=== PATIENT | female | born 1965 | race Caucasian/White ===

== ENCOUNTER 2016-12-06 12:48 | Emergency (ER) | payer MEDICARE, MEDICAID ==
[2016-12-06] MEDS ORDERED: MORPHINE 2 MG/ML SYRINGE IVP STA (13:52)
[2016-12-06] MEDS ORDERED: SODIUM CHLORIDE 0.9% 1,000 ML IV ONE (13:54)
[2016-12-06] MEDS ORDERED: MORPHINE 2 MG/ML SYRINGE ONE (14:11)
[2016-12-06] MEDS ORDERED: LIDOCAINE VISCOUS 2% 15 ML UDC MM STA (15:52)
[2016-12-06] MEDS ORDERED: HYDROcod/ACETAM 5/325 MG TABLET PO STA (15:52)
[2016-12-06] MEDS ORDERED: MAG HYDROX/AL HYDROX/SIMETH 30 ML UDC PO STA (15:52)
[2016-12-06] MEDS ORDERED: SUCRALFATE 1 GM/10 ML UDC PO STA (15:52)
[2016-12-06] MEDS ORDERED: MAG HYDROX/AL HYDROX/SIMETH 30 ML UDC ONE (16:08)
[2016-12-06] MEDS ORDERED: HYDROcod/ACETAM 5/325 MG TABLET ONE (16:08)
[2016-12-06] MEDS ORDERED: LIDOCAINE VISCOUS 2% 15 ML UDC MM ONE (16:08)
[2016-12-06] MEDS ORDERED: SUCRALFATE 1 GM/10 ML UDC ONE (16:08)
== END 2016-12-06 16:38 | disposition home or self-care (01) ==
DX: R10.11 Right upper quadrant pain (principal); R10.13 Epigastric pain; F17.200 Nicotine dependence, unspecified, uncomplicated
CPT/HCPCS: 36415; 74177; 76705; 80053; 83690; 85025; 96374; 99283; 99284; A9270

== ENCOUNTER 2016-12-28 | Outpatient (CLI) | payer MEDICARE, MEDICAID | END 2016-12-28 15:08 | disposition critical access hospital (66) | CPT/HCPCS: A0425; A0429 ==

== ENCOUNTER 2016-12-28 15:36 | Emergency (ER) | payer MEDICARE, MEDICAID ==
[2016-12-28] MEDS ORDERED: FOLIC ACID INJ 1 MG, THIAMINE INJ 100 MG, MAGNESIUM SULFATE 2 GM, MULTIVITAMIN 10 ML in... IV STA ×5 (15:55)
[2016-12-28] MEDS ORDERED: MAG HYDROX/AL HYDROX/SIMETH 30 ML UDC PO STA (15:55)
[2016-12-28] MEDS ORDERED: PANTOPRAZOLE 40 MG VIAL IVP STA (15:55)
[2016-12-28] MEDS ORDERED: LIDOCAINE VISCOUS 2% 15 ML UDC MM STA (15:55)
[2016-12-28] MEDS ORDERED: PANTOPRAZOLE 40 MG VIAL ONE (16:15)
[2016-12-28] MEDS ORDERED: MAG HYDROX/AL HYDROX/SIMETH 30 ML UDC ONE (16:15)
[2016-12-28] MEDS ORDERED: LIDOCAINE VISCOUS 2% 15 ML UDC MM ONE (16:15)
[2016-12-28] MEDS ORDERED: THIAMINE 100 MG TABLET PO STA (17:16)
[2016-12-28] MEDS ORDERED: ONDANSETRON ODT 4 MG TABLET TL STA (17:16)
[2016-12-28] MEDS ORDERED: PANTOPRAZOLE 40 MG TABLET PO STA (17:16)
[2016-12-28] MEDS ORDERED: PANTOPRAZOLE 40 MG TABLET ONE (17:18)
[2016-12-28] MEDS ORDERED: THIAMINE 100 MG TABLET PO ONE (17:18)
[2016-12-28] MEDS ORDERED: ONDANSETRON ODT 4 MG TABLET ONE (17:18)
== END 2016-12-28 17:50 | disposition home or self-care (01) ==
DX: K29.20 Alcoholic gastritis without bleeding (principal); F10.20 Alcohol dependence, uncomplicated; F17.200 Nicotine dependence, unspecified, uncomplicated; R94.5 Abnormal results of liver function studies
CPT/HCPCS: 36415; 80053; 80164; 83690; 83735; 85025; 99283; 99284; A9270; G0480; J3411; Q0162

== ENCOUNTER 2017-02-09 16:11 | Emergency (ER) | payer MEDICARE, MEDICAID ==
[2017-02-09] MEDS ORDERED: SODIUM CHLORIDE 0.9% 1,000 ML IV ONE (16:35)
[2017-02-09] MEDS ORDERED: PANTOPRAZOLE 40 MG VIAL IVP STA (16:49)
[2017-02-09] MEDS ORDERED: PANTOPRAZOLE 40 MG VIAL ONE (16:52)
[2017-02-09] MEDS ORDERED: NITROFURANTOIN MACRO 100 MG CAPSULE PO STA (18:37)
[2017-02-09] MEDS ORDERED: NITROFURANTOIN MACRO 100 MG CAPSULE PO ONE (18:47)
== END 2017-02-09 20:05 | disposition home or self-care (01) ==
DX: N30.01 Acute cystitis with hematuria (principal); R10.13 Epigastric pain; R11.2 Nausea with vomiting, unspecified; R03.0 Elevated blood-pressure reading, without diagnosis of hypertension; F10.20 Alcohol dependence, uncomplicated; G40.909 Epilepsy, unspecified, not intractable, without status epilepticus; F17.200 Nicotine dependence, unspecified, uncomplicated
CPT/HCPCS: 36415; 74022; 76705; 80053; 81001; 81025; 83690; 85025; 96361; 96374; 99283; 99284; A9270

== ENCOUNTER 2017-03-07 11:24 | Outpatient (CLI) | payer MEDICARE, MEDICAID | END 2017-03-07 11:25 | disposition home or self-care (01) | DX: R10.9 Unspecified abdominal pain (principal); R17 Unspecified jaundice; B18.2 Chronic viral hepatitis C ==

== ENCOUNTER 2017-03-17 10:45 | Outpatient (CLI) | payer MEDICARE, MEDICAID | END 2017-03-17 10:46 | disposition home or self-care (01) | DX: E87.6 Hypokalemia (principal) ==

== ENCOUNTER 2017-03-18 14:52 | Outpatient (CLI) | payer MEDICARE, MEDICAID | END 2017-03-18 14:53 | disposition home or self-care (01) | DX: R16.0 Hepatomegaly, not elsewhere classified (principal); R17 Unspecified jaundice ==

== ENCOUNTER 2017-03-21 11:37 | Outpatient (CLI) | payer MEDICARE, MEDICAID | END 2017-03-21 11:38 | disposition home or self-care (01) | DX: R17 Unspecified jaundice (principal); K80.20 Calculus of gallbladder without cholecystitis without obstruction ==

== ENCOUNTER 2017-03-25 09:51 | Outpatient (CLI) | payer MEDICARE, MEDICAID | END 2017-03-25 09:52 | disposition home or self-care (01) | DX: E87.6 Hypokalemia (principal) ==

== ENCOUNTER 2017-04-08 10:00 | Outpatient (CLI) | payer MEDICARE, MEDICAID | END 2017-04-08 10:01 | disposition home or self-care (01) | LOC: LAB.F 10:00 | PROVIDERS: ATTEND Nurse Practitioner Family | DX: E87.6 Hypokalemia (principal) | CPT/HCPCS: 36415; 84132 ==

== ENCOUNTER 2017-04-09 20:17 | Outpatient (CLI) | payer MEDICARE, MEDICAID | END 2017-04-09 20:18 | disposition EMS.NT | LOC: EMS 20:17 | PROVIDERS: ATTEND Surgery | DX: R00.2 Palpitations (principal) ==

== ENCOUNTER 2017-04-18 14:51 | Outpatient (CLI) | payer MEDICARE, MEDICAID ==
--- NOTE | 2017-04-20 09:26 | XRAY Report ---
EXAMS: 1. CERVICAL SPINE RADIOGRAPHY 2. THORACIC SPINE RADIOGRAPHY 3. LUMBAR SPINE RADIOGRAPHY EXAM DATE: 04/18/2017 03:54 PM. CLINICAL HISTORY: Low back pain, neck pain, and thoracic pain. COMPARISONS: None. TECHNIQUE: Two views of the cervical spine. Two views of the thoracic spine. Two views of the lumbar spine. FINDINGS: Alignment: The cervical, thoracic, and lumbar spine is normally aligned. Bones: The patient has seven cervical, twelve thoracic, and six lumbar vertebral bodies. No fractures or bone lesions. Disks: There is minimal anterior endplate spurring from L1 to L3. Facets: No degenerative disease. Sacroiliac Joints: Unremarkable. Soft Tissues: Nuchal ligament calcification is present posteriorly in the neck. IMPRESSION: 1. Six lumbar vertebral bodies. 2. Minimal degenerative disk change from L1 to L3. [facility] Referring Provider Line: [phone] SITE ID: [id number]
--- NOTE | 2017-04-20 09:26 | XRAY Report ---
EXAM: LEFT RIB RADIOGRAPHY EXAM DATE: 04/18/2017 03:54 PM. CLINICAL HISTORY: Left-sided rib pain. COMPARISON: None. TECHNIQUE: 2 views. FINDINGS: Bones: Old healed bilateral rib fractures are present. No acute fractures. Lungs: The visualized portions of the lungs are clear. Mediastinum: Heart and cardiomediastinal contours are unremarkable. Other: None. IMPRESSION: No acute findings. [facility] Referring Provider Line: [phone] SITE ID: [id number]
== END 2017-04-18 14:52 | disposition home or self-care (01) ==
LOC: DI.S 14:51
PROVIDERS: ATTEND Nurse Practitioner Family
DX: M51.36 Other intervertebral disc degeneration, lumbar region (principal); R07.81 Pleurodynia
CPT/HCPCS: 72082

== ENCOUNTER 2017-05-25 03:05 | Outpatient (CLI) | payer MEDICARE, MEDICAID | END 2017-05-25 03:06 | disposition critical access hospital (66) | LOC: EMS 03:05 | PROVIDERS: ATTEND Surgery | DX: M54.5 Low back pain (principal) | CPT/HCPCS: A0425; A0429 ==

== ENCOUNTER 2017-05-25 03:29 | Emergency (ER) | payer MEDICARE, MEDICAID ==
--- NOTE | 2017-05-25 03:52 | ED Physician Documentation ---
PD HPI BACK PAIN - Stated complaint Stated Complaint: BACK PAIN - Chief complaint Chief Complaint: Back Pain - History obtained from History obtained from: Patient, EMS - History of Present Illness Timing - onset: Chronic (she says she has had low back pain for years, worse the past 6 months or so. She has been to PCP and gotten Rx for Baclofen and Ibuprofen. Had not gotten improvement with gabapentin in the past. Pain radiates down right leg in particular but both at times. Feels general weakness of right leg and uses cane to walk. She says pain has been worse the past few weeks. Has had referral to Back Surgeon in [place] who felt she was high risk surgery despite some canal stenosis and disc process. This was a few years ago. Recently seen by PCP again and had PT water therapy ordered. Patient having trouble getting to PT. She reports PCP told her she needs to do this before can get repeat MRI (last one a few years ago 2013).) Timing - details: Gradual onset, Still present (worse the past few weeks and the past 6 months.), Waxing and waning Location: Lower, Right Quality: Pain, Spasm, Aching Associated symptoms: Weakness (right leg particularly). No: Fever, Numbness, Incontinent of urine Worsened by: Movement. No: Twisting, Palpation Similar symptoms before: Diagnosis (disc disease, canal stenosis and pinched nerves by MRI 2013, but not good surgical candidate per patient when evaluated by back surgeon in [place]. Has not gotten second eval/opinion, according to patient. She was self treating with alcohol the past week or so.) Recently seen: Clinic Review of Systems Constitutional: denies: Fever, Chills, Myalgias Throat: denies: Sore throat Cardiac: denies: Chest pain / pressure, Palpitations Respiratory: denies: Dyspnea GI: denies: Abdominal Pain, Nausea, Vomiting, Diarrhea Neurologic: reports: Focal weakness (right leg mainly). 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 HEENT: None Psych: Anxiety, Post traumatic stress disorder Musculoskeletal: Chronic back pain Derm: None - Past Surgical History Past Surgical History: Yes Ortho: Other /CASEWORKER: Tubal ligation - Present Medications Home Medications: Ambulatory Orders Medication Instructions Recorded Confirmed Divalproex ER [Depakote ER] 500 mg PO BID 10/21/13 01/07/16 Ibuprofen 800 mg PO TID PRN 04/20/15 01/07/16 Lorazepam 1 mg PRN 07/21/15 01/07/16 Albuterol Sulfate [Ventolin Hfa] 2 puffs IH Q4HR PRN #1 hfa.aer.ad 01/07/16 diazePAM [Valium] 5 mg PO TID PRN #10 tablet 01/07/16 predniSONE [Deltasone] 40 mg PO DAILY 5 Days 01/07/16 Hydrocodone/Acetaminophen 1 - 2 each PO Q6H PRN #14 tablet 12/06/16 [Hydrocodon-Acetaminophen 5-325] Omeprazole [PriLOSEC] 20 mg PO DAILY #30 capsule 12/06/16 Lorazepam [Ativan] 1 mg PO TID PRN #10 tablet 12/28/16 Omeprazole [PriLOSEC] 20 mg PO DAILY #14 capsule 12/28/16 Nitrofurantoin Monohyd/M-Cryst 100 mg PO BID 5 Days 02/09/17 [Macrobid 100 mg Capsule] raNITIdine [Zantac] 150 mg PO DAILY #30 tablet 02/09/17 Dexamethasone [Decadron] 4 mg PO DAILY #10 tablet 05/25/17 Methocarbamol [Robaxin] 500 mg PO Q6H PRN #25 tablet 05/25/17 Morphine Sulfate 15 mg PO BID #30 tablet 05/25/17 - Allergies Allergies/Adverse Reactions: Allergies Allergy/AdvReac Type Severity Reaction Status Date / Time ceftriaxone sodium * Allergy Severe RASH,HIVES, Verified 05/25/17 03:33 [From Rocephin] BURNING,ITC JAMIE cephalexin monohydrate * Allergy Severe RASH,HIVES, Verified 05/25/17 03:33 [From Keflex] BURNING,ITC JAMIE ciprofloxacin Allergy Severe RASH,HIVES, Verified 05/25/17 03:33 BURNING,ITC JAMIE phenazopyridine HCl * Allergy Severe SWELLING Verified 05/25/17 03:33 [From Pyridium] OF AIRWAY Sulfa (Sulfonamide Allergy Severe RASH,HIVES, Verified 05/25/17 03:33 Antibiotics) BURNING,ITC JAMIE gentamicin Allergy Edema Verified 05/25/17 03:33 lamotrigine [From Lamictal] Allergy Hives Verified 05/25/17 03:33 levetiracetam [From Keppra] Allergy Anxiety Verified 05/25/17 03:33 - Social History Does the pt smoke?: Yes Smoking Status: Current every day smoker Does the pt drink ETOH?: No Does the pt have substance abuse?: No - Immunizations Immunizations are current?: Yes Immunizations: TDAP >10years/unknown - POLST Patient has POLST: No PD ED PE NORMAL - Vitals Vital signs reviewed: Yes - General General: Alert and oriented X 3, Other (smell of alcohol on breath. She is talkative and oriented, appears in pain. Flexing right leg up and holding it with arms. Appears uncomfortable. ). No: Well developed/nourished (seems thin and frail. ) - Neck Neck: Supple, no meningeal sign, No adenopathy - Cardiac Cardiac: RRR, No murmur - Respiratory Respiratory: Clear bilaterally - Abdomen Abdomen: Soft, Non tender - Back Back: No CVA TTP, No spinal TTP (tender in SI joint areas right more than left) - Derm Derm: Normal color, Warm and dry, No rash - Extremities Extremities: No edema, No calf tenderness / cord - Neuro Neuro: Alert and oriented X 3 (mildly emotional, frustrated about not getting repeat tests/referrals. ), Other (1+ DTR on knees both sides. There is poor muscle mass generally, but perhaps some more muscle loss on right calf/leg. Decreased strength generally both legs, right more than left. Has sensory to touch in both legs to touch and sharp. ) Results - Vitals Vitals: Vital Signs - 24 hr 05/25/17 05/25/17 05/25/17 03:31 04:03 04:44 Temperature 36.2 C L Heart Rate 85 86 67 Respiratory 18 18 18 Rate Blood Pressure 147/103 H 131/85 H 120/76 O2 Saturation 97 97 95 Oxygen O2 Source Room air PD MEDICAL DECISION MAKING - ED course Complexity details: reviewed old records, considered differential (chronic pain , with some leg weakness and muscl wasting but has been for over 6 months to years and has seen back surgeon 3 years ago. Could perhaps do with updated MRI and referral/evaluation by other back surgeon. Consider [facility], but defer to PCP and insurance provider lists. Short term, can give Rx for some pain meds to deal with the current exac of pain the past few weeks. Gave steroid short course dosing to see if it would help. For pain meds, gave Rx for Morphine tablets, as has slightly more sustained effect and lower euphoria/addiction potential. ), d/w patient Departure - Departure Disposition: 01 Home, Self Care Clinical Impression: Back pain Qualifiers: Back pain location: low back pain Chronicity: chronic Back pain laterality: bilateral Sciatica presence: with sciatica Sciatica laterality: sciatica of right side Qualified Code(s): M54.41 - Lumbago with sciatica, right side Condition: Stable Record reviewed to determine appropriate education?: Yes Instructions: ED Sciatica, ED Low Back Pain Injury Follow-Up: Sherly Thomas ARNP [Primary Care Provider] - Prescriptions: Dexamethasone [Decadron] 4 mg PO DAILY #10 tablet Morphine Sulfate 15 mg PO BID #30 tablet Methocarbamol [Robaxin] 500 mg PO Q6H PRN #25 tablet PRN Reason: Spasms Comments: Follow up with PCP in the Clinic. They might consider referral to other back specialist, such as [facility] or such, if you would like a second opinion about back surgery. The insurances may require trying more physical therapy before being able to get repeat MRI or back surgery referral, though. Try Decadron for inflammation daily for the next 10 days. Can try different muscle relaxant (methocarbamol) to see if it works better than Baclofen you have. For the back pain, I will prescribe some pain meds to try and it should help for now but would be up to PCP whether to continue it. Heat and gentle stretching for the low back though not a heating long enough to cause skin avilez. Discharge Date/Time: 05/25/17 05:03
[2017-05-25] MEDS ORDERED: HYDROmorphone 1 MG/ML SYRINGE IM STA (03:53)
[2017-05-25] MEDS ORDERED: DEXAMETHASONE 10 MG/ML VIAL PO STA (03:53)
[2017-05-25] MEDS ORDERED: ACETAMINOPHEN 325 MG TABLET PO STA (03:54)
[2017-05-25] MEDS ORDERED: ACETAMINOPHEN 325 MG TABLET PO ONE (03:55)
[2017-05-25] MEDS ORDERED: DEXAMETHASONE 10 MG/ML VIAL ONE (03:55)
[2017-05-25] MEDS ORDERED: HYDROmorphone 1 MG/ML SYRINGE ONE (03:55)
[2017-05-25 04:49] VITALS: BP 120/76
== END 2017-05-25 05:03 | disposition home or self-care (01) ==
LOC: EDUNIT# → EDBD → ED 03:29 → SUPCPDRO 03:29 → ED 05:03
DX: M54.41 Lumbago with sciatica, right side (principal); M62.81 Muscle weakness (generalized); F17.200 Nicotine dependence, unspecified, uncomplicated
CPT/HCPCS: 96372; 99283; 99284; A9270; J1170

== ENCOUNTER 2017-07-08 12:27 | Outpatient (CLI) | payer MEDICARE, MEDICAID ==
--- NOTE | 2017-07-08 17:02 | MRI Report ---
EXAM: MRI LUMBAR SPINE WITHOUT CONTRAST EXAM DATE: 07/08/2017 01:08 PM. CLINICAL HISTORY: Lumbar back pain with radiculopathy. Bone marrow edema. COMPARISON: CT 07/31/2014, MRI 10/21/2014. TECHNIQUE: Multiplanar, multisequence T1-weighted and fluid-sensitive sequences of the lumbar spine f rom T12 to S1 without contrast. Other: None. FINDINGS: Spinal Cord: The conus terminates at L1. No signal abnormality in the visualized spinal cord. Alignment: Normal. No scoliosis or spondylolisthesis. Bone Marrow: The prior CT demonstrates 6 nonrib-bearing lumbar vertebral bodies. These will be labele d L1 to L6 on this examination which may differ from numbering on prior examinations. No gross fractu res or bone lesions. No bone marrow edema. Disk Levels/Facets: T12-L1: Unremarkable. L1-L2: Unremarkable. L2-L3: Unremarkable. L3-L4: Unremarkable. L4-L5: Small foraminal area protrusions result in minimal bilateral foraminal narrowing. L5-L6: A broad-based disk bulge, mild ligamentum flavum hypertrophy and mild facet hypertrophy result in moderate spinal canal, mild right foraminal, and minimal left foraminal narrowing. Small bilatera l facet effusions are present. There is a synovial cyst external to the spinal canal adjacent to the left facet joint that measures 3 mm. L6-S1: A minimal posterior disk bulge results in minimal spinal canal narrowing. Musculature: Normal. No edema or fatty atrophy. Other: The visualized pelvic cavity is unremarkable. IMPRESSION: 1. Six Lumbar vertebral bodies. 2. Mild right foraminal and moderate spinal canal narrowing at L5-L6 due to disk and posterior elemen ts degenerative changes. Comment: The following findings are so common in adults without low back pain that while we report th eir presence, they must be interpreted with caution and in the context of the clinical situation. (Re airam Castillo et al, Spine 2001) Prevalence of findings in patients without low back pain: Disk degeneration (any evidence): 92% Disk desiccation/T2 signal loss: 83% Disk height loss: 56% Disk bulge: 64% Disk protrusion: 32% Annular tear/high intensity zone: 38% [facility] Referring Provider Line: [phone] SITE ID: [id number]
== END 2017-07-08 12:28 | disposition home or self-care (01) ==
LOC: DI 12:27
PROVIDERS: ATTEND Nurse Practitioner Family
DX: M51.36 Other intervertebral disc degeneration, lumbar region (principal); M51.26 Other intervertebral disc displacement, lumbar region; M25.48 Effusion, other site; M71.38 Other bursal cyst, other site
CPT/HCPCS: 72148

== ENCOUNTER 2017-07-24 16:56 | Outpatient (CLI) | payer MEDICARE, MEDICAID | END 2017-07-24 16:57 | disposition critical access hospital (66) | LOC: EMS 16:56 | PROVIDERS: ATTEND Surgery | DX: M54.5 Low back pain (principal) | CPT/HCPCS: A0425; A0429 ==

== ENCOUNTER 2017-07-24 17:26 | Emergency (ER) | payer MEDICARE, MEDICAID ==
[2017-07-24 17:32] VITALS: BP 122/81
== END 2017-07-24 19:16 | disposition left against medical advice (07) ==
LOC: EDUNIT# → SUPCPDRO 17:26 → ED 17:26
DX: Z53.21 Procedure and treatment not carried out due to patient leaving prior to being seen by health care provider (principal)
CPT/HCPCS: 99282

== ENCOUNTER 2017-07-24 19:23 | Emergency (ER) | payer MEDICARE, MEDICAID ==
[2017-07-24] MEDS ORDERED: KETOROLAC 60 MG/2 ML VIAL IM STA (20:03)
[2017-07-24] MEDS ORDERED: predniSONE 20 MG TABLET PO STA (20:03)
[2017-07-24] MEDS ORDERED: HYDROmorphone 1 MG/ML SYRINGE IM STA (20:03)
[2017-07-24] MEDS ORDERED: predniSONE 20 MG TABLET ONE (20:11)
[2017-07-24] MEDS ORDERED: KETOROLAC 60 MG/2 ML VIAL ONE (20:11)
[2017-07-24] MEDS ORDERED: HYDROmorphone 1 MG/ML SYRINGE ONE (20:11)
--- NOTE | 2017-07-24 21:58 | ED Physician Documentation ---
History of Present Illness - Stated complaint Stated Complaint: BACK PAIN - Chief complaint Chief Complaint: Back Pain - History obtained from History obtained from: Patient - Additonal information Additional information: Patient is a 51-year-old female without any significant past medical history who is had low back pain for about a month. There is no definitive injury that prompted the low back pain. The back pain does not radiate into the leg but does radiate to the lower back bilaterally. The pain is been severe she says and sometimes it causes her difficulty in walking although she has not had any weakness. She does mention that sometimes both legs feel numb and tingly. She denies any perineal anesthesia and has not had any problems with continence in regards to bladder or bowel function. She denies having any fever and she is not a injection drug user. Review of systems: For pertinent positive and negatives in the review of systems please see the history of present illness, otherwise all other systems have been reviewed and are negative. Dragon disclaimer: Parts of this medical record were created using voice recognition technology. Because of the inherent limitations of this system, occasional same sounding word substitutions do occur and persist despite proofreading. Please read the document for context. Review of Systems Constitutional: denies: Fever Musculoskeletal: reports: Back pain. denies: Joint pain, Extremity swelling, Joint swelling Neurologic: reports: Numbness. 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: Tubal ligation - Present Medications Home Medications: Ambulatory Orders Medication Instructions Recorded Confirmed Ibuprofen 800 mg PO TID PRN 04/20/15 07/24/17 Baclofen [Baclofen] 10 mg ORAL DAILY 07/24/17 07/24/17 HYDROcod/ACETAM 5/325 [[place] 5/325] 1 - 2 ea PO Q6H PRN #15 tablet 07/24/17 Ibuprofen 600 mg PO TID PRN #14 tablet 07/24/17 Prednisone 40 mg PO DAILY #8 tablet 07/24/17 - Allergies Allergies/Adverse Reactions: Allergies Allergy/AdvReac Type Severity Reaction Status Date / Time ceftriaxone sodium * Allergy Severe RASH,HIVES, Verified 07/24/17 19:32 [From Rocephin] BURNING,ITC JAMIE cephalexin monohydrate * Allergy Severe RASH,HIVES, Verified 07/24/17 19:32 [From Keflex] BURNING,ITC JAMIE ciprofloxacin Allergy Severe RASH,HIVES, Verified 07/24/17 19:32 BURNING,ITC JAMIE phenazopyridine HCl * Allergy Severe SWELLING Verified 07/24/17 19:32 [From Pyridium] OF AIRWAY Sulfa (Sulfonamide Allergy Severe RASH,HIVES, Verified 07/24/17 19:32 Antibiotics) BURNING,ITC JAMIE gentamicin Allergy Edema Verified 07/24/17 19:32 lamotrigine [From Lamictal] Allergy Hives Verified 07/24/17 19:32 levetiracetam [From Keppra] Allergy Anxiety Verified 07/24/17 19:32 - Social History Does the pt smoke?: Yes Smoking Status: Current every day smoker Does the pt drink ETOH?: No Does the pt have substance abuse?: No - Immunizations Immunizations are current?: Yes Immunizations: TDAP >10years/unknown - POLST Patient has POLST: No PD ED PE NORMAL - Vitals Vital signs reviewed: Yes - General General: Alert and oriented X 3, Well developed/nourished, Other (Patient is a thin female short stature in mild distress secondary to low back pain) - HEENT HEENT: Atraumatic - Neck Neck: Supple, no meningeal sign - Cardiac Cardiac: RRR, No murmur, No gallop, No rub - Respiratory Respiratory: No respiratory distress, Clear bilaterally - Abdomen Abdomen: Normal bowel sounds, Soft, Non tender, Non distended - Back Back: Other (Decreased lordosis and increase muscular spasm bilateral paraspinal muscles. No spinal tenderness) - Derm Derm: Normal color, Warm and dry, No rash, Other - Extremities Extremities: No deformity, No tenderness to palpate, Normal ROM s pain - Neuro Neuro: Alert and oriented X 3, No motor deficit, No sensory deficit - Psych Psych: Normal mood, Normal affect Results - Vitals Vitals: Vital Signs - 24 hr 07/24/17 19:30 Temperature 37.4 C Heart Rate 114 H Respiratory 20 Rate Blood Pressure 127/91 H O2 Saturation 98 Oxygen O2 Source Room air PD MEDICAL DECISION MAKING - ED course Complexity details: reviewed old records, reviewed results, re-evaluated patient ED course: 51-year-old female who has had low back pain for about a month. On examination she has increased tonicity of paraspinal muscles bilaterally. There are no high risk findings on physical exam. She has good strength and normal reflexes on physical exam. She could demonstrate walking after getting pain control and can do calf raises without difficulty. I did look at her MRI that was done on . This MRI shows multilevel DJD and a small synovial cyst however there is no concerning severe disc disease or spinal canal narrowing. The patient or spinal canal narrowing. The patient was given medications here and looks and feels better. She will be discharged home with a small amount of prednisone, Motrin, and hydrocodone. Disposition: To home Clinical impression: 1. low back pain and strain Departure - Departure Disposition: 01 Home, Self Care Clinical Impression: Back pain Qualifiers: Back pain location: low back pain Chronicity: acute Back pain laterality: bilateral Sciatica presence: without sciatica Qualified Code(s): M54.5 - Low back pain Condition: Good Instructions: ED Low Back Pain Injury Follow-Up: Sherly Thomas ARNP [Primary Care Provider] - Prescriptions: Ibuprofen 600 mg PO TID PRN #14 tablet PRN Reason: Pain HYDROcod/ACETAM 5/325 [[place] 5/325] 1 - 2 ea PO Q6H PRN #15 tablet PRN Reason: Pain Prednisone 40 mg PO DAILY #8 tablet
[2017-07-24 22:09] VITALS: BP 110/75
== END 2017-07-24 22:19 | disposition home or self-care (01) ==
LOC: ED 19:23
DX: M54.5 Low back pain (principal); Z87.11 Personal history of peptic ulcer disease; F17.200 Nicotine dependence, unspecified, uncomplicated
CPT/HCPCS: 96372; 99282; 99283; 99284; J1170; J7512

== ENCOUNTER 2017-08-23 19:45 | Outpatient (CLI) | payer MEDICARE, MEDICAID | END 2017-08-23 19:46 | disposition critical access hospital (66) | LOC: EMS 19:45 | PROVIDERS: ATTEND Surgery | DX: M54.5 Low back pain (principal) | CPT/HCPCS: A0425; A0429 ==

== ENCOUNTER 2017-08-23 20:10 | Emergency (ER) | payer MEDICARE, MEDICAID ==
--- NOTE | 2017-08-23 20:19 | ED Physician Documentation ---
PD HPI BACK PAIN - Stated complaint Stated Complaint: CHRONIC BACK PN - Chief complaint Chief Complaint: Back Pain - History obtained from History obtained from: Patient - History of Present Illness Timing - onset: Chronic Timing - details: Waxing and waning Pain level max: 10 Pain level now: 10 Location: Lower, Right, Left Quality: Pain, Similar to prior episodes Associated symptoms: No: Fever, Weakness, Numbness, Incontinent of urine Improves with: Rest Worsened by: Movement Similar symptoms before: Work up / diagnostics (MRI in June (2016)) Recently seen: Emergency Dept ([facility] ED visits last month and two months ago for similar symptoms.) - Additional information Additional information: c/o exacerbation of her chronic low back pain, radiating down both legs but worse RLE. Has been evaluated by orthopedic surgery and was told surgical intervention was not recommended. She says she has been referred to a neurologist but has not seen one yet. Review of Systems Constitutional: denies: Fever, Chills, Sweats Cardiac: reports: Reviewed and negative Respiratory: reports: Reviewed and negative GI: reports: Reviewed and negative Musculoskeletal: reports: Back pain. denies: Pain with weight bearing Neurologic: reports: Focal weakness (BLE). 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 MELTER: Tubal ligation - Present Medications Home Medications: Ambulatory Orders Medication Instructions Recorded Confirmed Ibuprofen 800 mg PO TID PRN 04/20/15 08/23/17 Baclofen [Baclofen] 10 mg ORAL DAILY 07/24/17 08/23/17 Ibuprofen 600 mg PO TID PRN #14 tablet 07/24/17 08/23/17 Hydrocodone/Acetaminophen 1 - 2 each PO Q6HR PRN #14 tablet 08/23/17 [Hydrocodon-Acetaminophen 5-325] - Allergies Allergies/Adverse Reactions: Allergies Allergy/AdvReac Type Severity Reaction Status Date / Time ceftriaxone sodium * Allergy Severe RASH,HIVES, Verified 08/23/17 20:14 [From Rocephin] BURNING,ITC JAMIE cephalexin monohydrate * Allergy Severe RASH,HIVES, Verified 08/23/17 20:14 [From Keflex] BURNING,ITC JAMIE ciprofloxacin Allergy Severe RASH,HIVES, Verified 08/23/17 20:14 BURNING,ITC JAMIE phenazopyridine HCl * Allergy Severe SWELLING Verified 08/23/17 20:14 [From Pyridium] OF AIRWAY Sulfa (Sulfonamide Allergy Severe RASH,HIVES, Verified 08/23/17 20:14 Antibiotics) BURNING,ITC JAMIE gentamicin Allergy Edema Verified 08/23/17 20:14 lamotrigine [From Lamictal] Allergy Hives Verified 08/23/17 20:14 levetiracetam [From Keppra] Allergy Anxiety Verified 08/23/17 20:14 - Social History Does the pt smoke?: Yes Smoking Status: Current every day smoker Does the pt drink ETOH?: No Does the pt have substance abuse?: No - Immunizations Immunizations are current?: Yes Immunizations: TDAP >10years/unknown - POLST Patient has POLST: No PD ED PE NORMAL - Vitals Vital signs reviewed: Yes - General General: Alert and oriented X 3, Well developed/nourished, Other (appears to be uncomfortable due to LBP) - Cardiac Cardiac: RRR, No murmur - Respiratory Respiratory: No respiratory distress, Clear bilaterally - Back Back: No CVA TTP, No spinal TTP - Derm Derm: Normal color, Warm and dry - Extremities Extremities: No deformity, No tenderness to palpate, No calf tenderness / cord - Neuro Neuro: Alert and oriented X 3, No sensory deficit, Other (no plantarflexion bilaterally when tested/instructed to do so, although noted to move feet (both dorsiflexion and plantarflexion) during HPI) Results - Vitals Vitals: Vital Signs - 24 hr 08/23/17 08/23/17 20:13 21:48 Temperature 36.6 C Heart Rate 100 89 Respiratory 20 18 Rate Blood Pressure 137/105 H 129/86 H O2 Saturation 97 97 Oxygen O2 Source Room air PD MEDICAL DECISION MAKING - ED course Complexity details: reviewed old records, re-evaluated patient, considered differential, d/w patient ED course: c/o exacerbation of chronic LBP without apparent cause of this exacerbation, denies injury. Options for symptom control were discussed, she says steroids have not helped in the past and cause difficulty sleeping. She also says toradol has not been effective when given in the past. She says the only medication that has provided relief in the past without significant side effect is hydromorphone. She was given 1 mg IM dilaudid. On initial exam, she said she could not move either of her feet due to weakness, although subsequent to the dilaudid, she walked out to the desk to tell the nurse she was ready to go home. On reevaluation, she was very upset that I could not give her a specific diagnosis regarding the cause of her pain. Departure - Departure Disposition: Home, Self Care Clinical Impression: Chronic back pain Qualifiers: Back pain location: low back pain Back pain laterality: bilateral Sciatica presence: with sciatica Sciatica laterality: bilateral sciatica Qualified Code(s ): M54.42 - Lumbago with sciatica, left side Condition: Good Instructions: ED Chronic Pain Management, NARCOTIC, Oral, ED Neck Back Pain General Follow-Up: Sherly Thomas ARNP [Primary Care Provider] - Prescriptions: Hydrocodone/Acetaminophen [Hydrocodon-Acetaminophen 5-325] 1 - 2 each PO Q6HR PRN #14 tablet PRN Reason: Pain Discharge Date/Time: 08/23/17 21:48
[2017-08-23] MEDS ORDERED: HYDROmorphone 1 MG/ML CARPUJECT IM STA (20:41)
[2017-08-23] MEDS ORDERED: HYDROmorphone 1 MG/ML SYRINGE ONE (20:58)
[2017-08-23] MEDS ORDERED: HYDROcod/ACETAM 5/325 MG TABLET PO STA (21:35)
[2017-08-23] MEDS ORDERED: HYDROcod/ACETAM 5/325 MG TABLET ONE (21:44)
[2017-08-23 21:49] VITALS: BP 129/86
== END 2017-08-23 21:48 | disposition home or self-care (01) ==
LOC: EDBD → EDUNIT# → ED 20:10
DX: M54.42 Lumbago with sciatica, left side (principal); F17.200 Nicotine dependence, unspecified, uncomplicated
CPT/HCPCS: 96372; 99283; A9270; J1170

== ENCOUNTER 2017-10-02 09:54 | Outpatient (CLI) | payer MEDICARE, MEDICAID ==
--- NOTE | 2017-10-02 14:40 | MRI Report ---
EXAM: MRI PELVIS WITHOUT CONTRAST EXAM DATE: 10/02/2017 11:25 AM. CLINICAL HISTORY: Chronic bilateral low back pain, with sciatica present. COMPARISON: None. TECHNIQUE: Multiplanar, multisequence T1-weighted and fluid-sensitive sequences of the pelvis without contrast. Other: None. FINDINGS: Bones: No fractures or subluxations. No marrow edema or bone lesions. Lower Lumbar Spine: Unremarkable. Sacroiliac Joints: No effusion or sacroiliitis. Right Hip: No acetabular retroversion. Femoral head-neck offset is within normal limits. No effusion. Left Hip: No acetabular retroversion. Femoral head-neck offset is within normal limits. No effusion. Symphysis Pubis: Unremarkable. Musculature: No edema or fatty atrophy. Pelvic Cavity: The visualized bowel, bladder, and reproductive organs are unremarkable. No lymphadeno aleida. No free fluid in the pelvis. Other: The visualized sciatic nerves are unremarkable. No bursitis. The subcutaneous tissues are unre markable. IMPRESSION: No MRI abnormalities in the pelvis. In particular, posterior pelvis, lumbosacral plexus, piriformis musculature, sciatic nerves, and sciatic notches appear normal. [facility]CULOS[facility] SECTION Referring Provider Line: [phone] SITE ID: [id number]
--- NOTE | 2017-10-03 08:33 | Ultrasound Report ---
ABIs: 10/02/2017 CLINICAL INDICATION: Bilateral leg pain. TECHNIQUE: Real-time sonographic vascular imaging was performed by the law enforcement director through the lower extremities utilizing both color-flow and Doppler spectral analysis. Multiple community relations representative static images were saved for review. RIGHT SIDE SITE PSV WAVEFORM STEN SHAYY -- -- MAO -- -- LEATHA -- -- SILVINA -- -- EIA -- -- COAL HANDLER -- -- PSFA -- -- MSFA -- -- DSFA -- -- PFA -- -- POP -- -- KEYSHA -- -- COUNSEL 51 biphasic PER -- -- DPA 58 biphasic LEFT SIDE SITE PSV WAVEFORM STEN SILVINA -- -- EIA -- -- COAL HANDLER -- -- PSFA -- -- MSFA -- -- DSFA -- -- PFA -- -- POP -- -- KEYSHA -- -- COUNSEL 47 biphasic PER -- -- DPA 44 biphasic TECHNIQUE: Real-time scanning was performed. SYSTOLIC PRESSURES RIGHT LEFT BRACHIAL ARTERY 128/82 119/68 POSTERIOR TIBIAL ARTERY 147/82 153/76 ANTERIOR TIBIAL ARTERY -- -- PERONEAL ARTERY -- -- ANKLE/ARM INDEX 1.14 1.19 ABIs are normal, with the right measuring 1.14, and the left measuring 1.19. IMPRESSION: NORMAL ABIs. [facility] HOSPITALFrankie
== END 2017-10-02 09:55 | disposition home or self-care (01) ==
LOC: DI 09:54
PROVIDERS: ATTEND Psychiatry & Neurology Neurology
DX: M54.40 Lumbago with sciatica, unspecified side (principal); M25.551 Pain in right hip; M25.552 Pain in left hip; G89.29 Other chronic pain; M79.605 Pain in left leg; M79.604 Pain in right leg; M62.81 Muscle weakness (generalized)
CPT/HCPCS: 72195; 93922

== ENCOUNTER 2017-11-25 09:14 | Emergency (ER) | payer MEDICARE, MEDICAID ==
--- NOTE | 2017-11-25 09:50 | ED Physician Documentation ---
PD HPI ABD PAIN - Stated complaint Stated Complaint: VOMITING - Chief complaint Chief Complaint: Abd Pain - History obtained from History obtained from: Patient - History of Present Illness Timing - onset: How many days ago (few) Timing - duration: Days Timing - details: Gradual onset, Still present, Waxing and waning Quality: Cramping, Aching, Pain Location: RUQ, Epigastric Radiation: Upper back Improved by: No: Eating, Meds Worsened by: Eating, Palpation. No: Breathing Associated symptoms: Nausea, Vomiting, Loss of appetite. No: Fever, Hematemesis , Diarrhea, Constipation, Dysuria, Near syncope / syncope (but does feel weak and lightheaded.) Similar symptoms before: Diagnosis (gastritis and also biliary colic with sludge and stones. Elevated LFTs in the past. No pancreatitis.), Work up / diagnostics (has had U/S and MRCP with no prior ductal blockages. Some stones and sludge in GB. No prior cholecystitis per se.) Review of Systems Constitutional: reports: Fatigue. denies: Fever, Chills, Myalgias Nose: denies: Rhinorrhea / runny nose, Congestion Throat: denies: Sore throat Cardiac: denies: Chest pain / pressure Respiratory: denies: Cough GI: reports: Abdominal Pain (upper middle), Nausea, Vomiting. denies: Constipation, Diarrhea : denies: Dysuria, Frequency, Discharge Skin: denies: Rash, Lesions Neurologic: reports: Generalized weakness. 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 : None HEENT: None Psych: Anxiety, Post traumatic stress disorder Musculoskeletal: Chronic back pain Derm: None - Past Surgical History Past Surgical History: Yes Ortho: Other /BREWERY TECHNICIAN: Tubal ligation - Present Medications Home Medications: Ambulatory Orders Medication Instructions Recorded Confirmed Baclofen [Baclofen] 10 mg ORAL DAILY 07/24/17 11/25/17 Ibuprofen 600 mg PO TID PRN #14 tablet 07/24/17 11/25/17 Famotidine [Pepcid] 20 mg PO ONCE #30 tablet 11/25/17 HYDROcod/ACETAM 5/325 [Rhodell 5/325] 1 tab PO Q6H PRN #20 tablet 11/25/17 Lorazepam [Ativan] 1 mg PO QPM PRN #20 tablet 11/25/17 Ondansetron Odt [Zofran] 4 mg TL Q6H PRN #20 tablet 11/25/17 Sucralfate 1 gm PO TID #21 tablet 11/25/17 - Allergies Allergies/Adverse Reactions: Allergies Allergy/AdvReac Type Severity Reaction Status Date / Time ceftriaxone sodium * Allergy Severe RASH,HIVES, Verified 11/25/17 09:30 [From Rocephin] BURNING,ITC JAMIE cephalexin monohydrate * Allergy Severe RASH,HIVES, Verified 11/25/17 09:30 [From Keflex] BURNING,ITC JAMIE ciprofloxacin Allergy Severe RASH,HIVES, Verified 11/25/17 09:30 BURNING,ITC JAMIE phenazopyridine HCl * Allergy Severe SWELLING Verified 11/25/17 09:30 [From Pyridium] OF AIRWAY Sulfa (Sulfonamide Allergy Severe RASH,HIVES, Verified 11/25/17 09:30 Antibiotics) BURNING,ITC JAMIE gentamicin Allergy Edema Verified 11/25/17 09:30 lamotrigine [From Lamictal] Allergy Hives Verified 11/25/17 09:30 levetiracetam [From Keppra] Allergy Anxiety Verified 11/25/17 09:30 - Social History Does the pt smoke?: Yes Smoking Status: Current every day smoker Does the pt drink ETOH?: No Does the pt have substance abuse?: No - Immunizations Immunizations are current?: Yes Immunizations: TDAP >10years/unknown - POLST Patient has POLST: No PD ED PE NORMAL - Vitals Vital signs reviewed: Yes - General General: Alert and oriented X 3, Well developed/nourished, Other (appears uncomfortable with upper abd pain. ) - HEENT HEENT: PERRL, Ears normal, Pharynx benign. No: Moist mucous membranes - Neck Neck: Supple, no meningeal sign, No adenopathy - Respiratory Respiratory: Clear bilaterally - Abdomen Abdomen: Soft, Non tender Results - Vitals Vitals: Vital Signs - 24 hr 11/25/17 13:26 Temperature 37.3 C Heart Rate 90 Respiratory 17 Rate Blood Pressure 125/90 H O2 Saturation 99 Oxygen O2 Source Room air - Labs Labs: Laboratory Tests 11/25/17 11/25/17 09:40 09:40 WBC 6.8 RBC 3.43 L Hgb 13.3 Hct 37.9 MCV 110.4 H MCH 38.7 H MCHC 35.1 RDW 16.0 H Plt Count 93 L MPV 9.9 Neut # 5.2 Lymph # 0.9 L [place] # 0.6 Eos # 0.1 Baso # 0.0 Absolute Nucleated RBC 0.01 Nucleated RBC % 0.1 Sodium 135 Potassium 3.2 L Chloride 101 Carbon Dioxide 22 Anion Gap 12.0 BUN 9 Creatinine 0.5 Estimated GFR (MDRD) 131 Glucose 129 H Calcium 9.3 Total Bilirubin 1.5 H AST 336 H ALT 183 H Alkaline Phosphatase 194 H Total Protein 7.7 Albumin 4.2 Globulin 3.5 Albumin/Globulin Ratio 1.2 Lipase 19 L - Rads (name of study) RUQ U/S Radiology: Prelim report reviewed (CBD stable at 7-8 mm. No GB wall thickening. Some sludge in it (tech notes). ) PD MEDICAL DECISION MAKING - ED course Complexity details: reviewed results (has elevated LFTs, which could be from liver process rather than biliary, since CBD not dilated. Consider med or alcohol. her symptoms could be biliary colic, though sounds possibly gastritis. ), considered differential, d/w patient, d/w instructional systems design consultant (Dr. Bahena - who will see patient in office to consider likely alice and can fix hernia at same time. Needs referral from PCP. ) Departure - Departure Disposition: 01 Home, Self Care Clinical Impression: Abdominal pain, Elevated liver enzymes, Biliary colic Gastritis Qualifiers: Gastritis type: unspecified gastritis Chronicity: acute Gastritis bleeding: without bleeding Qualified Code(s): K29.00 - Acute gastritis without bleeding Umbilical hernia Qualifiers: Obstruction and gangrene presence: without obstruction or gangrene Qualified Code(s): K42.9 - Umbilical hernia without obstruction or gangrene Condition: Stable Record reviewed to determine appropriate education?: Yes Instructions: ED Abdominal Pain Gallstone Poss, ED Gastritis Follow-Up: Sherly Thomas ARNP [Primary Care Provider] - Stephon Bahena MD [Provider Admit Priv/Credential] - Prescriptions: Famotidine [Pepcid] 20 mg PO ONCE #30 tablet HYDROcod/ACETAM 5/325 [Rhodell 5/325] 1 tab PO Q6H PRN #20 tablet PRN Reason: Pain Lorazepam [Ativan] 1 mg PO QPM PRN #20 tablet PRN Reason: Anxiety Ondansetron Odt [Zofran] 4 mg TL Q6H PRN #20 tablet PRN Reason: Nausea / Vomiting Sucralfate 1 gm PO TID #21 tablet Comments: Drink lots of fluids. Use famotidine daily for the next month and sucralfate 3 times a day for the next week as some of her symptoms may be gastritis or an irritated stomach. You do have some elevation of the liver enzymes and some sludge in the gallbladder as suggests some gallbladder cause for the pain. The bile duct appears normal at this time. I talked with the surgeon 's office who says the would be willing to remove your gallbladder assuming that is part of the problem. He can fix the umbilical hernia at the same time. However he does need a referral from your primary care to his office so call your primary care to get a referral made. You can then call the surgery office to make an appointment. Use ondansetron if needed for nausea. Hydrocodone if needed for pain. Return if worsening pain, fevers, jaundice, other concerns. Discharge Date/Time: 11/25/17 13:27
[2017-11-25 10:17] LABS: BASOPHILS % (AUTO) 0.5 %; EOSINOPHILS # (AUTO) 0.1 10^3/uL (0.0-0.7); HGB - HEMOGLOBIN 13.3 g/dL (12.0-16.0); LYMPHOCYTES # (AUTO) 0.9 10^3/uL (1.5-3.5); LYMPHOCYTES % (AUTO) 13.2 %; MEAN CORPUSCULAR HEMOGLOBIN 38.7 pg (27.0-31.0); MEAN CORPUSCULAR HGB CONC 35.1 g/dL (32.0-36.0); MEAN CORPUSCULAR VOLUME 110.4 fL (81.0-99.0); MEAN PLATELET VOLUME 9.9 fL (7.9-10.8); MONOCYTES # (AUTO) 0.6 10^3/uL (0.0-1.0); MONOCYTES % (AUTO) 8.8 %; NEUTROPHILS # (AUTO) 5.2 10^3/uL (1.5-6.6); NEUTROPHILS % (AUTO) 76.5 %; PLT - PLATELET COUNT 93 10^3/uL (130-450); RED BLOOD COUNT 3.43 10^6/uL (4.20-5.40); WHITE BLOOD COUNT 6.8 x10^3/uL (4.8-10.8)
[2017-11-25 10:23] LABS: ALBUMIN 4.2 g/dL (3.2-5.5); ALBUMIN/GLOBULIN RATIO 1.2 (1.0-2.2); BILIRUBIN,TOTAL 1.5 mg/dL (0.2-1.0); CALCIUM 9.3 mg/dL (8.5-10.3); CREATININE 0.5 mg/dL (0.4-1.0); TOTAL PROTEIN 7.7 g/dL (6.7-8.2)
[2017-11-25] MEDS ORDERED: ONDANSETRON 4 MG/2 ML VIAL IVP STA (10:29)
[2017-11-25] MEDS ORDERED: HYDROmorphone 1 MG/ML SYRINGE IVP STA (10:29)
[2017-11-25] MEDS ORDERED: SODIUM CHLORIDE 0.9% 1,000 ML IV ONE (10:29)
[2017-11-25] MEDS ORDERED: FAMOTIDINE 20 MG/50 ML 50 ML IV ONE (10:30)
[2017-11-25] MEDS ORDERED: MAG HYDROX/AL HYDROX/SIMETH 30 ML UDC PO STA (10:31)
--- NOTE | 2017-11-25 12:00 | Ultrasound Report ---
EXAM: ABDOMEN ULTRASOUND LIMITED, RUQ EXAM DATE: 11/25/2017 11:23 AM. CLINICAL HISTORY: Upper abd pain; possible cholecystitis. COMPARISON: 12/06/2016. TECHNIQUE: Real-time scanning was performed with static images obtained. FINDINGS: Liver: The parenchyma is echogenic diffusely. No definite focal masses are identified, but evaluatio n is limited secondary to the echogenicity. At least 22 cm. Main portal vein flow: Hepatopetal. Gallbladder: Probable mild gallbladder sludge. No stones, wall thickening, or sonographic Ch's si gn. Biliary System: CBD measures 8 mm (previously 7 mm). No evidence of intrahepatic ductal dilatation. Other: No right hydronephrosis. IMPRESSION: 1. No cholelithiasis or cholecystitis. 2. Hepatic steatosis and hepatomegaly. [facility] Referring Provider Line: [phone] SITE ID: [id number]
[2017-11-25 13:27] VITALS: BP 125/90
== END 2017-11-25 13:27 | disposition home or self-care (01) ==
LOC: ED 09:14
DX: K80.50 Calculus of bile duct without cholangitis or cholecystitis without obstruction (principal); R74.8 Abnormal levels of other serum enzymes; K29.00 Acute gastritis without bleeding; K42.9 Umbilical hernia without obstruction or gangrene; F17.200 Nicotine dependence, unspecified, uncomplicated
CPT/HCPCS: 36415; 76705; 80053; 83690; 85025; 96361; 96365; 96366; 96375; 99283; 99284; A9270; J1170

== ENCOUNTER 2017-12-23 10:25 | Day surgery (SDC) | payer MEDICARE, MEDICAID ==
[2017-12-23] MEDS ORDERED: ceFAZolin 2 GM/50 ML 2 GM/50 ML BAG IV ONE (10:32)
[2017-12-23] MEDS ORDERED: LACTATED RINGERS 1,000 ML IV ONE ×3 (10:32→16:49)
[2017-12-23 11:20] LABS: BASOPHILS % (AUTO) 0.3 %; EOSINOPHILS # (AUTO) 0.1 10^3/uL (0.0-0.7); EOSINOPHILS % (AUTO) 1.1 %; HGB - HEMOGLOBIN 13.6 g/dL (12.0-16.0); LYMPHOCYTES # (AUTO) 1.2 10^3/uL (1.5-3.5); LYMPHOCYTES % (AUTO) 15.4 %; MEAN CORPUSCULAR HEMOGLOBIN 38.2 pg (27.0-31.0); MEAN CORPUSCULAR HGB CONC 34.8 g/dL (32.0-36.0); MEAN CORPUSCULAR VOLUME 109.7 fL (81.0-99.0); MEAN PLATELET VOLUME 9.3 fL (7.9-10.8); MONOCYTES # (AUTO) 0.5 10^3/uL (0.0-1.0); MONOCYTES % (AUTO) 6.5 %; NEUTROPHILS # (AUTO) 6.2 10^3/uL (1.5-6.6); NEUTROPHILS % (AUTO) 76.7 %; PLT - PLATELET COUNT 107 10^3/uL (130-450); RED BLOOD COUNT 3.56 10^6/uL (4.20-5.40); RED CELL DISTRIBUTION WIDTH 15.7 % (12.0-15.0)
[2017-12-23] MEDS ORDERED: IOTHALAMATE MEGLUMINE 50 ML VIAL INTRADUCT ONE (13:17)
[2017-12-23] MEDS ORDERED: BUPIVACAINE 0.5% PF 30 ML VIAL INFIL ONE (13:17)
[2017-12-23] MEDS ORDERED: DEXAMETHASONE 4 MG/ML VIAL IVP ONE (14:51)
[2017-12-23] MEDS ORDERED: ONDANSETRON 4 MG/2 ML VIAL IVP ONE (14:51)
[2017-12-23] MEDS ORDERED: PHENYLEPHRINE 50 MG/5 ML VIAL IV ONE (14:51)
[2017-12-23] MEDS ORDERED: fentaNYL 100 MCG/2 ML VIAL IVP ONE (14:51)
[2017-12-23] MEDS ORDERED: PROPOFOL 200 MG/20 ML VIAL IVP ONE (14:51)
[2017-12-23] MEDS ORDERED: NEOSTIGMINE 1 MG/1 ML 10 ML MDV IVP ONE (14:51)
[2017-12-23] MEDS ORDERED: ROCURONIUM 50 MG/5 ML VIAL IVP ONE (14:51)
[2017-12-23] MEDS ORDERED: KETAMINE 500 MG/10 ML VIAL IVP ONE (14:51)
[2017-12-23] MEDS ORDERED: GLYCOPYRROLATE 1 MG/5 ML VIAL IVP ONE (14:51)
[2017-12-23] MEDS ORDERED: MIDAZOLAM 2 MG/2 ML VIAL IVP ONE (14:51)
[2017-12-23] MEDS ORDERED: KETOROLAC 30 MG/ML VIAL ONE (15:58)
[2017-12-23] MEDS: HYDROmorphone 1 MG/ML SYRINGE ONE ×5 (16:21→16:47)
--- NOTE | 2017-12-23 16:40 | OPERATIVE REPORT ---
Operative Report - Procedure Note Primary Surgeon: Stephon Bahena MD Anesthesia Provider: Bessy Russell CRNA Anesthesia Technique: General ET tube, Local (30 mL 1/2% marcaine) IV Fluids (mL): 1,000 Estimated Blood Loss (mL): 20 Complications: None. - Other Other Information/Narrative: OPERATIVE DESCRIPTION/REPORT: After verbal and written informed consent was obtained detailing the risks of infection, bleeding requiring transfusion with its risks, common bile duct injury, and , and after I met with the patient confirming the surgery and the site of the surgery and after initialing the site of the surgery with a surgical marker, the patient was brought to the operative suite and placed supine on the operating table. Great care was taken to avoid pressure points to prevent pressure necrosis or nerve injury. Monitoring devices were applied along with TEDs and pneumatic compressive stockings (to prevent DVT). The patient received preoperative antibiotics for surgical prophylaxis. Bessy Russell CRNA sedated and anethetized the patient for the entire procedure. The patient was prepped and draped in the usual sterile manner. A "time in" then confirmed that the patient was identified with 3 identifiers (name, date and medical record number), the history and physical was in the chart, the signed consent confirming the procedure was in the chart, the patient was in the correct position, the aforementioned prophylactic measures were in place or given, we had the correct personel and equipment to complete the procedure and that anesthesia, surgery and nursing were given an opportunity to express any concerns. With the agreement of everyone in the room, we proceeded with the operation. A 2 cm intraumbilical midline incision was made. The known umbilical hernia was encountered and used to gain entry into the abdomen. The sac was excsied gaining entry into the abdominal cavity without incident. A 12 mm blunt tipped balloon tipped Vanessa cannula was placed in the fascial opening and the balloon inflated in order to occlude the fascial opening. The pneumoperitoneum was then established using carbon dioxide insufflation to a steady state pressure of 15 mmHg. Visual inspection revealed a very large floppy gallbladder with a very short cystic duct, an enlarged common bile duct, a very large, nodular, fat -replaced liver. Adhesions of the ascending colon to the right abdominal wall were also noted. The remaining trocars were then placed into the abdomen under direct vision of the 30 degree laparoscope taking care to make the incisions along Langers lines , spreading the subcutaneous tissues with a tonsil clamp, and confirming the entry site by depressing the abdominal wall prior to insertion of the trocar. Due to the markedly enlarged gallbladder they were placed lower than normal. A total of three other trocars were placed. The first was a 5 mm trocar in the upper midline position. The second was a 5 mm trocar placed in the anterior axillary line approximately 3 cm above the anterior superior iliac spine. The third was a 5 mm trocar placed to bisect the distance between the second and upper midline trocar. All of the trocars were placed without difficulty. The patient was then placed in reverse Trendelenburg position and was rotated slightly to their left. The gallbladder was then grasped through the second and third trocars and retracted cephalad toward the right shoulder. A laparoscopic dissector was then placed through the upper midline cannula fitted with a institutional custodian, and the structures within the triangle of Calot were meticulously dissected free. A Garcia clamp was then inserted through the medial right subcostal port and the distal gallbladder clamped and the needle inserted just above the origin of the cystic duct. There was return of bile and easy flush of saline. Half strength dye was then injected and a cholangiogram was obtained utilizing fluoroscopy. Additional pictures were taken with full strength dye after the half-strength dye for clarity. After the cholangiogram clearly showed the ductal anatomy, no filling defects and no obstruction to flow, the cholangiocathter and the Garcia clamp were removed and the cystic duct was doubly clipped proximally and distally. The duct was divided between the clips. The clips were carefully placed to avoid occluding the juncture with the common bile duct. The cystic artery was found medially, superiorly and slightly posterior to the cystic duct. It was carefully dissected free from its surrounding tissues. A laparoscopic clip county bailiff was introduced through the upper midline cannula and used to doubly ligate the cystic artery, proximally and distally. The artery was divided between the clips. After the cystic duct and artery were transected, the gallbladder was dissected from the liver bed using Bovie electrocautery. Prior to complete dissection of the gallbladder from the liver the peritoneal cavity was copiously irrigated with saline and the operative field was examined for persistent blood or bile leaks of which there were none. After complete detachment of the gallbladder from the liver, the video laparoscope was placed through the upper midline 5 mm cannula. The gallbladder was placed in an endopouch that had been inserted in the umbilical port and the purse-string suture pulled tight. A spring-loaded trucut needle biopsy of the liver was then done through a separate stab incision and under direct visualization. Hemostasis was obtained using Bovie electrocautery. The abdomen was copiously irrigated with warm sterile saline. All 5 mm port sites were injected with 0.5% marcaine under direct vision at the peritoneal level, fascial level and skin level. The Vanessa cannula was removed and the endopouch containing the gallbladder was removed from the abdomen. Following gallbladder removal, the remaining carbon dioxide was expelled from the abdomen. The fascia at the umbilicus was reapproximated using 2 figure-of- eight 0 Vicryl sutures thus repairing the umbilical hernia. The skin at each port site was approximated using a subcuticular 4-0 Monocryl. The surgical count of instruments, needles and sponges was reported as correct twice. Mastisol, Steri-Strips and sterile surgical dressings were applied. The patient was then awakened from anesthesia, extubated, and having tolerated the procedure well, was transported to the recovery room. No complications were encountered. A "time out" confirmed the operation performed, the fluids given, the estimated blood loss and anesthesia, surgery and nursing were given an opportunity to express any concerns. [employer] disclaimer: This document was created in part using voice recognition technology. Because of the inherent limitations of the system ([employer]'s [employer] user manual states that the licensee understands that speech recognition is a statistical process and that recognition errors are inherent in the process), occasional same sounding word substitutions and grammatical errors do occur and persist despite proofreading. Please read this document for context.
[2017-12-23] MEDS ORDERED: oxyCOD/ACETAMIN 5 MG/325 MG TABLET PO ONE (17:18)
[2017-12-23 17:50] VITALS: BP 155/91
--- NOTE | 2017-12-23 19:32 | XRAY Report ---
DATE OF SERVICE: 12/23/2017 INTRAOPERATIVE CHOLANGIOGRAM: 12/23/2017 CLINICAL INDICATION: Laparoscopic cholecystectomy. FINDINGS: Three images of an intraoperative cholangiogram demonstrate no evidence of a filling defect within the common bile duct or visualized intrahepatic ducts. Contrast spills into the duodenum. FLUOROSCOPY TIME: 12 seconds; 3 spot images obtained. IMPRESSION: NO EVIDENCE OF CHOLEDOCHOLITHIASIS. TWELVE SECONDS OF FLUOROSCOPY TIME PROVIDED TO DR. NOGUERA. THREE SPOT IMAGES OBTAINED. TD: 12/23/2017 19:31
== END 2017-12-23 10:26 | disposition home or self-care (01) ==
LOC: SDS 10:25
PROVIDERS: ATTEND Surgery
PROC: 0FT44ZZ Resection of Gallbladder, Percutaneous Endoscopic Approach (ICD-10-PCS; principal; 2017-12-23 12:00)
PROC: 0FB04ZX Excision of Liver, Percutaneous Endoscopic Approach, Diagnostic (ICD-10-PCS; 2017-12-23 12:00)
DX: K80.20 Calculus of gallbladder without cholecystitis without obstruction (principal); K83.8 Other specified diseases of biliary tract; K76.0 Fatty (change of) liver, not elsewhere classified; K42.9 Umbilical hernia without obstruction or gangrene; R00.2 Palpitations; F41.9 Anxiety disorder, unspecified; B19.20 Unspecified viral hepatitis C without hepatic coma; K21.9 Gastro-esophageal reflux disease without esophagitis; F17.210 Nicotine dependence, cigarettes, uncomplicated; F10.20 Alcohol dependence, uncomplicated
CPT/HCPCS: 47379; 47563; 74300; 85025; 93005; A9270; J1170; J7120; Q9961

== ENCOUNTER 2018-02-08 18:25 | Outpatient (CLI) | payer MEDICARE, MEDICAID | END 2018-02-08 18:26 | disposition critical access hospital (66) | LOC: EMS 18:25 | PROVIDERS: ATTEND Surgery | DX: S01.01XA Laceration without foreign body of scalp, initial encounter (principal); R42 Dizziness and giddiness; R11.0 Nausea; W18.39XA Other fall on same level, initial encounter; W22.8XXA Striking against or struck by other objects, initial encounter; Y92.009 Unspecified place in unspecified non-institutional (private) residence as the place of occurrence of the external cause | CPT/HCPCS: A0425; A0427 ==

== ENCOUNTER 2018-02-08 19:01 | Emergency (ER) | payer MEDICARE, MEDICAID ==
[2018-02-08] MEDS ORDERED: LIDOCAINE 1%-EPI 1:100000 20 ML MDV SUBQ STA (19:11)
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
[2018-02-08 20:04] LABS: INR 1.3 (0.8-1.2)
--- NOTE | 2018-02-08 20:33 | CT Preliminary Report ---
Exam: CT HEAD W/O IMPRESSION: 1. Left parietal-occipital scalp laceration. No calvarial fracture. 2. No acute intracranial abnormality. [facility] SITE ID: [id number]
[2018-02-08 20:37] LABS: ALBUMIN 4.1 g/dL (3.2-5.5); ALBUMIN/GLOBULIN RATIO 1.2 (1.0-2.2); BILIRUBIN,TOTAL 0.5 mg/dL (0.2-1.0); CALCIUM 9.2 mg/dL (8.5-10.3); CREATININE 0.4 mg/dL (0.4-1.0); TOTAL PROTEIN 7.5 g/dL (6.7-8.2)
--- NOTE | 2018-02-08 20:39 | CT Preliminary Report ---
Exam: CT CERVICAL SPINE W/O IMPRESSION: 1. No prevertebral soft tissue hematoma. Loss of the normal cervical lordosis. No scoliosis or spondy lolisthesis. 2. Chronic 5-10% superior endplate T2 height loss. No acute fracture. [facility] SITE ID: [id number]
--- NOTE | 2018-02-08 20:50 | CT Report ---
EXAM: CT HEAD EXAM DATE: 02/08/2018 07:47 PM. CLINICAL HISTORY: Head injury. COMPARISON: 07/28/2015. TECHNIQUE: Multiaxial CT images were obtained from the foramen magnum to the vertex. Reformats: Coron al. IV contrast: None. In accordance with CT protocol optimization, one or more of the following dose reduction techniques w ere utilized for this exam: automated exposure control, adjustment of mA and/or KV based on patient s ize, or use of iterative reconstructive technique. FINDINGS: Parenchyma: No intraparenchymal hemorrhage. No evidence of mass, midline shift, or CT findings of inf arction. Meyers-white differentiation is distinct. Mild cerebral volume loss. Extraaxial Spaces: Normal for age. No subdural or epidural collections identified. Ventricles: Normal in size and position. Sinuses and Orbits: Imaged paranasal sinuses, orbits, and mastoids show no significant abnormality. Bones: No evidence of fracture or calvarial defect. Other: Small left occipital scalp laceration. IMPRESSION: 1. Left parietal-occipital scalp laceration. No calvarial fracture. 2. No acute intracranial abnormality. [facility] Referring Provider Line: [phone] SITE ID: [id number]
--- NOTE | 2018-02-08 20:50 | CT Report ---
EXAM: CT CERVICAL SPINE WITHOUT CONTRAST DATE: 02/08/2018 07:29 PM. HISTORY: Pain after trauma. COMPARISONS: 09/26/2014. TECHNIQUE: Thin-section axial images were acquired of the cervical spine without contrast. Post-proce ssing: Coronal and sagittal reformats. Other: None. In accordance with CT protocol optimization, one or more of the following dose reduction techniques w ere utilized for this exam: automated exposure control, adjustment of mA and/or KV based on patient s ize, or use of iterative reconstructive technique. FINDINGS: Alignment: No spondylolisthesis. Loss of the normal cervical lordosis is noted. Patient is in a spina l collar. Bones: No acute vertebral body fracture. Stable 5-10% superior endplate T2 height loss unchanged sinc e 09/26/2014. Interspace Levels/Facets: C1-C2: Unremarkable. C2-C3: Unremarkable. C3-C4: Unremarkable. C4-C5: Unremarkable. C5-C6: Unremarkable. C6-C7: Unremarkable. C7-T1: Unremarkable. Musculature: Normal. No fatty atrophy. Other: The paravertebral and prevertebral soft tissues are unremarkable. The lung apices are clear. IMPRESSION: 1. No prevertebral soft tissue hematoma. Loss of the normal cervical lordosis. No scoliosis or spondy lolisthesis. 2. Chronic 5-10% superior endplate T2 height loss. No acute fracture. [facility] Referring Provider Line: [phone] SITE ID: [id number]
[2018-02-08] MEDS ORDERED: IBUPROFEN 800 MG TABLET PO STA (21:30)
[2018-02-08 22:37] VITALS: BP 128/77
== END 2018-02-08 22:37 | disposition home or self-care (01) ==
LOC: EDUNIT# → EEVIPCON 19:01 → ED 19:01
DX: F10.920 Alcohol use, unspecified with intoxication, uncomplicated (principal); S01.01XA Laceration without foreign body of scalp, initial encounter; S09.90XA Unspecified injury of head, initial encounter; Y04.2XXA Assault by strike against or bumped into by another person, initial encounter; F17.200 Nicotine dependence, unspecified, uncomplicated
CPT/HCPCS: 12002; 36415; 70450; 72125; 80053; 83690; 85610; 99283; 99284; A9270; G0480; 80320; 85025

== ENCOUNTER 2018-02-13 10:16 | Emergency (ER) | payer MEDICARE, MEDICAID ==
[2018-02-13 10:22] VITALS: BP 123/82
--- NOTE | 2018-02-13 11:00 | ED Physician Documentation ---
PD HPI WOUND RECHECK - Stated complaint Stated Complaint: SUTURE REMOVAL - Chief complaint Chief Complaint: Heent - Histroy obtained from History obtained from: Patient - History of Present Illness Location: Scalp Timing - onset: How many days ago (5) Recently seen: Emergency Dept (5 days ago.) - Additional information Additional information: The patient is a 52-year-old female who presents for removal of miky. She was seen here 5 days ago with a scalp laceration and miky were placed at that time. She is planning to fly to [place] tomorrow and would like to have the miky removed before leaving. 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 HEENT: Chronic vision loss, Other Psych: Depression, Anxiety, Panic attacks, Post traumatic stress disorder Musculoskeletal: Chronic back pain Derm: None - Past Surgical History Past Surgical History: Yes Ortho: Other /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 FLOOR OPERATOR: Tubal ligation - Present Medications Home Medications: Ambulatory Orders Medication Instructions Recorded Confirmed Baclofen [Baclofen] 10 mg ORAL DAILY 07/24/17 12/23/17 Ibuprofen 600 mg PO TID PRN #14 tablet 07/24/17 12/23/17 Lorazepam [Ativan] 1 mg PO QPM PRN #20 tablet 11/25/17 12/23/17 - Allergies Allergies/Adverse Reactions: Allergies Allergy/AdvReac Type Severity Reaction Status Date / Time ceftriaxone sodium * Allergy Severe RASH,HIVES, Verified 02/13/18 10:22 [From Rocephin] BURNING,ITC JAMIE cephalexin monohydrate * Allergy Severe RASH,HIVES, Verified 02/13/18 10:22 [From Keflex] BURNING,ITC JAMIE ciprofloxacin Allergy Severe RASH,HIVES, Verified 02/13/18 10:22 BURNING,ITC JAMIE phenazopyridine HCl * Allergy Severe SWELLING Verified 02/13/18 10:22 [From Pyridium] OF AIRWAY Sulfa (Sulfonamide Allergy Severe RASH,HIVES, Verified 02/13/18 10:22 Antibiotics) BURNING,ITC JAMIE gentamicin Allergy Edema Verified 02/13/18 10:22 lamotrigine [From Lamictal] Allergy Hives Verified 02/13/18 10:22 levetiracetam [From Keppra] Allergy Anxiety Verified 02/13/18 10:22 - Social History Does the pt smoke?: Yes Smoking Status: Current every day smoker Does the pt drink ETOH?: No Does the pt have substance abuse?: No - Immunizations Immunizations are current?: Yes Immunizations: TDAP >10years/unknown - POLST Patient has POLST: No PD ED PE NORMAL - Vitals Vital signs reviewed: Yes (normal) - General General: Alert and oriented X 3, Well developed/nourished - HEENT HEENT: Other (Left parieto-occipital scalp wound is intact with miky. There is no associated swelling, erythema, or hemorrhage.) - Neck Neck: No bony TTP - Respiratory Respiratory: No respiratory distress - Neuro Neuro: Alert and oriented X 3, No motor deficit, Normal speech Results - Vitals Vitals: Oxygen O2 Source Room air PD MEDICAL DECISION MAKING - ED course Complexity details: reviewed old records, considered differential, d/w patient ED course: The patient's presentation is limited to wound check. I discussed with her that it is too early to remove miky in the scalp wound, because the wound has not yet healed well enough to allow for staple removal. I advised her that the miky should be left intact for another week before being removed. I discussed with her potentially worrisome signs or symptoms that should prompt reevaluation in the emergency department. Departure - Departure Disposition: 01 Home, Self Care Clinical Impression: Visit for wound check Condition: Stable Instructions: ED Laceration Scalp Stitch Or Stap Follow-Up: Sherly Thomas ARNP [Primary Care Provider] - Comments: It is too early to remove the miky from your wound today, having been only 5 days since they were placed. You should follow-up for removal of the miky 5-7 days from now. Return to the emergency department if you develop any evidence of infection or otherwise worsening symptoms. Discharge Date/Time: 02/13/18 11:04
== END 2018-02-13 11:04 | disposition home or self-care (01) ==
LOC: ED 10:16
DX: S01.01XD Laceration without foreign body of scalp, subsequent encounter (principal); Z48.02 Encounter for removal of sutures; K21.9 Gastro-esophageal reflux disease without esophagitis; F17.200 Nicotine dependence, unspecified, uncomplicated
CPT/HCPCS: 99281; 99282

== ENCOUNTER 2018-06-09 19:33 | Outpatient (CLI) | payer MEDICARE, MEDICAID | END 2018-06-09 19:34 | disposition critical access hospital (66) | LOC: EMS 19:33 | PROVIDERS: ATTEND Surgery | DX: R53.83 Other fatigue (principal); R17 Unspecified jaundice; R11.2 Nausea with vomiting, unspecified | CPT/HCPCS: A0425; A0429 ==

== ENCOUNTER 2018-06-09 19:53 | Inpatient (IN) | payer MEDICARE, MEDICAID ==
[2018-06-09] MEDS ORDERED: SODIUM CHLORIDE 0.9% 1,000 ML IV ONE (20:38)
[2018-06-09 20:44] LABS: GLUCOSE, URINE (UA) NEGATIVE (NEGATIVE); KETONES,URINE (UA) NEGATIVE (NEGATIVE); LEUKOCYTE ESTERASE, URINE NEGATIVE (NEGATIVE); NITRITE,URINE NEGATIVE (NEGATIVE); OCCULT BLOOD,URINE NEGATIVE (NEGATIVE); PROTEIN,URINE NEGATIVE (NEGATIVE); UROBILINOGEN,URINE 0.2 (NORMAL) E.U./dL (NORMAL)
--- NOTE | 2018-06-09 20:44 | ED Physician Documentation ---
History of Present Illness - Stated complaint Stated Complaint: LETHARGIC, BACK PAIN - Chief complaint Chief Complaint: Abd Pain - History obtained from History obtained from: Patient, EMS - History of Present Illness Timing: How many days ago (3) - Additonal information Additional information: 52 year old female with chronic pain in her back and neck has been taking excessive amounts of ibuprofen approximately 600 mg 4 times daily for months. Over the past 3 days she has become jaundiced is vomiting and her children insisted she come to the emergency department for evaluation. The patient has had unintended weight loss she denies specific abdominal pain. She is concerned about the amount of ibuprofen she has been taking. She does admit to drinking 3 glasses of wine per day and she has not seen a physician since January of this year. 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 Review of Systems Constitutional: reports: Fatigue. denies: Fever, Chills Eyes: denies: Decreased vision Ears: denies: Ear pain Nose: denies: Rhinorrhea / runny nose, Congestion Throat: denies: Sore throat Cardiac: denies: Chest pain / pressure, Palpitations Respiratory: reports: Cough. denies: Dyspnea GI: reports: Abdominal Swelling, Nausea, Vomiting, Constipation : denies: Dysuria, Frequency Skin: denies: Rash Musculoskeletal: reports: Neck pain, Back pain Neurologic: reports: Generalized weakness. 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: Tubal ligation - Present Medications Home Medications: Ambulatory Orders Medication Instructions Recorded Confirmed Baclofen [Baclofen] 10 mg ORAL DAILY 07/24/17 12/23/17 Ibuprofen 600 mg PO TID PRN #14 tablet 07/24/17 12/23/17 Lorazepam [Ativan] 1 mg PO QPM PRN #20 tablet 11/25/17 12/23/17 - Allergies Allergies/Adverse Reactions: Allergies Allergy/AdvReac Type Severity Reaction Status Date / Time ceftriaxone sodium * Allergy Severe RASH,HIVES, Verified 06/09/18 20:07 [From Rocephin] BURNING,ITC JAMIE cephalexin monohydrate * Allergy Severe RASH,HIVES, Verified 06/09/18 20:07 [From Keflex] BURNING,ITC JAMIE ciprofloxacin Allergy Severe RASH,HIVES, Verified 06/09/18 20:07 BURNING,ITC JAMIE phenazopyridine HCl * Allergy Severe SWELLING Verified 06/09/18 20:07 [From Pyridium] OF AIRWAY Sulfa (Sulfonamide Allergy Severe RASH,HIVES, Verified 06/09/18 20:07 Antibiotics) BURNING,ITC JAMIE gentamicin Allergy Edema Verified 06/09/18 20:07 lamotrigine [From Lamictal] Allergy Hives Verified 06/09/18 20:07 levetiracetam [From Keppra] Allergy Anxiety Verified 06/09/18 20:07 - Social History Does the pt smoke?: Yes Smoking Status: Current every day smoker Does the pt drink ETOH?: Yes ETOH Use: Wine, Beer Does the pt have substance abuse?: No - Immunizations Immunizations are current?: Yes Immunizations: TDAP >10years/unknown - POLST Patient has POLST: No PD ED PE NORMAL - Vitals Vital signs reviewed: Yes (tachy) - General General: Alert and oriented X 3, No acute distress, Well developed/nourished, Other (obvious jaundice ) - HEENT HEENT: Atraumatic, PERRL, EOMI, Ears normal, Other (mucous membranes are parched eyes are icteric ) - Neck Neck: Supple, no meningeal sign, No bony TTP - Cardiac Cardiac: No murmur, Other (tachy and hyperdynamic ) - Respiratory Respiratory: No respiratory distress, Clear bilaterally - Abdomen Abdomen: Other (distended with liver edge palpable a hand breadth below the costal margin and a firm mass in the right mid abdomen. 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8 Neut # (Auto) Not Reportable Lymph # (Auto) Not Reportable [place] # (Auto) Not Reportable Eos # (Auto) Not Reportable Baso # (Auto) Not Reportable Absolute Nucleated RBC Not Reportable Total Counted 100 Band Neuts % (Manual) 9 Abnorm Lymph % (Manual) 0 Nucleated RBC % Not Reportable Neutrophils # (Manual) 13.3 H Lymphocytes # (Manual) 0.4 L Monocytes # (Manual) 0.9 Eosinophils # (Manual) 0.0 Basophils # (Manual) 0.1 Manual Slide Review Indicated Platelet Estimate DECREASED (<130,000) Platelet Morphology NORMAL APPEARANCE RBC Morph Micro Appear 2+ BASO STIPPLING PT INR Sodium Potassium Chloride Carbon Dioxide Anion Gap BUN Creatinine Estimated GFR (MDRD) Glucose Lactic Acid Calcium Total Bilirubin AST ALT Alkaline Phosphatase Total Creatine Kinase CK-MB (CK-2) Troponin I Total Protein Albumin Globulin Albumin/Globulin Ratio Lipase Urine Color BROWN Urine Clarity CLEAR Urine pH 7.0 Ur Specific [place] <=1.005 Urine Protein NEGATIVE Urine Glucose (UA) NEGATIVE Urine Ketones NEGATIVE Urine Occult Blood NEGATIVE Urine Nitrite NEGATIVE Urine Bilirubin LARGE H Urine Urobilinogen 0.2 (NORMAL) Ur Leukocyte Esterase NEGATIVE Ur Microscopic Review NOT INDICATED Urine Culture Comments NOT INDICATED Urine HCG, Qual NEGATIVE Salicylates Urine Opiates Screen NEGATIVE Ur Oxycodone Screen NEGATIVE Urine Methadone Screen NEGATIVE Ur Propoxyphene Screen NEGATIVE Acetaminophen Ur Barbiturates Screen NEGATIVE Ur Tricyclics Screen NEGATIVE Ur Phencyclidine Scrn NEGATIVE Ur Amphetamine Screen NEGATIVE U Methamphetamines Scrn NEGATIVE U Benzodiazepines Scrn POSITIVE H Urine Cocaine Screen NEGATIVE U Cannabinoids Screen NEGATIVE Ethyl Alcohol 06/09/18 06/09/18 06/09/18 20:54 20:54 20:54 WBC RBC Hgb Hct MCV MCH MCHC RDW Plt Count MPV Neut # (Auto) Lymph # (Auto) [place] # (Auto) Eos # (Auto) Baso # (Auto) Absolute Nucleated RBC Total Counted Band Neuts % (Manual) Abnorm Lymph % (Manual) Nucleated RBC % Neutrophils # (Manual) Lymphocytes # (Manual) Monocytes # (Manual) Eosinophils # (Manual) Basophils # (Manual) Manual Slide Review Platelet Estimate Platelet Morphology RBC Morph Micro Appear PT 41.6 H INR 3.9 H Sodium 134 L Potassium 2.1 L* Chloride 93 L Carbon Dioxide 28 Anion Gap 13.0 BUN 6 Creatinine < 0.3 L Estimated GFR (MDRD) 235 Glucose 94 Lactic Acid Calcium 8.4 L Total Bilirubin 20.6 H AST 111 H ALT 15 Alkaline Phosphatase 83 Total Creatine Kinase 17 L CK-MB (CK-2) 0.7 Troponin I < 0.04 Total Protein 5.5 L Albumin 2.3 L Globulin 3.2 Albumin/Globulin Ratio 0.7 L Lipase 20 L Urine Color Urine Clarity Urine pH Ur Specific [place] Urine Protein Urine Glucose (UA) Urine Ketones Urine Occult Blood Urine Nitrite Urine Bilirubin Urine Urobilinogen Ur Leukocyte Esterase Ur Microscopic Review Urine Culture Comments Urine HCG, Qual Salicylates 15.0 Urine Opiates Screen Ur Oxycodone Screen Urine Methadone Screen Ur Propoxyphene Screen Acetaminophen 191 H* Ur Barbiturates Screen Ur Tricyclics Screen Ur Phencyclidine Scrn Ur Amphetamine Screen U Methamphetamines Scrn U Benzodiazepines Scrn Urine Cocaine Screen U Cannabinoids Screen Ethyl Alcohol 104.0 06/09/18 20:54 WBC RBC Hgb Hct MCV MCH MCHC RDW Plt Count MPV Neut # (Auto) Lymph # (Auto) [place] # (Auto) Eos # (Auto) Baso # (Auto) Absolute Nucleated RBC Total Counted Band Neuts % (Manual) Abnorm Lymph % (Manual) Nucleated RBC % Neutrophils # (Manual) Lymphocytes # (Manual) Monocytes # (Manual) Eosinophils # (Manual) Basophils # (Manual) Manual Slide Review Platelet Estimate Platelet Morphology RBC Morph Micro Appear PT INR Sodium Potassium Chloride Carbon Dioxide Anion Gap BUN Creatinine Estimated GFR (MDRD) Glucose Lactic Acid 3.9 H* Calcium Total Bilirubin AST ALT Alkaline Phosphatase Total Creatine Kinase CK-MB (CK-2) Troponin I Total Protein Albumin Globulin Albumin/Globulin Ratio Lipase Urine Color Urine Clarity Urine pH Ur Specific [place] Urine Protein Urine Glucose (UA) Urine Ketones Urine Occult Blood Urine Nitrite Urine Bilirubin Urine Urobilinogen Ur Leukocyte Esterase Ur Microscopic Review Urine Culture Comments Urine HCG, Qual Salicylates Urine Opiates Screen Ur Oxycodone Screen Urine Methadone Screen Ur Propoxyphene Screen Acetaminophen Ur Barbiturates Screen Ur Tricyclics Screen Ur Phencyclidine Scrn Ur Amphetamine Screen U Methamphetamines Scrn U Benzodiazepines Scrn Urine Cocaine Screen U Cannabinoids Screen Ethyl Alcohol - Rads (name of study) CT abd/pel with Radiology: Prelim report reviewed (Impression: 1. Enlarged fatty severely heterogeneous liver. Suspect multiple liver masses, likely representing diffuse metastatic disease. Fulminant inflammatory process considered less likely. 2 Mild splenomegaly with possible spontaneous splenorenal shunt. 3 Pancreatic edema is suspected. Correlate for possible pancreatitis. 4 There is some areas of mild wall thickening in the colon which could raise up represent colitis. Portal hypertensive colopathy also possible. 5 Bibasilar atelectasis or infiltrate, right greater than left.), EMP read indepedently, See rad report Procedures - Bedside sono Bedside sono by EMP: With the best use of bedside ultrasound the right upper quadrant is imaged and there is no evidence of ascites. The liver is enlarged and there is not obvious intrahepatic bile duct dilation. - IVC sono (time) 2034 Bedside IVC sono: IVC measures (cm) (0.83), IVC collapsed c insp (cm) (complete) , Dehydration (est 2 liter deficit) PD MEDICAL DECISION MAKING - ED course Complexity details: reviewed old records, reviewed results, re-evaluated patient , considered differential, d/w patient, d/w windows consultant (Dr. Narayan Jeff hepatology recommends hospitalization here, completion of NAC and referral for alcohol treatment with his review of the patients prior history at and [facility] indicating long standing alocholic liver disease. He believes this episode is not specifically acetomenophen related and she is a poor candidate for liver transplant. He requests that we investigate the liver masses with multi-phase MRI liver protocol and if she has developed liver cancer she will likely need palliative care. ) ED course: 52-year-old female status post cholecystectomy has been taking some medication for back pain and appears to have a Tylenol overdose. She appears to have acute hepatic failure.Here in the emergency department she is administered saline and potassium and NAC is started. She is adminstered vitamin K as well. After consultation with Dr. Jeff at [facility] admission here is sought. The patient' s estimate of survival is about 50% from this episode. - Sepsis Event Vital Signs: Vital Signs - 24 hr 06/09/18 06/09/18 06/09/18 19:59 22:15 22:55 Heart Rate 104 H 98 98 Respiratory 16 17 16 Rate Blood Pressure 124/77 119/74 115/73 O2 Saturation 96 96 96 Oxygen O2 Source Room air Departure - Departure Disposition: [facility] DC/Xfer Clinical Impression: Acute alcoholic hepatitis, Fulminant hepatic failure, Hypokalemia Acetaminophen poisoning of undetermined intent Qualifiers: Encounter type: initial encounter Qualified Code(s): T39.1X4A - Poisoning by 4- Aminophenol derivatives, undetermined, initial encounter
[2018-06-09 20:51] LABS: BILIRUBIN,URINE LARGE (NEGATIVE); CLARITY,URINE CLEAR (CLEAR); HCG UR QUAL NEGATIVE; ICTOTEST,URINE POSITIVE
[2018-06-09 20:55] LABS: MUDS CUTOFF CONCENTRATIONS CUTOFF CONC BELOW:
[2018-06-09 21:07] LABS: BASOPHILS % (AUTO) 0.7 %; EOSINOPHILS % (AUTO) 0.6 %; HGB - HEMOGLOBIN 9.9 g/dL (12.0-16.0); LYMPHOCYTES % (AUTO) 37.6 %; MEAN CORPUSCULAR HEMOGLOBIN 39.3 pg (27.0-31.0); MEAN CORPUSCULAR HGB CONC 35.2 g/dL (32.0-36.0); MEAN CORPUSCULAR VOLUME 111.4 fL (81.0-99.0); MEAN PLATELET VOLUME 9.8 fL (7.9-10.8); MONOCYTES % (AUTO) 6.7 %; NEUTROPHILS % (AUTO) 54.4 %; PLT - PLATELET COUNT 113 10^3/uL (130-450); RED BLOOD COUNT 2.51 10^6/uL (4.20-5.40); RED CELL DISTRIBUTION WIDTH 19.5 % (12.0-15.0); WHITE BLOOD COUNT 14.8 x10^3/uL (4.8-10.8)
[2018-06-09 21:10] LABS: AMPHETAMINE SCREEN,URINE NEGATIVE (NEGATIVE); BENZODIAZEPINES SCREEN, URINE POSITIVE (NEGATIVE); COCAINE SCREEN URINE NEGATIVE (NEGATIVE); METHADONE SCREEN, URINE NEGATIVE (NEGATIVE); METHAMPHETAMINES SCREEN, URINE NEGATIVE (NEGATIVE); OPIATE SCREEN, URINE NEGATIVE (NEGATIVE); OXYCODONE SCREEN, URINE NEGATIVE (NEGATIVE); PROPOXYPHENE SCREEN, URINE NEGATIVE (NEGATIVE); TRICYCLIC ANTIDEPRESSANT,URINE NEGATIVE (NEGATIVE)
[2018-06-09 21:10] LABS: ABNORMAL LYMPHS % (MANUAL) 0 %
[2018-06-09 21:11] LABS: INR 3.9 (0.8-1.2); PT - PROTHROMBIN TIME 41.6 secs (9.9-12.6)
[2018-06-09 21:20] LABS: TROPONIN I < 0.04 ng/mL (<0.49)
[2018-06-09 21:22] LABS: CREATINE KINASE MB 0.7 ng/mL (0.6-6.3)
[2018-06-09 21:23] LABS: ALBUMIN 2.3 g/dL (3.2-5.5); ALBUMIN/GLOBULIN RATIO 0.7 (1.0-2.2); BUN - BLOOD UREA NITROGEN 6 mg/dL (6-20); CALCIUM 8.4 mg/dL (8.5-10.3); CARBON DIOXIDE - CO2 28 mmol/L (21-32); CHLORIDE 93 mmol/L (101-111); GLUCOSE 94 mg/dL (70-100); SODIUM 134 mmol/L (135-145); TOTAL PROTEIN 5.5 g/dL (6.7-8.2)
[2018-06-09 21:25] LABS: CREATININE < 0.3 mg/dL (0.4-1.0); GFR - MDRD 235 (>89)
[2018-06-09 21:34] LABS: BAND NEUTROPHILS % (MANUAL) 9 %; BASOPHILS # (MANUAL) 0.1 10^3/uL (0-0.1); BASOPHILS % (MANUAL) 1 %; LYMPHOCYTES # (MANUAL) 0.4 10^3/uL (1.5-3.5); LYMPHOCYTES % (MANUAL) 3 %; MONOCYTES # (MANUAL) 0.9 10^3/uL (0.0-1.0); NEUTROPHILS # (MANUAL) 13.3 10^3/uL (1.5-6.6); NEUTROPHILS % (MANUAL) 81 %
[2018-06-09 21:36] LABS: PLATELET ESTIMATE, MANUAL DECREASED (<130,000) (NORMAL); PLATELET MORPHOLOGY NORMAL APPEARANCE (NORMAL)
[2018-06-09] MEDS ORDERED: LIDOCAINE VISCOUS 2% 15 ML UDC MM STA (21:39)
[2018-06-09] MEDS ORDERED: IOPAMIDOL-300 100 ML VIAL ONE (21:44)
[2018-06-09] MEDS: POTASSIUM CHLOR 20 MEQ/100 ML 20 MEQ/100 ML BAG IV SCH (21:54)
[2018-06-09] MEDS ORDERED: IOPAMIDOL-300 100 ML VIAL IVP ONE (22:08)
[2018-06-09] MEDS ORDERED: DEXTROSE 5% IV STA (22:22)
[2018-06-09] MEDS ORDERED: ACETYLCYSTEINE IV STA (22:22)
--- NOTE | 2018-06-09 22:46 | CT Report ---
Procedure Date: 06/09/2018 Accession Number: [id number] / [id number] Procedure: CT - Abdomen/Pelvis W/ CPT Code: FULL RESULT: EXAM: CT ABDOMEN AND PELVIS EXAM DATE: 06/09/2018 10:12 PM. CLINICAL HISTORY: Jaundice firm palpable mass in right mid abdomen. COMPARISONS: ABDOMEN/PELVIS W/ 12/06/2016. TECHNIQUE: Routine helical CT imaging was performed through the abdomen and pelvis. IV contrast: ISOVUE 300 100mL. Enteric contrast: No. Reconstructions: Coronal and sagittal. In accordance with CT protocol optimization, one or more of the following dose reduction techniques were utilized for this exam: automated exposure control, adjustment of mA and/or KV based on patient size, or use of iterative reconstructive technique. FINDINGS: Lung Bases: Elevated right hemidiaphragm. Bibasilar atelectasis or infiltrate. Liver: Enlarged fatty severely heterogeneous liver measuring 28.8 cm. There are probably multiple masses. Gallbladder/Bile Ducts: Status post cholecystectomy. Spleen: Enlarged at 13.1 cm. Pancreas: Mild peripancreatic edema. Pancreas appears mildly prominent compared with the prior exam. No fluid collection seen. Adrenal Glands: Normal. Kidneys: Normal. No masses or hydronephrosis. Peritoneal Cavity/Bowel: No bowel obstruction seen. Mild amount of free fluid. No free air. Moderate stool in the colon. There are some areas of mild colonic wall thickening. No diverticulitis seen. Normal-sized retroperitoneal lymph nodes. Appendix appears normal. Pelvic Organs: Normal. The bladder and visualized pelvic organs are within normal limits. Vasculature: Mild atherosclerosis. No aortic aneurysm. Possible spontaneous splenorenal shunt. Bones: No aggressive lytic or blastic osseous lesions are identified. Other: None. IMPRESSION: 1. Enlarged fatty severely heterogeneous liver. Suspect multiple liver masses, likely representing diffuse metastatic disease. Fulminant inflammatory process considered less likely. 2. Mild splenomegaly with possible spontaneous splenorenal shunt. 3. Pancreatic edema is suspected. Correlate for possible pancreatitis. 4. There are some areas of mild wall thickening in the colon which could represent colitis. Portal hypertensive colopathy also possible. 5. Bibasilar atelectasis or infiltrate, right greater than left. [facility]
[2018-06-09] MEDS ORDERED: POTASSIUM CHLORIDE IV ONE (22:47)
[2018-06-09] MEDS ORDERED: PHYTONADIONE 10 MG/ML AMP IVP STA (23:52)
[2018-06-10] MEDS ORDERED: ACETYLCYSTEINE IV ONE ×3 (00:20→08:00)
[2018-06-10] MEDS ORDERED: PROMETHAZINE 25 MG/1 ML VIAL IM PRN (00:20)
[2018-06-10] MEDS ORDERED: LORazepam 2 MG/ML VIAL IVP STA (00:20)
[2018-06-10] MEDS ORDERED: DEXTROSE 5% IV ONE ×3 (00:20→08:00)
[2018-06-10] MEDS ORDERED: MAGNESIUM SULFATE 2 GRAM 2 GM/50 ML BAG IV ONE (00:20)
[2018-06-10] MEDS ORDERED: LORazepam 2 MG/ML VIAL IVP PRN (00:20)
[2018-06-10] MEDS: POTASSIUM CHLOR 10 MEQ/100 ML 10 MEQ/100 ML BAG IV SCH ×10 (00:25→10:49)
--- NOTE | 2018-06-10 00:43 | HISTORY & PHYSICAL EXAMINATION ---
Chief Complaint - Chief Complaint Chief Complaint: Jaundice History of Present Illness - Admitted From Admitted From:: Emergency Department - History Obtained From Records Reviewed: Yes History obtained from: Patient Exam Limitations: None - History of Present Illness HPI Comment/Other: Patient is a 52-year-old female with a past medical history significant for fatty liver disease, alcohol abuse, history of umbilical hernia, hepatitis C, chronic low back pain, history of seizures possibly secondary to alcohol withdrawal, tobacco abuse and recent history of cholelithiasis status post cholecystectomy in November 2017 who presented to the emergency department with a chief complaint of jaundice. According to the patient she has not been doing well for the last 6 months. She states that symptoms initially started with abdominal pain, nausea and just not feeling well. She states that she was worked up for this about 6 months ago at which time she was found to have cholelithiasis and underwent a cholecystectomy. She states that after this procedure she is just never fully recovered. She states that she has had a poor appetite and has continued to have epigastric abdominal pain. She states that she is also had persistent nausea and has had increasing weakness over the last several months. She states that the symptoms have become much worse over the last few weeks when she stated that she has noticed constant pain in the epigastric area which is nonradiating and is associated with nausea and poor appetite. She also states that she has become increasingly weak. She does admit that she continues to drink alcohol but states she only drinks about 3 drinks a day of wine. She states that the reason that she finally came to the emergency department today is that the kids who live in the house that she is staying at told her that she needs to go to the emergency department because she has become increasingly weak and jaundiced. The patient states that she first started noticing the jaundice about 3 days ago and it has also progressively become worse. She also states that she has had increasing abdominal distention that has been going on for the last several weeks. The patient denies any Tylenol use and states that she only takes ibuprofen for her chronic back pain which has been worse over the last few days. She states that she consistently takes 600 mg of ibuprofen up to 4 times a day. The patient states that she does not take Tylenol nor does she take anything with Tylenol in it. The patient's purse had ibuprofen and OxyContin but no Tylenol in it. The patient denies any confusion or any changes in her mentation. Patient denies any fevers, chills, shortness of air, orthopnea or any cough. The patient denies any diarrhea or constipation. Patient denies any headaches, blurred vision, runny nose, sore throat, nasal congestion, difficulty swallowing, chest pain, palpitations, PND, increased lower extremity swelling, urinary urgency, urinary frequency, dysuria, polyuria , polydipsia, joint swelling, neck stiffness, hair loss, skin rash or any focal neurologic deficits. The patient does admit to bruising on her legs. She also admits to decreased appetite and recent weight loss. On presentation to the emergency department the patient was afebrile she was slightly tachycardic with a heart rate of 104. Patient otherwise was normotensive and was not in any respiratory distress. The patient did appear very jaundiced, weak and ill-appearing. The patient's initial lab work revealed that she had a leukocytosis of 14.8, hemoglobin of 9.9, platelet count of 113, INR of 3.9, potassium of 2.1, lactic acid of 3.9, total bilirubin of 20.6, AST of 111, ethyl alcohol level of 104 and a acetaminophen level of 191. Given the patient's elevated acetaminophen level and severely elevated bilirubin as well as INR the concern was for the patient having Tylenol toxicity with fulminant liver failure. The emergency room physician contacted the imaging aide credit collections clerk at [facility], Narayan Jeff, who felt that this was unlikely to be Tylenol toxicity however did recommend treatment with N- acetylcysteine. The imaging aide stated that the patient has a very poor prognosis and a very poor chance of survival given her current labs. He thought that this was likely alcoholic liver failure and told the emergency room physician that at this point the patient was not a candidate for liver transplant and there was no beds available at the [facility] therefore he recommended admitting the patient to [facility] and treating with N-acetylcysteine, electrolyte replacement and monitoring the patient's bilirubin, INR and LFTs. Also the patient underwent a CT of her abdomen and pelvis which showed an enlarged fatty severely heterogeneous liver with suspicion of multiple liver masses likely representing diffuse metastatic disease. The imaging aide at the [facility] recommended a multiphase MRI with liver protocol to further evaluate these findings. He did state that if any further recommendations or assistance was needed that we should not hesitate to call the [facility] for further recommendations. The imaging aide also recommended a referral for alcohol treatment for the patient as she needed 6 months of abstinence from alcohol to qualify for liver transplant. History - Past Medical History Cardiovascular: reports: None Respiratory: reports: None Neuro: reports: None Endocrine/Autoimmune: reports: None GI: reports: GERD, Ulcers, Hiatal hernia, Chronic constipation, Hemorrhoids, Hepatitis, Cirrhosis DISASTER OR DAMAGE CONTROL SPECIALIST: reports: None : reports: Frequency Psych: reports: Depression, Anxiety, Panic attacks, Post traumatic stress disorder Musculoskeletal: reports: Chronic back pain Derm: reports: None MRSA Hx?: No - Past Surgical History General: reports: Cholecystectomy Ortho: reports: Other /DISASTER OR DAMAGE CONTROL SPECIALIST: reports: Tubal ligation - Family & Social History Family History: Mother: Diabetes, Type 2, Parkinson's Disease, Father: Diabetes , Type 2, Brother: Parkinson's Disease Living arrangement: At home Living Situation: With friend(s) Social History Notes: The patient currently lives in [place] she states that she lives with a friend and the friend's children. She states that she does have a 15-year-old boy who currently lives with a preacher in [place]. She admits to smoking 2-3 cigarettes a day and has been smoking for over 30 years. She also admits to drinking daily but states she only drinks about 3 glasses of wine a day. She states that she has been drinking for many years but is not more specific than that. She denies any illicit drug use - POLST Patient has POLST: No POLST Status: Full Code Meds/Allgy - Home Medications Home Medications: Ambulatory Orders Medication Instructions Recorded Confirmed Baclofen [Baclofen] 10 mg ORAL DAILY 07/24/17 12/23/17 Ibuprofen 600 mg PO TID PRN #14 tablet 07/24/17 12/23/17 Lorazepam [Ativan] 1 mg PO QPM PRN #20 tablet 11/25/17 12/23/17 - Allergies Allergies/Adverse Reactions: Allergies Allergy/AdvReac Type Severity Reaction Status Date / Time ceftriaxone sodium * Allergy Severe RASH,HIVES, Verified 06/09/18 20:07 [From Rocephin] BURNING,ITC JAMIE cephalexin monohydrate * Allergy Severe RASH,HIVES, Verified 06/09/18 20:07 [From Keflex] BURNING,ITC JAMIE ciprofloxacin Allergy Severe RASH,HIVES, Verified 06/09/18 20:07 BURNING,ITC JAMIE phenazopyridine HCl * Allergy Severe SWELLING Verified 06/09/18 20:07 [From Pyridium] OF AIRWAY Sulfa (Sulfonamide Allergy Severe RASH,HIVES, Verified 06/09/18 20:07 Antibiotics) BURNING,ITC JAMIE gentamicin Allergy Edema Verified 06/09/18 20:07 lamotrigine [From Lamictal] Allergy Hives Verified 06/09/18 20:07 levetiracetam [From Keppra] Allergy Anxiety Verified 06/09/18 20:07 Review of Systems - Other Findings Other Findings: A comprehensive review of systems was performed the pertinent positives and negatives are stated above in the HPI and the remainder of the review of systems is negative. Exam - Vital Signs Reviewed Vital Signs: Yes Vital Signs: Vital Signs x48h Pulse Resp BP Pulse Ox 06/10/18 00:26 105 H 21 104/64 93 06/09/18 22:55 98 16 115/73 96 06/09/18 22:15 98 17 119/74 96 06/09/18 19:59 104 H 16 124/77 96 - Physical Exam General Appearance: positive: Alert, Anxious, Other (Jaundiced, cachectic appearing and drowsy) Eyes Bilateral: positive: PERRL, No lid inflammation, Conjunctivae nml, Other ( Scleral icterus) ENT: positive: ENT inspection nml, Pharynx nml, Dry mucous membranes. negative : Purulent nasal drainage, Pharyngeal erythema, Oral lesions Neck: positive: Nml inspection, Thyroid nml, No JVD, Trachea midline. negative : Thyromegaly, Lymphadenopathy (R), Lymphadenopathy (L), Carotid bruit, Tracheal deviation Respiratory: positive: Chest non-tender, No respiratory distress, Breath sounds nml. negative: Wheezes, Rales, Rhonchi Cardiovascular: positive: Regular rate & rhythm, No murmur, No gallop Peripheral Pulses: positive: 2+ Abdomen: positive: Tenderness (Epigastric and right upper quadrant), Hepatomegaly (Liver is palpable all the way down to the right iliac crest), Other (Abdomen is distended and firm). negative: Guarding, Rebound Back: positive: Nml inspection. negative: CVA tenderness (R), CVA tenderness (L ) Skin: positive: No rash, Warm, Other (Jaundiced, Ecchymosis of the right lower extremity). negative: Cyanosis, Diaphoresis, Pallor Extremities: positive: Non-tender, Full ROM, Nml appearance, No pedal edema Neurologic/Psychiatric: positive: Oriented x3, CN's nml (2-12), Motor nml, Sensation nml, Mood/affect nml Conclusion/Plan - Problem List (1) Acetaminophen toxicity Conclusion/Plan: Patient presents to the emergency department with jaundice, abdominal pain and nausea and vomiting. She denied any Tylenol use or taking anything that may have had Tylenol in it. However on presentation the patient was jaundiced with a bilirubin of 20.6 and found to have a Tylenol level of 191. The patient was started on N-acetylcysteine for Tylenol toxicity. The emergency room physician did speak with the imaging aide credit collections clerk at the [facility] who felt that this was more likely to be alcoholic hepatitis rather than hepatitis secondary to Tylenol toxicity however he still felt that treatment with N- acetylcysteine was needed. Given the patient's current alcohol use the patient is not a candidate for liver transplant therefore he stated there was no need for an urgent transfer and patient could be treated at our hospital. Plan: Admit to intensive care unit N-acetylcysteine 21 hour infusion protocol Monitor bilirubin, LFTs and INR every 6 hours Monitor Tylenol level every 6 hours Once Tylenol level is negative and LFTs are trending down consider stopping N- acetylcysteine If patient not improving consider contacting hepatology at the [facility] for further recommendations per Qualifiers: Encounter type: initial encounter Injury intent: undetermined intent Qualified Code(s): T39.1X4A - Poisoning by 4-Aminophenol derivatives, undetermined, initial encounter (2) Acute hepatic failure Conclusion/Plan: Patient presents with acute hepatic failure with an elevated bilirubin of 20.6 which is elevated from normal range just 4 months ago. The patient does have appear to have a history of acute alcoholic hepatitis back in February 2017 patient 's bilirubin was elevated to 9.2 and in July 2015 bilirubin was elevated to 4.6 but this is the highest it has ever been. The patient's INR is also elevated at 3.9 and has been slightly elevated in the past but never to this level. Patient's acute hepatic failure is either secondary to alcoholic hepatitis as per the imaging aide from the [facility] or acetaminophen toxicity or a combination of the two. The patient's meld score is 34 which gives him an estimated 3 month mortality of 52.6%. The patient's Maddery score or maddery discriminant function is greater than 32 which makes the patient a good candidate for glucocorticoid therapy for alcoholic hepatitis. Plan: Treat with N-acetylcysteine infusion Treat with prednisolone 40 mg daily for 7 days and then calculate Lille score to determine whether to continue a one-month glucocorticoid taper. Electrolyte replacement and IV fluids Monitor bilirubin, LFTs and INR Counseled on need to quit alcohol use Outpatient referral for hepatology Qualifiers: Hepatic coma status: without hepatic coma Qualified Code(s): K72.00 - Acute and subacute hepatic failure without coma (3) Liver masses Conclusion/Plan: The patient has a severely enlarged liver on examination and on CT. The patient 's CT scan of the abdomen and pelvis shows suspicion for multiple liver masses likely representing diffuse metastatic disease and less likely due to fulminant inflammatory process. Plan: Multiphase MRI of the liver with liver protocol per recommendations of hepatology at the [facility] to further evaluate for possibility of hepatocellular carcinoma. Outpatient referral for possible liver biopsy (4) Alcohol abuse Conclusion/Plan: The patient continues to drink alcohol and blood alcohol level on presentation was elevated at 104. The patient states she only drinks 3 glasses of wine this appears highly unlikely and patient likely drinks significantly more. The patient has a very high mortality over the next 3 months and does not qualify for liver transplant until she can remain abstinent from alcohol for 6 months. Patient was counseled extensively and understands the consequences if she continues to drink. Plan: Alcohol withdrawal protocol IV thiamine, IV multivitamin, IV folic acid and IV magnesium IV Ativan as needed for alcohol withdrawal Social work consult for alcohol rehab (5) Lactic acidosis Conclusion/Plan: The patient presents with elevated lactic acid of 3.9. Patient does appears to be severely dehydrated as she also has a mild hyponatremia and severe hypokalemia with hypochloremia. The patient also has a urine specific gravity of less than 1.005 and appears severely dehydrated on examination. The patient also has liver failure which could also be contributing to the lack of metabolism of lactate. Plan: Patient will be given IV fluids and we will recheck lactic acid (6) Hypokalemia Conclusion/Plan: The patient presents with severe hypokalemia likely secondary to nausea and poor fluid intake over the last several days. She also likely has poor nutrition due to her alcohol abuse. The patient appears to be severely dehydrated. Plan: IV potassium chloride every hour 10 doses Monitor potassium IV antiemetics IV fluids (7) Chronic back pain Conclusion/Plan: The patient does have a history of chronic back pain and continues to have low back pain. The patient takes ibuprofen at home however given that patient is having epigastric pain and has hepatic failure with elevated INR there is concern for possible gastritis and possible gastric ulcer. Therefore patient will not be given NSAIDs. Will treat patient with oxycodone as needed for chronic back pain. Given that patient has Tylenol toxicity we will also avoid Tylenol. Qualifiers: Back pain location: low back pain Back pain laterality: bilateral Sciatica presence: with sciatica Sciatica laterality: bilateral sciatica Qualified Code(s): M54.42 - Lumbago with sciatica, left side; M54.41 - Lumbago with sciatica, right side; M54.41 - Lumbago with sciatica, right side; G89.29 - Other chronic pain; G89.29 - Other chronic pain (8) Hyponatremia Conclusion/Plan: Patient appears to have hypovolemic hyponatremia as she is dehydrated. She has had poor oral intake and has been dealing with nausea and vomiting and is abusing alcohol. Combination of things are causing her to become hypovolemic with hyponatremia. Patient will be given IV fluids and electrolyte replacement and we will continue to monitor her sodium. - Lab Results Lab results reviewed: Yes Fish Bones: 06/09/18 20:54 06/10/18 01:00 Other Lab Results: Laboratory Results WBC 14.8 x10^3/uL (4.8-10.8) H 06/09/18 20:54 RBC 2.51 10^6/uL (4.20-5.40) L 06/09/18 20:54 Hgb 9.9 g/dL (12.0-16.0) L 06/09/18 20:54 Hct 28.0 % (37.0-47.0) L 06/09/18 20:54 MCV 111.4 fL (81.0-99.0) H 06/09/18 20:54 MCH 39.3 pg (27.0-31.0) H 06/09/18 20:54 MCHC 35.2 g/dL (32.0-36.0) 06/09/18 20:54 RDW 19.5 % (12.0-15.0) H 06/09/18 20:54 Plt Count 113 10^3/uL (130-450) L 06/09/18 20:54 MPV 9.8 fL (7.9-10.8) 06/09/18 20:54 Neut # (Auto) Not Reportable 06/09/18 20:54 Lymph # (Auto) Not Reportable 06/09/18 20:54 [place] # (Auto) Not Reportable 06/09/18 20:54 Eos # (Auto) Not Reportable 06/09/18 20:54 Baso # (Auto) Not Reportable 06/09/18 20:54 Absolute Nucleated RBC Not Reportable 06/09/18 20:54 Total Counted 100 06/09/18 20:54 Band Neuts % (Manual) 9 % (0-10) 06/09/18 20:54 Abnorm Lymph % (Manual) 0 % 06/09/18 20:54 Nucleated RBC % Not Reportable 06/09/18 20:54 Neutrophils # (Manual) 13.3 10^3/uL (1.5-6.6) H 06/09/18 20:54 Lymphocytes # (Manual) 0.4 10^3/uL (1.5-3.5) L 06/09/18 20:54 Monocytes # (Manual) 0.9 10^3/uL (0.0-1.0) 06/09/18 20:54 Eosinophils # (Manual) 0.0 10^3/uL (0-0.7) 06/09/18 20:54 Basophils # (Manual) 0.1 10^3/uL (0-0.1) 06/09/18 20:54 Manual Slide Review Indicated 06/09/18 20:54 Platelet Estimate DECREASED (<130,000) (NORMAL) 06/09/18 20:54 Platelet Morphology NORMAL APPEARANCE (NORMAL) 06/09/18 20:54 RBC Morph Micro Appear 2+ ANISOCYTOSIS (NORMAL) 2+ TARGET CELLS (NORMAL) 2+ BASO STIPPLING (NORMAL) 06/09/18 20:54 RBC Morph Micro Appear 2+ ANISOCYTOSIS (NORMAL) 2+ TARGET CELLS (NORMAL) 2+ BASO STIPPLING (NORMAL) 06/09/18 20:54 RBC Morph Micro Appear 2+ ANISOCYTOSIS (NORMAL) 2+ TARGET CELLS (NORMAL) 2+ BASO STIPPLING (NORMAL) 06/09/18 20:54 PT 41.6 secs (9.9-12.6) H 06/09/18 20:54 INR 3.9 (0.8-1.2) H 06/09/18 20:54 Sodium 134 mmol/L (135-145) L 06/09/18 20:54 Potassium 2.1 mmol/L (3.5-5.0) L* 06/09/18 20:54 Chloride 93 mmol/L (101-111) L 06/09/18 20:54 Carbon Dioxide 28 mmol/L (21-32) 06/09/18 20:54 Anion Gap 13.0 (6-13) 06/09/18 20:54 BUN 6 mg/dL (6-20) 06/09/18 20:54 Creatinine < 0.3 mg/dL (0.4-1.0) L 06/09/18 20:54 Estimated GFR (MDRD) 235 (>89) 06/09/18 20:54 Glucose 94 mg/dL (70-100) 06/09/18 20:54 Lactic Acid 3.9 mmol/L (0.5-2.2) H* 06/09/18 20:54 Calcium 8.4 mg/dL (8.5-10.3) L 06/09/18 20:54 Total Bilirubin 20.6 mg/dL (0.2-1.0) H 06/09/18 20:54 AST 111 IU/L (10-42) H 06/09/18 20:54 ALT 15 IU/L (10-60) 06/09/18 20:54 Alkaline Phosphatase 83 IU/L (42-121) 06/09/18 20:54 Total Creatine Kinase 17 IU/L (22-269) L 06/09/18 20:54 CK-MB (CK-2) 0.7 ng/mL (0.6-6.3) 06/09/18 20:54 Troponin I < 0.04 ng/mL (<0.49) 06/09/18 20:54 Total Protein 5.5 g/dL (6.7-8.2) L 06/09/18 20:54 Albumin 2.3 g/dL (3.2-5.5) L 06/09/18 20:54 Globulin 3.2 g/dL (2.1-4.2) 06/09/18 20:54 Albumin/Globulin Ratio 0.7 (1.0-2.2) L 06/09/18 20:54 Lipase 20 U/L (22-51) L 06/09/18 20:54 Urine Color BROWN 06/09/18 20:25 Urine Clarity CLEAR (CLEAR) 06/09/18 20:25 Urine pH 7.0 PH (5.0-7.5) 06/09/18 20:25 Ur Specific [place] <=1.005 (1.002-1.030) 06/09/18 20:25 Urine Protein NEGATIVE mg/dL (NEGATIVE) 06/09/18 20:25 Urine Glucose (UA) NEGATIVE mg/dL (NEGATIVE) 06/09/18 20:25 Urine Ketones NEGATIVE mg/dL (NEGATIVE) 06/09/18 20:25 Urine Occult Blood NEGATIVE (NEGATIVE) 06/09/18 20:25 Urine Nitrite NEGATIVE (NEGATIVE) 06/09/18 20:25 Urine Bilirubin LARGE (NEGATIVE) H 06/09/18 20:25 Urine Urobilinogen 0.2 (NORMAL) E.U./dL (NORMAL) 06/09/18 20:25 Ur Leukocyte Esterase NEGATIVE (NEGATIVE) 06/09/18 20:25 Ur Microscopic Review NOT INDICATED 06/09/18 20:25 Urine Culture Comments NOT INDICATED 06/09/18 20:25 Urine HCG, Qual NEGATIVE 06/09/18 20:25 Salicylates 15.0 mg/dL 06/09/18 20:54 Urine Opiates Screen NEGATIVE (NEGATIVE) 06/09/18 20:49 Ur Oxycodone Screen NEGATIVE (NEGATIVE) 06/09/18 20:49 Urine Methadone Screen NEGATIVE (NEGATIVE) 06/09/18 20:49 Ur Propoxyphene Screen NEGATIVE (NEGATIVE) 06/09/18 20:49 Acetaminophen 191 ug/mL (10-30) H* 06/09/18 20:54 Ur Barbiturates Screen NEGATIVE (NEGATIVE) 06/09/18 20:49 Ur Tricyclics Screen NEGATIVE (NEGATIVE) 06/09/18 20:49 Ur Phencyclidine Scrn NEGATIVE (NEGATIVE) 06/09/18 20:49 Ur Amphetamine Screen NEGATIVE (NEGATIVE) 06/09/18 20:49 U Methamphetamines Scrn NEGATIVE (NEGATIVE) 06/09/18 20:49 U Benzodiazepines Scrn POSITIVE (NEGATIVE) H 06/09/18 20:49 Urine Cocaine Screen NEGATIVE (NEGATIVE) 06/09/18 20:49 U Cannabinoids Screen NEGATIVE (NEGATIVE) 06/09/18 20:49 Ethyl Alcohol 104.0 mg/dL 06/09/18 20:54 - Diagnostic Imaging Results Diagnostic Imaging Results: positive: Final report reviewed Diagnostic Imaging Results Comments: CT abdomen/pelvis Impression: 1. Enlarged fatty severely heterogeneous liver. Suspect multiple liver masses , likely representing diffuse metastatic disease. Fulminant inflammatory process considered less likely. 2. Mild splenomegaly with possible spontaneous splenorenal shunt. 3. Pancreatic edema is suspected. Correlate for possible pancreatitis. 4. There are some areas of mild wall thickening in the colon which could represent colitis. Portal hypertensive colopathy also possible. 5. Bibasilar atelectasis or infiltrate, right greater than left. Core Measures - Anticipated LOS I expect patient to be DC'd or transferred within 96 hours.: Yes - DVT/VTE - Prophylaxis VTE/DVT Device ordered at admit?: Yes
[2018-06-10 01:18] LABS: INR 4.1 (0.8-1.2); PT - PROTHROMBIN TIME 43.7 secs (9.9-12.6)
[2018-06-10 01:46] LABS: ALBUMIN 2.3 g/dL (3.2-5.5); ALBUMIN/GLOBULIN RATIO 0.7 (1.0-2.2); ALKALINE PHOSPHATASE 193 IU/L (42-121); ALT ALANINE AMINOTRANSFERASE 47 IU/L (10-60); AST ASPARTATE AMINOTRANSFERASE 190 IU/L (10-42); BUN - BLOOD UREA NITROGEN 5 mg/dL (6-20); CARBON DIOXIDE - CO2 24 mmol/L (21-32); CHLORIDE 97 mmol/L (101-111); GLUCOSE 145 mg/dL (70-100); SODIUM 134 mmol/L (135-145); TOTAL PROTEIN 5.8 g/dL (6.7-8.2)
[2018-06-10 01:47] LABS: BILIRUBIN,TOTAL > 30.0 mg/dL (0.2-1.0); CREATININE < 0.3 mg/dL (0.4-1.0); GFR - MDRD 235 (>89); PHOSPHORUS < 1.0 mg/dL (2.5-4.6)
[2018-06-10 01:48] LABS: ACETAMINOPHEN < 10 ug/mL (10-30)
[2018-06-10] MEDS: SODIUM CHLORIDE FLUSH 0.9% 10 ML SYRINGE IVP SCH ×4 (03:14→20:36)
[2018-06-10] MEDS: LACTULOSE 10 GM /15 ML UDC PO SCH ×4 (03:21→20:35)
[2018-06-10 04:50] LABS: BASOPHILS % (AUTO) 0.6 %; EOSINOPHILS % (AUTO) 1.1 %; HGB - HEMOGLOBIN 9.8 g/dL (12.0-16.0); LYMPHOCYTES % (AUTO) 23.3 %; MEAN CORPUSCULAR HEMOGLOBIN 40.3 pg (27.0-31.0); MEAN CORPUSCULAR HGB CONC 36.3 g/dL (32.0-36.0); MEAN CORPUSCULAR VOLUME 110.9 fL (81.0-99.0); MEAN PLATELET VOLUME 9.9 fL (7.9-10.8); PLT - PLATELET COUNT 96 10^3/uL (130-450); RED BLOOD COUNT 2.44 10^6/uL (4.20-5.40); RED CELL DISTRIBUTION WIDTH 20.4 % (12.0-15.0); WHITE BLOOD COUNT 15.6 x10^3/uL (4.8-10.8)
[2018-06-10 04:56] LABS: INR 3.8 (0.8-1.2); PT - PROTHROMBIN TIME 40.5 secs (9.9-12.6)
[2018-06-10 05:16] LABS: ABNORMAL LYMPHS % (MANUAL) 0 %; ALBUMIN 2.3 g/dL (3.2-5.5); ALBUMIN/GLOBULIN RATIO 0.6 (1.0-2.2); ALKALINE PHOSPHATASE 197 IU/L (42-121); ALT ALANINE AMINOTRANSFERASE 44 IU/L (10-60); AST ASPARTATE AMINOTRANSFERASE 196 IU/L (10-42); BUN - BLOOD UREA NITROGEN 6 mg/dL (6-20); CALCIUM 8.1 mg/dL (8.5-10.3); CARBON DIOXIDE - CO2 26 mmol/L (21-32); CHLORIDE 97 mmol/L (101-111); GLUCOSE 140 mg/dL (70-100); MAGNESIUM 3.3 mg/dL (1.7-2.8); SODIUM 133 mmol/L (135-145); TOTAL PROTEIN 5.9 g/dL (6.7-8.2)
[2018-06-10 05:17] LABS: ACETAMINOPHEN < 10 ug/mL (10-30); BILIRUBIN,TOTAL > 30.0 mg/dL (0.2-1.0); CREATININE < 0.3 mg/dL (0.4-1.0); GFR - MDRD 235 (>89); PHOSPHORUS < 1.0 mg/dL (2.5-4.6)
[2018-06-10 05:39] LABS: BAND NEUTROPHILS % (MANUAL) 13 %; BASOPHILS # (MANUAL) 0.2 10^3/uL (0-0.1); BASOPHILS % (MANUAL) 1 %; LYMPHOCYTES # (MANUAL) 1.4 10^3/uL (1.5-3.5); LYMPHOCYTES % (MANUAL) 9 %; MONOCYTES # (MANUAL) 0.8 10^3/uL (0.0-1.0); NEUTROPHILS # (MANUAL) 13.3 10^3/uL (1.5-6.6); NEUTROPHILS % (MANUAL) 72 %
[2018-06-10 05:40] LABS: DIFFERENTIAL COMMENT MANUAL DIFFERENTIAL; PLATELET ESTIMATE, MANUAL DECREASED (<130,000) (NORMAL)
[2018-06-10 05:52] LABS: MUDS CUTOFF CONCENTRATIONS CUTOFF CONC BELOW:
[2018-06-10 06:18] LABS: AMPHETAMINE SCREEN,URINE NEGATIVE (NEGATIVE); BENZODIAZEPINES SCREEN, URINE POSITIVE (NEGATIVE); COCAINE SCREEN URINE NEGATIVE (NEGATIVE); METHADONE SCREEN, URINE NEGATIVE (NEGATIVE); METHAMPHETAMINES SCREEN, URINE NEGATIVE (NEGATIVE); OPIATE SCREEN, URINE NEGATIVE (NEGATIVE); OXYCODONE SCREEN, URINE NEGATIVE (NEGATIVE); PROPOXYPHENE SCREEN, URINE NEGATIVE (NEGATIVE); TRICYCLIC ANTIDEPRESSANT,URINE NEGATIVE (NEGATIVE)
[2018-06-10 06:56] LABS: AST ASPARTATE AMINOTRANSFERASE 202 IU/L (10-42); BILIRUBIN,TOTAL > 30.0 mg/dL (0.2-1.0)
[2018-06-10 06:57] LABS: ALKALINE PHOSPHATASE 208 IU/L (42-121); ALT ALANINE AMINOTRANSFERASE 45 IU/L (10-60); CK- CREATINE KINASE 31 IU/L (22-269)
[2018-06-10 07:03] LABS: ACETAMINOPHEN < 10 ug/mL (10-30); LIPASE 45 U/L (22-51)
[2018-06-10] MEDS: PANTOPRAZOLE 40 MG VIAL IVP SCH ×2 (08:41→20:36)
[2018-06-10] MEDS: THIAMINE INJ 100 MG, FOLIC ACID INJ 1 MG in SODIUM CHLORIDE 0.9% 100ML 100 ML IV SCH (08:41)
[2018-06-10] MEDS: oxyCODONE 5 MG TABLET PO PRN ×2 (08:47→20:47)
[2018-06-10] MEDS: SODIUM CHLORIDE FLUSH 0.9% 10 ML SYRINGE IVP PRN (08:48)
[2018-06-10] MEDS ORDERED: MULTIVITAMIN 10 ML in SODIUM CHLORIDE 0.9% 1,000 ML IV SCH (09:00)
[2018-06-10] MEDS: POTASSIUM PHOSPHATE 15 MMOL in SODIUM CHLORIDE 0.9% 250 ML IV SCH ×2 (12:00→17:30)
--- NOTE | 2018-06-10 12:11 | XRAY Report ---
Procedure Date: 06/10/2018 Accession Number: [id number] / [id number] Procedure: XR - Chest for Line Placement CPT Code: FULL RESULT: EXAM: Chest for Line Placement DATE: 06/10/2018 11:59 AM CLINICAL HISTORY: Placement of PICC COMPARISON: None. TECHNIQUE: Single view of the chest. FINDINGS: Evaluation of the radiograph is limited by overlying wiring. Lungs/Pleura: No focal opacities evident. No pneumothorax or pleural effusion. Lung volumes are low. Mediastinum: Within exam limitations, cardiomediastinal contour is normal. Other: A right sided PICC terminates in the lower SVC. IMPRESSION: PICC with its distal tip in the lower SVC. RADIA
[2018-06-10 12:33] LABS: INR 2.5 (0.8-1.2); PT - PROTHROMBIN TIME 27.4 secs (9.9-12.6)
[2018-06-10 13:06] LABS: ALBUMIN 2.3 g/dL (3.2-5.5); ALBUMIN/GLOBULIN RATIO 0.6 (1.0-2.2); ALKALINE PHOSPHATASE 187 IU/L (42-121); ALT ALANINE AMINOTRANSFERASE 48 IU/L (10-60); AST ASPARTATE AMINOTRANSFERASE 184 IU/L (10-42); BUN - BLOOD UREA NITROGEN 5 mg/dL (6-20); CALCIUM 8.2 mg/dL (8.5-10.3); CARBON DIOXIDE - CO2 24 mmol/L (21-32); CHLORIDE 98 mmol/L (101-111); GLUCOSE 177 mg/dL (70-100); SODIUM 133 mmol/L (135-145)
[2018-06-10 13:07] LABS: ACETAMINOPHEN < 10 ug/mL (10-30); BILIRUBIN,TOTAL 31.8 mg/dL (0.2-1.0); CREATININE < 0.3 mg/dL (0.4-1.0); GFR - MDRD 235 (>89)
[2018-06-10] MEDS ORDERED: GADOBUTROL 7.5 MMOL/7.5 ML VIAL ONE (13:49)
[2018-06-10] MEDS: POTASSIUM CHLOR 20 MEQ/100 ML 20 MEQ/100 ML BAG IV SCH ×3 (15:13→18:39)
[2018-06-10 17:14] LABS: INR 2.9 (0.8-1.2); PT - PROTHROMBIN TIME 31.9 secs (9.9-12.6)
[2018-06-10 18:05] LABS: ALBUMIN 2.3 g/dL (3.2-5.5); ALBUMIN/GLOBULIN RATIO 0.7 (1.0-2.2); ALKALINE PHOSPHATASE 191 IU/L (42-121); ALT ALANINE AMINOTRANSFERASE 43 IU/L (10-60); AST ASPARTATE AMINOTRANSFERASE 174 IU/L (10-42); BUN - BLOOD UREA NITROGEN 5 mg/dL (6-20); CALCIUM 7.8 mg/dL (8.5-10.3); CARBON DIOXIDE - CO2 24 mmol/L (21-32); CHLORIDE 101 mmol/L (101-111); GLUCOSE 153 mg/dL (70-100); SODIUM 134 mmol/L (135-145); TOTAL PROTEIN 5.8 g/dL (6.7-8.2)
[2018-06-10 18:06] LABS: ACETAMINOPHEN < 10 ug/mL (10-30); BILIRUBIN,TOTAL > 30.0 mg/dL (0.2-1.0); CREATININE < 0.3 mg/dL (0.4-1.0); GFR - MDRD 235 (>89)
[2018-06-10 18:20] LABS: PHOSPHORUS 1.1 mg/dL (2.5-4.6)
[2018-06-10] MEDS: LORazepam 2 MG/ML VIAL IVP PRN (20:41)
[2018-06-10 23:08] LABS: INR 2.8 (0.8-1.2); PT - PROTHROMBIN TIME 30.3 secs (9.9-12.6)
[2018-06-10 23:51] LABS: ALBUMIN 2.2 g/dL (3.2-5.5); ALBUMIN/GLOBULIN RATIO 0.6 (1.0-2.2); ALKALINE PHOSPHATASE 182 IU/L (42-121); ALT ALANINE AMINOTRANSFERASE 39 IU/L (10-60); AST ASPARTATE AMINOTRANSFERASE 167 IU/L (10-42); BUN - BLOOD UREA NITROGEN 5 mg/dL (6-20); CALCIUM 7.7 mg/dL (8.5-10.3); CARBON DIOXIDE - CO2 24 mmol/L (21-32); CHLORIDE 103 mmol/L (101-111); GLUCOSE 152 mg/dL (70-100); SODIUM 135 mmol/L (135-145)
[2018-06-10 23:54] LABS: ACETAMINOPHEN < 10 ug/mL (10-30); BILIRUBIN,TOTAL 30.2 mg/dL (0.2-1.0); CREATININE < 0.3 mg/dL (0.4-1.0); GFR - MDRD 235 (>89)
[2018-06-10 23:55] LABS: TOTAL PROTEIN 5.6 g/dL (6.7-8.2)
[2018-06-11] MEDS: LACTULOSE 10 GM /15 ML UDC PO SCH ×4 (01:12→18:51)
[2018-06-11] MEDS: SODIUM CHLORIDE FLUSH 0.9% 10 ML SYRINGE IVP SCH ×3 (01:13→17:07)
[2018-06-11] MEDS: LORazepam 2 MG/ML VIAL IVP PRN ×2 (03:47→15:17)
[2018-06-11] MEDS: SODIUM CHLORIDE FLUSH 0.9% 10 ML SYRINGE IVP PRN ×4 (03:48→21:44)
[2018-06-11 04:41] LABS: BASOPHILS % (AUTO) 0.9 %; EOSINOPHILS % (AUTO) 0.1 %; HGB - HEMOGLOBIN 9.3 g/dL (12.0-16.0); LYMPHOCYTES % (AUTO) 34.7 %; MEAN CORPUSCULAR HEMOGLOBIN 39.5 pg (27.0-31.0); MEAN CORPUSCULAR HGB CONC 34.7 g/dL (32.0-36.0); MEAN CORPUSCULAR VOLUME 113.8 fL (81.0-99.0); MONOCYTES % (AUTO) 2.1 %; NEUTROPHILS % (AUTO) 62.2 %; PLT - PLATELET COUNT 104 10^3/uL (130-450); RED BLOOD COUNT 2.36 10^6/uL (4.20-5.40); RED CELL DISTRIBUTION WIDTH 21.5 % (12.0-15.0); WHITE BLOOD COUNT 18.3 x10^3/uL (4.8-10.8)
[2018-06-11 04:44] LABS: ABNORMAL LYMPHS % (MANUAL) 0 %
[2018-06-11 04:55] LABS: INR 2.8 (0.8-1.2); PT - PROTHROMBIN TIME 30.9 secs (9.9-12.6)
[2018-06-11 05:09] LABS: MAGNESIUM 2.4 mg/dL (1.7-2.8)
[2018-06-11 05:20] LABS: ALBUMIN 2.3 g/dL (3.2-5.5); ALBUMIN/GLOBULIN RATIO 0.6 (1.0-2.2); ALKALINE PHOSPHATASE 196 IU/L (42-121); ALT ALANINE AMINOTRANSFERASE 44 IU/L (10-60); AST ASPARTATE AMINOTRANSFERASE 180 IU/L (10-42); BUN - BLOOD UREA NITROGEN 8 mg/dL (6-20); CARBON DIOXIDE - CO2 24 mmol/L (21-32); CHLORIDE 103 mmol/L (101-111); GLUCOSE 116 mg/dL (70-100); SODIUM 137 mmol/L (135-145)
[2018-06-11 05:22] LABS: CREATININE < 0.3 mg/dL (0.4-1.0); GFR - MDRD 235 (>89)
[2018-06-11 06:08] LABS: BAND NEUTROPHILS % (MANUAL) 16 %; LYMPHOCYTES # (MANUAL) 1.1 10^3/uL (1.5-3.5); LYMPHOCYTES % (MANUAL) 6 %; MONOCYTES # (MANUAL) 0.4 10^3/uL (0.0-1.0); NEUTROPHILS # (MANUAL) 16.8 10^3/uL (1.5-6.6); NEUTROPHILS % (MANUAL) 76 %
[2018-06-11 06:09] LABS: DIFFERENTIAL COMMENT MANUAL DIFFERENTIAL; PLATELET ESTIMATE, MANUAL DECREASED (<130,000) (NORMAL)
[2018-06-11] MEDS: POTASSIUM CHLOR 20 MEQ/100 ML 20 MEQ/100 ML BAG IV SCH ×5 (06:11→09:25)
[2018-06-11 06:33] LABS: VBG PH 7.462 (7.31-7.41)
[2018-06-11] MEDS: PANTOPRAZOLE 40 MG VIAL IVP SCH ×2 (08:33→21:44)
[2018-06-11] MEDS: POLYETHYLENE GLYCOL 3350 17 GM PACKET PO SCH (08:35)
[2018-06-11] MEDS ORDERED: THIAMINE 100 MG/1 ML 2 ML MDV ONE (08:42)
[2018-06-11] MEDS ORDERED: SODIUM CHLORIDE 0.9% 100ML 100 ML IV ONE (08:42)
[2018-06-11] MEDS: THIAMINE INJ 100 MG, FOLIC ACID INJ 1 MG in SODIUM CHLORIDE 0.9% 100ML 100 ML IV SCH (09:00)
--- NOTE | 2018-06-11 10:57 | PROVIDER PROGRESS NOTE ---
Subjective - Prog Note Date Prog Note Date: 06/11/18 Prog Note Time: 11:03 - Subjective Subjective: While she is sitting upright in bed, it is a slack face. Gaze is dull and staring. Sentence structure is repetitive and without any contacts to questions you may ask her. Every once in a while she says she has back pain but that is a chronic problem for her. Current Medications - Current Medications Current Medications: Active Medications Thiamine HCl 100 mg/ Folic (Acid 1 mg/ Sodium Chloride) 101.2 mls @ 50.6 mls/ hr IV DAILY [facility] Last Infusion: 06/11/18 09:50 Dose: Infused Lactulose (Enulose) 15 gm PO Q6H [facility] Last Admin: 06/11/18 06:37 Dose: 15 gm Lorazepam (Ativan Inj (Vial)) 1 mg IVP Q30M PRN; Protocol PRN Reason: CIWA >8 Last Admin: 06/11/18 03:47 Dose: 1 mg Multivitamins/Folic Acid/Vitamin C (Centrum) 15 ml PO DAILY [facility] Ondansetron HCl (Zofran Inj) 4 mg IVP Q6HR PRN PRN Reason: Nausea / Vomiting Oxycodone HCl (Roxicodone) 5 mg PO Q4HR PRN PRN Reason: Pain 5 to 7 Last Admin: 06/10/18 20:47 Dose: 5 mg Oxycodone HCl (Roxicodone) 10 mg PO Q4HR PRN PRN Reason: Pain 8 to 10 Pantoprazole Sodium (Protonix) 40 mg IVP BID [facility] Last Admin: 06/11/18 08:33 Dose: 40 mg Polyethylene Glycol (Miralax) 17 gm PO DAILY [facility] Last Admin: 06/11/18 08:35 Dose: 17 gm Prednisolone (Prelone Oral Soln) 40 mg PO DAILYWM [facility] Last Admin: 06/11/18 08:33 Dose: 40 mg Prochlorperazine Edisylate (Compazine Inj) 10 mg IVP Q6HR PRN PRN Reason: Nausea / Vomiting Promethazine HCl (Phenergan Inj) 25 mg IM Q6HR PRN PRN Reason: Nausea / Vomiting Sodium Chloride (Normal Saline Flush 0.9%) 10 ml IVP 0100,0900,1700 [facility] Last Admin: 06/11/18 08:36 Dose: 10 ml Sodium Chloride (Normal Saline Flush 0.9%) 10 ml IVP PRN PRN PRN Reason: NEEDED PER PROVIDER ORDERS Last Admin: 06/11/18 04:26 Dose: 10 ml Cyclobenzaprine HCl 5 - 10 mg PO TID PRN 06/10/18 Famotidine 20 mg PO DAILY 06/10/18 Methocarbamol 500 mg PO BID PRN 06/10/18 Sucralfate 1 gm PO TID 06/10/18 Objective - Vital Signs/Intake & Output Reviewed Vital Signs: Yes Vital Signs: Vital Signs Temp Pulse Resp BP Pulse Ox 06/11/18 09:00 107 H 16 121/75 95 06/11/18 08:00 36.9 C 99 18 114/74 95 06/11/18 07:00 101 H 19 110/72 95 Intake & Output: Intake & Output 06/08/18 06/09/18 06/10/18 06/11/18 23:59 23:59 23:59 23:59 Intake Total 5069.700 526.2 Output Total 2200 700 Balance 2869.700 -173.8 - Objective General Appearance: positive: No acute distress, Lethargic, Other (Slack face. Slow speech) Eyes Bilateral: positive: PERRL Eyes: OU Scleral icterus ENT: positive: Dry mucous membranes Neck: positive: No JVD. negative: Stiff neck, Carotid bruit Respiratory: positive: Chest non-tender. negative: Wheezes, Rales, Rhonchi Cardiovascular: positive: Regular rate & rhythm, Other (Pulse is 80s-90s. Occasionally up to 120 and sinus). negative: Gallop/S4, Friction rub Abdomen: positive: Other (Distended, hypoactive bowel sounds, mild generalized tenderness but no rebound or guarding. You can still feel her liver all the way down to the anterior superior iliac crest) Skin: positive: Warm, Dry, Other (Jaundice) Extremities: positive: Full ROM, Pedal edema Neurologic/Psychiatric: positive: Disoriented to person, Disoriented to place, Disoriented to time, Slurred/abnml speech - Lab Results Fish Bones: 06/11/18 04:20 06/11/18 04:30 Other Labs: Lab Results x24hrs 06/11/18 06/11/18 06/11/18 Range/Units 04:30 04:30 04:30 WBC (4.8-10.8) x10^3/uL RBC (4.20-5.40) 10^6/uL Hgb (12.0-16.0) g/dL Hct (37.0-47.0) % MCV (81.0-99.0) fL MCH (27.0-31.0) pg MCHC (32.0-36.0) g/dL RDW (12.0-15.0) % Plt Count (130-450) 10^3/uL MPV (7.9-10.8) fL Neut # (Auto) Lymph # (Auto) Pinal # (Auto) Eos # (Auto) Baso # (Auto) Absolute Nucleated RBC Total Counted Band Neuts % (Manual) (0 - 10) % Abnorm Lymph % (Manual) % Nucleated RBC % Neutrophils # (Manual) (1.5-6.6) 10^3/uL Lymphocytes # (Manual) (1.5-3.5) 10^3/uL Monocytes # (Manual) (0.0-1.0) 10^3/uL Eosinophils # (Manual) (0-0.7) 10^3/uL Basophils # (Manual) (0-0.1) 10^3/uL Differential Comment Platelet Estimate (NORMAL) RBC Morph Micro Appear (NORMAL) PT 30.9 H (9.9-12.6) secs INR 2.8 H (0.8-1.2) VBG pH 7.462 H (7.31-7.41) Ionized Calcium 1.06 L YES (1.15-1.33) mmol/L Sodium 137 (135-145) mmol/L Potassium 2.7 L (3.5-5.0) mmol/L Chloride 103 (101-111) mmol/L Carbon Dioxide 24 (21-32) mmol/L Anion Gap 10.0 (6-13) BUN 8 (6-20) mg/dL Creatinine < 0.3 L (0.4-1.0) mg/dL Estimated GFR (MDRD) 235 (>89) Glucose 116 H (70-100) mg/dL Lactic Acid (0.5-2.2) mmol/L Calcium 8.0 L (8.5-10.3) mg/dL Phosphorus (2.5-4.6) mg/dL Magnesium (1.7-2.8) mg/dL Total Bilirubin 33.0 H (0.2-1.0) mg/dL AST 180 H (10-42) IU/L ALT 44 (10-60) IU/L Alkaline Phosphatase 196 H (42-121) IU/L Ammonia (7-35) umol/L Total Protein 6.0 L (6.7-8.2) g/dL Albumin 2.3 L (3.2-5.5) g/dL Globulin 3.7 (2.1-4.2) g/dL Albumin/Globulin Ratio 0.6 L (1.0-2.2) Acetaminophen (10-30) ug/mL 06/11/18 06/11/18 06/11/18 Range/Units 04:30 04:20 04:20 WBC 18.3 H (4.8-10.8) x10^3/uL RBC 2.36 L (4.20-5.40) 10^6/uL Hgb 9.3 L (12.0-16.0) g/dL Hct 26.8 L (37.0-47.0) % MCV 113.8 H (81.0-99.0) fL MCH 39.5 H (27.0-31.0) pg MCHC 34.7 (32.0-36.0) g/dL RDW 21.5 H (12.0-15.0) % Plt Count 104 L (130-450) 10^3/uL MPV 10.0 (7.9-10.8) fL Neut # (Auto) Not Reportable Lymph # (Auto) Not Reportable Pinal # (Auto) Not Reportable Eos # (Auto) Not Reportable Baso # (Auto) Not Reportable Absolute Nucleated RBC Not Reportable Total Counted 100 Band Neuts % (Manual) 16 H (0 - 10) % Abnorm Lymph % (Manual) 0 % Nucleated RBC % Not Reportable Neutrophils # (Manual) 16.8 H (1.5-6.6) 10^3/uL Lymphocytes # (Manual) 1.1 L (1.5-3.5) 10^3/uL Monocytes # (Manual) 0.4 (0.0-1.0) 10^3/uL Eosinophils # (Manual) 0.0 (0-0.7) 10^3/uL Basophils # (Manual) 0.0 (0-0.1) 10^3/uL Differential Comment MANUAL DIFFERENTIAL Platelet Estimate DECREASED (<130,000) (NORMAL) RBC Morph Micro Appear 1+ TARGET CELLS (NORMAL) PT (9.9-12.6) secs INR (0.8-1.2) VBG pH (7.31-7.41) Ionized Calcium (1.15-1.33) mmol/L Sodium (135-145) mmol/L Potassium (3.5-5.0) mmol/L Chloride (101-111) mmol/L Carbon Dioxide (21-32) mmol/L Anion Gap (6-13) BUN (6-20) mg/dL Creatinine (0.4-1.0) mg/dL Estimated GFR (MDRD) (>89) Glucose (70-100) mg/dL Lactic Acid (0.5-2.2) mmol/L Calcium (8.5-10.3) mg/dL Phosphorus 1.0 L* (2.5-4.6) mg/dL Magnesium 2.4 (1.7-2.8) mg/dL Total Bilirubin (0.2-1.0) mg/dL AST (10-42) IU/L ALT (10-60) IU/L Alkaline Phosphatase (42-121) IU/L Ammonia 121.8 H* (7-35) umol/L Total Protein (6.7-8.2) g/dL Albumin (3.2-5.5) g/dL Globulin (2.1-4.2) g/dL Albumin/Globulin Ratio (1.0-2.2) Acetaminophen (10-30) ug/mL 06/10/18 06/10/18 06/10/18 Range/Units 22:58 22:58 17:57 WBC (4.8-10.8) x10^3/uL RBC (4.20-5.40) 10^6/uL Hgb (12.0-16.0) g/dL Hct (37.0-47.0) % MCV (81.0-99.0) fL MCH (27.0-31.0) pg MCHC (32.0-36.0) g/dL RDW (12.0-15.0) % Plt Count (130-450) 10^3/uL MPV (7.9-10.8) fL Neut # (Auto) Lymph # (Auto) Pinal # (Auto) Eos # (Auto) Baso # (Auto) Absolute Nucleated RBC Total Counted Band Neuts % (Manual) (0 - 10) % Abnorm Lymph % (Manual) % Nucleated RBC % Neutrophils # (Manual) (1.5-6.6) 10^3/uL Lymphocytes # (Manual) (1.5-3.5) 10^3/uL Monocytes # (Manual) (0.0-1.0) 10^3/uL Eosinophils # (Manual) (0-0.7) 10^3/uL Basophils # (Manual) (0-0.1) 10^3/uL Differential Comment Platelet Estimate (NORMAL) RBC Morph Micro Appear (NORMAL) PT 30.3 H (9.9-12.6) secs INR 2.8 H (0.8-1.2) VBG pH (7.31-7.41) Ionized Calcium (1.15-1.33) mmol/L Sodium 135 (135-145) mmol/L Potassium 3.0 L (3.5-5.0) mmol/L Chloride 103 (101-111) mmol/L Carbon Dioxide 24 (21-32) mmol/L Anion Gap 8.0 (6-13) BUN 5 L (6-20) mg/dL Creatinine < 0.3 L (0.4-1.0) mg/dL Estimated GFR (MDRD) 235 (>89) Glucose 152 H (70-100) mg/dL Lactic Acid (0.5-2.2) mmol/L Calcium 7.7 L (8.5-10.3) mg/dL Phosphorus (2.5-4.6) mg/dL Magnesium 2.4 (1.7-2.8) mg/dL Total Bilirubin 30.2 H (0.2-1.0) mg/dL AST 167 H (10-42) IU/L ALT 39 (10-60) IU/L Alkaline Phosphatase 182 H (42-121) IU/L Ammonia (7-35) umol/L Total Protein 5.6 L (6.7-8.2) g/dL Albumin 2.2 L (3.2-5.5) g/dL Globulin 3.4 (2.1-4.2) g/dL Albumin/Globulin Ratio 0.6 L (1.0-2.2) Acetaminophen < 10 L (10-30) ug/mL 06/10/18 06/10/18 06/10/18 Range/Units 17:57 17:05 17:05 WBC (4.8-10.8) x10^3/uL RBC (4.20-5.40) 10^6/uL Hgb (12.0-16.0) g/dL Hct (37.0-47.0) % MCV (81.0-99.0) fL MCH (27.0-31.0) pg MCHC (32.0-36.0) g/dL RDW (12.0-15.0) % Plt Count (130-450) 10^3/uL MPV (7.9-10.8) fL Neut # (Auto) Lymph # (Auto) Pinal # (Auto) Eos # (Auto) Baso # (Auto) Absolute Nucleated RBC Total Counted Band Neuts % (Manual) (0 - 10) % Abnorm Lymph % (Manual) % Nucleated RBC % Neutrophils # (Manual) (1.5-6.6) 10^3/uL Lymphocytes # (Manual) (1.5-3.5) 10^3/uL Monocytes # (Manual) (0.0-1.0) 10^3/uL Eosinophils # (Manual) (0-0.7) 10^3/uL Basophils # (Manual) (0-0.1) 10^3/uL Differential Comment Platelet Estimate (NORMAL) RBC Morph Micro Appear (NORMAL) PT (9.9-12.6) secs INR (0.8-1.2) VBG pH (7.31-7.41) Ionized Calcium (1.15-1.33) mmol/L Sodium 134 L (135-145) mmol/L Potassium 3.6 3.7 (3.5-5.0) mmol/L Chloride 101 (101-111) mmol/L Carbon Dioxide 24 (21-32) mmol/L Anion Gap 9.0 (6-13) BUN 5 L (6-20) mg/dL Creatinine < 0.3 L (0.4-1.0) mg/dL Estimated GFR (MDRD) 235 (>89) Glucose 153 H (70-100) mg/dL Lactic Acid 1.3 (0.5-2.2) mmol/L Calcium 7.8 L (8.5-10.3) mg/dL Phosphorus 1.1 L (2.5-4.6) mg/dL Magnesium (1.7-2.8) mg/dL Total Bilirubin > 30.0 H (0.2-1.0) mg/dL AST 174 H (10-42) IU/L ALT 43 (10-60) IU/L Alkaline Phosphatase 191 H (42-121) IU/L Ammonia (7-35) umol/L Total Protein 5.8 L (6.7-8.2) g/dL Albumin 2.3 L (3.2-5.5) g/dL Globulin 3.5 (2.1-4.2) g/dL Albumin/Globulin Ratio 0.7 L (1.0-2.2) Acetaminophen < 10 L (10-30) ug/mL 06/10/18 06/10/18 06/10/18 Range/Units 17:05 15:35 12:10 WBC (4.8-10.8) x10^3/uL RBC (4.20-5.40) 10^6/uL Hgb (12.0-16.0) g/dL Hct (37.0-47.0) % MCV (81.0-99.0) fL MCH (27.0-31.0) pg MCHC (32.0-36.0) g/dL RDW (12.0-15.0) % Plt Count (130-450) 10^3/uL MPV (7.9-10.8) fL Neut # (Auto) Lymph # (Auto) Pinal # (Auto) Eos # (Auto) Baso # (Auto) Absolute Nucleated RBC Total Counted Band Neuts % (Manual) (0 - 10) % Abnorm Lymph % (Manual) % Nucleated RBC % Neutrophils # (Manual) (1.5-6.6) 10^3/uL Lymphocytes # (Manual) (1.5-3.5) 10^3/uL Monocytes # (Manual) (0.0-1.0) 10^3/uL Eosinophils # (Manual) (0-0.7) 10^3/uL Basophils # (Manual) (0-0.1) 10^3/uL Differential Comment Platelet Estimate (NORMAL) RBC Morph Micro Appear (NORMAL) PT 31.9 H (9.9-12.6) secs INR 2.9 H (0.8-1.2) VBG pH (7.31-7.41) Ionized Calcium (1.15-1.33) mmol/L Sodium (135-145) mmol/L Potassium (3.5-5.0) mmol/L Chloride (101-111) mmol/L Carbon Dioxide (21-32) mmol/L Anion Gap (6-13) BUN (6-20) mg/dL Creatinine (0.4-1.0) mg/dL Estimated GFR (MDRD) (>89) Glucose (70-100) mg/dL Lactic Acid 1.4 2.8 H (0.5-2.2) mmol/L Calcium (8.5-10.3) mg/dL Phosphorus (2.5-4.6) mg/dL Magnesium (1.7-2.8) mg/dL Total Bilirubin (0.2-1.0) mg/dL AST (10-42) IU/L ALT (10-60) IU/L Alkaline Phosphatase (42-121) IU/L Ammonia (7-35) umol/L Total Protein (6.7-8.2) g/dL Albumin (3.2-5.5) g/dL Globulin (2.1-4.2) g/dL Albumin/Globulin Ratio (1.0-2.2) Acetaminophen (10-30) ug/mL 06/10/18 06/10/18 Range/Units 12:10 12:10 WBC (4.8-10.8) x10^3/uL RBC (4.20-5.40) 10^6/uL Hgb (12.0-16.0) g/dL Hct (37.0-47.0) % MCV (81.0-99.0) fL MCH (27.0-31.0) pg MCHC (32.0-36.0) g/dL RDW (12.0-15.0) % Plt Count (130-450) 10^3/uL MPV (7.9-10.8) fL Neut # (Auto) Lymph # (Auto) Pinal # (Auto) Eos # (Auto) Baso # (Auto) Absolute Nucleated RBC Total Counted Band Neuts % (Manual) (0 - 10) % Abnorm Lymph % (Manual) % Nucleated RBC % Neutrophils # (Manual) (1.5-6.6) 10^3/uL Lymphocytes # (Manual) (1.5-3.5) 10^3/uL Monocytes # (Manual) (0.0-1.0) 10^3/uL Eosinophils # (Manual) (0-0.7) 10^3/uL Basophils # (Manual) (0-0.1) 10^3/uL Differential Comment Platelet Estimate (NORMAL) RBC Morph Micro Appear (NORMAL) PT 27.4 H (9.9-12.6) secs INR 2.5 H (0.8-1.2) VBG pH (7.31-7.41) Ionized Calcium (1.15-1.33) mmol/L Sodium 133 L (135-145) mmol/L Potassium 2.9 L (3.5-5.0) mmol/L Chloride 98 L (101-111) mmol/L Carbon Dioxide 24 (21-32) mmol/L Anion Gap 11.0 (6-13) BUN 5 L (6-20) mg/dL Creatinine < 0.3 L (0.4-1.0) mg/dL Estimated GFR (MDRD) 235 (>89) Glucose 177 H (70-100) mg/dL Lactic Acid (0.5-2.2) mmol/L Calcium 8.2 L (8.5-10.3) mg/dL Phosphorus (2.5-4.6) mg/dL Magnesium (1.7-2.8) mg/dL Total Bilirubin 31.8 H (0.2-1.0) mg/dL AST 184 H (10-42) IU/L ALT 48 (10-60) IU/L Alkaline Phosphatase 187 H (42-121) IU/L Ammonia (7-35) umol/L Total Protein 6.0 L (6.7-8.2) g/dL Albumin 2.3 L (3.2-5.5) g/dL Globulin 3.7 (2.1-4.2) g/dL Albumin/Globulin Ratio 0.6 L (1.0-2.2) Acetaminophen < 10 L (10-30) ug/mL Assessment/Plan - Problem List (1) Elevated WBC count Impression: CAT scan done on admission shows her to have small area of thickened bowel indicating possible colitis, basilar atelectasis, liver masses, but no true pneumonia/infection. Blood cultures have been done. At this time I am opting not to give antibiotics until I know what I am treating Qualifiers: Leukocytosis type: bandemia Qualified Code(s): D72.825 - Bandemia (2) Acute hepatic failure Impression: Patient presents with acute hepatic failure with an elevated bilirubin of 20.6 which is elevated from normal range just 4 months ago. The patient does have appear to have a history of acute alcoholic hepatitis back in February 2017 patient 's bilirubin was elevated to 9.2 and in July 2015 bilirubin was elevated to 4.6 but this is the highest it has ever been. The patient's INR is also elevated at 3.9 and has been slightly elevated in the past but never to this level. Patient's acute hepatic failure is either secondary to alcoholic hepatitis as per the flood control engineer from the [facility] or acetaminophen toxicity or a combination of the two. We initially started treatment as Tylenol toxicity, but when repeat levels came back at less than 10 we feel that there is lab error and there is no Tylenol toxicity being treated. The patient's meld score is 34 which gives her an estimated 3 month mortality of 52.6%. The patient's Maddery score or Maddery discriminant function is greater than 32 which makes the patient a good candidate for glucocorticoid therapy for alcoholic hepatitis. Palliative care consult was ordered. That service has attempted to see her yesterday and today. But she is so encephalopathic, she can give no meaningful information nor make adequate decisions about her own health. We are trying to track down who her power of patent prosecution attorney would be. When she came into the hospital she told was not to discuss this with any of her family members except her son. We are of the understanding that her son is 15 years old. Social work is trying to track down who we can speak to in addition to her son. Plan: N-acetylcysteine infusion stopped yesterday. Treat with prednisolone 40 mg daily for 7 days and then calculate Lille score to determine whether to continue a one-month glucocorticoid taper. Electrolyte replacement and IV fluids continue Monitor bilirubin, LFTs and INR Counseled on need to quit alcohol use but at this time her encephalopathy really doesn't allow processing of information. If she clears, will repeat the message. Outpatient referral for hepatology Have a discussion with her power of patent prosecution attorney about how gravely ill she is Qualifiers: Hepatic coma status: without hepatic coma Qualified Code(s): K72.00 - Acute and subacute hepatic failure without coma (2) Liver masses Conclusion/Plan: The patient has a severely enlarged liver on examination and on CT. The patient 's CT scan of the abdomen and pelvis shows suspicion for multiple liver masses likely representing diffuse metastatic disease and less likely due to fulminant inflammatory process. Plan: Multiphase MRI of the liver with liver protocol per recommendations of hepatology at the [facility] to further evaluate for possibility of hepatocellular carcinoma. It was ordered yesterday, but MRI machine went down. MRI machine went back up and the patient was able to go back but while on the table the machine went down again. We will try today. Outpatient referral for possible liver biopsy (3) Alcohol abuse Conclusion/Plan: The patient continues to drink alcohol and blood alcohol level on presentation was elevated at 104. The patient states she only drinks 3 glasses of wine this appears highly unlikely and patient likely drinks significantly more. The patient has a very high mortality over the next 3 months and does not qualify for liver transplant until she can remain abstinent from alcohol for 6 months. Patient was counseled extensively and understands the consequences if she continues to drink. Plan: Alcohol withdrawal protocol IV thiamine, IV folic acid and IV magnesium But switch to oral multivitamin IV Ativan as needed for alcohol withdrawal. Being used sparingly because of her altered mental status and continued sedation Social work consult for alcohol rehab Done. But again, her encephalopathy prohibits her from really following through. The Message will need to be repeated again. (4) Lactic acidosis, resolved. Conclusion/Plan: The patient presents with elevated lactic acid of 3.9. Patient does appears to be severely dehydrated as she also has a mild hyponatremia and severe hypokalemia with hypochloremia. The patient also has a urine specific gravity of less than 1.005 and appears severely dehydrated on examination. The patient also has liver failure which could also be contributing to the lack of metabolism of lactate. Plan: Patient will be given IV fluids and Laboratory Tests 06/09/18 06/10/18 06/10/18 20:54 00:10 04:30 Lactic Acid 3.9 H* 3.5 H* 2.5 H 06/10/18 06/10/18 06/10/18 07:40 12:10 15:35 Lactic Acid 3.2 H* 2.8 H 1.4 06/10/18 17:05 Lactic Acid 1.3 (5) Hypokalemia continues Conclusion/Plan: The patient presents with severe hypokalemia likely secondary to nausea and poor fluid intake over the last several days. She also likely has poor nutrition due to her alcohol abuse. The patient appears to be severely dehydrated. Plan: IV potassium chloride every hour 10 doses done and was normal to 3.6 at 17:57 yesterday. Down again today so will give riders again. Continue to monitor potassium IV antiemetics IV fluids (6) Chronic back pain Conclusion/Plan: The patient does have a history of chronic back pain and continues to have low back pain. The patient takes ibuprofen at home however given that patient is having epigastric pain and has hepatic failure with elevated INR there is concern for possible gastritis and possible gastric ulcer. Therefore patient will not be given NSAIDs. Will treat patient with oxycodone as needed for chronic back pain. We will also avoid Tylenol bc of liver failure. Qualifiers: Back pain location: low back pain Back pain laterality: bilateral Sciatica presence: with sciatica Sciatica laterality: bilateral sciatica Qualified Code(s): M54.42 - Lumbago with sciatica, left side; M54.41 - Lumbago with sciatica, right side; M54.41 - Lumbago with sciatica, right side; G89.29 - Other chronic pain; G89.29 - Other chronic pain (7) Hyponatremia resolved. Conclusion/Plan: Patient appears to have hypovolemic hyponatremia as she is dehydrated. She has had poor oral intake and has been dealing with nausea and vomiting and is abusing alcohol. Combination of things are causing her to become hypovolemic with hyponatremia. Patient will be given IV fluids and electrolyte replacement and we will continue to monitor her sodium. (8) Severe protein-calorie malnutrition Impression: due to weight loss greater than 18% in the last 4 months. She is also bedridden and very significantly manifesting reduced functional capacity. Nutrition services has already been consulted. We will be following the recommendations regarding oral nutrition supplements, diet changes, vitamin/ mineral supplements, etc. she is not safe to be fully po with risk of aspiration present.
[2018-06-11] MEDS ORDERED: GADOBUTROL 7.5 MMOL/7.5 ML VIAL ONE (11:27)
[2018-06-11] MEDS ORDERED: MULTIVITAMIN W/IRON, MINERALS 15 ML PO SCH (12:00)
[2018-06-11] MEDS ORDERED: GADOBUTROL 7.5 MMOL/7.5 ML VIAL IVP ONE (12:18)
[2018-06-11] MEDS: oxyCODONE 5 MG TABLET PO PRN ×2 (12:34→22:06)
--- NOTE | 2018-06-11 12:45 | MRI Report ---
Procedure Date: 06/11/2018 Accession Number: [id number] / [id number] Procedure: MRI - Abdomen W/WO CPT Code: FULL RESULT: EXAM: MR ABDOMEN WITH AND WITHOUT CONTRAST (MR LIVER) EXAM DATE: 06/11/2018 12:12 PM. CLINICAL HISTORY: Possible liver cancer with mets on CT. COMPARISON: ABDOMEN/PELVIS W/ 06/09/2018. TECHNIQUE: Multiplanar breath-hold T1, T2, and DWI sequences obtained through the abdomen on an MR scanner. Images obtained before and after administration of 7.5 cc gadavist intravenous contrast. Multiphase postcontrast images obtained of the liver and abdomen. FINDINGS: Lung Bases: Unremarkable. Liver: Moderate enlarged liver with diffuse heterogeneous fatty infiltration with marked heterogeneous signal loss on out of phase sequences. This also causes a heterogeneous appearance on postcontrast imaging. This is consistent with the findings on CT. No focal enhancing liver masses are seen. No evidence of biliary dilatation. Mild ascites. Gallbladder: The gallbladder is partially distended and appears normal with no wall thickening or stone. Pancreas: The pancreas appears normal with no mass or ductal dilatation. Spleen: The spleen appears normal. Kidneys and Adrenals: The kidneys appear normal with no mass or hydronephrosis. There are no cysts in the kidneys. The adrenals appear normal. Bowel: The small bowel and colon appear normal with no inflammation or obstruction. Retroperitoneum: The retroperitoneal structures appear normal with no mass or lymphadenopathy. IMPRESSION: 1. Hepatomegaly with marked heterogeneous fatty infiltration of the liver, explains the findings on CT. No suspicious focal liver masses seen. 2. Mild ascites. 3. No additional mass or lymphadenopathy seen in the abdomen. RADIA
[2018-06-11 13:06] LABS: GLUCOSE, URINE (UA) 100 mg/dL (NEGATIVE); KETONES,URINE (UA) NEGATIVE (NEGATIVE); LEUKOCYTE ESTERASE, URINE NEGATIVE (NEGATIVE); NITRITE,URINE NEGATIVE (NEGATIVE); OCCULT BLOOD,URINE NEGATIVE (NEGATIVE); PH,URINE 6.5 PH (5.0-7.5); PROTEIN,URINE NEGATIVE (NEGATIVE); UROBILINOGEN,URINE 1 (NORMAL) E.U./dL (NORMAL)
[2018-06-11 13:10] LABS: BILIRUBIN,URINE LARGE (NEGATIVE); CLARITY,URINE CLEAR (CLEAR); ICTOTEST,URINE POSITIVE
[2018-06-11] MEDS ORDERED: POTASSIUM PHOSPHATE 21 MMOL in SODIUM CHLORIDE 0.9% 250 ML IV ONE (17:30)
[2018-06-12] MEDS: LACTULOSE 10 GM /15 ML UDC PO SCH (01:17)
[2018-06-12] MEDS: SODIUM CHLORIDE FLUSH 0.9% 10 ML SYRINGE IVP SCH ×3 (01:19→18:16)
[2018-06-12] MEDS: LORazepam 2 MG/ML VIAL IVP PRN ×3 (01:30→06:09)
[2018-06-12 04:45] LABS: INR 2.8 (0.8-1.2); PT - PROTHROMBIN TIME 30.6 secs (9.9-12.6)
[2018-06-12 05:02] LABS: MAGNESIUM 2.4 mg/dL (1.7-2.8); PHOSPHORUS 3.5 mg/dL (2.5-4.6)
[2018-06-12 05:06] LABS: BASOPHILS % (AUTO) 1.2 %; EOSINOPHILS % (AUTO) 0.1 %; HGB - HEMOGLOBIN 9.1 g/dL (12.0-16.0); LYMPHOCYTES % (AUTO) 34.1 %; MEAN CORPUSCULAR HEMOGLOBIN 39.4 pg (27.0-31.0); MEAN CORPUSCULAR HGB CONC 34.6 g/dL (32.0-36.0); MEAN PLATELET VOLUME 9.6 fL (7.9-10.8); MONOCYTES % (AUTO) 6.1 %; NEUTROPHILS % (AUTO) 58.5 %; PLT - PLATELET COUNT 101 10^3/uL (130-450); WHITE BLOOD COUNT 17.6 x10^3/uL (4.8-10.8)
[2018-06-12] MEDS: SODIUM CHLORIDE FLUSH 0.9% 10 ML SYRINGE IVP PRN ×4 (05:08→21:23)
[2018-06-12 05:09] LABS: ABNORMAL LYMPHS % (MANUAL) 0 %
[2018-06-12 05:34] LABS: ALBUMIN 2.2 g/dL (3.2-5.5); ALBUMIN/GLOBULIN RATIO 0.6 (1.0-2.2); ALKALINE PHOSPHATASE 182 IU/L (42-121); ALT ALANINE AMINOTRANSFERASE 47 IU/L (10-60); AST ASPARTATE AMINOTRANSFERASE 168 IU/L (10-42); BUN - BLOOD UREA NITROGEN 10 mg/dL (6-20); CALCIUM 7.7 mg/dL (8.5-10.3); CARBON DIOXIDE - CO2 24 mmol/L (21-32); CHLORIDE 106 mmol/L (101-111); GLUCOSE 96 mg/dL (70-100); SODIUM 137 mmol/L (135-145); TOTAL PROTEIN 5.8 g/dL (6.7-8.2)
[2018-06-12 05:39] LABS: BILIRUBIN,TOTAL 31.6 mg/dL (0.2-1.0); CREATININE < 0.3 mg/dL (0.4-1.0); GFR - MDRD 235 (>89)
[2018-06-12 07:14] LABS: BAND NEUTROPHILS % (MANUAL) 7 %; LYMPHOCYTES # (MANUAL) 1.6 10^3/uL (1.5-3.5); LYMPHOCYTES % (MANUAL) 9 %; MONOCYTES # (MANUAL) 1.2 10^3/uL (0.0-1.0); NEUTROPHILS # (MANUAL) 14.8 10^3/uL (1.5-6.6); NEUTROPHILS % (MANUAL) 77 %
[2018-06-12 07:15] LABS: DIFFERENTIAL COMMENT MANUAL DIFFERENTIAL; PLATELET ESTIMATE, MANUAL DECREASED (<130,000) (NORMAL)
[2018-06-12] MEDS ORDERED: BISACODYL 10 MG SUPP PR ONE (08:30)
[2018-06-12] MEDS: PANTOPRAZOLE 40 MG VIAL IVP SCH ×2 (09:07→21:22)
[2018-06-12] MEDS ORDERED: DIATR MEGLU/DIATRIZOATE SODIUM 120 ML BOTTLE PO ONE ×2 (14:30)
[2018-06-12] MEDS: LACTULOSE 10 GM/15 ML BOTTLE PO SCH ×3 (14:46→20:32)
[2018-06-12] MEDS: MULTIVITAMIN W/MINERALS TABLET PO SCH (14:47)
[2018-06-12] MEDS: POLYETHYLENE GLYCOL 3350 17 GM PACKET PO SCH (14:47)
[2018-06-12] MEDS: THIAMINE INJ 100 MG, FOLIC ACID INJ 1 MG in SODIUM CHLORIDE 0.9% 100ML 100 ML IV SCH (14:58)
--- NOTE | 2018-06-12 16:00 | XRAY Report ---
Procedure Date: 06/12/2018 Accession Number: [id number] / [id number] Procedure: FL - Fluoro Independent Procedure CPT Code: FULL RESULT: EXAM: Fluoro Independent Procedure DATE: 06/12/2018 2:24 PM CLINICAL HISTORY: NG tube placement, no doboff of eliecer COMPARISON: None. TECHNIQUE: Under live fluoroscopic guidance a nasogastric tube was inserted past the gastroesophageal junction. Placement was confirmed by contrast injection. Lidocaine gel was used for patient comfort. Fluoroscopic exposure time: 3 minutes 17 seconds Number of fluoroscopic images: 2. FINDINGS: Normal anatomy. The patient appeared to tolerate the procedure well. IMPRESSION: Appropriate placement of a nasogastric tube. RADIA
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
[2018-06-13] MEDS: LORazepam 2 MG/ML VIAL IVP PRN ×5 (00:56→22:50)
[2018-06-13] MEDS: SODIUM CHLORIDE FLUSH 0.9% 10 ML SYRINGE IVP SCH ×3 (00:56→20:12)
[2018-06-13] MEDS: LACTULOSE 10 GM/15 ML BOTTLE PO SCH ×4 (02:33→20:12)
[2018-06-13 05:17] LABS: BASOPHILS % (AUTO) 0.6 %; EOSINOPHILS % (AUTO) 0.3 %; HGB - HEMOGLOBIN 9.4 g/dL (12.0-16.0); LYMPHOCYTES % (AUTO) 30.8 %; MEAN CORPUSCULAR HEMOGLOBIN 40.1 pg (27.0-31.0); MEAN CORPUSCULAR HGB CONC 34.8 g/dL (32.0-36.0); MEAN CORPUSCULAR VOLUME 115.3 fL (81.0-99.0); MEAN PLATELET VOLUME 9.7 fL (7.9-10.8); MONOCYTES % (AUTO) 4.7 %; NEUTROPHILS % (AUTO) 63.6 %; PLT - PLATELET COUNT 111 10^3/uL (130-450); RED BLOOD COUNT 2.35 10^6/uL (4.20-5.40); RED CELL DISTRIBUTION WIDTH 22.8 % (12.0-15.0); WHITE BLOOD COUNT 19.9 x10^3/uL (4.8-10.8)
[2018-06-13] MEDS: SODIUM CHLORIDE FLUSH 0.9% 10 ML SYRINGE IVP PRN ×3 (05:18→22:50)
[2018-06-13 05:19] LABS: ABNORMAL LYMPHS % (MANUAL) 0 %
[2018-06-13 05:21] LABS: INR 2.8 (0.8-1.2); PT - PROTHROMBIN TIME 30.9 secs (9.9-12.6)
[2018-06-13 05:47] LABS: ALBUMIN 2.3 g/dL (3.2-5.5); ALBUMIN/GLOBULIN RATIO 0.6 (1.0-2.2); ALKALINE PHOSPHATASE 178 IU/L (42-121); ALT ALANINE AMINOTRANSFERASE 47 IU/L (10-60); AST ASPARTATE AMINOTRANSFERASE 156 IU/L (10-42); BUN - BLOOD UREA NITROGEN 11 mg/dL (6-20); CARBON DIOXIDE - CO2 24 mmol/L (21-32); CHLORIDE 108 mmol/L (101-111); GLUCOSE 97 mg/dL (70-100); SODIUM 139 mmol/L (135-145); TOTAL PROTEIN 6.1 g/dL (6.7-8.2)
[2018-06-13 05:51] LABS: BILIRUBIN,TOTAL 31.6 mg/dL (0.2-1.0); CREATININE < 0.3 mg/dL (0.4-1.0); GFR - MDRD 235 (>89)
[2018-06-13 06:00] LABS: VBG PH 7.474 (7.31-7.41)
[2018-06-13 06:21] LABS: MAGNESIUM 2.5 mg/dL (1.7-2.8); PHOSPHORUS 3.1 mg/dL (2.5-4.6)
[2018-06-13 07:18] LABS: BAND NEUTROPHILS % (MANUAL) 6 %; EOSINOPHILS # (MANUAL) 0.2 10^3/uL (0-0.7); LYMPHOCYTES % (MANUAL) 20 %; METAMYELOCYTES % (MANUAL) 2 %; MONOCYTES # (MANUAL) 1.8 10^3/uL (0.0-1.0); MYELOCYTES % (MANUAL) 2 %; NEUTROPHILS # (MANUAL) 13.1 10^3/uL (1.5-6.6); NEUTROPHILS % (MANUAL) 60 %
[2018-06-13 07:19] LABS: DIFFERENTIAL COMMENT MANUAL DIFFERENTIAL; PLATELET ESTIMATE, MANUAL DECREASED (<130,000) (NORMAL)
[2018-06-13] MEDS: POTASSIUM CHLOR 20 MEQ/100 ML 20 MEQ/100 ML BAG IV SCH ×4 (08:17→11:30)
[2018-06-13] MEDS: PANTOPRAZOLE 40 MG VIAL IVP SCH ×2 (08:19→22:05)
[2018-06-13] MEDS: MULTIVITAMIN W/MINERALS TABLET PO SCH (08:20)
[2018-06-13] MEDS: POLYETHYLENE GLYCOL 3350 17 GM PACKET PO SCH (09:20)
[2018-06-13] MEDS: THIAMINE INJ 100 MG, FOLIC ACID INJ 1 MG in SODIUM CHLORIDE 0.9% 100ML 100 ML IV SCH (10:31)
--- NOTE | 2018-06-13 18:52 | PROVIDER PROGRESS NOTE ---
Subjective - Prog Note Date Prog Note Date: 06/13/18 Prog Note Time: 18:50 - Subjective Subjective: Her mother, brother came to visit her. Mom is with memory problems. Ms. Roman was able to speak to them but only in one-word intermittent compliance. They were pleased that she was able to recognize them and say their name. But she only was able to get out one sentence and that was it.She pulled out her NG last night. A little bit more awake today. Current Medications - Current Medications Current Medications: Active Medications Thiamine HCl 100 mg/ Folic (Acid 1 mg/ Sodium Chloride) 101.2 mls @ 50.6 mls/ hr IV DAILY [facility] Last Infusion: 06/13/18 12:40 Dose: Infused Lactulose (Lactulose) 30 gm PO Q6H [facility] Last Admin: 06/13/18 14:36 Dose: 30 gm Lorazepam (Ativan Inj (Vial)) 1 mg IVP Q30M PRN; Protocol PRN Reason: CIWA >8 Last Admin: 06/13/18 16:25 Dose: 1 mg Multivitamins/Minerals (Theragran M) 1 tab PO DAILY [facility] Last Admin: 06/13/18 08:20 Dose: 1 tab Ondansetron HCl (Zofran Inj) 4 mg IVP Q6HR PRN PRN Reason: Nausea / Vomiting Oxycodone HCl (Roxicodone) 5 mg PO Q4HR PRN PRN Reason: Pain 5 to 7 Last Admin: 06/11/18 22:06 Dose: 5 mg Oxycodone HCl (Roxicodone) 10 mg PO Q4HR PRN PRN Reason: Pain 8 to 10 Pantoprazole Sodium (Protonix) 40 mg IVP BID [facility] Last Admin: 06/13/18 08:19 Dose: 40 mg Polyethylene Glycol (Miralax) 17 gm PO DAILY [facility] Last Admin: 06/13/18 09:20 Dose: Not Given Prednisolone (Prelone Oral Soln) 40 mg PO DAILYWM [facility] Last Admin: 06/13/18 08:20 Dose: 40 mg Prochlorperazine Edisylate (Compazine Inj) 10 mg IVP Q6HR PRN PRN Reason: Nausea / Vomiting Promethazine HCl (Phenergan Inj) 25 mg IM Q6HR PRN PRN Reason: Nausea / Vomiting Sodium Chloride (Normal Saline Flush 0.9%) 10 ml IVP 0100,0900,1700 JULIO Last Admin: 06/13/18 08:19 Dose: 10 ml Sodium Chloride (Normal Saline Flush 0.9%) 10 ml IVP PRN PRN PRN Reason: NEEDED PER PROVIDER ORDERS Last Admin: 06/13/18 05:18 Dose: 30 ml Cyclobenzaprine HCl 5 - 10 mg PO TID PRN 06/10/18 Famotidine 20 mg PO DAILY 06/10/18 Methocarbamol 500 mg PO BID PRN 06/10/18 Sucralfate 1 gm PO TID 06/10/18 Objective - Vital Signs/Intake & Output Reviewed Vital Signs: Yes Vital Signs: Vital Signs x48h Temp Pulse Resp BP Pulse Ox 06/13/18 18:00 88 19 138/90 H 06/13/18 17:00 86 18 100/67 06/13/18 16:00 36.9 C 93 23 120/76 94 06/13/18 15:00 95 23 105/74 06/13/18 14:00 96 24 119/83 H 06/13/18 13:00 86 19 98/66 06/13/18 12:00 37.0 C 91 22 115/78 06/13/18 11:00 94 20 120/85 H Intake & Output: Intake & Output 06/10/18 06/11/18 06/12/18 06/13/18 23:59 23:59 23:59 23:59 Intake Total 5069.700 1243.200 731.2 1281.2 Output Total 2200 1500 1400 1100 Balance 2869.700 -256.800 -668.8 181.2 - Objective General Appearance: positive: Lethargic, Other (Cachectic appearing jaundiced female who looks older than stated age) Eyes Bilateral: positive: PERRL, EOMI Eyes: OU Scleral icterus Neck: positive: No JVD. negative: Stiff neck, Carotid bruit Respiratory: positive: Chest non-tender. negative: Wheezes, Rales, Rhonchi Cardiovascular: positive: Regular rate & rhythm. negative: Gallop/S4, Friction rub Abdomen: positive: Non-tender, Nml bowel sounds, Hepatomegaly, Other (There is no fluid wave, and the main thing you feel on her abdominal exam is a large liver.). negative: Guarding, Rebound Extremities: positive: Full ROM Neurologic/Psychiatric: positive: Disoriented to person, Disoriented to place, Disoriented to time, Weakness, Slurred/abnml speech - Lab Results Fish Bones: 06/13/18 05:04 06/13/18 05:04 Other Labs: Lab Results x24hrs 06/13/18 06/13/18 06/13/18 Range/Units 05:04 05:04 05:04 WBC (4.8-10.8) x10^3/uL RBC (4.20-5.40) 10^6/uL Hgb (12.0-16.0) g/dL Hct (37.0-47.0) % MCV (81.0-99.0) fL MCH (27.0-31.0) pg MCHC (32.0-36.0) g/dL RDW (12.0-15.0) % Plt Count (130-450) 10^3/uL MPV (7.9-10.8) fL Neut # (Auto) Lymph # (Auto) Sargent # (Auto) Eos # (Auto) Baso # (Auto) Absolute Nucleated RBC Total Counted Band Neuts % (Manual) (0 - 10) % Abnorm Lymph % (Manual) % Metamyelocytes % ( - 0) % Myelocytes % ( - 0) % Nucleated RBC % Neutrophils # (Manual) (1.5-6.6) 10^3/uL Lymphocytes # (Manual) (1.5-3.5) 10^3/uL Monocytes # (Manual) (0.0-1.0) 10^3/uL Eosinophils # (Manual) (0-0.7) 10^3/uL Basophils # (Manual) (0-0.1) 10^3/uL Nucleated RBCs % Differential Comment Platelet Estimate (NORMAL) RBC Morph Micro Appear (NORMAL) PT 30.9 H (9.9-12.6) secs INR 2.8 H (0.8-1.2) VBG pH 7.474 H (7.31-7.41) Ionized Calcium 1.05 L YES (1.15-1.33) mmol/L Sodium 139 (135-145) mmol/L Potassium 2.8 L (3.5-5.0) mmol/L Chloride 108 (101-111) mmol/L Carbon Dioxide 24 (21-32) mmol/L Anion Gap 7.0 (6-13) BUN 11 (6-20) mg/dL Creatinine < 0.3 L (0.4-1.0) mg/dL Estimated GFR (MDRD) 235 (>89) Glucose 97 (70-100) mg/dL Calcium 8.0 L (8.5-10.3) mg/dL Phosphorus (2.5-4.6) mg/dL Magnesium (1.7-2.8) mg/dL Total Bilirubin 31.6 H (0.2-1.0) mg/dL AST 156 H (10-42) IU/L ALT 47 (10-60) IU/L Alkaline Phosphatase 178 H (42-121) IU/L Ammonia (7-35) umol/L Total Protein 6.1 L (6.7-8.2) g/dL Albumin 2.3 L (3.2-5.5) g/dL Globulin 3.8 (2.1-4.2) g/dL Albumin/Globulin Ratio 0.6 L (1.0-2.2) 06/13/18 06/13/18 06/13/18 Range/Units 05:04 05:04 05:04 WBC 19.9 H (4.8-10.8) x10^3/uL RBC 2.35 L (4.20-5.40) 10^6/uL Hgb 9.4 L (12.0-16.0) g/dL Hct 27.1 L (37.0-47.0) % MCV 115.3 H (81.0-99.0) fL MCH 40.1 H (27.0-31.0) pg MCHC 34.8 (32.0-36.0) g/dL RDW 22.8 H (12.0-15.0) % Plt Count 111 L (130-450) 10^3/uL MPV 9.7 (7.9-10.8) fL Neut # (Auto) Not Reportable Lymph # (Auto) Not Reportable Sargent # (Auto) Not Reportable Eos # (Auto) Not Reportable Baso # (Auto) Not Reportable Absolute Nucleated RBC Not Reportable Total Counted 100 Band Neuts % (Manual) 6 (0 - 10) % Abnorm Lymph % (Manual) 0 % Metamyelocytes % 2 H ( - 0) % Myelocytes % 2 H ( - 0) % Nucleated RBC % Not Reportable Neutrophils # (Manual) 13.1 H (1.5-6.6) 10^3/uL Lymphocytes # (Manual) 4.0 H (1.5-3.5) 10^3/uL Monocytes # (Manual) 1.8 H (0.0-1.0) 10^3/uL Eosinophils # (Manual) 0.2 (0-0.7) 10^3/uL Basophils # (Manual) 0.0 (0-0.1) 10^3/uL Nucleated RBCs 1 % Differential Comment MANUAL DIFFERENTIAL Platelet Estimate DECREASED (<130,000) (NORMAL) RBC Morph Micro Appear 1+ TEARDROP CELLS (NORMAL) PT (9.9-12.6) secs INR (0.8-1.2) VBG pH (7.31-7.41) Ionized Calcium (1.15-1.33) mmol/L Sodium (135-145) mmol/L Potassium (3.5-5.0) mmol/L Chloride (101-111) mmol/L Carbon Dioxide (21-32) mmol/L Anion Gap (6-13) BUN (6-20) mg/dL Creatinine (0.4-1.0) mg/dL Estimated GFR (MDRD) (>89) Glucose (70-100) mg/dL Calcium (8.5-10.3) mg/dL Phosphorus 3.1 (2.5-4.6) mg/dL Magnesium 2.5 (1.7-2.8) mg/dL Total Bilirubin (0.2-1.0) mg/dL AST (10-42) IU/L ALT (10-60) IU/L Alkaline Phosphatase (42-121) IU/L Ammonia 90.5 H* (7-35) umol/L Total Protein (6.7-8.2) g/dL Albumin (3.2-5.5) g/dL Globulin (2.1-4.2) g/dL Albumin/Globulin Ratio (1.0-2.2) ABX Reporting Has patient been on IV antibiotics over the past 48 hours?: No Assessment/Plan - Problem List (1) Elevated WBC count Impression: she went up to 18K then 17K yestrday and 19K today. No fever. CAT scan done on admission shows her to have small area of thickened bowel indicating possible colitis, basilar atelectasis, liver masses, but no true pneumonia/infection. Blood cultures negative at 24 hours. At this time I am opting not to give antibiotics until I know what I am treating Qualifiers: Leukocytosis type: bandemia Qualified Code(s): D72.825 - Bandemia (2) Acute hepatic failure Impression: Patient presents with acute hepatic failure with an elevated bilirubin of 20.6 which is elevated from normal range just 4 months ago. The patient does have appear to have a history of acute alcoholic hepatitis back in February 2017 patient 's bilirubin was elevated to 9.2 and in July 2015 bilirubin was elevated to 4.6 but this is the highest it has ever been. The patient's INR is also elevated at 3.9 and has been slightly elevated in the past but never to this level. Patient's acute hepatic failure is either secondary to alcoholic hepatitis as per the children's court magistrate from the [facility] or acetaminophen toxicity or a combination of the two. We initially started treatment as Tylenol toxicity, but when repeat levels came back at less than 10 we feel that there is lab error and there is no Tylenol toxicity being treated. The patient's meld score is 34 which gives her an estimated 3 month mortality of 52.6%. The patient's Maddery score or Maddery discriminant function is greater than 32 which makes the patient a good candidate for glucocorticoid therapy for alcoholic hepatitis. Palliative care consult was ordered. That service has attempted to see her but she is so encephalopathic, she can give no meaningful information nor make adequate decisions about her own health. Her Bili is 31 and stable for 3 days. I have spoken to her brother Travon Roman and he has Parkinson's, is taking care of their demented mom, and he is alarmed at the idea he is the next of kin. Gigi is her son but he is 15 and was living in [place] but didn't work out and he came back to the [place] a week ago. Lives with youth group and the security system administrator. Isauro is very leery of assuming responsibility and wants Kelsey's ex-boyfriend and current best friend, Gaurav Bradleynarciso, to take over. I explained that is possible but would need them to consult an compliance attorney before they do that . Both do state she would not have wanted to be kept alive if the end came. In the end, Isauro went to the bedside 06/12. Opted not to turn over DPOAH to Gaurav and we did a POLST. He and his mom visited her today. Plan: N-acetylcysteine infusion stopped day after admission. Treat with prednisolone 40 mg daily for 7 days and then calculate Lille score to determine whether to continue a one-month glucocorticoid taper. Electrolyte replacement and IV fluids continue NG ordered and placed so we can increase lactulose dose but she pulled it out. Try Lisa or Doboff for feeding tomorrow. Monitor bilirubin, LFTs and INR Counseled on need to quit alcohol use but at this time her encephalopathy really doesn't allow processing of information. If she clears, will repeat the message. Outpatient referral for hepatology I had discussion with her next of kin, Isauro Roman, about how gravely ill she is 06/12 and no change today. POLST form filled out and she is DNR. Qualifiers: Hepatic coma status: without hepatic coma Qualified Code(s): K72.00 - Acute and subacute hepatic failure without coma (3) Liver masses Conclusion/Plan: The patient has a severely enlarged liver on examination and on CT. The patient 's CT scan of the abdomen and pelvis shows suspicion for multiple liver masses likely representing diffuse metastatic disease and less likely due to fulminant inflammatory process. Plan: Multiphase MRI of the liver with liver protocol per recommendations of hepatology at the [facility] to further evaluate for possibility of hepatocellular carcinoma. It was ordered 06/11, but MRI machine went down. MRI machine went back up and the patient was able to go back but while on the table the machine went down again. We tried again 06/12 while the liver is enlarged, there are no liver masses. Just an enlarged liver. Outpatient referral for possible liver biopsy (4) Alcohol abuse Conclusion/Plan: The patient continues to drink alcohol and blood alcohol level on presentation was elevated at 104. The patient states she only drinks 3 glasses of wine this appears highly unlikely and patient likely drinks significantly more. The patient has a very high mortality over the next 3 months and does not qualify for liver transplant until she can remain abstinent from alcohol for 6 months. Patient was counseled extensively and understands the consequences if she continues to drink. Plan: Alcohol withdrawal protocol with Ativan being used sparingly due to her liver failure IV thiamine, IV folic acid and IV magnesium But switched to oral multivitamin IV Ativan as needed for alcohol withdrawal. Being used sparingly because of her altered mental status and continued sedation Social work consult for alcohol rehab Done. But again, her encephalopathy prohibits her from really following through. The Message will need to be repeated again. (5) Hypokalemia continues Conclusion/Plan: The patient presents with severe hypokalemia likely secondary to nausea and poor fluid intake over the last several days. She also likely has poor nutrition due to her alcohol abuse. The patient appears to be severely dehydrated. Plan: IV potassium chloride every hour 10 doses done and was normal to 3.6. But still requiring riders since the hypokalemia returns. Continue to monitor potassium IV antiemetics IV fluids (6) Severe protein-calorie malnutrition Impression: due to weight loss greater than 18% in the last 4 months. She is also bedridden and very significantly manifesting reduced functional capacity. Nutrition services has already been consulted. We will be following the recommendations regarding oral nutrition supplements, diet changes, vitamin/ mineral supplements, etc. she is not safe to be fully po with risk of aspiration present. Will place NG today to help with lactulose and to see if we can start to tube feed , (7) Hyponatremia resolved. Conclusion/Plan: Patient appears to have hypovolemic hyponatremia as she is dehydrated. She has had poor oral intake and has been dealing with nausea and vomiting and is abusing alcohol. Combination of things are causing her to become hypovolemic with hyponatremia. Patient will be given IV fluids and electrolyte replacement and we will continue to monitor her sodium. (8) Lactic acidosis, resolved. Conclusion/Plan: The patient presented with elevated lactic acid of 3.9. Patient did appears to be severely dehydrated as she also had a mild hyponatremia and severe hypokalemia with hypochloremia. The patient also has a urine specific gravity of less than 1.005 and appeared severely dehydrated on examination. The patient also has liver failure which could also be contributing to the lack of metabolism of lactate. Plan: Patient will be given IV fluids and (9) Chronic back pain Conclusion/Plan: The patient does have a history of chronic back pain and continues to have low back pain. The patient takes ibuprofen at home however given that patient is having epigastric pain and has hepatic failure with elevated INR there is concern for possible gastritis and possible gastric ulcer. Therefore patient will not be given NSAIDs. Will treat patient with oxycodone as needed for chronic back pain. We will also avoid Tylenol bc of liver failure. Qualifiers: Back pain location: low back pain Back pain laterality: bilateral Sciatica presence: with sciatica Sciatica laterality: bilateral sciatica Qualified Code(s): M54.42 - Lumbago with sciatica, left side; M54.41 - Lumbago with sciatica, right side; M54.41 - Lumbago with sciatica, right side; G89.29 - Other chronic pain; G89.29 - Other chronic pain
[2018-06-13] MEDS: oxyCODONE 5 MG TABLET PO PRN (19:49)
[2018-06-14] MEDS: SODIUM CHLORIDE FLUSH 0.9% 10 ML SYRINGE IVP SCH ×3 (00:39→20:25)
[2018-06-14] MEDS: LORazepam 2 MG/ML VIAL IVP PRN ×4 (00:39→21:47)
[2018-06-14] MEDS: SODIUM CHLORIDE FLUSH 0.9% 10 ML SYRINGE IVP PRN (02:13)
[2018-06-14] MEDS: LACTULOSE 10 GM/15 ML BOTTLE PO SCH ×4 (02:32→20:25)
[2018-06-14 05:45] LABS: BASOPHILS % (AUTO) 1.1 %; EOSINOPHILS % (AUTO) 0.8 %; HGB - HEMOGLOBIN 8.9 g/dL (12.0-16.0); LYMPHOCYTES % (AUTO) 15.7 %; MEAN CORPUSCULAR HEMOGLOBIN 40.3 pg (27.0-31.0); MEAN CORPUSCULAR HGB CONC 34.6 g/dL (32.0-36.0); MEAN CORPUSCULAR VOLUME 116.3 fL (81.0-99.0); MONOCYTES % (AUTO) 5.7 %; NEUTROPHILS % (AUTO) 76.7 %; PLT - PLATELET COUNT 100 10^3/uL (130-450); RED BLOOD COUNT 2.21 10^6/uL (4.20-5.40); RED CELL DISTRIBUTION WIDTH 25.1 % (12.0-15.0); WHITE BLOOD COUNT 17.6 x10^3/uL (4.8-10.8)
[2018-06-14 05:49] LABS: ABNORMAL LYMPHS % (MANUAL) 0 %
[2018-06-14 06:21] LABS: ALBUMIN 1.9 g/dL (3.2-5.5); ALBUMIN/GLOBULIN RATIO 0.5 (1.0-2.2); ALKALINE PHOSPHATASE 158 IU/L (42-121); ALT ALANINE AMINOTRANSFERASE 45 IU/L (10-60); AST ASPARTATE AMINOTRANSFERASE 121 IU/L (10-42); BUN - BLOOD UREA NITROGEN 11 mg/dL (6-20); CALCIUM 8.1 mg/dL (8.5-10.3); CARBON DIOXIDE - CO2 23 mmol/L (21-32); CHLORIDE 110 mmol/L (101-111); GLUCOSE 96 mg/dL (70-100); SODIUM 139 mmol/L (135-145); TOTAL PROTEIN 5.5 g/dL (6.7-8.2)
[2018-06-14 06:25] LABS: BILIRUBIN,TOTAL 33.4 mg/dL (0.2-1.0); CREATININE < 0.3 mg/dL (0.4-1.0); GFR - MDRD 235 (>89)
[2018-06-14 06:40] LABS: MAGNESIUM 2.4 mg/dL (1.7-2.8); PHOSPHORUS 2.9 mg/dL (2.5-4.6)
[2018-06-14 06:49] LABS: BAND NEUTROPHILS % (MANUAL) 14 %; EOSINOPHILS # (MANUAL) 0.2 10^3/uL (0-0.7); LYMPHOCYTES # (MANUAL) 1.8 10^3/uL (1.5-3.5); LYMPHOCYTES % (MANUAL) 10 %; MONOCYTES # (MANUAL) 0.7 10^3/uL (0.0-1.0); NEUTROPHILS % (MANUAL) 71 %
[2018-06-14 06:50] LABS: DIFFERENTIAL COMMENT MANUAL DIFFERENTIAL; PLATELET ESTIMATE, MANUAL DECREASED (<130,000) (NORMAL)
[2018-06-14] MEDS: POTASSIUM CHLOR 20 MEQ/100 ML 20 MEQ/100 ML BAG IV SCH ×4 (07:52→11:27)
[2018-06-14] MEDS: PANTOPRAZOLE 40 MG VIAL IVP SCH ×2 (07:58→20:48)
[2018-06-14] MEDS: MULTIVITAMIN W/MINERALS TABLET PO SCH (08:17)
[2018-06-14] MEDS: POLYETHYLENE GLYCOL 3350 17 GM PACKET PO SCH (09:11)
--- NOTE | 2018-06-14 10:58 | PROVIDER PROGRESS NOTE ---
Subjective - Prog Note Date Prog Note Date: 06/14/18 Prog Note Time: 11:14 - Subjective Subjective: She is unchanged. She will sit up in bed and stare vacantly. Occasionally she responds to the nurse with 1 word repetitive statements. Rosa RN, has been valiantly trying to establish what she wants. For instance she talks to her about resuming the tube feeds. But the patient really does not have any meaningful answers to her questions. Family is at the bedside visiting her again today. I think quite a few people are coming by to say goodbye since the prognosis is so grim. Current Medications - Current Medications Current Medications: Active Medications Thiamine HCl 100 mg/ Folic (Acid 1 mg/ Sodium Chloride) 101.2 mls @ 50.6 mls/ hr IV DAILY [facility] Last Infusion: 06/13/18 12:40 Dose: Infused Lactulose (Lactulose) 30 gm PO Q6H JULIO Last Admin: 06/14/18 08:15 Dose: 30 gm Lorazepam (Ativan Inj (Vial)) 1 mg IVP Q30M PRN; Protocol PRN Reason: CIWA >8 Last Admin: 06/14/18 02:12 Dose: 1 mg Multivitamins/Minerals (Theragran M) 1 tab PO DAILY JULIO Last Admin: 06/14/18 08:17 Dose: 1 tab Ondansetron HCl (Zofran Inj) 4 mg IVP Q6HR PRN PRN Reason: Nausea / Vomiting Oxycodone HCl (Roxicodone) 5 mg PO Q4HR PRN PRN Reason: Pain 5 to 7 Last Admin: 06/13/18 19:49 Dose: 5 mg Oxycodone HCl (Roxicodone) 10 mg PO Q4HR PRN PRN Reason: Pain 8 to 10 Pantoprazole Sodium (Protonix) 40 mg IVP BID [facility] Last Admin: 06/14/18 07:58 Dose: 40 mg Polyethylene Glycol (Miralax) 17 gm PO DAILY JULIO Last Admin: 06/14/18 09:11 Dose: 17 gm Prednisolone (Prelone Oral Soln) 40 mg PO DAILYWM JULIO Last Admin: 06/14/18 09:06 Dose: 40 mg Prochlorperazine Edisylate (Compazine Inj) 10 mg IVP Q6HR PRN PRN Reason: Nausea / Vomiting Promethazine HCl (Phenergan Inj) 25 mg IM Q6HR PRN PRN Reason: Nausea / Vomiting Sodium Chloride (Normal Saline Flush 0.9%) 10 ml IVP 0100,0900,1700 JULIO Last Admin: 06/14/18 09:10 Dose: 10 ml Sodium Chloride (Normal Saline Flush 0.9%) 10 ml IVP PRN PRN PRN Reason: NEEDED PER PROVIDER ORDERS Last Admin: 06/14/18 02:13 Dose: 10 ml Cyclobenzaprine HCl 5 - 10 mg PO TID PRN 06/10/18 Famotidine 20 mg PO DAILY 06/10/18 Methocarbamol 500 mg PO BID PRN 06/10/18 Sucralfate 1 gm PO TID 06/10/18 Objective - Vital Signs/Intake & Output Reviewed Vital Signs: Yes Vital Signs: Vital Signs x48h Temp Pulse Resp BP Pulse Ox 06/14/18 10:00 87 23 109/75 06/14/18 09:00 90 25 H 103/72 06/14/18 08:00 37.1 C 89 19 96/69 97 06/14/18 07:00 83 20 95/69 06/14/18 06:00 96 25 H 108/69 06/14/18 05:00 79 18 86/60 L 06/14/18 04:00 36.4 C L 84 21 108/74 06/14/18 03:00 82 19 112/78 Intake & Output: Intake & Output 06/11/18 06/12/18 06/13/18 06/14/18 23:59 23:59 23:59 23:59 Intake Total 1243.200 731.2 1601.2 525 Output Total 1500 1400 1265 600 Balance -256.800 -668.8 336.2 -75 - Objective General Appearance: positive: Lethargic, Other (cachectic jaundiced white female , severe psychomotor slowing) Eyes Bilateral: positive: PERRL Eyes: OU Scleral icterus ENT: positive: Pharynx nml Neck: positive: No JVD. negative: Stiff neck, Carotid bruit Respiratory: positive: Chest non-tender. negative: Wheezes, Rales, Rhonchi Cardiovascular: positive: Regular rate & rhythm. negative: Systolic murmur, Gallop/S4, Friction rub Abdomen: positive: Non-tender, No organomegaly, Nml bowel sounds, No distention , Hepatomegaly, Other (minimal ascites on CT and none on exam, the mass I feel is her liver not a fluid wave) Skin: positive: Dry Extremities: positive: Non-tender, Pedal edema Neurologic/Psychiatric: positive: Motor nml, Disoriented to person, Disoriented to place, Disoriented to time, Slurred/abnml speech - Lab Results Fish Bones: 06/14/18 05:18 06/14/18 05:18 Other Labs: Lab Results x24hrs 06/14/18 06/14/18 06/14/18 Range/Units 05:18 05:18 05:18 WBC (4.8-10.8) x10^3/uL RBC (4.20-5.40) 10^6/uL Hgb (12.0-16.0) g/dL Hct (37.0-47.0) % MCV (81.0-99.0) fL MCH (27.0-31.0) pg MCHC (32.0-36.0) g/dL RDW (12.0-15.0) % Plt Count (130-450) 10^3/uL MPV (7.9-10.8) fL Neut # (Auto) Lymph # (Auto) [place] # (Auto) Eos # (Auto) Baso # (Auto) Absolute Nucleated RBC Total Counted Band Neuts % (Manual) (0 - 10) % Abnorm Lymph % (Manual) % Nucleated RBC % Neutrophils # (Manual) (1.5-6.6) 10^3/uL Lymphocytes # (Manual) (1.5-3.5) 10^3/uL Monocytes # (Manual) (0.0-1.0) 10^3/uL Eosinophils # (Manual) (0-0.7) 10^3/uL Basophils # (Manual) (0-0.1) 10^3/uL Differential Comment Platelet Estimate (NORMAL) RBC Morph Micro Appear (NORMAL) Sodium 139 (135-145) mmol/L Potassium 2.9 L (3.5-5.0) mmol/L Chloride 110 (101-111) mmol/L Carbon Dioxide 23 (21-32) mmol/L Anion Gap 6.0 (6-13) BUN 11 (6-20) mg/dL Creatinine < 0.3 L (0.4-1.0) mg/dL Estimated GFR (MDRD) 235 (>89) Glucose 96 (70-100) mg/dL Calcium 8.1 L (8.5-10.3) mg/dL Ionized Calcium YES Phosphorus 2.9 (2.5-4.6) mg/dL Magnesium 2.4 (1.7-2.8) mg/dL Total Bilirubin 33.4 H (0.2-1.0) mg/dL AST 121 H (10-42) IU/L ALT 45 (10-60) IU/L Alkaline Phosphatase 158 H (42-121) IU/L Ammonia 90.7 H* (7-35) umol/L Total Protein 5.5 L (6.7-8.2) g/dL Albumin 1.9 L (3.2-5.5) g/dL Globulin 3.6 (2.1-4.2) g/dL Albumin/Globulin Ratio 0.5 L (1.0-2.2) 06/14/18 Range/Units 05:18 WBC 17.6 H (4.8-10.8) x10^3/uL RBC 2.21 L (4.20-5.40) 10^6/uL Hgb 8.9 L (12.0-16.0) g/dL Hct 25.7 L (37.0-47.0) % MCV 116.3 H (81.0-99.0) fL MCH 40.3 H (27.0-31.0) pg MCHC 34.6 (32.0-36.0) g/dL RDW 25.1 H (12.0-15.0) % Plt Count 100 L (130-450) 10^3/uL MPV 10.0 (7.9-10.8) fL Neut # (Auto) Not Reportable Lymph # (Auto) Not Reportable [place] # (Auto) Not Reportable Eos # (Auto) Not Reportable Baso # (Auto) Not Reportable Absolute Nucleated RBC Not Reportable Total Counted 100 Band Neuts % (Manual) 14 H (0 - 10) % Abnorm Lymph % (Manual) 0 % Nucleated RBC % Not Reportable Neutrophils # (Manual) 15.0 H (1.5-6.6) 10^3/uL Lymphocytes # (Manual) 1.8 (1.5-3.5) 10^3/uL Monocytes # (Manual) 0.7 (0.0-1.0) 10^3/uL Eosinophils # (Manual) 0.2 (0-0.7) 10^3/uL Basophils # (Manual) 0.0 (0-0.1) 10^3/uL Differential Comment MANUAL DIFFERENTIAL Platelet Estimate DECREASED (<130,000) (NORMAL) RBC Morph Micro Appear 1+ POLYCHROMASIA (NORMAL) Sodium (135-145) mmol/L Potassium (3.5-5.0) mmol/L Chloride (101-111) mmol/L Carbon Dioxide (21-32) mmol/L Anion Gap (6-13) BUN (6-20) mg/dL Creatinine (0.4-1.0) mg/dL Estimated GFR (MDRD) (>89) Glucose (70-100) mg/dL Calcium (8.5-10.3) mg/dL Ionized Calcium Phosphorus (2.5-4.6) mg/dL Magnesium (1.7-2.8) mg/dL Total Bilirubin (0.2-1.0) mg/dL AST (10-42) IU/L ALT (10-60) IU/L Alkaline Phosphatase (42-121) IU/L Ammonia (7-35) umol/L Total Protein (6.7-8.2) g/dL Albumin (3.2-5.5) g/dL Globulin (2.1-4.2) g/dL Albumin/Globulin Ratio (1.0-2.2) ABX Reporting Has patient been on IV antibiotics over the past 48 hours?: No Assessment/Plan - Problem List (1) Elevated WBC count Impression: (1) Elevated WBC count Impression: she went up to 18K then 17K then 19K and 17K today. No fever. CAT scan done on admission shows her to have small area of thickened bowel indicating possible colitis, basilar atelectasis, liver masses, but no true pneumonia/infection. Her abd exam has no pain, no rebound or guading. Blood cultures negative at 24 hours. At this time I am opting not to give antibiotics until I know what I am treating Qualifiers: Leukocytosis type: bandemia Qualified Code(s): D72.825 - Bandemia (2) Acute hepatic failure Impression: Patient presents with acute hepatic failure with an elevated bilirubin of 20.6 which is elevated from normal range just 4 months ago. The patient does have appear to have a history of acute alcoholic hepatitis back in February 2017 patient 's bilirubin was elevated to 9.2 and in July 2015 bilirubin was elevated to 4.6 but this is the highest it has ever been. The patient's INR is also elevated at 3.9 and has been slightly elevated in the past but never to this level. Patient's acute hepatic failure is either secondary to alcoholic hepatitis as per the talent development coordinator from the [facility] or acetaminophen toxicity or a combination of the two. We initially started treatment as Tylenol toxicity, but when repeat levels came back at less than 10 we feel that there is lab error and there is no Tylenol toxicity being treated. The patient's meld score is 34 which gives her an estimated 3 month mortality of 52.6%. The patient's Maddery score or Maddery discriminant function is greater than 32 which makes the patient a good candidate for glucocorticoid therapy for alcoholic hepatitis. Palliative care consult was ordered. That service has attempted to see her but she is so encephalopathic, she can give no meaningful information nor make adequate decisions about her own health. Her Bili is 31-33 and stable for 5 days. Same with the INR. I have spoken to her brother Travon Roman and he has Parkinson's, is taking care of their demented mom, and he is alarmed at the idea he is the next of kin. Gigi is her son but he is 15 and was living in [place] but didn't work out and he came back to the [place] a week ago. 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 Isauro is very leery of assuming responsibility and wants Kelsey's ex-boyfriend and current best friend , Gaurav Hanson, to take over. I explained that is possible but would need them to consult an deputy county attorney before they do that . Both do state she would not have wanted to be kept alive if the end came. In the end, Isauro went to the bedside 06/12. Opted not to turn over DPOAH to Gaurav and we did a POLST. He and his mom visited her 06/13 and today. I spoke to Med Consult, Dr. Paula. She recommends the prednisolone to continue for a full 28 days then to taper after that 28 days. After a week of acute care, with maximizing her nutrition, she can be transition to a [facility] facility. After 28 days they can better determine with a calculation of a meld score at 7 days and 28 days how she is going to do. The fact that her BUN and creatinine has not risen is actually a good prognostic sign. Hepatorenal failure is usually the cause of in these patients. Plan: N-acetylcysteine infusion stopped day after admission. Treat with prednisolone 40 mg daily for 7 days and then calculate Lille score but to continue a one-month treatment and THEN a glucocorticoid taper. Today is Day #5/7. Electrolyte replacement and IV fluids continue. Mainly hypokalemia. NG ordered and placed so we can increase lactulose dose but she pulled it out. Try Lisa or Doboff for feeding today but with no radiology on weekend, will aim for tomorrow. Again, maximize nutrition and if we need to restrain her for this, will order. Monitor bilirubin, LFTs and INR. Stable so far. All high, no better, no worse. Counseled on need to quit alcohol use but at this time her encephalopathy really doesn't allow processing of information. If she clears, will repeat the message. Outpatient referral for hepatology I had discussion with her next of kin, Isauro Roman, about how gravely ill she is 06/12 and no change since then. POLST form filled out and she is DNR. Qualifiers: Hepatic coma status: without hepatic coma Qualified Code(s): K72.00 - Acute and subacute hepatic failure without coma (3) Liver masses Conclusion/Plan: The patient has a severely enlarged liver on examination and on CT. The patient 's CT scan of the abdomen and pelvis shows suspicion for multiple liver masses likely representing diffuse metastatic disease and less likely due to fulminant inflammatory process. Multiphase MRI of the liver with liver protocol per recommendations of hepatology at the [facility] to further evaluate for possibility of hepatocellular carcinoma. It was ordered 06/11, but MRI machine went down. MRI machine went back up and the patient was able to go back but while on the table the machine went down again. We tried again 06/12 while the liver is enlarged, there are no liver masses. Just an enlarged liver. Plan: Outpatient referral for possible liver biopsy (4) Alcohol abuse Conclusion/Plan: The patient continues to drink alcohol and blood alcohol level on presentation was elevated at 104. The patient states she only drinks 3 glasses of wine this appears highly unlikely and patient likely drinks significantly more. The patient has a very high mortality over the next 3 months and does not qualify for liver transplant until she can remain abstinent from alcohol for 6 months. Patient was counseled extensively and understands the consequences if she continues to drink. Plan: Alcohol withdrawal protocol with Ativan being used sparingly due to her liver failure. By Day #7 I will stop CIWA. IV thiamine, IV folic acid and IV magnesium But switched to oral multivitamin IV Ativan as needed for alcohol withdrawal. Being used sparingly because of her altered mental status and continued sedation Social work consult for alcohol rehab Done. But again, her encephalopathy prohibits her from really following through. The Message will need to be repeated again if she survives. (5) Hypokalemia continues Conclusion/Plan: The patient presents with severe hypokalemia likely secondary to nausea and poor fluid intake over the last several days. She also likely has poor nutrition due to her alcohol abuse. The patient appears to be severely dehydrated. Plan: IV potassium chloride every hour 10 doses done and was normal to 3.6. But still requiring riders since the hypokalemia returns. Continue to monitor potassium IV antiemetics IV fluids (6) Severe protein-calorie malnutrition Impression: due to weight loss greater than 18% in the last 4 months. She is also bedridden and very significantly manifesting reduced functional capacity. Nutrition services has already been consulted. We will be following the recommendations regarding oral nutrition supplements, diet changes, vitamin/ mineral supplements, etc. she is not safe to be fully po with risk of aspiration present. We placed NG 06/12 to help with lactulose and to see if we can start to tube feed but she pulled it out. Once it's the weekend, no radiology to put in [facility]. Will do so tomorrow. Restraints if necessary. , (7) Hyponatremia resolved. Conclusion/Plan: Patient appears to have hypovolemic hyponatremia as she is dehydrated. She has had poor oral intake and has been dealing with nausea and vomiting and is abusing alcohol. Combination of things are causing her to become hypovolemic with hyponatremia. Patient will be given IV fluids and electrolyte replacement and we will continue to monitor her sodium. (8) Lactic acidosis, resolved. Conclusion/Plan: The patient presented with elevated lactic acid of 3.9. Patient did appears to be severely dehydrated as she also had a mild hyponatremia and severe hypokalemia with hypochloremia. The patient also has a urine specific gravity of less than 1.005 and appeared severely dehydrated on examination. The patient also has liver failure which could also be contributing to the lack of metabolism of lactate. (9) Chronic back pain Conclusion/Plan: The patient does have a history of chronic back pain and continues to have low back pain. The patient takes ibuprofen at home however given that patient is having epigastric pain and has hepatic failure with elevated INR there is concern for possible gastritis and possible gastric ulcer. Therefore patient will not be given NSAIDs. Will treat patient with oxycodone as needed for chronic back pain. We will also avoid Tylenol bc of liver failure. Qualifiers: Back pain location: low back pain Back pain laterality: bilateral Sciatica presence: with sciatica Sciatica laterality: bilateral sciatica Qualified Code(s): M54.42 - Lumbago with sciatica, left side; M54.41 - Lumbago with sciatica, right side; M54.41 - Lumbago with sciatica, right side; G89.29 - Other chronic pain; G89.29 - Other chronic pain
[2018-06-14] MEDS: THIAMINE INJ 100 MG, FOLIC ACID INJ 1 MG in SODIUM CHLORIDE 0.9% 100ML 100 ML IV SCH (12:52)
[2018-06-14] MEDS: LACTULOSE 10 GM/15 ML BOTTLE PR SCH (14:30)
[2018-06-14] MEDS: oxyCODONE 5 MG TABLET PO PRN (19:39)
[2018-06-15] MEDS: LORazepam 2 MG/ML VIAL IVP PRN ×2 (00:15→03:38)
[2018-06-15] MEDS: SODIUM CHLORIDE FLUSH 0.9% 10 ML SYRINGE IVP SCH ×3 (00:15→17:49)
[2018-06-15] MEDS: LACTULOSE 10 GM/15 ML BOTTLE PO SCH ×4 (00:16→20:49)
[2018-06-15 06:24] LABS: BUN - BLOOD UREA NITROGEN 12 mg/dL (6-20); CALCIUM 8.3 mg/dL (8.5-10.3); CARBON DIOXIDE - CO2 22 mmol/L (21-32); CHLORIDE 108 mmol/L (101-111); GLUCOSE 93 mg/dL (70-100); MAGNESIUM 2.4 mg/dL (1.7-2.8); PHOSPHORUS 1.4 mg/dL (2.5-4.6); SODIUM 138 mmol/L (135-145)
[2018-06-15 06:39] LABS: CREATININE < 0.3 mg/dL (0.4-1.0); GFR - MDRD 235 (>89)
[2018-06-15 06:48] LABS: VBG PH 7.378 (7.31-7.41)
[2018-06-15 07:03] LABS: BASOPHILS # (AUTO) 0.2 10^3/uL (0.0-0.1); BASOPHILS % (AUTO) 0.9 %; EOSINOPHILS # (AUTO) 0.1 10^3/uL (0.0-0.7); EOSINOPHILS % (AUTO) 0.7 %; HGB - HEMOGLOBIN 9.6 g/dL (12.0-16.0); LYMPHOCYTES # (AUTO) 4.5 10^3/uL (1.5-3.5); LYMPHOCYTES % (AUTO) 22.9 %; MEAN CORPUSCULAR HEMOGLOBIN 40.9 pg (27.0-31.0); MEAN CORPUSCULAR HGB CONC 34.6 g/dL (32.0-36.0); MEAN CORPUSCULAR VOLUME 118.2 fL (81.0-99.0); NEUTROPHILS # (AUTO) 12.8 10^3/uL (1.5-6.6); NEUTROPHILS % (AUTO) 65.5 %; PLT - PLATELET COUNT 102 10^3/uL (130-450); RED BLOOD COUNT 2.34 10^6/uL (4.20-5.40); RED CELL DISTRIBUTION WIDTH 25.5 % (12.0-15.0); WHITE BLOOD COUNT 19.5 x10^3/uL (4.8-10.8)
[2018-06-15 07:12] LABS: DIFFERENTIAL COMMENT MANUAL=AUTO DIFF; PLATELET ESTIMATE, MANUAL DECREASED (<130,000) (NORMAL); PLATELET MORPHOLOGY 1+ LARGE PLATELETS (NORMAL)
--- NOTE | 2018-06-15 07:34 | PROVIDER PROGRESS NOTE ---
Subjective - Prog Note Date Prog Note Date: 06/15/18 Prog Note Time: 07:34 - Subjective Subjective: There is not much change in her status. She is still responsive to voice, opens her eyes. No meaningful conversation. Rarely does she order a complete sentence and it is usually simple and short such as "I am a mess", or is that you mom?". But the conversation does not go from there. Her son is at the bedside and getting ready to leave on a 10 day trip with his youth camp. He is worried that she may while he is gone. Current Medications - Current Medications Current Medications: Active Medications Thiamine HCl 100 mg/ Folic (Acid 1 mg/ Sodium Chloride) 101.2 mls @ 50.6 mls/ hr IV DAILY [facility] Last Infusion: 06/15/18 11:29 Dose: Infused Potassium Phosphate 21 mmol/ (Sodium Chloride) 257 mls @ 64 mls/hr IV ONCE ONE PRN Reason: Protocol Stop: 06/15/18 12:00 Last Admin: 06/15/18 08:27 Dose: 64 mls/hr Lactulose (Lactulose) 30 gm PO Q6H JULIO Last Admin: 06/15/18 11:27 Dose: 30 gm Lactulose (Lactulose) 60 gm SD DAILY JULIO Last Admin: 06/15/18 11:27 Dose: 60 gm Lorazepam (Ativan Inj (Vial)) 1 mg IVP Q30M PRN; Protocol PRN Reason: CIWA >8 Last Admin: 06/15/18 03:38 Dose: 1 mg Multivitamins/Minerals (Theragran M) 1 tab PO DAILY JULIO Last Admin: 06/15/18 11:28 Dose: 1 tab Ondansetron HCl (Zofran Inj) 4 mg IVP Q6HR PRN PRN Reason: Nausea / Vomiting Oxycodone HCl (Roxicodone) 5 mg PO Q4HR PRN PRN Reason: Pain 5 to 7 Last Admin: 06/14/18 19:39 Dose: 5 mg Oxycodone HCl (Roxicodone) 10 mg PO Q4HR PRN PRN Reason: Pain 8 to 10 Pantoprazole Sodium (Protonix) 40 mg IVP BID JULIO Last Admin: 06/15/18 11:28 Dose: 40 mg Polyethylene Glycol (Miralax) 17 gm PO DAILY JULIO Last Admin: 06/15/18 11:28 Dose: Not Given Prednisolone (Prelone Oral Soln) 40 mg PO DAILYWM [facility] Last Admin: 06/15/18 11:27 Dose: 40 mg Prochlorperazine Edisylate (Compazine Inj) 10 mg IVP Q6HR PRN PRN Reason: Nausea / Vomiting Promethazine HCl (Phenergan Inj) 25 mg IM Q6HR PRN PRN Reason: Nausea / Vomiting Sodium Chloride (Normal Saline Flush 0.9%) 10 ml IVP 0100,0900,1700 [facility] Last Admin: 06/15/18 11:28 Dose: 10 ml Sodium Chloride (Normal Saline Flush 0.9%) 10 ml IVP PRN PRN PRN Reason: NEEDED PER PROVIDER ORDERS Last Admin: 06/14/18 02:13 Dose: 10 ml Cyclobenzaprine HCl 5 - 10 mg PO TID PRN 06/10/18 Famotidine 20 mg PO DAILY 06/10/18 Methocarbamol 500 mg PO BID PRN 06/10/18 Sucralfate 1 gm PO TID 06/10/18 Objective - Vital Signs/Intake & Output Reviewed Vital Signs: Yes Vital Signs: Vital Signs x48h Temp Pulse Resp BP Pulse Ox 06/15/18 07:00 84 25 H 82/54 L 97 06/15/18 06:00 84 20 83/55 L 97 06/15/18 05:00 90 19 107/74 97 06/15/18 04:00 35.9 C L 85 29 H 94/63 97 06/15/18 03:00 86 19 100/67 97 06/15/18 02:00 87 23 100/69 97 06/15/18 01:00 85 21 96/69 96 06/15/18 00:00 36.2 C L 82 21 101/72 96 Intake & Output: Intake & Output 06/12/18 06/13/18 06/14/18 06/15/18 23:59 23:59 23:59 23:59 Intake Total 731.2 1601.2 1522.2 Output Total 1400 1265 1270 270 Balance -668.8 336.2 252.2 -270 - Objective General Appearance: positive: No acute distress, Lethargic Eyes Bilateral: positive: PERRL, EOMI Eyes: OU Scleral icterus ENT: positive: Dry mucous membranes Neck: positive: No JVD. negative: Stiff neck, Carotid bruit Respiratory: positive: Chest non-tender, No respiratory distress. negative: Wheezes, Rales, Rhonchi Cardiovascular: positive: Regular rate & rhythm. negative: Gallop/S4, Friction rub Abdomen: positive: Non-tender, No organomegaly, Nml bowel sounds, No distention Skin: positive: Warm, Dry Extremities: positive: Full ROM, No pedal edema Neurologic/Psychiatric: positive: Disoriented to person, Disoriented to place, Disoriented to time, Weakness, Slurred/abnml speech - Lab Results Fish Bones: 06/15/18 05:30 06/15/18 05:30 Other Labs: Lab Results x24hrs 06/15/18 06/15/18 06/15/18 Range/Units 05:30 05:30 05:30 WBC 19.5 H (4.8-10.8) x10^3/uL RBC 2.34 L (4.20-5.40) 10^6/uL Hgb 9.6 L (12.0-16.0) g/dL Hct 27.6 L (37.0-47.0) % MCV 118.2 H (81.0-99.0) fL MCH 40.9 H (27.0-31.0) pg MCHC 34.6 (32.0-36.0) g/dL RDW 25.5 H (12.0-15.0) % Plt Count 102 L (130-450) 10^3/uL MPV 10.0 (7.9-10.8) fL Neut # (Auto) 12.8 H (1.5-6.6) 10^3/uL Lymph # (Auto) 4.5 H (1.5-3.5) 10^3/uL [place] # (Auto) 2.0 H (0.0-1.0) 10^3/uL Eos # (Auto) 0.1 (0.0-0.7) 10^3/uL Baso # (Auto) 0.2 H (0.0-0.1) 10^3/uL Absolute Nucleated RBC 0.05 x10^3/uL Band Neuts % (Manual) Not Reportable Abnorm Lymph % (Manual) Not Reportable Nucleated RBC % 0.2 /100WBC Neutrophils # (Manual) Not Reportable Lymphocytes # (Manual) Not Reportable Monocytes # (Manual) Not Reportable Eosinophils # (Manual) Not Reportable Basophils # (Manual) Not Reportable Differential Comment MANUAL=AUTO DIFF Platelet Estimate DECREASED (<130,000) (NORMAL) Platelet Morphology 1+ LARGE PLATELETS (NORMAL) RBC Morph Micro Appear 2+ ANISOCYTOSIS (NORMAL) VBG pH 7.378 (7.31-7.41) Ionized Calcium 1.13 L YES (1.15-1.33) mmol/L Sodium 138 (135-145) mmol/L Potassium 3.6 (3.5-5.0) mmol/L Chloride 108 (101-111) mmol/L Carbon Dioxide 22 (21-32) mmol/L Anion Gap 8.0 (6-13) BUN 12 (6-20) mg/dL Creatinine < 0.3 L (0.4-1.0) mg/dL Estimated GFR (MDRD) 235 (>89) Glucose 93 (70-100) mg/dL Calcium 8.3 L (8.5-10.3) mg/dL Phosphorus 1.4 L (2.5-4.6) mg/dL Magnesium 2.4 (1.7-2.8) mg/dL ABX Reporting Has patient been on IV antibiotics over the past 48 hours?: No Assessment/Plan - Problem List (1) Elevated WBC count Impression: she went up to 18K then 17K then 19K then 17K today and back to 19.9 K today. No fever. CAT scan done on admission shows her to have small area of thickened bowel indicating possible colitis, basilar atelectasis, liver masses, but no true pneumonia/infection. Her abd exam has no pain, no rebound or guading. Blood cultures negative at 24 hours but then one of them grew gram (+) cocci 4 days later. Not felt to be Staph, Strep or enterococcus. I feel that is contaminant. At this time I am opting not to give antibiotics until I know what I am treating Qualifiers: Leukocytosis type: bandemia Qualified Code(s): D72.825 - Bandemia (2) Acute hepatic failure Impression: Patient presents with acute hepatic failure with an elevated bilirubin of 20.6 which is elevated from normal range just 4 months ago. The patient does have appear to have a history of acute alcoholic hepatitis back in February 2017 patient 's bilirubin was elevated to 9.2 and in July 2015 bilirubin was elevated to 4.6 but this is the highest it has ever been. The patient's INR is also elevated at 3.9 and has been slightly elevated in the past but never to this level. Patient's acute hepatic failure is either secondary to alcoholic hepatitis as per the mill worker from the [facility] or acetaminophen toxicity or a combination of the two. We initially started treatment as Tylenol toxicity, but when repeat levels came back at less than 10 we feel that there is lab error and there is no Tylenol toxicity being treated. The patient's meld score is 34 which gives her an estimated 3 month mortality of 52.6%. The patient's Maddery score or Maddery discriminant function is greater than 32 which makes the patient a good candidate for glucocorticoid therapy for alcoholic hepatitis. Palliative care consult was ordered. That service has attempted to see her but she is so encephalopathic, she can give no meaningful information nor make adequate decisions about her own health. Her Bili is 31-33 and stable for 5 days. Same with the INR. I have spoken to her brother Travon Rmoan and he has Parkinson's, is taking care of their demented mom, and he is alarmed at the idea he is the next of kin. Gigi is her son but he is 15 and was living in [place] but didn't work out and he came back to the [place] a week ago. Lives with [employer] and the bid writer. Isauro is very leery of assuming responsibility and wants Kelsey's ex-boyfriend and current best friend , Gaurav Hanson, to take over. I explained that is possible but would need them to consult an employee benefits attorney before they do that . Both do state she would not have wanted to be kept alive if the end came. In the end, Isauro went to the bedside 06/12. Opted not to turn over DPOAH to Gaurav and we did a POLST. He and his mom visited her 06/13 and today. 06/14:I spoke to Med Consult, Dr. Paula. She recommends the prednisolone to continue for a full 28 days then to taper after that 28 days. After a week of acute care, with maximizing her nutrition, she can be transition to a group home facility. After 28 days they can better determine with a calculation of a meld score at 7 days and 28 days how she is going to do. The fact that her BUN and creatinine has not risen is actually a good prognostic sign. Hepatorenal failure is usually the cause of in these patients. 7?30: not much change. aim for nutrition support and lactulose use. Plan: N-acetylcysteine infusion stopped day after admission. Treat with prednisolone 40 mg daily for 7 days and then calculate Lille score but to continue a one-month treatment and THEN a glucocorticoid taper. Today is Day #67. Electrolyte replacement and IV fluids continue. Mainly hypokalemia. Once she is on stable po doboff feedings, stop the IVF. Use 1000 cc free water in her tube feeds. NG ordered and placed so we can increase lactulose dose but she pulled it out. Try Lisa or Doboff for feeding 06/14 but with no radiology on weekend, will aim for today. Again, maximize nutrition and if we need to restrain her for this , will order. Monitor bilirubin, LFTs and INR. Stable so far. All high, no better, no worse. Counseled on need to quit alcohol use but at this time her encephalopathy really doesn't allow processing of information. If she clears, will repeat the message. Outpatient referral for hepatology I had discussion with her next of kin, Isauro Roman, about how gravely ill she is 06/12 and no change since then. POLST form filled out and she is DNR. Qualifiers: Hepatic coma status: without hepatic coma Qualified Code(s): K72.00 - Acute and subacute hepatic failure without coma (3) Liver masses Conclusion/Plan: The patient has a severely enlarged liver on examination and on CT. The patient 's CT scan of the abdomen and pelvis shows suspicion for multiple liver masses likely representing diffuse metastatic disease and less likely due to fulminant inflammatory process. Multiphase MRI of the liver with liver protocol per recommendations of hepatology at the [facility] to further evaluate for possibility of hepatocellular carcinoma. It was ordered 06/11, but MRI machine went down. MRI machine went back up and the patient was able to go back but while on the table the machine went down again. We tried again 06/12 while the liver is enlarged, there are no liver masses. Just an enlarged liver. Plan: Outpatient referral for possible liver biopsy (4) Alcohol abuse Conclusion/Plan: The patient continues to drink alcohol and blood alcohol level on presentation was elevated at 104. The patient states she only drinks 3 glasses of wine this appears highly unlikely and patient likely drinks significantly more. The patient has a very high mortality over the next 3 months and does not qualify for liver transplant until she can remain abstinent from alcohol for 6 months. Patient was counseled extensively and understands the consequences if she continues to drink. Plan: Alcohol withdrawal protocol with Ativan being used sparingly due to her liver failure. By Day #7 I will stop CIWA (today is #6/7). IV thiamine, IV folic acid and IV magnesium But switched to oral multivitamin IV Ativan as needed for alcohol withdrawal. Being used sparingly because of her altered mental status and continued sedation Social work consult for alcohol rehab Done. But again, her encephalopathy prohibits her from really following through. The Message will need to be repeated again if she survives. (5) Hypokalemia continues Conclusion/Plan: The patient presents with severe hypokalemia likely secondary to nausea and poor fluid intake over the last several days. She also likely has poor nutrition due to her alcohol abuse. The patient appears to be severely dehydrated. Plan: IV potassium chloride every hour 10 doses done and was normal to 3.6. But still requiring riders since the hypokalemia returns. Continue to monitor potassium IV antiemetics IV fluids Once she is on stable tube feeds, change to oral K supplement. (6) Severe protein-calorie malnutrition Impression: due to weight loss greater than 18% in the last 4 months. She is also bedridden and very significantly manifesting reduced functional capacity. Nutrition services has already been consulted. We will be following the recommendations regarding oral nutrition supplements, diet changes, vitamin/ mineral supplements, etc. she is not safe to be fully po with risk of aspiration present. We placed NG 06/12 to help with lactulose and to see if we can start to tube feed but she pulled it out. Since it was the weekend, no radiology to put in Lisa. Will do so today. Restraints if necessary. , (7) Hyponatremia resolved. Conclusion/Plan: Patient appears to have hypovolemic hyponatremia as she is dehydrated. She has had poor oral intake and has been dealing with nausea and vomiting and is abusing alcohol. Combination of things are causing her to become hypovolemic with hyponatremia. Patient will be given IV fluids and electrolyte replacement and we will continue to monitor her sodium. (8) Lactic acidosis, resolved. Conclusion/Plan: The patient presented with elevated lactic acid of 3.9. Patient did appears to be severely dehydrated as she also had a mild hyponatremia and severe hypokalemia with hypochloremia. The patient also has a urine specific gravity of less than 1.005 and appeared severely dehydrated on examination. The patient also has liver failure which could also be contributing to the lack of metabolism of lactate. (9) Chronic back pain Conclusion/Plan: The patient does have a history of chronic back pain and continues to have low back pain. The patient takes ibuprofen at home however given that patient is having epigastric pain and has hepatic failure with elevated INR there is concern for possible gastritis and possible gastric ulcer. Therefore patient will not be given NSAIDs. Will treat patient with oxycodone as needed for chronic back pain. We will also avoid Tylenol bc of liver failure. Qualifiers: Back pain location: low back pain Back pain laterality: bilateral Sciatica presence: with sciatica Sciatica laterality: bilateral sciatica Qualified Code(s): M54.42 - Lumbago with sciatica, left side; M54.41 - Lumbago with sciatica, right side; M54.41 - Lumbago with sciatica, right side; G89.29 - Other chronic pain; G89.29 - Other chronic pain
[2018-06-15] MEDS ORDERED: POTASSIUM PHOSPHATE 21 MMOL in SODIUM CHLORIDE 0.9% 250 ML IV ONE (08:00)
[2018-06-15 08:10] LABS: TOTAL PROTEIN 5.8 g/dL (6.7-8.2)
[2018-06-15 08:11] LABS: BILIRUBIN,DIRECT 13.5 mg/dL (0.1-0.5)
[2018-06-15] MEDS: THIAMINE INJ 100 MG, FOLIC ACID INJ 1 MG in SODIUM CHLORIDE 0.9% 100ML 100 ML IV SCH (08:27)
[2018-06-15] MEDS: LACTULOSE 10 GM/15 ML BOTTLE PR SCH (11:27)
[2018-06-15] MEDS: PANTOPRAZOLE 40 MG VIAL IVP SCH ×2 (11:28→21:52)
[2018-06-15] MEDS: POLYETHYLENE GLYCOL 3350 17 GM PACKET PO SCH (11:28)
[2018-06-15] MEDS: MULTIVITAMIN W/MINERALS TABLET PO SCH (11:28)
[2018-06-15] MEDS ORDERED: DIATR MEGLU/DIATRIZOATE SODIUM 120 ML BOTTLE PO ONE (11:58)
--- NOTE | 2018-06-15 13:00 | XRAY Report ---
Procedure Date: 06/15/2018 Accession Number: [id number] / [id number] Procedure: FL - Feeding Tube Placement CPT Code: FULL RESULT: EXAM: Feeding Tube Placement DATE: 06/15/2018 11:56 AM CLINICAL HISTORY: not alert enough to eat COMPARISON: None. TECHNIQUE/FINDINGS: The patient was placed on the fluoroscopy table and a standard weighted tip feeding tube was inserted and a nasogastric fashion with the aid of lidocaine jelly for patient comfort under fluoroscopic guidance. Placement of the feeding tube tip below the diaphragm and within the bowel was confirmed by contrast injection. Fluoroscopy time was 2 minutes and 6 seconds with 1 spot image obtained. IMPRESSION: Fluoroscopically guided nasogastric feeding tube placement. RADIA
[2018-06-15] MEDS: SODIUM CHLORIDE FLUSH 0.9% 10 ML SYRINGE IVP PRN (21:52)
[2018-06-16] MEDS: LACTULOSE 10 GM/15 ML BOTTLE PO SCH ×4 (02:49→20:19)
[2018-06-16] MEDS: SODIUM CHLORIDE FLUSH 0.9% 10 ML SYRINGE IVP SCH ×3 (02:52→17:54)
[2018-06-16 06:34] LABS: BASOPHILS % (AUTO) 1.4 %; EOSINOPHILS % (AUTO) 0.3 %; HGB - HEMOGLOBIN 9.2 g/dL (12.0-16.0); LYMPHOCYTES % (AUTO) 3.8 %; MEAN CORPUSCULAR HEMOGLOBIN 40.4 pg (27.0-31.0); MEAN CORPUSCULAR HGB CONC 34.1 g/dL (32.0-36.0); MEAN CORPUSCULAR VOLUME 118.6 fL (81.0-99.0); MEAN PLATELET VOLUME 10.3 fL (7.9-10.8); MONOCYTES % (AUTO) 11.7 %; NEUTROPHILS % (AUTO) 82.8 %; PLT - PLATELET COUNT 96 10^3/uL (130-450); RED BLOOD COUNT 2.27 10^6/uL (4.20-5.40); RED CELL DISTRIBUTION WIDTH 25.4 % (12.0-15.0); WHITE BLOOD COUNT 20.9 x10^3/uL (4.8-10.8)
[2018-06-16 06:36] LABS: ALBUMIN/GLOBULIN RATIO 0.5 (1.0-2.2); ALKALINE PHOSPHATASE 166 IU/L (42-121); ALT ALANINE AMINOTRANSFERASE 44 IU/L (10-60); AST ASPARTATE AMINOTRANSFERASE 103 IU/L (10-42); BUN - BLOOD UREA NITROGEN 13 mg/dL (6-20); CALCIUM 8.1 mg/dL (8.5-10.3); CARBON DIOXIDE - CO2 22 mmol/L (21-32); CHLORIDE 111 mmol/L (101-111); CREATININE 0.3 mg/dL (0.4-1.0); GFR - MDRD 235 (>89); GLUCOSE 131 mg/dL (70-100); SODIUM 140 mmol/L (135-145); TOTAL PROTEIN 5.7 g/dL (6.7-8.2)
[2018-06-16 06:37] LABS: BILIRUBIN,TOTAL > 30.0 mg/dL (0.2-1.0); VBG PH 7.445 (7.31-7.41)
[2018-06-16 06:39] LABS: MAGNESIUM 2.4 mg/dL (1.7-2.8); PHOSPHORUS 3.5 mg/dL (2.5-4.6)
[2018-06-16 07:02] LABS: ABNORMAL LYMPHS % (MANUAL) 0 %
[2018-06-16 07:03] LABS: BAND NEUTROPHILS % (MANUAL) 6 %; LYMPHOCYTES # (MANUAL) 1.5 10^3/uL (1.5-3.5); LYMPHOCYTES % (MANUAL) 7 %; MONOCYTES # (MANUAL) 1.5 10^3/uL (0.0-1.0); NEUTROPHILS % (MANUAL) 80 %
[2018-06-16 07:05] LABS: PLATELET ESTIMATE, MANUAL DECREASED (<130,000) (NORMAL); PLATELET MORPHOLOGY 2+ LARGE PLATELETS (NORMAL)
[2018-06-16 07:06] LABS: DIFFERENTIAL COMMENT MANUAL DIFFERENTIAL
[2018-06-16] MEDS ORDERED: CALCIUM GLUCONATE 1,000 MG in SODIUM CHLORIDE 0.9% 50 ML IV ONE (07:25)
[2018-06-16] MEDS: POLYETHYLENE GLYCOL 3350 17 GM PACKET PO SCH (08:19)
[2018-06-16] MEDS: MULTIVITAMIN W/MINERALS TABLET PO SCH (08:19)
[2018-06-16] MEDS: PANTOPRAZOLE 40 MG VIAL IVP SCH ×2 (08:19→21:23)
[2018-06-16] MEDS: LACTULOSE 10 GM/15 ML BOTTLE PR SCH (08:20)
[2018-06-16] MEDS: POTASSIUM CHLOR 20 MEQ/100 ML 20 MEQ/100 ML BAG IV SCH ×2 (08:43→09:38)
[2018-06-16] MEDS: THIAMINE INJ 100 MG, FOLIC ACID INJ 1 MG in SODIUM CHLORIDE 0.9% 100ML 100 ML IV SCH (09:35)
[2018-06-16] MEDS: rifAXIMin 550 MG TABLET PO SCH ×2 (10:24→17:54)
--- NOTE | 2018-06-16 16:26 | PROVIDER PROGRESS NOTE ---
Subjective - Prog Note Date Prog Note Date: 06/16/18 Prog Note Time: 13:00 - Subjective Pt reports feeling: Improved Subjective: Patient is much more alert and oriented that she has been since her initial hospitalization. She is able to carry on a conversation and is oriented to most everything with the exception of the date. She recognizes that she has been very ill and states that her problem is with her liver. She denies any fevers or chills, nausea or vomiting. She was able to tolerate some clear liquids and is not complaining of any new problems. She is tremulous. Current Medications - Current Medications Current Medications: Active Medications Generic Name Dose Route Start Last Admin Trade Name Freq PRN Reason Stop Dose Admin Thiamine HCl 100 mg/ Folic 101.2 mls @ 50.6 mls/hr 06/10/18 09:00 06/16/18 11 :39 Acid 1 mg/ Sodium Chloride IV Infused DAILY JULIO Infusion Lactulose 30 gm 06/12/18 08:00 06/16/18 13:59 Lactulose PO 30 gm Q6H JULIO Administration Lactulose 60 gm 06/14/18 12:00 06/16/18 08:20 Lactulose MO 60 gm DAILY JULIO Administration Lorazepam 1 mg 06/10/18 19:08 06/15/18 03:38 Ativan Inj (Vial) IVP 1 mg Q30M PRN Administration CIWA >8 Protocol Multivitamins/Minerals 1 tab 06/12/18 09:00 06/16/18 08:19 Theragran M PO 1 tab DAILY JULIO Administration Ondansetron HCl 4 mg 06/10/18 00:20 Zofran Inj IVP Q6HR PRN Nausea / Vomiting Oxycodone HCl 5 mg 06/10/18 00:20 06/14/18 19:39 Roxicodone PO 5 mg Q4HR PRN Administration Pain 5 to 7 Oxycodone HCl 10 mg 06/10/18 00:20 Roxicodone PO Q4HR PRN Pain 8 to 10 Pantoprazole Sodium 40 mg 06/10/18 09:00 06/16/18 08:19 Protonix IVP 40 mg BID JULIO Administration Polyethylene Glycol 17 gm 06/11/18 09:00 06/16/18 08:19 Miralax PO 17 gm DAILY JULIO Administration Prednisolone 40 mg 06/10/18 08:00 06/16/18 08:18 Prelone Oral Soln PO 40 mg DAILYWM JULIO Administration Prochlorperazine Edisylate 10 mg 06/10/18 00:20 Compazine Inj IVP Q6HR PRN Nausea / Vomiting Promethazine HCl 25 mg 06/10/18 00:20 Phenergan Inj IM Q6HR PRN Nausea / Vomiting Rifaximin 400 mg 06/16/18 10:00 06/16/18 10:24 Xifaxan PO 06/26/18 09:59 400 mg Q8H JULIO Administration Sodium Chloride 10 ml 06/10/18 01:00 06/16/18 05:26 Normal Saline Flush 0.9% IVP 40 ml 0100,0900,1700 JULIO Administration Sodium Chloride 10 ml 06/10/18 00:20 06/15/18 21:52 Normal Saline Flush 0.9% IVP 10 ml PRN PRN Administration NEEDED PER PROVIDER ORDERS Cyclobenzaprine HCl 5 - 10 mg PO TID PRN 06/10/18 Famotidine 20 mg PO DAILY 06/10/18 Methocarbamol 500 mg PO BID PRN 06/10/18 Sucralfate 1 gm PO TID 06/10/18 Objective - Vital Signs/Intake & Output Reviewed Vital Signs: Yes Vital Signs: Vital Signs Pulse Resp BP Pulse Ox 06/16/18 16:00 83 17 95/62 97 06/16/18 15:00 83 17 99/64 97 06/16/18 14:00 80 16 103/67 97 06/16/18 13:00 81 14 94/63 97 Intake & Output: Intake & Output 06/13/18 06/14/18 06/15/18 06/16/18 23:59 23:59 23:59 23:59 Intake Total 1601.2 1522.2 1258.2 1402.867 Output Total 1265 1270 1600 900 Balance 336.2 252.2 -341.8 502.867 - Objective General Appearance: positive: No acute distress, Alert Eyes Bilateral: positive: PERRL, EOMI, No lid inflammation, Other (Scleral icterus present bilaterally) Eyes: OU Scleral icterus ENT: positive: ENT inspection nml, Pharynx nml, No signs of dehydration Neck: positive: Nml inspection, Thyroid nml, No JVD, Trachea midline. negative : Thyromegaly Respiratory: positive: Chest non-tender, No respiratory distress, Breath sounds nml. negative: Wheezes, Rales, Rhonchi Cardiovascular: positive: Regular rate & rhythm, No murmur, No gallop Abdomen: positive: Non-tender, No organomegaly, Nml bowel sounds, No distention. negative: Guarding, Rebound Back: positive: Nml inspection. negative: CVA tenderness (R), CVA tenderness (L ) Skin: positive: Color nml, No rash, Warm, Dry. negative: Cyanosis Extremities: positive: Non-tender, Full ROM, Nml appearance, No pedal edema Neurologic/Psychiatric: positive: Oriented x3, CN's nml (2-12), Sensation nml, Mood/affect nml, Weakness. negative: Motor nml - Lab Results Fish Bones: 06/16/18 05:20 06/16/18 05:20 Other Labs: Lab Results x24hrs 06/16/18 06/16/18 06/16/18 Range/Units 05:20 05:20 05:20 WBC (4.8-10.8) x10^3/uL RBC (4.20-5.40) 10^6/uL Hgb (12.0-16.0) g/dL Hct (37.0-47.0) % MCV (81.0-99.0) fL MCH (27.0-31.0) pg MCHC (32.0-36.0) g/dL RDW (12.0-15.0) % Plt Count (130-450) 10^3/uL MPV (7.9-10.8) fL Neut # (Auto) Lymph # (Auto) [place] # (Auto) Eos # (Auto) Baso # (Auto) Absolute Nucleated RBC Total Counted Band Neuts % (Manual) (0 - 10) % Abnorm Lymph % (Manual) % Nucleated RBC % Neutrophils # (Manual) (1.5-6.6) 10^3/uL Lymphocytes # (Manual) (1.5-3.5) 10^3/uL Monocytes # (Manual) (0.0-1.0) 10^3/uL Eosinophils # (Manual) (0-0.7) 10^3/uL Basophils # (Manual) (0-0.1) 10^3/uL Nucleated RBCs % Differential Comment Platelet Estimate (NORMAL) Platelet Morphology (NORMAL) RBC Morph Micro Appear (NORMAL) VBG pH 7.445 H (7.31-7.41) Ionized Calcium 1.09 L YES (1.15-1.33) mmol/L Sodium 140 (135-145) mmol/L Potassium 3.2 L (3.5-5.0) mmol/L Chloride 111 (101-111) mmol/L Carbon Dioxide 22 (21-32) mmol/L Anion Gap 7.0 (6-13) BUN 13 (6-20) mg/dL Creatinine 0.3 L (0.4-1.0) mg/dL Estimated GFR (MDRD) 235 (>89) Glucose 131 H (70-100) mg/dL Calcium 8.1 L (8.5-10.3) mg/dL Phosphorus (2.5-4.6) mg/dL Magnesium (1.7-2.8) mg/dL Total Bilirubin > 30.0 H (0.2-1.0) mg/dL AST 103 H (10-42) IU/L ALT 44 (10-60) IU/L Alkaline Phosphatase 166 H (42-121) IU/L Ammonia 100.4 H* (7-35) umol/L Total Protein 5.7 L (6.7-8.2) g/dL Albumin 2.0 L (3.2-5.5) g/dL Globulin 3.7 (2.1-4.2) g/dL Albumin/Globulin Ratio 0.5 L (1.0-2.2) Prealbumin (18-45) mg/dL 06/16/18 06/16/18 Range/Units 05:20 05:20 WBC 20.9 H (4.8-10.8) x10^3/uL RBC 2.27 L (4.20-5.40) 10^6/uL Hgb 9.2 L (12.0-16.0) g/dL Hct 27.0 L (37.0-47.0) % MCV 118.6 H (81.0-99.0) fL MCH 40.4 H (27.0-31.0) pg MCHC 34.1 (32.0-36.0) g/dL RDW 25.4 H (12.0-15.0) % Plt Count 96 L (130-450) 10^3/uL MPV 10.3 (7.9-10.8) fL Neut # (Auto) Not Reportable Lymph # (Auto) Not Reportable [place] # (Auto) Not Reportable Eos # (Auto) Not Reportable Baso # (Auto) Not Reportable Absolute Nucleated RBC Not Reportable Total Counted 100 Band Neuts % (Manual) 6 (0 - 10) % Abnorm Lymph % (Manual) 0 % Nucleated RBC % Not Reportable Neutrophils # (Manual) 18.0 H (1.5-6.6) 10^3/uL Lymphocytes # (Manual) 1.5 (1.5-3.5) 10^3/uL Monocytes # (Manual) 1.5 H (0.0-1.0) 10^3/uL Eosinophils # (Manual) 0.0 (0-0.7) 10^3/uL Basophils # (Manual) 0.0 (0-0.1) 10^3/uL Nucleated RBCs 1 % Differential Comment MANUAL DIFFERENTIAL Platelet Estimate DECREASED (<130,000) (NORMAL) Platelet Morphology 2+ LARGE PLATELETS (NORMAL) RBC Morph Micro Appear 1+ POLYCHROMASIA (NORMAL) VBG pH (7.31-7.41) Ionized Calcium (1.15-1.33) mmol/L Sodium (135-145) mmol/L Potassium (3.5-5.0) mmol/L Chloride (101-111) mmol/L Carbon Dioxide (21-32) mmol/L Anion Gap (6-13) BUN (6-20) mg/dL Creatinine (0.4-1.0) mg/dL Estimated GFR (MDRD) (>89) Glucose (70-100) mg/dL Calcium (8.5-10.3) mg/dL Phosphorus 3.5 (2.5-4.6) mg/dL Magnesium 2.4 (1.7-2.8) mg/dL Total Bilirubin (0.2-1.0) mg/dL AST (10-42) IU/L ALT (10-60) IU/L Alkaline Phosphatase (42-121) IU/L Ammonia (7-35) umol/L Total Protein (6.7-8.2) g/dL Albumin (3.2-5.5) g/dL Globulin (2.1-4.2) g/dL Albumin/Globulin Ratio (1.0-2.2) Prealbumin 7 L (18-45) mg/dL Assessment/Plan - Problem List (1) Elevated WBC count Impression: The patient came in with an elevated leukocyte count and has remained in leukocytosis since that time. She has been afebrile and we have not been able to find any source of infection. Of note is that the patient does have acute alcoholic hepatitis and is being treated with steroids which will certainly elevate her white blood cell count. We have been holding antibiotics until we have found a source and at this time that may not occur. The patient is clinically significantly improved today. Continue present care. (2) Acute hepatic failure Impression: The patient presented in acute hepatic failure secondary to alcoholic hepatitis. Her transaminases are showing some improvement and her bilirubin is starting to come down from a high of 32 yesterday. A repeat MELD score is 31 giving the patient a 52.6% chance of 3 month mortality. The patient's ammonia remains elevated at 100.4. She has been receiving lactulose orally and rectally but has not had a bowel movement. Despite this she is more awake today than she has been since her admission. I will add rifaximin to her medication regimen. We are checking hepatitis panel and and the patient remains significantly jaundiced. Continue present care. (3) Liver masses Impression: A repeat MRI of the abdomen on 72 failed to show any liver masses. This was a follow-up because a CT scan of the abdomen and pelvis showed areas that were suspicious for liver masses likely representing diffuse metastatic disease. The patient may need a biopsy at some point in the future as an outpatient. (4) Alcohol abuse Impression: The patient has a long history of alcohol abuse. She states she only drinks 3 glasses of wine daily but this does not appear to be likely. Her meld score indicates she has a 52.6 chance of mortality in the next 3 months, especially if she does not stop drinking. She will not qualify for liver transplant unless she can stop drinking for 6 months. Social work has been referred for counseling/treatment. (5) Hypokalemia Impression: The patient has been treated for hypokalemia since her admission and continues to lose potassium. She went from 3.6 yesterday down to 3.2 today. We will replace the potassium and continue to monitor. (6) Hyponatremia Impression: The patient's sodium has been corrected, and is 140 today. (7) Lactic acidosis Impression: The patient's lactic acid on admission was 3.9. And has been normal since the , when it was measured at 1.3. (8) Severe protein-calorie malnutrition Impression: The patient's total protein is 5.7 and her albumin is 2.0. Her MCV is 114, all indicators of severe protein calorie malnutrition and alcohol abuse. Nutrition has been consulted. (9) Chronic back pain Impression: The patient is not complaining of her back pain at this time but has been complaining at various times during her hospitalization. We are avoiding Tylenol because of her liver failure and NSAIDs because of a possible gastric ulcer. Continue current care/treatment with oxycodone as needed. Qualifiers: Back pain location: low back pain Back pain laterality: bilateral Sciatica presence: with sciatica Sciatica laterality: bilateral sciatica Qualified Code(s): M54.42 - Lumbago with sciatica, left side; M54.41 - Lumbago with sciatica, right side; M54.41 - Lumbago with sciatica, right side; G89.29 - Other chronic pain; G89.29 - Other chronic pain
[2018-06-16] MEDS: SODIUM CHLORIDE FLUSH 0.9% 10 ML SYRINGE IVP PRN (21:23)
[2018-06-17] MEDS: LACTULOSE 10 GM/15 ML BOTTLE PO SCH ×4 (01:50→20:05)
[2018-06-17] MEDS: rifAXIMin 550 MG TABLET PO SCH ×3 (01:50→17:00)
[2018-06-17] MEDS: SODIUM CHLORIDE FLUSH 0.9% 10 ML SYRINGE IVP SCH ×4 (02:24→22:55)
[2018-06-17 04:49] LABS: BASOPHILS % (AUTO) 0.4 %; EOSINOPHILS % (AUTO) 0.7 %; HGB - HEMOGLOBIN 9.3 g/dL (12.0-16.0); LYMPHOCYTES % (AUTO) 37.8 %; MEAN CORPUSCULAR HEMOGLOBIN 40.9 pg (27.0-31.0); MEAN CORPUSCULAR HGB CONC 34.3 g/dL (32.0-36.0); MEAN CORPUSCULAR VOLUME 119.1 fL (81.0-99.0); MONOCYTES % (AUTO) 5.6 %; NEUTROPHILS % (AUTO) 55.5 %; PLT - PLATELET COUNT 97 10^3/uL (130-450); RED BLOOD COUNT 2.26 10^6/uL (4.20-5.40); RED CELL DISTRIBUTION WIDTH 25.5 % (12.0-15.0); WHITE BLOOD COUNT 23.4 x10^3/uL (4.8-10.8)
[2018-06-17 04:51] LABS: ABNORMAL LYMPHS % (MANUAL) 0 %
[2018-06-17 05:05] LABS: ALBUMIN 2.1 g/dL (3.2-5.5); ALBUMIN/GLOBULIN RATIO 0.6 (1.0-2.2); ALKALINE PHOSPHATASE 160 IU/L (42-121); ALT ALANINE AMINOTRANSFERASE 46 IU/L (10-60); AST ASPARTATE AMINOTRANSFERASE 108 IU/L (10-42); BILIRUBIN,TOTAL 28.2 mg/dL (0.2-1.0); BUN - BLOOD UREA NITROGEN 11 mg/dL (6-20); CALCIUM 8.1 mg/dL (8.5-10.3); CARBON DIOXIDE - CO2 21 mmol/L (21-32); CHLORIDE 107 mmol/L (101-111); CREATININE 0.3 mg/dL (0.4-1.0); GFR - MDRD 235 (>89); GLUCOSE 97 mg/dL (70-100); SODIUM 135 mmol/L (135-145); TOTAL PROTEIN 5.6 g/dL (6.7-8.2)
[2018-06-17 05:09] LABS: VBG PH 7.437 (7.31-7.41)
[2018-06-17] MEDS ORDERED: POTASSIUM CHLORIDE 20 MEQ TABLET PO ONE (05:28)
[2018-06-17 06:12] LABS: BAND NEUTROPHILS % (MANUAL) 15 %; LYMPHOCYTES # (MANUAL) 2.8 10^3/uL (1.5-3.5); LYMPHOCYTES % (MANUAL) 12 %; METAMYELOCYTES % (MANUAL) 1 %; MONOCYTES # (MANUAL) 0.9 10^3/uL (0.0-1.0); MYELOCYTES % (MANUAL) 1 %; NEUTROPHILS # (MANUAL) 19.2 10^3/uL (1.5-6.6); NEUTROPHILS % (MANUAL) 67 %
[2018-06-17 06:13] LABS: DIFFERENTIAL COMMENT MANUAL DIFFERENTIAL; PLATELET ESTIMATE, MANUAL DECREASED (<130,000) (NORMAL)
[2018-06-17] MEDS: POLYETHYLENE GLYCOL 3350 17 GM PACKET PO SCH (08:40)
[2018-06-17] MEDS: LACTULOSE 10 GM/15 ML BOTTLE PR SCH (08:41)
[2018-06-17] MEDS: MULTIVITAMIN W/MINERALS TABLET PO SCH (08:41)
[2018-06-17] MEDS: PANTOPRAZOLE 40 MG VIAL IVP SCH ×2 (08:41→21:40)
[2018-06-17] MEDS: THIAMINE INJ 100 MG, FOLIC ACID INJ 1 MG in SODIUM CHLORIDE 0.9% 100ML 100 ML IV SCH (09:11)
[2018-06-17 12:31] LABS: HEPATITIS A IGM NON-REACTIVE (NON-REACTIVE); HEPATITIS B CORE ANTIBODY IGM NON-REACTIVE (NON-REACTIVE); HEPATITIS B SURFACE ANTIGEN NON-REACTIVE (NON-REACTIVE); HEPATITIS C ANTIBODY REACTIVE (NON-REACTIVE)
[2018-06-17] MEDS: oxyCODONE 5 MG TABLET PO PRN (14:04)
--- NOTE | 2018-06-17 18:12 | PROVIDER PROGRESS NOTE ---
Subjective - Prog Note Date Prog Note Date: 06/17/18 Prog Note Time: 15:00 - Subjective Pt reports feeling: Improved Subjective: The sweeney the patient continues to be more lucid and conversational daily. She feels "shaky" but otherwise has no new complaints today. She denies any significant pain, shortness of breath, fever or chills. Current Medications - Current Medications Current Medications: Active Medications Generic Name Dose Route Start Last Admin Trade Name Freq PRN Reason Stop Dose Admin Thiamine HCl 100 mg/ Folic 101.2 mls @ 50.6 mls/hr 06/10/18 09:00 06/17/18 11 :17 Acid 1 mg/ Sodium Chloride IV Infused DAILY JULIO Infusion Lactulose 30 gm 06/12/18 08:00 06/17/18 14:05 Lactulose PO 30 gm Q6H JULIO Administration Lactulose 60 gm 06/14/18 12:00 06/17/18 08:41 Lactulose TX Not Given DAILY JULIO Lorazepam 1 mg 06/10/18 19:08 06/15/18 03:38 Ativan Inj (Vial) IVP 1 mg Q30M PRN Administration CIWA >8 Protocol Multivitamins/Minerals 1 tab 06/12/18 09:00 06/17/18 08:41 Theragran M PO 1 tab DAILY JULIO Administration Ondansetron HCl 4 mg 06/10/18 00:20 Zofran Inj IVP Q6HR PRN Nausea / Vomiting Oxycodone HCl 5 mg 06/10/18 00:20 06/17/18 14:04 Roxicodone PO 5 mg Q4HR PRN Administration Pain 5 to 7 Oxycodone HCl 10 mg 06/10/18 00:20 Roxicodone PO Q4HR PRN Pain 8 to 10 Pantoprazole Sodium 40 mg 06/10/18 09:00 06/17/18 08:41 Protonix IVP 40 mg BID JULIO Administration Polyethylene Glycol 17 gm 06/11/18 09:00 06/17/18 08:40 Miralax PO Not Given DAILY JULIO Prednisolone 40 mg 06/10/18 08:00 06/17/18 08:40 Prelone Oral Soln PO 40 mg DAILYWM JULIO Administration Prochlorperazine Edisylate 10 mg 06/10/18 00:20 Compazine Inj IVP Q6HR PRN Nausea / Vomiting Promethazine HCl 25 mg 06/10/18 00:20 Phenergan Inj IM Q6HR PRN Nausea / Vomiting Rifaximin 400 mg 06/16/18 10:00 06/17/18 17:00 Xifaxan PO 06/26/18 09:59 400 mg Q8H JULIO Administration Sodium Chloride 10 ml 06/10/18 01:00 06/17/18 17:00 Normal Saline Flush 0.9% IVP 10 ml 0100,0900,1700 JULIO Administration Sodium Chloride 10 ml 06/10/18 00:20 06/16/18 21:23 Normal Saline Flush 0.9% IVP 10 ml PRN PRN Administration NEEDED PER PROVIDER ORDERS Cyclobenzaprine HCl 5 - 10 mg PO TID PRN 06/10/18 Famotidine 20 mg PO DAILY 06/10/18 Methocarbamol 500 mg PO BID PRN 06/10/18 Sucralfate 1 gm PO TID 06/10/18 Objective - Vital Signs/Intake & Output Reviewed Vital Signs: Yes Vital Signs: Vital Signs Pulse Resp BP 06/17/18 18:00 89 20 111/74 06/17/18 17:00 89 16 121/80 06/17/18 16:00 77 14 95/62 06/17/18 15:00 88 12 94/65 Intake & Output: Intake & Output 06/14/18 06/15/18 06/16/18 06/17/18 23:59 23:59 23:59 23:59 Intake Total 1522.2 1258.2 2182.867 1801.2 Output Total 1270 1600 1180 1500 Balance 252.2 -341.8 1002.867 301.2 - Objective General Appearance: positive: No acute distress, Alert Eyes Bilateral: positive: PERRL, EOMI, No lid inflammation, Other (Scleral icterus noted bilaterally) Eyes: OU Scleral icterus (Patient is also significantly jaundiced) ENT: positive: ENT inspection nml, Pharynx nml, No signs of dehydration. negative: Oral lesions Neck: positive: Nml inspection, Thyroid nml, No JVD, Trachea midline. negative : Thyromegaly Respiratory: positive: Chest non-tender, No respiratory distress, Breath sounds nml. negative: Wheezes, Rales, Rhonchi Cardiovascular: positive: Regular rate & rhythm, No murmur, No gallop Abdomen: positive: Non-tender, No organomegaly, Nml bowel sounds, No distention. negative: Guarding, Rebound, Mass Back: positive: Nml inspection. negative: CVA tenderness (R), CVA tenderness (L ) Skin: positive: Other (Patient is significantly jaundiced) Extremities: positive: Non-tender, Full ROM, Nml appearance, No pedal edema Neurologic/Psychiatric: positive: CN's nml (2-12), Motor nml, Sensation nml, Mood/affect nml - Lab Results Fish Bones: 06/17/18 04:25 06/17/18 04:25 Other Labs: Lab Results x24hrs 06/17/18 06/17/18 06/17/18 Range/Units 04:25 04:25 04:25 WBC (4.8-10.8) x10^3/uL RBC (4.20-5.40) 10^6/uL Hgb (12.0-16.0) g/dL Hct (37.0-47.0) % MCV (81.0-99.0) fL MCH (27.0-31.0) pg MCHC (32.0-36.0) g/dL RDW (12.0-15.0) % Plt Count (130-450) 10^3/uL MPV (7.9-10.8) fL Neut # (Auto) Lymph # (Auto) [place] # (Auto) Eos # (Auto) Baso # (Auto) Absolute Nucleated RBC Total Counted Band Neuts % (Manual) (0 - 10) % Abnorm Lymph % (Manual) % Metamyelocytes % ( - 0) % Myelocytes % ( - 0) % Nucleated RBC % Neutrophils # (Manual) (1.5-6.6) 10^3/uL Lymphocytes # (Manual) (1.5-3.5) 10^3/uL Monocytes # (Manual) (0.0-1.0) 10^3/uL Eosinophils # (Manual) (0-0.7) 10^3/uL Basophils # (Manual) (0-0.1) 10^3/uL Differential Comment Platelet Estimate (NORMAL) RBC Morph Micro Appear (NORMAL) VBG pH 7.437 H (7.31-7.41) Ionized Calcium 1.08 L YES (1.15-1.33) mmol/L Sodium 135 (135-145) mmol/L Potassium 3.3 L (3.5-5.0) mmol/L Chloride 107 (101-111) mmol/L Carbon Dioxide 21 (21-32) mmol/L Anion Gap 7.0 (6-13) BUN 11 (6-20) mg/dL Creatinine 0.3 L (0.4-1.0) mg/dL Estimated GFR (MDRD) 235 (>89) Glucose 97 (70-100) mg/dL Calcium 8.1 L (8.5-10.3) mg/dL Total Bilirubin 28.2 H (0.2-1.0) mg/dL AST 108 H (10-42) IU/L ALT 46 (10-60) IU/L Alkaline Phosphatase 160 H (42-121) IU/L Ammonia 65.9 H (7-35) umol/L Total Protein 5.6 L (6.7-8.2) g/dL Albumin 2.1 L (3.2-5.5) g/dL Globulin 3.5 (2.1-4.2) g/dL Albumin/Globulin Ratio 0.6 L (1.0-2.2) Hepatitis A IgM Ab (NON-REACTIVE) Hep Bs Antigen (NON-REACTIVE) Hep B Core IgM Ab (NON-REACTIVE) Hepatitis C Antibody (NON-REACTIVE) Hep C Ab Signal/Cutoff (<1.00) 06/17/18 06/16/18 Range/Units 04:25 07:31 WBC 23.4 H (4.8-10.8) x10^3/uL RBC 2.26 L (4.20-5.40) 10^6/uL Hgb 9.3 L (12.0-16.0) g/dL Hct 27.0 L (37.0-47.0) % MCV 119.1 H (81.0-99.0) fL MCH 40.9 H (27.0-31.0) pg MCHC 34.3 (32.0-36.0) g/dL RDW 25.5 H (12.0-15.0) % Plt Count 97 L (130-450) 10^3/uL MPV 11.0 H (7.9-10.8) fL Neut # (Auto) Not Reportable Lymph # (Auto) Not Reportable [place] # (Auto) Not Reportable Eos # (Auto) Not Reportable Baso # (Auto) Not Reportable Absolute Nucleated RBC Not Reportable Total Counted 100 Band Neuts % (Manual) 15 H (0 - 10) % Abnorm Lymph % (Manual) 0 % Metamyelocytes % 1 H ( - 0) % Myelocytes % 1 H ( - 0) % Nucleated RBC % Not Reportable Neutrophils # (Manual) 19.2 H (1.5-6.6) 10^3/uL Lymphocytes # (Manual) 2.8 (1.5-3.5) 10^3/uL Monocytes # (Manual) 0.9 (0.0-1.0) 10^3/uL Eosinophils # (Manual) 0.0 (0-0.7) 10^3/uL Basophils # (Manual) 0.0 (0-0.1) 10^3/uL Differential Comment MANUAL DIFFERENTIAL Platelet Estimate DECREASED (<130,000) (NORMAL) RBC Morph Micro Appear 1+ POLYCHROMASIA (NORMAL) VBG pH (7.31-7.41) Ionized Calcium (1.15-1.33) mmol/L Sodium (135-145) mmol/L Potassium (3.5-5.0) mmol/L Chloride (101-111) mmol/L Carbon Dioxide (21-32) mmol/L Anion Gap (6-13) BUN (6-20) mg/dL Creatinine (0.4-1.0) mg/dL Estimated GFR (MDRD) (>89) Glucose (70-100) mg/dL Calcium (8.5-10.3) mg/dL Total Bilirubin (0.2-1.0) mg/dL AST (10-42) IU/L ALT (10-60) IU/L Alkaline Phosphatase (42-121) IU/L Ammonia (7-35) umol/L Total Protein (6.7-8.2) g/dL Albumin (3.2-5.5) g/dL Globulin (2.1-4.2) g/dL Albumin/Globulin Ratio (1.0-2.2) Hepatitis A IgM Ab NON-REACTIVE (NON-REACTIVE) Hep Bs Antigen NON-REACTIVE (NON-REACTIVE) Hep B Core IgM Ab NON-REACTIVE (NON-REACTIVE) Hepatitis C Antibody REACTIVE A (NON-REACTIVE) Hep C Ab Signal/Cutoff 3.00 H (<1.00) Assessment/Plan - Problem List (1) Elevated WBC count Impression: The patient came in with an elevated leukocyte count and her leukocyte count has remained elevated since that time. She has been afebrile and we have not been able to find any source of infection. Of note is that the patient does have acute alcoholic hepatitis and is being treated with steroids which will certainly elevate her white blood cell count. We have been holding antibiotics until we have found a source and at this time that may not occur. The patient is improving clinically daily. Continue present care. (2) Acute hepatic failure Impression: The patient presented in acute hepatic failure secondary to alcoholic hepatitis. Her transaminases are showing some improvement and her bilirubin is starting to come down from a high of 32 yesterday. A repeat MELD score is 31 giving the patient a 52.6% chance of 3 month mortality. The patient's ammonia remains elevated at 65.9 but it is significantly improved from 100.4 yesterday. She has been receiving lactulose orally and rectally but has not had a bowel movement. Despite this she is more awake today than she has been since her admission. I have added rifaximin to her medication regimen. The hepatitis panel was positive for Hepatitis C, and the patient remains significantly jaundiced. Continue present care. (3) Liver masses Impression: A repeat MRI of the abdomen on 06/12/18 failed to show any liver masses. This was a follow-up because a CT scan of the abdomen and pelvis showed areas that were suspicious for liver masses likely representing diffuse metastatic disease. The patient may need a biopsy at some point in the future as an outpatient. (4) Alcohol abuse Impression: The patient has a long history of alcohol abuse. She states she only drinks 3 glasses of wine daily but this does not appear to be likely. Her meld score indicates she has a 52.6 chance of mortality in the next 3 months, especially if she does not stop drinking. She will not qualify for liver transplant unless she can stop drinking for 6 months. Social work has been referred for counseling/treatment. (5) Hypokalemia Impression: The patient has been treated for hypokalemia since her admission and continues to lose potassium. She went from 3.2 yesterday up to 3.3 today. We will replace the potassium and continue to monitor. (6) Hyponatremia Impression: The patient's sodium has been corrected, and is 135 today. (7) Lactic acidosis Impression: The patient's lactic acid on admission was 3.9, and has been normal since the , when it was measured at 1.3. (8) Severe protein-calorie malnutrition Impression: The patient's total protein is 5.7 and her albumin is 2.0. Her MCV is 114, all indicators of severe protein calorie malnutrition and alcohol abuse. Nutrition has been consulted. (9) Chronic back pain Impression: The patient is not complaining of her back pain at this time but has been complaining at various times during her hospitalization. We are avoiding Tylenol because of her liver failure and NSAIDs because of a possible gastric ulcer. Continue current care/treatment with oxycodone as needed. Qualifiers: Back pain location: low back pain Back pain laterality: bilateral Sciatica presence: with sciatica Sciatica laterality: bilateral sciatica Qualified Code(s): M54.42 - Lumbago with sciatica, left side; M54.41 - Lumbago with sciatica, right side; M54.41 - Lumbago with sciatica, right side; G89.29 - Other chronic pain; G89.29 - Other chronic pain
[2018-06-17] MEDS: LORazepam 2 MG/ML VIAL IVP PRN (22:52)
[2018-06-18] MEDS: LACTULOSE 10 GM/15 ML BOTTLE PO SCH ×4 (02:47→20:40)
[2018-06-18] MEDS: rifAXIMin 550 MG TABLET PO SCH ×3 (02:47→14:03)
[2018-06-18 04:52] LABS: BASOPHILS % (AUTO) 0.6 %; EOSINOPHILS % (AUTO) 0.6 %; HGB - HEMOGLOBIN 8.9 g/dL (12.0-16.0); LYMPHOCYTES % (AUTO) 8.8 %; MEAN CORPUSCULAR HGB CONC 34.9 g/dL (32.0-36.0); MEAN CORPUSCULAR VOLUME 117.6 fL (81.0-99.0); MEAN PLATELET VOLUME 11.4 fL (7.9-10.8); MONOCYTES % (AUTO) 6.9 %; NEUTROPHILS % (AUTO) 83.1 %; PLT - PLATELET COUNT 84 10^3/uL (130-450); RED BLOOD COUNT 2.16 10^6/uL (4.20-5.40); RED CELL DISTRIBUTION WIDTH 24.7 % (12.0-15.0); WHITE BLOOD COUNT 24.6 x10^3/uL (4.8-10.8)
[2018-06-18 04:56] LABS: ABNORMAL LYMPHS % (MANUAL) 0 %
[2018-06-18 04:58] LABS: INR 2.6 (0.8-1.2); PT - PROTHROMBIN TIME 28.2 secs (9.9-12.6)
[2018-06-18 05:10] LABS: ALBUMIN/GLOBULIN RATIO 0.6 (1.0-2.2); ALKALINE PHOSPHATASE 144 IU/L (42-121); ALT ALANINE AMINOTRANSFERASE 45 IU/L (10-60); AST ASPARTATE AMINOTRANSFERASE 102 IU/L (10-42); BILIRUBIN,TOTAL 29.3 mg/dL (0.2-1.0); BUN - BLOOD UREA NITROGEN 14 mg/dL (6-20); CALCIUM 7.6 mg/dL (8.5-10.3); CARBON DIOXIDE - CO2 21 mmol/L (21-32); CHLORIDE 104 mmol/L (101-111); GLUCOSE 104 mg/dL (70-100); MAGNESIUM 2.2 mg/dL (1.7-2.8); PHOSPHORUS 2.1 mg/dL (2.5-4.6); PREALBUMIN 7 mg/dL (18-45); SODIUM 131 mmol/L (135-145); TOTAL PROTEIN 5.3 g/dL (6.7-8.2)
[2018-06-18 05:12] LABS: CREATININE < 0.3 mg/dL (0.4-1.0); GFR - MDRD 235 (>89)
[2018-06-18 05:38] LABS: VBG PH 7.399 (7.31-7.41)
[2018-06-18 05:58] LABS: BAND NEUTROPHILS % (MANUAL) 22 %; DIFFERENTIAL COMMENT MANUAL DIFFERENTIAL; EOSINOPHILS # (MANUAL) 0.2 10^3/uL (0-0.7); LYMPHOCYTES # (MANUAL) 4.4 10^3/uL (1.5-3.5); LYMPHOCYTES % (MANUAL) 18 %; MONOCYTES # (MANUAL) 1.5 10^3/uL (0.0-1.0); NEUTROPHILS # (MANUAL) 18.5 10^3/uL (1.5-6.6); NEUTROPHILS % (MANUAL) 53 %; PLATELET ESTIMATE, MANUAL DECREASED (<130,000) (NORMAL)
[2018-06-18] MEDS: POTASSIUM CHLORIDE 20 MEQ TABLET PO SCH ×4 (06:16→17:42)
[2018-06-18] MEDS: NEUTRA-PHOS 250 MG TABLET PO SCH ×2 (06:16→08:53)
[2018-06-18] MEDS: POLYETHYLENE GLYCOL 3350 17 GM PACKET PO SCH (08:52)
[2018-06-18] MEDS: MULTIVITAMIN W/MINERALS TABLET PO SCH (08:55)
[2018-06-18] MEDS: THIAMINE INJ 100 MG, FOLIC ACID INJ 1 MG in SODIUM CHLORIDE 0.9% 100ML 100 ML IV SCH (09:00)
[2018-06-18] MEDS: LACTULOSE 10 GM/15 ML BOTTLE PR SCH (09:00)
[2018-06-18] MEDS: NS W/40 MEQ KCL 1,000 ML IV SCH ×2 (09:03→18:00)
[2018-06-18] MEDS: PANTOPRAZOLE 40 MG VIAL IVP SCH ×2 (09:03→09:04)
[2018-06-18] MEDS: SODIUM CHLORIDE FLUSH 0.9% 10 ML SYRINGE IVP SCH ×2 (09:05→16:03)
[2018-06-18] MEDS ORDERED: IBUPROFEN 600 MG TABLET PO PRN (10:51)
[2018-06-18] MEDS: ONDANSETRON 4 MG/2 ML VIAL IVP PRN (11:25)
--- NOTE | 2018-06-18 17:30 | PROVIDER PROGRESS NOTE ---
Subjective - Prog Note Date Prog Note Date: 06/18/18 Prog Note Time: 13:00 - Subjective Pt reports feeling: Improved Subjective: The patient continues to feel little bit better every day. Her mentation continues to clear and she is able to make her wants and needs known easily. I did have a long conversation today regarding her need to stop drinking and that if she continues to drink it will almost certainly kill her in a very short while. She says she understands and will not drink any longer. She denies any fevers or chills, chest pain or shortness of breath. She has been moving her bowels several times a day secondary to the lactulose administration. Current Medications - Current Medications Current Medications: Active Medications Generic Name Dose Route Start Last Admin Trade Name Freq PRN Reason Stop Dose Admin Thiamine HCl 100 mg/ Folic 101.2 mls @ 50.6 mls/hr 06/10/18 09:00 06/18/18 11 :05 Acid 1 mg/ Sodium Chloride IV Infused DAILY JULIO Infusion Potassium Chloride/Sodium Chloride 1,000 mls @ 100 mls/hr 06/18/18 08:00 01/04 09:03 Normal Saline 0.9% W/40 Meq Kcl IV 100 mls/hr .Q10H JULIO Administration Ibuprofen 600 mg 06/18/18 10:51 Motrin PO Q6HR PRN PAIN Lactulose 30 gm 06/12/18 08:00 06/18/18 09:05 Lactulose PO 30 gm Q6H JULIO Administration Lactulose 60 gm 06/14/18 12:00 06/18/18 09:00 Lactulose VT 60 gm DAILY JULIO Administration Lorazepam 1 mg 06/10/18 19:08 06/17/18 22:52 Ativan Inj (Vial) IVP 1 mg Q30M PRN Administration CIWA >8 Protocol Multivitamins/Minerals 1 tab 06/12/18 09:00 06/18/18 08:55 Theragran M PO 1 tab DAILY JULIO Administration Ondansetron HCl 4 mg 06/10/18 00:20 06/18/18 11:25 Zofran Inj IVP 4 mg Q6HR PRN Administration Nausea / Vomiting Oxycodone HCl 5 mg 06/10/18 00:20 06/17/18 14:04 Roxicodone PO 5 mg Q4HR PRN Administration Pain 5 to 7 Oxycodone HCl 10 mg 06/10/18 00:20 Roxicodone PO Q4HR PRN Pain 8 to 10 Pantoprazole Sodium 40 mg 06/10/18 09:00 06/18/18 09:04 Protonix IVP 40 mg BID JULIO Administration Polyethylene Glycol 17 gm 06/11/18 09:00 06/18/18 08:52 Miralax PO 17 gm DAILY JULIO Administration Potassium Chloride 20 meq 06/18/18 08:00 06/18/18 08:53 K-Dur PO 20 meq BIDWM JULIO Administration Prednisolone 40 mg 06/10/18 08:00 06/18/18 08:54 Prelone Oral Soln PO 40 mg DAILYWM JULIO Administration Prochlorperazine Edisylate 10 mg 06/10/18 00:20 Compazine Inj IVP Q6HR PRN Nausea / Vomiting Promethazine HCl 25 mg 06/10/18 00:20 Phenergan Inj IM Q6HR PRN Nausea / Vomiting Rifaximin 400 mg 06/16/18 10:00 06/18/18 14:03 Xifaxan PO 06/26/18 09:59 400 mg Q8H JULIO Administration Sodium Chloride 10 ml 06/10/18 01:00 06/18/18 16:03 Normal Saline Flush 0.9% IVP Not Given 0100,0900,1700 [facility] Sodium Chloride 10 ml 06/10/18 00:20 06/16/18 21:23 Normal Saline Flush 0.9% IVP 10 ml PRN PRN Administration NEEDED PER PROVIDER ORDERS Cyclobenzaprine HCl 5 - 10 mg PO TID PRN 06/10/18 Famotidine 20 mg PO DAILY 06/10/18 Methocarbamol 500 mg PO BID PRN 06/10/18 Sucralfate 1 gm PO TID 06/10/18 Objective - Vital Signs/Intake & Output Reviewed Vital Signs: Yes Vital Signs: Vital Signs Temp Pulse Resp BP Pulse Ox 06/18/18 16:20 36.7 C 87 16 107/63 98 Intake & Output: Intake & Output 06/15/18 06/16/18 06/17/18 06/18/18 23:59 23:59 23:59 23:59 Intake Total 1258.2 2182.867 2201.2 2621.2 Output Total 1600 1180 1800 1100 Balance -341.8 1002.867 401.2 1521.2 - Objective General Appearance: positive: No acute distress, Alert Eyes Bilateral: positive: Normal inspection, PERRL, EOMI, No lid inflammation, Conjunctivae nml Eyes: OU Scleral icterus ENT: positive: ENT inspection nml, Pharynx nml, No signs of dehydration Neck: positive: Nml inspection, Thyroid nml, No JVD, Trachea midline. negative : Thyromegaly Respiratory: positive: Chest non-tender, No respiratory distress, Breath sounds nml. negative: Wheezes, Rales, Rhonchi Cardiovascular: positive: Regular rate & rhythm, No murmur, No gallop Abdomen: positive: Non-tender, No organomegaly, Nml bowel sounds, No distention. negative: Guarding, Rebound, Mass Back: positive: Nml inspection. negative: CVA tenderness (R), CVA tenderness (L ) Skin: positive: No rash, Warm, Dry, Other (Jaundice). negative: Color nml, Cyanosis Extremities: positive: Non-tender, Full ROM, Nml appearance, No pedal edema Neurologic/Psychiatric: positive: Oriented x3, CN's nml (2-12), Motor nml, Sensation nml, Mood/affect nml - Lab Results Fish Bones: 06/18/18 04:31 06/18/18 04:31 Other Labs: Lab Results x24hrs 06/18/18 06/18/18 06/18/18 Range/Units 04:31 04:31 04:31 WBC (4.8-10.8) x10^3/uL RBC (4.20-5.40) 10^6/uL Hgb (12.0-16.0) g/dL Hct (37.0-47.0) % MCV (81.0-99.0) fL MCH (27.0-31.0) pg MCHC (32.0-36.0) g/dL RDW (12.0-15.0) % Plt Count (130-450) 10^3/uL MPV (7.9-10.8) fL Neut # (Auto) Lymph # (Auto) Kemper # (Auto) Eos # (Auto) Baso # (Auto) Absolute Nucleated RBC Total Counted Band Neuts % (Manual) (0 - 10) % Abnorm Lymph % (Manual) % Nucleated RBC % Neutrophils # (Manual) (1.5-6.6) 10^3/uL Lymphocytes # (Manual) (1.5-3.5) 10^3/uL Monocytes # (Manual) (0.0-1.0) 10^3/uL Eosinophils # (Manual) (0-0.7) 10^3/uL Basophils # (Manual) (0-0.1) 10^3/uL Differential Comment Platelet Estimate (NORMAL) RBC Morph Micro Appear (NORMAL) PT 28.2 H (9.9-12.6) secs INR 2.6 H (0.8-1.2) VBG pH 7.399 (7.31-7.41) Ionized Calcium 1.05 L (1.15-1.33) mmol/L Sodium (135-145) mmol/L Potassium (3.5-5.0) mmol/L Chloride (101-111) mmol/L Carbon Dioxide (21-32) mmol/L Anion Gap (6-13) BUN (6-20) mg/dL Creatinine (0.4-1.0) mg/dL Estimated GFR (MDRD) (>89) Glucose (70-100) mg/dL Calcium (8.5-10.3) mg/dL Phosphorus (2.5-4.6) mg/dL Magnesium (1.7-2.8) mg/dL Total Bilirubin (0.2-1.0) mg/dL AST (10-42) IU/L ALT (10-60) IU/L Alkaline Phosphatase (42-121) IU/L Ammonia 92.1 H* (7-35) umol/L Total Protein (6.7-8.2) g/dL Albumin (3.2-5.5) g/dL Globulin (2.1-4.2) g/dL Albumin/Globulin Ratio (1.0-2.2) Prealbumin (18-45) mg/dL 06/18/18 06/18/18 Range/Units 04:31 04:31 WBC 24.6 H (4.8-10.8) x10^3/uL RBC 2.16 L (4.20-5.40) 10^6/uL Hgb 8.9 L (12.0-16.0) g/dL Hct 25.4 L (37.0-47.0) % MCV 117.6 H (81.0-99.0) fL MCH 41.0 H (27.0-31.0) pg MCHC 34.9 (32.0-36.0) g/dL RDW 24.7 H (12.0-15.0) % Plt Count 84 L (130-450) 10^3/uL MPV 11.4 H (7.9-10.8) fL Neut # (Auto) Not Reportable Lymph # (Auto) Not Reportable Kemper # (Auto) Not Reportable Eos # (Auto) Not Reportable Baso # (Auto) Not Reportable Absolute Nucleated RBC Not Reportable Total Counted 100 Band Neuts % (Manual) 22 H (0 - 10) % Abnorm Lymph % (Manual) 0 % Nucleated RBC % Not Reportable Neutrophils # (Manual) 18.5 H (1.5-6.6) 10^3/uL Lymphocytes # (Manual) 4.4 H (1.5-3.5) 10^3/uL Monocytes # (Manual) 1.5 H (0.0-1.0) 10^3/uL Eosinophils # (Manual) 0.2 (0-0.7) 10^3/uL Basophils # (Manual) 0.0 (0-0.1) 10^3/uL Differential Comment MANUAL DIFFERENTIAL Platelet Estimate DECREASED (<130,000) (NORMAL) RBC Morph Micro Appear 1+ HYPOCHROMASIA (NORMAL) PT (9.9-12.6) secs INR (0.8-1.2) VBG pH (7.31-7.41) Ionized Calcium Cancelled (1.15-1.33) mmol/L Sodium 131 L (135-145) mmol/L Potassium 2.9 L (3.5-5.0) mmol/L Chloride 104 (101-111) mmol/L Carbon Dioxide 21 (21-32) mmol/L Anion Gap 6.0 (6-13) BUN 14 (6-20) mg/dL Creatinine < 0.3 L (0.4-1.0) mg/dL Estimated GFR (MDRD) 235 (>89) Glucose 104 H (70-100) mg/dL Calcium 7.6 L (8.5-10.3) mg/dL Phosphorus 2.1 L (2.5-4.6) mg/dL Magnesium 2.2 (1.7-2.8) mg/dL Total Bilirubin 29.3 H (0.2-1.0) mg/dL AST 102 H (10-42) IU/L ALT 45 (10-60) IU/L Alkaline Phosphatase 144 H (42-121) IU/L Ammonia (7-35) umol/L Total Protein 5.3 L (6.7-8.2) g/dL Albumin 2.0 L (3.2-5.5) g/dL Globulin 3.3 (2.1-4.2) g/dL Albumin/Globulin Ratio 0.6 L (1.0-2.2) Prealbumin 7 L (18-45) mg/dL Assessment/Plan - Problem List (1) Elevated WBC count Impression: When the patient was admitted she was cultured looking for source of infection; nothing was found at that time. Her white blood cell count has continued to rise but this may be attributed to the steroids she is receiving for her alcoholic hepatitis. I will reculture her blood, sputum, urine, and get a chest x-ray. (2) Acute hepatic failure Impression: The patient presented in acute hepatic failure secondary to alcoholic hepatitis. Her transaminases are showing some improvement and her bilirubin is starting to come down from a high of 32 to 29.3 today. A repeat MELD score is 31 giving the patient a 52.6% chance of 3 month mortality. The patient's ammonia Level went up again from 65.9 yesterday to 92.1 today.. She has been receiving lactulose orally and rectally and has had multiple daily bowel movements. Despite her ammonia and bilirubin going up slightly today she is more awake today than she has been since her admission. I have added rifaximin to her medication regimen. The hepatitis panel was positive for Hepatitis C, and the patient remains significantly jaundiced. [facility] Continue present care. (3) Liver masses Impression: A repeat MRI of the abdomen on 06/12/18 failed to show any liver masses. This was a follow-up because a CT scan of the abdomen and pelvis showed areas that were suspicious for liver masses likely representing diffuse metastatic disease. The patient may need a biopsy at some point in the future as an outpatient. (4) Alcohol abuse Impression: The patient has a long history of alcohol abuse. She states she only drinks 3 glasses of wine daily but this does not appear to be likely. Her meld score indicates she has a 52.6 chance of mortality in the next 3 months, especially if she does not stop drinking. She will not qualify for liver transplant unless she can stop drinking for 6 months. Social work has been referred for counseling/treatment. (5) Hypokalemia Impression: The patient has been treated for hypokalemia since her admission and continues to lose potassium for some unknown reason. She went from 3.3 yesterday down to 2.9 today. We will replace the potassium and continue to monitor. (6) Hyponatremia Impression: The patient continues to lose sodium and potassium for some unknown reason. Her renal function appears to be normal. We will continue to replace the electrolytes as needed. (7) Lactic acidosis Impression: The patient's lactic acid on admission was 3.9, and has been normal since the , when it was measured at 1.3. (8) Severe protein-calorie malnutrition Impression: The patient's total protein is 5.3 and her albumin is 2.0. Her MCV is 118, all indicators of severe protein calorie malnutrition and alcohol abuse. Nutrition has been consulted. (9) Chronic back pain Impression: The patient is not complaining of her back pain at this time but has been complaining at various times during her hospitalization. We are avoiding Tylenol because of her liver failure and NSAIDs because of a possible gastric ulcer. Continue current care/treatment with oxycodone as needed. Qualifiers: Back pain location: low back pain Back pain laterality: bilateral Sciatica presence: with sciatica Sciatica laterality: bilateral sciatica Qualified Code(s): M54.42 - Lumbago with sciatica, left side; M54.41 - Lumbago with sciatica, right side; M54.41 - Lumbago with sciatica, right side; G89.29 - Other chronic pain; G89.29 - Other chronic pain
[2018-06-18] MEDS: oxyCODONE 5 MG TABLET PO PRN (20:39)
--- NOTE | 2018-06-18 20:48 | XRAY Report ---
Procedure Date: 06/18/2018 Accession Number: [id number] / [id number] Procedure: XR - Chest 1 View X-Ray CPT Code: 70827 FULL RESULT: EXAM: CHEST RADIOGRAPHY EXAM DATE: 06/18/2018 08:17 PM. CLINICAL HISTORY: Looking for a source of infection. COMPARISON: CHEST FOR LINE PLACEMENT 06/10/2018 11:48 AM. TECHNIQUE: 1 view. FINDINGS: Lungs/Pleura: Mild increase in right basilar density. Left lung appears unchanged. No pneumothorax. Mediastinum: Right-sided PICC line tip unchanged at mid SVC level. Heart size is normal. Trachea is midline. Other: None. IMPRESSION: Mild developing right basilar density favoring atelectasis but not excluding developing pneumonia. RADIA
[2018-06-18] MEDS: PROCHLORPERAZINE 10 MG/2 ML VIAL IVP PRN (20:49)
[2018-06-18 20:56] LABS: GLUCOSE, URINE (UA) 100 mg/dL (NEGATIVE); KETONES,URINE (UA) NEGATIVE (NEGATIVE); LEUKOCYTE ESTERASE, URINE TRACE (NEGATIVE); NITRITE,URINE NEGATIVE (NEGATIVE); OCCULT BLOOD,URINE NEGATIVE (NEGATIVE); PROTEIN,URINE NEGATIVE (NEGATIVE); UROBILINOGEN,URINE 0.2 (NORMAL) E.U./dL (NORMAL)
[2018-06-18 20:59] LABS: BILIRUBIN,URINE LARGE (NEGATIVE); CLARITY,URINE HAZY (CLEAR); ICTOTEST,URINE POSITIVE
[2018-06-18 21:08] LABS: BACTERIA,URINE Moderate /HPF (None Seen); RBC,URINE 0-5 /HPF (0-5); SQUAMOUS EPITHELIAL CELL,UR MANY Squamous (<= Few); WBC CLUMPS,URINE PRESENT
[2018-06-18 21:09] LABS: MUCUS,URINE Few Strands
[2018-06-19] MEDS: SODIUM CHLORIDE FLUSH 0.9% 10 ML SYRINGE IVP SCH ×3 (01:39→17:10)
[2018-06-19] MEDS: rifAXIMin 550 MG TABLET PO SCH ×3 (02:15→18:24)
[2018-06-19] MEDS: LACTULOSE 10 GM/15 ML BOTTLE PO SCH ×4 (02:15→20:24)
[2018-06-19] MEDS: NS W/40 MEQ KCL 1,000 ML IV SCH (03:38)
[2018-06-19 06:41] LABS: BASOPHILS % (AUTO) 0.3 %; EOSINOPHILS % (AUTO) 0.2 %; HGB - HEMOGLOBIN 8.4 g/dL (12.0-16.0); LYMPHOCYTES % (AUTO) 21.3 %; MEAN CORPUSCULAR HEMOGLOBIN 40.5 pg (27.0-31.0); MEAN CORPUSCULAR HGB CONC 33.8 g/dL (32.0-36.0); MEAN CORPUSCULAR VOLUME 119.8 fL (81.0-99.0); MEAN PLATELET VOLUME 10.7 fL (7.9-10.8); MONOCYTES % (AUTO) 6.1 %; NEUTROPHILS % (AUTO) 72.1 %; PLT - PLATELET COUNT 81 10^3/uL (130-450); RED BLOOD COUNT 2.08 10^6/uL (4.20-5.40); RED CELL DISTRIBUTION WIDTH 24.9 % (12.0-15.0); WHITE BLOOD COUNT 26.3 x10^3/uL (4.8-10.8)
[2018-06-19 06:51] LABS: ABNORMAL LYMPHS % (MANUAL) 0 %
[2018-06-19 06:52] LABS: ALBUMIN 1.9 g/dL (3.2-5.5); ALBUMIN/GLOBULIN RATIO 0.6 (1.0-2.2); ALKALINE PHOSPHATASE 139 IU/L (42-121); ALT ALANINE AMINOTRANSFERASE 50 IU/L (10-60); AST ASPARTATE AMINOTRANSFERASE 99 IU/L (10-42); BILIRUBIN,TOTAL 28.9 mg/dL (0.2-1.0); BUN - BLOOD UREA NITROGEN 15 mg/dL (6-20); CALCIUM 7.3 mg/dL (8.5-10.3); CARBON DIOXIDE - CO2 18 mmol/L (21-32); CHLORIDE 114 mmol/L (101-111); CREATININE 0.4 mg/dL (0.4-1.0); GFR - MDRD 169 (>89); GLUCOSE 121 mg/dL (70-100); SODIUM 136 mmol/L (135-145); TOTAL PROTEIN 5.3 g/dL (6.7-8.2)
[2018-06-19 07:06] LABS: VBG PH 7.361 (7.31-7.41)
[2018-06-19 07:49] LABS: BAND NEUTROPHILS % (MANUAL) 10 %; LYMPHOCYTES # (MANUAL) 1.1 10^3/uL (1.5-3.5); LYMPHOCYTES % (MANUAL) 4 %; METAMYELOCYTES % (MANUAL) 1 %; MONOCYTES # (MANUAL) 1.8 10^3/uL (0.0-1.0); NEUTROPHILS # (MANUAL) 23.1 10^3/uL (1.5-6.6); NEUTROPHILS % (MANUAL) 78 %
[2018-06-19 07:56] LABS: DIFFERENTIAL COMMENT MANUAL DIFFERENTIAL
[2018-06-19] MEDS: POTASSIUM CHLORIDE 20 MEQ TABLET PO SCH ×2 (08:40→17:10)
[2018-06-19] MEDS: PANTOPRAZOLE 40 MG VIAL IVP SCH ×2 (08:40→20:24)
[2018-06-19] MEDS: MULTIVITAMIN W/MINERALS TABLET PO SCH (08:40)
[2018-06-19] MEDS: D5.45NS W/20 MEQ KCL 1,000 ML IV SCH ×2 (08:41→18:28)
[2018-06-19] MEDS: POLYETHYLENE GLYCOL 3350 17 GM PACKET PO SCH (09:47)
[2018-06-19] MEDS: LORazepam 2 MG/ML VIAL IVP PRN ×2 (09:56→20:24)
[2018-06-19] MEDS: THIAMINE INJ 100 MG, FOLIC ACID INJ 1 MG in SODIUM CHLORIDE 0.9% 100ML 100 ML IV SCH (10:55)
[2018-06-19] MEDS: LACTULOSE 10 GM/15 ML BOTTLE PR SCH (12:03)
--- NOTE | 2018-06-19 18:25 | PROVIDER PROGRESS NOTE ---
Subjective - Prog Note Date Prog Note Date: 06/19/18 Prog Note Time: 17:30 - Subjective Pt reports feeling: Improved Subjective: The patient says she feels better. She is more able to make her wants and needs known and is not as shaky as she had been yesterday. She understands that she has almost killed herself by drinking and says that she wants to stop. She denies any fevers or chills, chest pain or shortness of breath. She moves her bowels frequently due to the lactulose she is receiving both orally and rectally. Current Medications - Current Medications Current Medications: Active Medications Generic Name Dose Route Start Last Admin Trade Name Freq PRN Reason Stop Dose Admin Thiamine HCl 100 mg/ Folic 101.2 mls @ 50.6 mls/hr 06/10/18 09:00 06/19/18 16 :00 Acid 1 mg/ Sodium Chloride IV Infused DAILY JULIO Infusion Potassium Chloride/Dextrose/Sod Cl 1,000 mls @ 125 mls/hr 06/19/18 09:00 02/01 17:20 D5.45ns W/20 Meq Kcl IV Infused .Q8H JULIO Infusion Ibuprofen 600 mg 06/18/18 10:51 06/18/18 17:41 Motrin PO 600 mg Q6HR PRN Administration PAIN Lactulose 30 gm 06/12/18 08:00 06/19/18 14:47 Lactulose PO Not Given Q6H JULIO Lactulose 60 gm 06/14/18 12:00 06/19/18 12:03 Lactulose [place] Not Given DAILY JULIO Lorazepam 1 mg 06/10/18 19:08 06/19/18 09:56 Ativan Inj (Vial) IVP 1 mg Q30M PRN Administration CIWA >8 Protocol Multivitamins/Minerals 1 tab 06/12/18 09:00 06/19/18 08:40 Theragran M PO 1 tab DAILY JULIO Administration Ondansetron HCl 4 mg 06/10/18 00:20 06/18/18 11:25 Zofran Inj IVP 4 mg Q6HR PRN Administration Nausea / Vomiting Oxycodone HCl 5 mg 06/10/18 00:20 06/18/18 20:39 Roxicodone PO 5 mg Q4HR PRN Administration Pain 5 to 7 Oxycodone HCl 10 mg 06/10/18 00:20 Roxicodone PO Q4HR PRN Pain 8 to 10 Pantoprazole Sodium 40 mg 06/10/18 09:00 06/19/18 08:40 Protonix IVP 40 mg BID JULIO Administration Polyethylene Glycol 17 gm 06/11/18 09:00 06/19/18 09:47 Miralax PO Not Given DAILY JULIO Potassium Chloride 20 meq 06/18/18 08:00 06/19/18 17:10 K-Dur PO 20 meq BIDWM JULIO Administration Prednisolone 40 mg 06/10/18 08:00 06/19/18 08:40 Prelone Oral Soln PO 40 mg DAILYWM JULIO Administration Prochlorperazine Edisylate 10 mg 06/10/18 00:20 06/18/18 20:49 Compazine Inj IVP 10 mg Q6HR PRN Administration Nausea / Vomiting Promethazine HCl 25 mg 06/10/18 00:20 Phenergan Inj IM Q6HR PRN Nausea / Vomiting Rifaximin 400 mg 06/16/18 10:00 06/19/18 12:01 Xifaxan PO 06/26/18 09:59 400 mg Q8H JULIO Administration Sodium Chloride 10 ml 06/10/18 01:00 06/19/18 17:10 Normal Saline Flush 0.9% IVP Not Given 0100,0900,1700 [facility] Sodium Chloride 10 ml 06/10/18 00:20 06/16/18 21:23 Normal Saline Flush 0.9% IVP 10 ml PRN PRN Administration NEEDED PER PROVIDER ORDERS Cyclobenzaprine HCl 5 - 10 mg PO TID PRN 06/10/18 Famotidine 20 mg PO DAILY 06/10/18 Methocarbamol 500 mg PO BID PRN 06/10/18 Sucralfate 1 gm PO TID 06/10/18 Objective - Vital Signs/Intake & Output Reviewed Vital Signs: Yes Vital Signs: Vital Signs x48h Temp Pulse Resp BP Pulse Ox 06/19/18 15:49 36.5 C 78 20 117/73 99 06/19/18 12:54 36.7 C 84 20 107/65 97 Intake & Output: Intake & Output 06/16/18 06/17/18 06/18/18 06/19/18 23:59 23:59 23:59 23:59 Intake Total 2182.867 2201.2 3866.2 4154.533 Output Total 1180 1800 1200 600 Balance 1002.867 401.2 2666.2 3554.533 - Objective General Appearance: positive: No acute distress, Alert Eyes Bilateral: positive: PERRL, EOMI, No lid inflammation, Conjunctivae nml Eyes: OU Scleral icterus ENT: positive: ENT inspection nml, Pharynx nml, No signs of dehydration Neck: positive: Nml inspection, Thyroid nml, No JVD, Trachea midline. negative : Thyromegaly Respiratory: positive: Chest non-tender, No respiratory distress, Breath sounds nml. negative: Wheezes, Rales, Rhonchi Cardiovascular: positive: Regular rate & rhythm, No murmur, No gallop Abdomen: positive: Non-tender, No organomegaly, Nml bowel sounds, No distention. negative: Guarding, Rebound Back: positive: Nml inspection. negative: CVA tenderness (R), CVA tenderness (L ) Skin: positive: No rash, Warm, Dry, Other (Pt is significantly jaundiced). negative: Cyanosis Extremities: positive: Non-tender, Full ROM, Nml appearance, No pedal edema Neurologic/Psychiatric: positive: Oriented x3, CN's nml (2-12), Motor nml, Sensation nml, Mood/affect nml - Lab Results Fish Bones: 06/19/18 06:07 06/19/18 06:07 Other Labs: Lab Results x24hrs 06/19/18 06/19/18 06/19/18 Range/Units 06:07 06:07 06:07 WBC (4.8-10.8) x10^3/uL RBC (4.20-5.40) 10^6/uL Hgb (12.0-16.0) g/dL Hct (37.0-47.0) % MCV (81.0-99.0) fL MCH (27.0-31.0) pg MCHC (32.0-36.0) g/dL RDW (12.0-15.0) % Plt Count (130-450) 10^3/uL MPV (7.9-10.8) fL Neut # (Auto) Lymph # (Auto) [place] # (Auto) Eos # (Auto) Baso # (Auto) Absolute Nucleated RBC Total Counted Band Neuts % (Manual) (0 - 10) % Abnorm Lymph % (Manual) % Metamyelocytes % ( - 0) % Nucleated RBC % Neutrophils # (Manual) (1.5-6.6) 10^3/uL Lymphocytes # (Manual) (1.5-3.5) 10^3/uL Monocytes # (Manual) (0.0-1.0) 10^3/uL Eosinophils # (Manual) (0-0.7) 10^3/uL Basophils # (Manual) (0-0.1) 10^3/uL Differential Comment WBC Morphology (NORMAL) RBC Morph Micro Appear (NORMAL) VBG pH 7.361 (7.31-7.41) Ionized Calcium 1.01 L YES (1.15-1.33) mmol/L Sodium 136 (135-145) mmol/L Potassium 4.8 (3.5-5.0) mmol/L Chloride 114 H (101-111) mmol/L Carbon Dioxide 18 L (21-32) mmol/L Anion Gap 4.0 L (6-13) BUN 15 (6-20) mg/dL Creatinine 0.4 (0.4-1.0) mg/dL Estimated GFR (MDRD) 169 (>89) Glucose 121 H (70-100) mg/dL Calcium 7.3 L (8.5-10.3) mg/dL Total Bilirubin 28.9 H (0.2-1.0) mg/dL AST 99 H (10-42) IU/L ALT 50 (10-60) IU/L Alkaline Phosphatase 139 H (42-121) IU/L Ammonia 95.9 H* (7-35) umol/L Total Protein 5.3 L (6.7-8.2) g/dL Albumin 1.9 L (3.2-5.5) g/dL Globulin 3.4 (2.1-4.2) g/dL Albumin/Globulin Ratio 0.6 L (1.0-2.2) Urine Color Urine Clarity (CLEAR) Urine pH (5.0-7.5) PH Ur Specific [place] (1.002-1.030) Urine Protein (NEGATIVE) mg/dL Urine Glucose (UA) (NEGATIVE) mg/dL Urine Ketones (NEGATIVE) mg/dL Urine Occult Blood (NEGATIVE) Urine Nitrite (NEGATIVE) Urine Bilirubin (NEGATIVE) Urine Urobilinogen (NORMAL) E.U./dL Ur Leukocyte Esterase (NEGATIVE) Urine RBC (0-5) /HPF Urine WBC (0-5) /HPF Urine WBC Clumps Ur Squamous Epith Cells (<= Few) Urine Bacteria (None Seen) /HPF Urine Mucus Urine Culture Comments 06/19/18 06/18/18 Range/Units 06:07 20:30 WBC 26.3 H (4.8-10.8) x10^3/uL RBC 2.08 L (4.20-5.40) 10^6/uL Hgb 8.4 L (12.0-16.0) g/dL Hct 24.9 L (37.0-47.0) % MCV 119.8 H (81.0-99.0) fL MCH 40.5 H (27.0-31.0) pg MCHC 33.8 (32.0-36.0) g/dL RDW 24.9 H (12.0-15.0) % Plt Count 81 L (130-450) 10^3/uL MPV 10.7 (7.9-10.8) fL Neut # (Auto) Not Reportable Lymph # (Auto) Not Reportable Lyon # (Auto) Not Reportable Eos # (Auto) Not Reportable Baso # (Auto) Not Reportable Absolute Nucleated RBC Not Reportable Total Counted 100 Band Neuts % (Manual) 10 (0 - 10) % Abnorm Lymph % (Manual) 0 % Metamyelocytes % 1 H ( - 0) % Nucleated RBC % Not Reportable Neutrophils # (Manual) 23.1 H (1.5-6.6) 10^3/uL Lymphocytes # (Manual) 1.1 L (1.5-3.5) 10^3/uL Monocytes # (Manual) 1.8 H (0.0-1.0) 10^3/uL Eosinophils # (Manual) 0.0 (0-0.7) 10^3/uL Basophils # (Manual) 0.0 (0-0.1) 10^3/uL Differential Comment MANUAL DIFFERENTIAL WBC Morphology 1+ TOXIC GRANULATION (NORMAL) RBC Morph Micro Appear 1+ POLYCHROMASIA (NORMAL) VBG pH (7.31-7.41) Ionized Calcium (1.15-1.33) mmol/L Sodium (135-145) mmol/L Potassium (3.5-5.0) mmol/L Chloride (101-111) mmol/L Carbon Dioxide (21-32) mmol/L Anion Gap (6-13) BUN (6-20) mg/dL Creatinine (0.4-1.0) mg/dL Estimated GFR (MDRD) (>89) Glucose (70-100) mg/dL Calcium (8.5-10.3) mg/dL Total Bilirubin (0.2-1.0) mg/dL AST (10-42) IU/L ALT (10-60) IU/L Alkaline Phosphatase (42-121) IU/L Ammonia (7-35) umol/L Total Protein (6.7-8.2) g/dL Albumin (3.2-5.5) g/dL Globulin (2.1-4.2) g/dL Albumin/Globulin Ratio (1.0-2.2) Urine Color BROWN Urine Clarity HAZY (CLEAR) Urine pH 7.0 (5.0-7.5) PH Ur Specific [place] 1.010 (1.002-1.030) Urine Protein NEGATIVE (NEGATIVE) mg/dL Urine Glucose (UA) 100 H (NEGATIVE) mg/dL Urine Ketones NEGATIVE (NEGATIVE) mg/dL Urine Occult Blood NEGATIVE (NEGATIVE) Urine Nitrite NEGATIVE (NEGATIVE) Urine Bilirubin LARGE H (NEGATIVE) Urine Urobilinogen 0.2 (NORMAL) (NORMAL) E.U./dL Ur Leukocyte Esterase TRACE H (NEGATIVE) Urine RBC 0-5 (0-5) /HPF Urine WBC 6-10 H (0-5) /HPF Urine WBC Clumps PRESENT Ur Squamous Epith Cells MANY Squamous H (<= Few) Urine Bacteria Moderate H (None Seen) /HPF Urine Mucus Few Strands Urine Culture Comments NOT INDICATED ABX Reporting Has patient been on IV antibiotics over the past 48 hours?: No Assessment/Plan - Problem List (1) Elevated WBC count Impression: When the patient was admitted she was cultured looking for source of infection; nothing was found at that time. Her white blood cell count has continued to rise but this may be attributed to the steroids she is receiving for her alcoholic hepatitis. I did reculture her blood, sputum, and urine, and got a chest x-ray yesterday. The UA did not show any indication for a culture, but does appear as if there may be a urinary tract infection. I will therefore start the patient on a fluoroquinolone to cover presumed urinary tract infection and if there is a pneumonia as well; although the chest x-ray favors atelectasis it does not rule out pneumonia. (2) Acute hepatic failure Impression: The patient presented in acute hepatic failure secondary to alcoholic hepatitis. Her transaminases are showing some improvement and her bilirubin is starting to come down from a high of 32 to 29.3 today. A repeat MELD score is 31 giving the patient a 52.6% chance of 3 month mortality. The patient's ammonia Level went up again from 65.9 yesterday to 92.1 today.. She has been receiving lactulose orally and rectally and has had multiple daily bowel movements. Despite her ammonia and bilirubin going up slightly today she is more awake today than she has been since her admission. I have added rifaximin to her medication regimen. The hepatitis panel was positive for Hepatitis C, and the patient remains significantly jaundiced. I have moved her to the [facility] hall, and will repeat PT/INR tomorrow. Continue present care. (3) Alcohol abuse Impression: The patient has a long history of alcohol abuse. She states she only drinks 3 glasses of wine daily but this does not appear to be likely. Her meld score indicates she has a 52.6 chance of mortality in the next 3 months, especially if she does not stop drinking. She will not qualify for liver transplant unless she can stop drinking for 6 months. Social work has been referred for counseling/treatment. (4) Hypokalemia Impression: The patient has been treated for hypokalemia since her admission and continues to lose potassium, probably through the diarrhea that the lactulose is causing. She went from 2.9 yesterday down to 4.8 today. We have replaced the potassium and will continue to monitor. (5) Hyponatremia Impression: The patient continues to lose sodium and potassium, probably in the diarrhea. Her renal function appears to be normal. We will continue to replace the electrolytes as needed. Sodium level today is 136. (6) Severe protein-calorie malnutrition Impression: The patient's total protein is 5.3 and her albumin is 1.9. Her MCV is 119.1, all indicators of severe protein calorie malnutrition and alcohol abuse. Nutrition has been consulted. (7) Chronic back pain Impression: The patient is not complaining of her back pain at this time but has been complaining at various times during her hospitalization. We are avoiding Tylenol because of her liver failure and NSAIDs because of a possible gastric ulcer. Continue current care/treatment with oxycodone as needed. Qualifiers: Back pain location: low back pain Back pain laterality: bilateral Sciatica presence: with sciatica Sciatica laterality: bilateral sciatica Qualified Code(s): M54.42 - Lumbago with sciatica, left side; M54.41 - Lumbago with sciatica, right side; M54.41 - Lumbago with sciatica, right side; G89.29 - Other chronic pain; G89.29 - Other chronic pain (8) Lactic acidosis Impression: The patient's lactic acid on admission was 3.9, and has been normal since the , when it was measured at 1.3. (9) Liver masses Impression: A repeat MRI of the abdomen on 06/12/18 failed to show any liver masses. This was a follow-up because a CT scan of the abdomen and pelvis showed areas that were suspicious for liver masses likely representing diffuse metastatic disease. The patient may need a biopsy at some point in the future as an outpatient.
[2018-06-19] MEDS: oxyCODONE 5 MG TABLET PO PRN (19:35)
[2018-06-19] MEDS: levoFLOXacin 750 MG/150 ML 750 MG/150 ML BAG IV SCH (19:37)
[2018-06-19] MEDS: SODIUM CHLORIDE FLUSH 0.9% 10 ML SYRINGE IVP PRN (20:24)
[2018-06-20] MEDS: oxyCODONE 5 MG TABLET PO PRN ×2 (01:21→11:38)
[2018-06-20] MEDS: rifAXIMin 550 MG TABLET PO SCH ×3 (01:21→22:28)
[2018-06-20] MEDS: LACTULOSE 10 GM/15 ML BOTTLE PO SCH ×4 (01:27→20:17)
[2018-06-20] MEDS: D5.45NS W/20 MEQ KCL 1,000 ML IV SCH ×2 (04:30→13:12)
[2018-06-20] MEDS: LORazepam 2 MG/ML VIAL IVP PRN (04:33)
[2018-06-20] MEDS: SODIUM CHLORIDE FLUSH 0.9% 10 ML SYRINGE IVP SCH ×3 (05:48→17:52)
[2018-06-20 06:24] LABS: BASOPHILS # (AUTO) 0.1 10^3/uL (0.0-0.1); BASOPHILS % (AUTO) 0.4 %; EOSINOPHILS % (AUTO) 0.1 %; HGB - HEMOGLOBIN 8.9 g/dL (12.0-16.0); LYMPHOCYTES # (AUTO) 1.5 10^3/uL (1.5-3.5); LYMPHOCYTES % (AUTO) 5.9 %; MEAN CORPUSCULAR HEMOGLOBIN 40.2 pg (27.0-31.0); MEAN CORPUSCULAR HGB CONC 33.8 g/dL (32.0-36.0); MEAN CORPUSCULAR VOLUME 119.1 fL (81.0-99.0); MEAN PLATELET VOLUME 10.9 fL (7.9-10.8); MONOCYTES # (AUTO) 2.3 10^3/uL (0.0-1.0); MONOCYTES % (AUTO) 8.9 %; NEUTROPHILS # (AUTO) 21.4 10^3/uL (1.5-6.6); NEUTROPHILS % (AUTO) 84.7 %; PLT - PLATELET COUNT 97 10^3/uL (130-450); RED BLOOD COUNT 2.22 10^6/uL (4.20-5.40); RED CELL DISTRIBUTION WIDTH 24.1 % (12.0-15.0); WHITE BLOOD COUNT 25.3 x10^3/uL (4.8-10.8)
[2018-06-20 06:54] LABS: ALBUMIN 1.9 g/dL (3.2-5.5); ALBUMIN/GLOBULIN RATIO 0.5 (1.0-2.2); ALKALINE PHOSPHATASE 162 IU/L (42-121); ALT ALANINE AMINOTRANSFERASE 58 IU/L (10-60); AST ASPARTATE AMINOTRANSFERASE 124 IU/L (10-42); BILIRUBIN,TOTAL 28.2 mg/dL (0.2-1.0); BUN - BLOOD UREA NITROGEN 12 mg/dL (6-20); CALCIUM 7.2 mg/dL (8.5-10.3); CARBON DIOXIDE - CO2 18 mmol/L (21-32); CHLORIDE 112 mmol/L (101-111); CREATININE 0.4 mg/dL (0.4-1.0); GFR - MDRD 169 (>89); GLUCOSE 108 mg/dL (70-100); SODIUM 135 mmol/L (135-145); TOTAL PROTEIN 5.9 g/dL (6.7-8.2)
[2018-06-20 06:55] LABS: VBG PH 7.327 (7.31-7.41)
[2018-06-20 07:01] LABS: FOLATE 10.08 ng/mL (5.90 - >24.8)
[2018-06-20 07:06] LABS: DIFFERENTIAL COMMENT MANUAL=AUTO DIFF; PLATELET ESTIMATE, MANUAL DECREASED (<130,000) (NORMAL); PLATELET MORPHOLOGY 1+ GIANT PLATELETS (NORMAL)
[2018-06-20] MEDS: MULTIVITAMIN W/MINERALS TABLET PO SCH (08:55)
[2018-06-20] MEDS: POTASSIUM CHLORIDE 20 MEQ TABLET PO SCH ×2 (08:55→16:42)
[2018-06-20] MEDS: POLYETHYLENE GLYCOL 3350 17 GM PACKET PO SCH (08:56)
[2018-06-20] MEDS: LACTULOSE 10 GM/15 ML BOTTLE PR SCH (08:56)
[2018-06-20] MEDS: THIAMINE INJ 100 MG, FOLIC ACID INJ 1 MG in SODIUM CHLORIDE 0.9% 100ML 100 ML IV SCH (08:56)
[2018-06-20] MEDS: PANTOPRAZOLE 40 MG VIAL IVP SCH ×2 (09:08→22:28)
--- NOTE | 2018-06-20 16:07 | PROVIDER PROGRESS NOTE ---
Subjective - Prog Note Date Prog Note Date: 06/20/18 Prog Note Time: 14:45 - Subjective Subjective: The patient continues to feel better daily. She is more interactive and more physically able to participate in her own care. She denies any fever, chills, shortness of breath, or chest pain. 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 Current Medications - Current Medications Current Medications: Active Medications Generic Name Dose Route Start Last Admin Trade Name Freq PRN Reason Stop Dose Admin Thiamine HCl 100 mg/ Folic 101.2 mls @ 50.6 mls/hr 06/10/18 09:00 06/20/18 08 :56 Acid 1 mg/ Sodium Chloride IV 51 mls/hr DAILY JULIO Administration Potassium Chloride/Dextrose/Sod Cl 1,000 mls @ 125 mls/hr 06/19/18 09:00 03/04 13:12 D5.45ns W/20 Meq Kcl IV 125 mls/hr .Q8H JULIO Administration Levofloxacin 750 mg in 150 mls @ 100 mls/hr 06/19/18 19:00 06/19/18 21:29 Levaquin 750 Mg/150 Ml IV Infused Q24H JULIO Infusion Ibuprofen 600 mg 06/18/18 10:51 06/18/18 17:41 Motrin PO 600 mg Q6HR PRN Administration PAIN Lactulose 30 gm 06/12/18 08:00 06/20/18 13:12 Lactulose PO 30 gm Q6H JULIO Administration Lactulose 60 gm 06/14/18 12:00 06/20/18 08:56 Lactulose [place] Not Given DAILY JULIO Lorazepam 1 mg 06/10/18 19:08 06/20/18 04:33 Ativan Inj (Vial) IVP 1 mg Q30M PRN Administration CIWA >8 Protocol Multivitamins/Minerals 1 tab 06/12/18 09:00 06/20/18 08:55 Theragran M PO 1 tab DAILY JULIO Administration Ondansetron HCl 4 mg 06/10/18 00:20 06/18/18 11:25 Zofran Inj IVP 4 mg Q6HR PRN Administration Nausea / Vomiting Oxycodone HCl 5 mg 06/10/18 00:20 06/20/18 01:21 Roxicodone PO 5 mg Q4HR PRN Administration Pain 5 to 7 Oxycodone HCl 10 mg 06/10/18 00:20 06/20/18 11:38 Roxicodone PO 10 mg Q4HR PRN Administration Pain 8 to 10 Pantoprazole Sodium 40 mg 06/10/18 09:00 06/20/18 09:08 Protonix IVP 40 mg BID JULIO Administration Polyethylene Glycol 17 gm 06/11/18 09:00 06/20/18 08:56 Miralax PO 17 gm DAILY JULIO Administration Potassium Chloride 20 meq 06/18/18 08:00 06/20/18 08:55 K-Dur PO 20 meq BIDWM JULIO Administration Prednisolone 40 mg 06/10/18 08:00 06/20/18 09:08 Prelone Oral Soln PO 40 mg DAILYWM JULIO Administration Prochlorperazine Edisylate 10 mg 06/10/18 00:20 06/18/18 20:49 Compazine Inj IVP 10 mg Q6HR PRN Administration Nausea / Vomiting Promethazine HCl 25 mg 06/10/18 00:20 Phenergan Inj IM Q6HR PRN Nausea / Vomiting Rifaximin 400 mg 06/16/18 10:00 06/20/18 11:30 Xifaxan PO 06/26/18 09:59 400 mg Q8H JULIO Administration Sodium Chloride 10 ml 06/10/18 01:00 06/20/18 08:57 Normal Saline Flush 0.9% IVP 10 ml 0100,0900,1700 JULIO Administration Sodium Chloride 10 ml 06/10/18 00:20 06/19/18 20:24 Normal Saline Flush 0.9% IVP 10 ml PRN PRN Administration NEEDED PER PROVIDER ORDERS Cyclobenzaprine HCl 5 - 10 mg PO TID PRN 06/10/18 Famotidine 20 mg PO DAILY 06/10/18 Methocarbamol 500 mg PO BID PRN 06/10/18 Sucralfate 1 gm PO TID 06/10/18 Objective - Vital Signs/Intake & Output Reviewed Vital Signs: Yes Vital Signs: Vital Signs x48h Temp Pulse Resp BP Pulse Ox 06/20/18 15:05 36.7 C 92 18 119/68 100 08/04/18 12:26 36.7 C 87 18 108/61 98 Intake & Output: Intake & Output 06/17/18 06/18/18 06/19/18 06/20/18 23:59 23:59 23:59 23:59 Intake Total 2201.2 3866.2 4754.533 2560.0 Output Total 1800 4211 513 5597 Balance 401.2 2666.2 3904.533 1310.0 - Objective General Appearance: positive: No acute distress, Alert Eyes Bilateral: positive: Normal inspection, PERRL, EOMI, No lid inflammation, Conjunctivae nml, No scleral icterus ENT: positive: ENT inspection nml, Pharynx nml, No signs of dehydration Neck: positive: Nml inspection, Thyroid nml, No JVD, Trachea midline. negative : Thyromegaly Respiratory: positive: Chest non-tender, No respiratory distress, Breath sounds nml. negative: Wheezes, Rales, Rhonchi Cardiovascular: positive: Regular rate & rhythm, No murmur, No gallop Abdomen: positive: Non-tender, No organomegaly, Nml bowel sounds, No distention. negative: Guarding, Rebound Back: positive: Nml inspection. negative: CVA tenderness (R), CVA tenderness (L ) Skin: positive: No rash, Warm, Dry, Other (Pt is still significantly jaundiced) . negative: Cyanosis Extremities: positive: Non-tender, Full ROM, Nml appearance, No pedal edema Neurologic/Psychiatric: positive: Oriented x3, CN's nml (2-12), Motor nml, Sensation nml, Mood/affect nml - Lab Results Fish Bones: 06/20/18 06:12 06/20/18 06:12 Other Labs: Lab Results x24hrs 06/20/18 06/20/18 06/20/18 Range/Units 06:12 06:12 06:12 WBC (4.8-10.8) x10^3/uL RBC (4.20-5.40) 10^6/uL Hgb (12.0-16.0) g/dL Hct (37.0-47.0) % MCV (81.0-99.0) fL MCH (27.0-31.0) pg MCHC (32.0-36.0) g/dL RDW (12.0-15.0) % Plt Count (130-450) 10^3/uL MPV (7.9-10.8) fL Neut # (Auto) (1.5-6.6) 10^3/uL Lymph # (Auto) (1.5-3.5) 10^3/uL Day # (Auto) (0.0-1.0) 10^3/uL Eos # (Auto) (0.0-0.7) 10^3/uL Baso # (Auto) (0.0-0.1) 10^3/uL Absolute Nucleated RBC x10^3/uL Band Neuts % (Manual) Abnorm Lymph % (Manual) Nucleated RBC % /100WBC Neutrophils # (Manual) Lymphocytes # (Manual) Monocytes # (Manual) Eosinophils # (Manual) Basophils # (Manual) Differential Comment Platelet Estimate (NORMAL) Platelet Morphology (NORMAL) RBC Morph Micro Appear (NORMAL) VBG pH 7.327 (7.31-7.41) Ionized Calcium 1.04 L (1.15-1.33) mmol/L Sodium (135-145) mmol/L Potassium (3.5-5.0) mmol/L Chloride (101-111) mmol/L Carbon Dioxide (21-32) mmol/L Anion Gap (6-13) BUN (6-20) mg/dL Creatinine (0.4-1.0) mg/dL Estimated GFR (MDRD) (>89) Glucose (70-100) mg/dL Calcium (8.5-10.3) mg/dL Total Bilirubin (0.2-1.0) mg/dL AST (10-42) IU/L ALT (10-60) IU/L Alkaline Phosphatase (42-121) IU/L Ammonia 70.5 H (7-35) umol/L Total Protein (6.7-8.2) g/dL Albumin (3.2-5.5) g/dL Globulin (2.1-4.2) g/dL Albumin/Globulin Ratio (1.0-2.2) Vitamin B12 1046 H (180-914) pg/mL Folate 10.08 (5.90 - >24.8) ng/mL 06/20/18 06/20/18 Range/Units 06:12 06:12 WBC 25.3 H (4.8-10.8) x10^3/uL RBC 2.22 L (4.20-5.40) 10^6/uL Hgb 8.9 L (12.0-16.0) g/dL Hct 26.4 L (37.0-47.0) % MCV 119.1 H (81.0-99.0) fL MCH 40.2 H (27.0-31.0) pg MCHC 33.8 (32.0-36.0) g/dL RDW 24.1 H (12.0-15.0) % Plt Count 97 L (130-450) 10^3/uL MPV 10.9 H (7.9-10.8) fL Neut # (Auto) 21.4 H (1.5-6.6) 10^3/uL Lymph # (Auto) 1.5 (1.5-3.5) 10^3/uL Day # (Auto) 2.3 H (0.0-1.0) 10^3/uL Eos # (Auto) 0.0 (0.0-0.7) 10^3/uL Baso # (Auto) 0.1 (0.0-0.1) 10^3/uL Absolute Nucleated RBC 0.02 x10^3/uL Band Neuts % (Manual) Not Reportable Abnorm Lymph % (Manual) Not Reportable Nucleated RBC % 0.1 /100WBC Neutrophils # (Manual) Not Reportable Lymphocytes # (Manual) Not Reportable Monocytes # (Manual) Not Reportable Eosinophils # (Manual) Not Reportable Basophils # (Manual) Not Reportable Differential Comment MANUAL=AUTO DIFF Platelet Estimate DECREASED (<130,000) (NORMAL) Platelet Morphology 1+ GIANT PLATELETS (NORMAL) RBC Morph Micro Appear 2+ ANISOCYTOSIS (NORMAL) VBG pH (7.31-7.41) Ionized Calcium YES (1.15-1.33) mmol/L Sodium 135 (135-145) mmol/L Potassium 3.9 (3.5-5.0) mmol/L Chloride 112 H (101-111) mmol/L Carbon Dioxide 18 L (21-32) mmol/L Anion Gap 5.0 L (6-13) BUN 12 (6-20) mg/dL Creatinine 0.4 (0.4-1.0) mg/dL Estimated GFR (MDRD) 169 (>89) Glucose 108 H (70-100) mg/dL Calcium 7.2 L (8.5-10.3) mg/dL Total Bilirubin 28.2 H (0.2-1.0) mg/dL AST 124 H (10-42) IU/L ALT 58 (10-60) IU/L Alkaline Phosphatase 162 H (42-121) IU/L Ammonia (7-35) umol/L Total Protein 5.9 L (6.7-8.2) g/dL Albumin 1.9 L (3.2-5.5) g/dL Globulin 4.0 (2.1-4.2) g/dL Albumin/Globulin Ratio 0.5 L (1.0-2.2) Vitamin B12 (180-914) pg/mL Folate (5.90 - >24.8) ng/mL ABX Reporting Has patient been on IV antibiotics over the past 48 hours?: No Assessment/Plan - Problem List (1) Elevated WBC count Impression: When the patient was admitted she was cultured looking for source of infection; nothing was found at that time. Her white blood cell count has continued to rise but this may be attributed to the steroids she is receiving for her alcoholic hepatitis. I did reculture her blood, sputum, and urine, and got a chest x-ray yesterday. The UA did not show any indication for a culture, but does appear as if there may be a urinary tract infection. I started the patient on a fluoroquinolone to cover presumed urinary tract infection and if there is a pneumonia as well; although the chest x-ray favors atelectasis it does not rule out pneumonia. Today the is the first day that the patient's white blood cell count did not rise but in fact came down a little bit. She still has leukocytosis however at 25,300. (2) Acute hepatic failure Impression: The patient presented in acute hepatic failure secondary to alcoholic hepatitis. Her transaminases are showing some improvement and her bilirubin is starting to come down from a high of 32 to 28.2 today. A repeat MELD score done today is the same as one done 4 days ago, 31 giving the patient a 52.6% chance of 3 month mortality. The patient's ammonia Level went up again from 65.9 yesterday to 92.1 today.. She has been receiving lactulose orally and rectally and has had multiple daily bowel movements. Despite her ammonia and bilirubin going up slightly today she is more awake today than she has been since her admission. I have added rifaximin to her medication regimen. The hepatitis panel was positive for Hepatitis C, and the patient remains significantly jaundiced. I have moved her to the [facility] hall, and a repeat PT/ INR showed a slight improvement in her INR, coming down to 2.6 from 2.8. Continue present care. (3) Alcohol abuse Impression: The patient has a long history of alcohol abuse. She states she only drinks 3 glasses of wine daily but this does not appear to be likely. Her meld score indicates she has a 52.6 chance of mortality in the next 3 months, especially if she does not stop drinking. She will not qualify for liver transplant unless she can stop drinking for 6 months. Social work has been referred for counseling/treatment. (4) Hypokalemia Impression: The patient has been treated for hypokalemia since her admission and continues to lose potassium, probably through the diarrhea that the lactulose is causing. She went from 4.8 yesterday down to 3.9 today. We are replacing the potassium and will continue to monitor. (5) Hyponatremia Impression: Corrected, sodium level today is 135. (6) Severe protein-calorie malnutrition Impression: The patient's total protein is 5.9 and her albumin is 1.9. Her MCV is 117.6 ( actually tending down), all indicators of severe protein calorie malnutrition and alcohol abuse. Nutrition has been consulted. (7) Chronic back pain Impression: The patient is not complaining of her back pain at this time but has been complaining at various times during her hospitalization. We are avoiding Tylenol because of her liver failure and NSAIDs because of a possible gastric ulcer. Continue current care/treatment with oxycodone as needed. Qualifiers: Back pain location: low back pain Back pain laterality: bilateral Sciatica presence: with sciatica Sciatica laterality: bilateral sciatica Qualified Code(s): M54.42 - Lumbago with sciatica, left side; M54.41 - Lumbago with sciatica, right side; M54.41 - Lumbago with sciatica, right side; G89.29 - Other chronic pain; G89.29 - Other chronic pain
[2018-06-20] MEDS ORDERED: SODIUM CHLORIDE FLUSH 0.9% 10 ML SYRINGE IVP PRN (17:20)
[2018-06-20] MEDS: NS W/40 MEQ KCL 1,000 ML IV SCH (17:48)
[2018-06-20] MEDS: levoFLOXacin 750 MG/150 ML 750 MG/150 ML BAG IV SCH (19:48)
[2018-06-20] MEDS: SODIUM CHLORIDE FLUSH 0.9% 10 ML SYRINGE IVP PRN (22:29)
[2018-06-21] MEDS: oxyCODONE 5 MG TABLET PO PRN ×5 (00:30→21:09)
[2018-06-21] MEDS: LACTULOSE 10 GM/15 ML BOTTLE PO SCH ×4 (02:20→18:34)
[2018-06-21] MEDS: NS W/40 MEQ KCL 1,000 ML IV SCH ×2 (03:20→13:14)
[2018-06-21] MEDS: SODIUM CHLORIDE FLUSH 0.9% 10 ML SYRINGE IVP SCH ×3 (04:13→15:52)
[2018-06-21 06:58] LABS: MAGNESIUM 2.1 mg/dL (1.7-2.8); PHOSPHORUS 1.4 mg/dL (2.5-4.6)
[2018-06-21 07:39] LABS: ALBUMIN 1.9 g/dL (3.2-5.5); ALBUMIN/GLOBULIN RATIO 0.5 (1.0-2.2); ALKALINE PHOSPHATASE 162 IU/L (42-121); ALT ALANINE AMINOTRANSFERASE 66 IU/L (10-60); AST ASPARTATE AMINOTRANSFERASE 148 IU/L (10-42); BILIRUBIN,TOTAL 28.2 mg/dL (0.2-1.0); BUN - BLOOD UREA NITROGEN 10 mg/dL (6-20); CALCIUM 7.2 mg/dL (8.5-10.3); CARBON DIOXIDE - CO2 15 mmol/L (21-32); CHLORIDE 114 mmol/L (101-111); CREATININE 0.3 mg/dL (0.4-1.0); GFR - MDRD 235 (>89); GLUCOSE 95 mg/dL (70-100); SODIUM 136 mmol/L (135-145); TOTAL PROTEIN 5.6 g/dL (6.7-8.2)
[2018-06-21 07:43] LABS: VBG PH 7.369 (7.31-7.41)
[2018-06-21] MEDS: LORazepam 2 MG/ML VIAL IVP PRN ×2 (08:32→17:16)
[2018-06-21] MEDS: NEUTRA-PHOS 250 MG TABLET PO SCH ×3 (08:33→16:57)
[2018-06-21] MEDS: rifAXIMin 550 MG TABLET PO SCH ×2 (08:33→21:36)
[2018-06-21] MEDS: MULTIVITAMIN W/MINERALS TABLET PO SCH (08:33)
[2018-06-21] MEDS: PANTOPRAZOLE 40 MG VIAL IVP SCH ×2 (08:33→21:09)
[2018-06-21] MEDS: THIAMINE 100 MG TABLET PO SCH (08:33)
[2018-06-21] MEDS: POTASSIUM CHLORIDE 20 MEQ TABLET PO SCH ×2 (08:34→16:57)
[2018-06-21] MEDS: FOLIC ACID 1 MG TABLET PO SCH (08:35)
[2018-06-21] MEDS: POLYETHYLENE GLYCOL 3350 17 GM PACKET PO SCH (08:35)
[2018-06-21] MEDS: LACTULOSE 10 GM/15 ML BOTTLE PR SCH (08:35)
[2018-06-21] MEDS: SACCHAROMYCES BOULARDII 250 MG CAPSULE PO SCH ×2 (13:08→16:57)
[2018-06-21] MEDS: ONDANSETRON 4 MG/2 ML VIAL IVP PRN (17:17)
[2018-06-21] MEDS: SODIUM CHLORIDE FLUSH 0.9% 10 ML SYRINGE IVP PRN ×2 (17:17→21:09)
--- NOTE | 2018-06-21 17:52 | PROVIDER PROGRESS NOTE ---
Subjective - Prog Note Date Prog Note Date: 06/21/18 Prog Note Time: 14:40 - Subjective Pt reports feeling: Improved Subjective: I had a long conversation with the patient today. She became tearful when she was talking about almost dying. She seems aware of her situation and that drinking anymore will likely kill her. She says that she was in a living situation which was bad for her because she was surrounded by people that were drinking too much and she has also asked that I speak with her global lead tomorrow morning which I certainly will be glad to do. She denies any fevers or chills, shortness of breath or chest pain. Current Medications - Current Medications Current Medications: Active Medications Generic Name Dose Route Start Last Admin Trade Name Freq PRN Reason Stop Dose Admin Folic Acid 1 mg 06/21/18 09:00 06/21/18 08:35 PO 1 mg DAILY JULIO Administration Levofloxacin 750 mg in 150 mls @ 100 mls/hr 06/19/18 19:00 06/20/18 21:18 Levaquin 750 Mg/150 Ml IV Infused Q24H JULIO Infusion Potassium Chloride/Sodium Chloride 1,000 mls @ 100 mls/hr 06/20/18 17:00 04/03 13:14 Normal Saline 0.9% W/40 Meq Kcl IV 100 mls/hr .Q10H JULIO Administration Ibuprofen 600 mg 06/18/18 10:51 06/18/18 17:41 Motrin PO 600 mg Q6HR PRN Administration PAIN Lactulose 30 gm 06/12/18 08:00 06/21/18 15:52 Lactulose PO Not Given Q6H JULIO Lactulose 60 gm 06/14/18 12:00 06/21/18 08:35 Lactulose OH Not Given DAILY JULIO Lorazepam 1 mg 06/10/18 19:08 06/21/18 17:16 Ativan Inj (Vial) IVP 1 mg Q30M PRN Administration CIWA >8 Protocol Multivitamins/Minerals 1 tab 06/12/18 09:00 06/21/18 08:33 Theragran M PO 1 tab DAILY JULIO Administration Ondansetron HCl 4 mg 06/10/18 00:20 06/21/18 17:17 Zofran Inj IVP 4 mg Q6HR PRN Administration Nausea / Vomiting Oxycodone HCl 5 mg 06/10/18 00:20 06/21/18 00:30 Roxicodone PO 5 mg Q4HR PRN Administration Pain 5 to 7 Oxycodone HCl 10 mg 06/10/18 00:20 06/21/18 16:56 Roxicodone PO 10 mg Q4HR PRN Administration Pain 8 to 10 Pantoprazole Sodium 40 mg 06/10/18 09:00 06/21/18 08:33 Protonix IVP 40 mg BID JULIO Administration Polyethylene Glycol 17 gm 06/11/18 09:00 06/21/18 08:35 Miralax PO Not Given DAILY [facility] Potassium Chloride 20 meq 06/18/18 08:00 06/21/18 16:57 K-Dur PO 20 meq BIDWM JULIO Administration Prednisolone 40 mg 06/10/18 08:00 06/21/18 08:34 Prelone Oral Soln PO 40 mg DAILYWM JULIO Administration Prochlorperazine Edisylate 10 mg 06/10/18 00:20 06/18/18 20:49 Compazine Inj IVP 10 mg Q6HR PRN Administration Nausea / Vomiting Promethazine HCl 25 mg 06/10/18 00:20 Phenergan Inj IM Q6HR PRN Nausea / Vomiting Rifaximin 550 mg 06/20/18 21:00 06/21/18 08:33 Xifaxan PO 06/26/18 09:59 550 mg BID JULIO Administration Saccharomyces Boulardii 250 mg 06/21/18 10:00 06/21/18 16:57 Florastor PO 250 mg BIDWM JULIO Administration Sodium Chloride 10 ml 06/10/18 01:00 06/21/18 15:52 Normal Saline Flush 0.9% IVP Not Given 0100,0900,1700 [facility] Sodium Chloride 10 ml 06/10/18 00:20 06/21/18 17:17 Normal Saline Flush 0.9% IVP 10 ml PRN PRN Administration NEEDED PER PROVIDER ORDERS Sodium Chloride 20 ml 06/20/18 17:20 Normal Saline Flush 0.9% IVP PRN PRN After Blood Draw Sodium Phosphate 250 mg 06/21/18 08:00 06/21/18 16:57 K-Phos Neutral PO 250 mg TIDWM JULIO Administration Thiamine HCl 100 mg 06/21/18 09:00 06/21/18 08:33 Vitamin B-1 PO 100 mg DAILY JULIO Administration Cyclobenzaprine HCl 5 - 10 mg PO TID PRN 06/10/18 Famotidine 20 mg PO DAILY 06/10/18 Methocarbamol 500 mg PO BID PRN 06/10/18 Sucralfate 1 gm PO TID 06/10/18 Objective - Vital Signs/Intake & Output Reviewed Vital Signs: Yes Vital Signs: Vital Signs x48h Temp Pulse Resp BP Pulse Ox 06/21/18 15:36 36.7 C 88 16 123/67 97 06/21/18 12:16 36.6 C 91 16 122/67 97 Intake & Output: Intake & Output 06/18/18 06/19/18 06/20/18 06/21/18 23:59 23:59 23:59 23:59 Intake Total 3866.2 4754.533 3686.2 2823.333 Output Total 3421 264 6524 Balance 2666.2 3904.533 1836.2 2823.333 - Objective General Appearance: positive: No acute distress, Alert Eyes Bilateral: positive: PERRL, EOMI, No lid inflammation, Conjunctivae nml Eyes: OU Scleral icterus ENT: positive: ENT inspection nml, Pharynx nml, No signs of dehydration Neck: positive: Nml inspection, Thyroid nml, No JVD, Trachea midline. negative : Thyromegaly Respiratory: positive: Chest non-tender, No respiratory distress, Breath sounds nml. negative: Wheezes, Rales, Rhonchi Cardiovascular: positive: Regular rate & rhythm, No murmur, No gallop Abdomen: positive: Non-tender, No organomegaly, Nml bowel sounds, No distention. negative: Guarding, Rebound Back: positive: Nml inspection. negative: CVA tenderness (R), CVA tenderness (L ) Skin: positive: Color nml, No rash, Warm, Dry. negative: Cyanosis Extremities: positive: Non-tender, Full ROM, Nml appearance, No pedal edema Neurologic/Psychiatric: positive: Oriented x3, CN's nml (2-12), Motor nml, Sensation nml, Depressed mood/affect - Lab Results Fish Bones: 06/20/18 06:12 06/21/18 05:41 Other Labs: Lab Results x24hrs 06/21/18 06/21/18 06/21/18 Range/Units 05:41 05:41 05:41 VBG pH 7.369 (7.31-7.41) Ionized Calcium 1.02 L YES (1.15-1.33) mmol/L Sodium 136 (135-145) mmol/L Potassium 3.8 (3.5-5.0) mmol/L Chloride 114 H (101-111) mmol/L Carbon Dioxide 15 L (21-32) mmol/L Anion Gap 7.0 (6-13) BUN 10 (6-20) mg/dL Creatinine 0.3 L (0.4-1.0) mg/dL Estimated GFR (MDRD) 235 (>89) Glucose 95 (70-100) mg/dL Calcium 7.2 L (8.5-10.3) mg/dL Phosphorus 1.4 L (2.5-4.6) mg/dL Magnesium 2.1 (1.7-2.8) mg/dL Total Bilirubin 28.2 H (0.2-1.0) mg/dL AST 148 H (10-42) IU/L ALT 66 H (10-60) IU/L Alkaline Phosphatase 162 H (42-121) IU/L Total Protein 5.6 L (6.7-8.2) g/dL Albumin 1.9 L (3.2-5.5) g/dL Globulin 3.7 (2.1-4.2) g/dL Albumin/Globulin Ratio 0.5 L (1.0-2.2) Prealbumin 8 L (18-45) mg/dL ABX Reporting Has patient been on IV antibiotics over the past 48 hours?: No Assessment/Plan - Problem List (1) Acute hepatic failure Impression: The patient presented in acute hepatic failure secondary to alcoholic hepatitis. Her transaminases are showing some improvement and her bilirubin is starting to come down from a high of 32 to 28.2 today. A repeat MELD score done today is the same as one done 4 days ago, 31 giving the patient a 52.6% chance of 3 month mortality. She has been receiving lactulose orally and has had multiple daily bowel movements. Despite her ammonia and bilirubin going up slightly yesterday she is more awake today than she has been since her admission. I have added rifaximin to her medication regimen. The hepatitis panel was positive for Hepatitis C, and the patient remains significantly jaundiced. She is self feeding. I have moved her to the [facility] hall, and a repeat PT/INR showed a slight improvement in her INR, coming down to 2.6 from 2.8. I spoke with Dr. Holt a pattern vault clerk from the [facility] today who feels that the patient is improving but still should stay hospitalized until she is able to consume about 3000 shemar a day. She will likely be discharged with elevated transaminases and bilirubin as well as an elevated ammonia level when that time comes. (2) Elevated WBC count Impression: The patient's white blood cell count is starting to trend downward despite being on prednisone daily for her alcoholic hepatitis. We will continue to monitor but it does not appear that she has an infection at this time. (3) Alcohol abuse Impression: The patient has a long history of alcohol abuse. She states she only drinks 3 glasses of wine daily but this does not appear to be likely. Her meld score indicates she has a 52.6 chance of mortality in the next 3 months, especially if she does not stop drinking. She will not qualify for liver transplant unless she can stop drinking for 6 months. Social work has been referred for counseling/treatment. When I spoke to her tonight she says she does not think she will have a hard time abstaining from drinking alcohol. (4) Hypokalemia Impression: The patient has been treated for hypokalemia since her admission and continues to lose potassium, probably through the diarrhea that the lactulose is causing. She went from 4.8 yesterday down to 3.8 today. We are replacing the potassium and will continue to monitor. (5) Hyponatremia Impression: Corrected, sodium level today is 136. (6) Severe protein-calorie malnutrition Impression: The patient's total protein is 5.9 and her albumin is 1.9. Her MCV is 117.6 ( actually tending down), all indicators of severe protein calorie malnutrition and alcohol abuse. Nutrition has been consulted. (7) Chronic back pain Impression: The patient is not complaining of her back pain at this time but has been complaining at various times during her hospitalization. We are avoiding Tylenol because of her liver failure and NSAIDs because of a possible gastric ulcer. Continue current care/treatment with oxycodone as needed. Qualifiers: Back pain location: low back pain Back pain laterality: bilateral Sciatica presence: with sciatica Sciatica laterality: bilateral sciatica Qualified Code(s): M54.42 - Lumbago with sciatica, left side; M54.41 - Lumbago with sciatica, right side; M54.41 - Lumbago with sciatica, right side; G89.29 - Other chronic pain; G89.29 - Other chronic pain
[2018-06-21] MEDS: levoFLOXacin 750 MG/150 ML 750 MG/150 ML BAG IV SCH (18:34)
[2018-06-21] MEDS: PROCHLORPERAZINE 10 MG/2 ML VIAL IVP PRN (21:08)
[2018-06-22] MEDS: NS W/40 MEQ KCL 1,000 ML IV SCH ×3 (00:21→17:21)
[2018-06-22] MEDS: LACTULOSE 10 GM/15 ML BOTTLE PO SCH ×4 (02:36→21:21)
[2018-06-22 06:37] LABS: HGB - HEMOGLOBIN 10.3 g/dL (12.0-16.0); MEAN CORPUSCULAR HEMOGLOBIN 40.2 pg (27.0-31.0); MEAN CORPUSCULAR HGB CONC 33.4 g/dL (32.0-36.0); MEAN CORPUSCULAR VOLUME 120.3 fL (81.0-99.0); MEAN PLATELET VOLUME 11.2 fL (7.9-10.8); RED BLOOD COUNT 2.57 10^6/uL (4.20-5.40); RED CELL DISTRIBUTION WIDTH 23.7 % (12.0-15.0)
[2018-06-22 06:41] LABS: WHITE BLOOD COUNT 35.4 x10^3/uL (4.8-10.8)
[2018-06-22 07:20] LABS: ALBUMIN/GLOBULIN RATIO 0.5 (1.0-2.2); BILIRUBIN,TOTAL 28.4 mg/dL (0.2-1.0); CREATININE 0.4 mg/dL (0.4-1.0); TOTAL PROTEIN 6.3 g/dL (6.7-8.2)
[2018-06-22] MEDS: oxyCODONE 5 MG TABLET PO PRN ×3 (08:22→19:07)
[2018-06-22] MEDS: SACCHAROMYCES BOULARDII 250 MG CAPSULE PO SCH ×2 (08:23→17:19)
[2018-06-22] MEDS: NEUTRA-PHOS 250 MG TABLET PO SCH ×3 (08:23→17:19)
[2018-06-22] MEDS: POTASSIUM CHLORIDE 20 MEQ TABLET PO SCH ×2 (08:24→17:19)
[2018-06-22] MEDS: FOLIC ACID 1 MG TABLET PO SCH (08:24)
[2018-06-22] MEDS: THIAMINE 100 MG TABLET PO SCH (08:24)
[2018-06-22] MEDS: MULTIVITAMIN W/MINERALS TABLET PO SCH (08:24)
[2018-06-22] MEDS: PANTOPRAZOLE 40 MG VIAL IVP SCH ×2 (08:24→21:21)
[2018-06-22] MEDS: rifAXIMin 550 MG TABLET PO SCH ×2 (08:24→21:21)
[2018-06-22] MEDS: POLYETHYLENE GLYCOL 3350 17 GM PACKET PO SCH (08:25)
[2018-06-22] MEDS: SODIUM CHLORIDE FLUSH 0.9% 10 ML SYRINGE IVP SCH ×3 (08:25→17:19)
[2018-06-22] MEDS: LORazepam 2 MG/ML VIAL IVP PRN ×2 (11:52→17:45)
--- NOTE | 2018-06-22 13:15 | XRAY Report ---
Procedure Date: 06/22/2018 Accession Number: [id number] / [id number] Procedure: XR - Abdomen 2 View X-Ray CPT Code: 22135 FULL RESULT: EXAM: Abdomen 2 View X-Ray DATE: 06/22/2018 10:24 AM CLINICAL HISTORY: increasing wbc in cirrhotic COMPARISON: None. TECHNIQUE: 2 views. FINDINGS: Lung Bases: Unremarkable. Bowel Gas Pattern: Within normal limits. No dilated loops or abnormal fluid levels. Free Air: None. Other: Cholecystectomy clips are seen in the right upper quadrant IMPRESSION: Normal 2-view abdomen x-ray. RADIA
--- NOTE | 2018-06-22 13:19 | XRAY Report ---
Procedure Date: 06/22/2018 Accession Number: [id number] / [id number] Procedure: XR - Chest 1 View X-Ray CPT Code: 95401 FULL RESULT: EXAM: Chest 1 View X-Ray DATE: 06/22/2018 10:24 AM CLINICAL HISTORY: increasing wbc COMPARISON: 06/18/2018 TECHNIQUE: Single view of the chest. FINDINGS: Interval development of patchy right mid lung and upper lung opacities as well as increased interstitial markings. The cardiomediastinal silhouette is stable. There is no large pleural effusion and no pneumothorax. IMPRESSION: Interval development of lung opacities, concerning for pneumonia in the setting of rising white cell count. Interval increase in interstitial markings should be correlated to volume status. RADIA
[2018-06-22] MEDS: levoFLOXacin 750 MG/150 ML 750 MG/150 ML BAG IV SCH (17:19)
[2018-06-22] MEDS ORDERED: VANCOMYCIN PER PHARMACY 100 GM in SODIUM CHLORIDE 0.9% 250 ML IV SCH (18:00)
--- NOTE | 2018-06-22 18:57 | PROVIDER PROGRESS NOTE ---
Subjective - Prog Note Date Prog Note Date: 06/22/18 Prog Note Time: 18:55 - Subjective Pt reports feeling: No change Subjective: The patient is complaining of pain to her abdomen and back which she has had similar complaints every so often since her she was admitted. She denies any fevers or chills. She is not short of breath. Current Medications - Current Medications Current Medications: Active Medications Generic Name Dose Route Start Last Admin Trade Name Freq PRN Reason Stop Dose Admin Folic Acid 1 mg 06/21/18 09:00 06/22/18 08:24 PO 1 mg DAILY JULIO Administration Levofloxacin 750 mg in 150 mls @ 100 mls/hr 06/19/18 19:00 06/22/18 17:19 Levaquin 750 Mg/150 Ml IV 100 mls/hr Q24H JULIO Administration Potassium Chloride/Sodium Chloride 1,000 mls @ 100 mls/hr 06/20/18 17:00 05/04 17:21 Normal Saline 0.9% W/40 Meq Kcl IV 100 mls/hr .Q10H JULIO Administration Aztreonam 2 gm/ Sodium 100 mls @ 100 mls/hr 06/22/18 22:00 Chloride IV TID JULIO Vancomycin HCl 1 gm/ Sodium 250 mls @ 166.667 mls/hr 06/22/18 18:00 Chloride IV Q12H JULIO Ibuprofen 600 mg 06/18/18 10:51 06/18/18 17:41 Motrin PO 600 mg Q6HR PRN Administration PAIN Lactulose 30 gm 06/12/18 08:00 06/22/18 14:45 Lactulose PO 30 gm Q6H JULIO Administration Lorazepam 1 mg 06/10/18 19:08 06/22/18 17:45 Ativan Inj (Vial) IVP 1 mg Q30M PRN Administration CIWA >8 Protocol Multivitamins 1 tab 06/23/18 08:00 Theragran PO DAILYWM JULIO Ondansetron HCl 4 mg 06/10/18 00:20 06/21/18 17:17 Zofran Inj IVP 4 mg Q6HR PRN Administration Nausea / Vomiting Oxycodone HCl 5 mg 06/10/18 00:20 06/21/18 00:30 Roxicodone PO 5 mg Q4HR PRN Administration Pain 5 to 7 Oxycodone HCl 10 mg 06/10/18 00:20 06/22/18 14:44 Roxicodone PO 10 mg Q4HR PRN Administration Pain 8 to 10 Pantoprazole Sodium 40 mg 06/10/18 09:00 06/22/18 08:24 Protonix IVP 40 mg BID JULIO Administration Polyethylene Glycol 17 gm 06/11/18 09:00 06/22/18 08:25 Miralax PO Not Given DAILY JULIO Potassium Chloride 20 meq 06/18/18 08:00 06/22/18 17:19 K-Dur PO 20 meq BIDWM JULIO Administration Prednisolone 40 mg 06/10/18 08:00 06/22/18 08:22 Prelone Oral Soln PO 40 mg DAILYWM JULIO Administration Prochlorperazine Edisylate 10 mg 06/10/18 00:20 06/21/18 21:08 Compazine Inj IVP 10 mg Q6HR PRN Administration Nausea / Vomiting Promethazine HCl 25 mg 06/10/18 00:20 Phenergan Inj IM Q6HR PRN Nausea / Vomiting Rifaximin 550 mg 06/20/18 21:00 06/22/18 08:24 Xifaxan PO 06/26/18 09:59 550 mg BID JULIO Administration Saccharomyces Boulardii 250 mg 06/21/18 10:00 06/22/18 17:19 Florastor PO 250 mg BIDWM JULIO Administration Sertraline HCl 50 mg 06/22/18 18:00 Zoloft PO DAILY JULIO Sodium Chloride 10 ml 06/10/18 01:00 06/22/18 17:19 Normal Saline Flush 0.9% IVP 10 ml 0100,0900,1700 JULIO Administration Sodium Chloride 10 ml 06/10/18 00:20 06/21/18 21:09 Normal Saline Flush 0.9% IVP 10 ml PRN PRN Administration NEEDED PER PROVIDER ORDERS Sodium Chloride 20 ml 06/20/18 17:20 Normal Saline Flush 0.9% IVP PRN PRN After Blood Draw Sodium Phosphate 250 mg 06/21/18 08:00 06/22/18 17:19 K-Phos Neutral PO 250 mg TIDWM JULIO Administration Thiamine HCl 100 mg 06/21/18 09:00 06/22/18 08:24 Vitamin B-1 PO 100 mg DAILY JULIO Administration Cyclobenzaprine HCl 5 - 10 mg PO TID PRN 06/10/18 Famotidine 20 mg PO DAILY 06/10/18 Methocarbamol 500 mg PO BID PRN 06/10/18 Sucralfate 1 gm PO TID 06/10/18 Objective - Vital Signs/Intake & Output Reviewed Vital Signs: Yes Vital Signs: Vital Signs x48h Temp Pulse Resp BP Pulse Ox 06/22/18 17:00 36.6 C 94 16 125/78 97 06/22/18 11:54 36.6 C 93 18 108/74 96 Intake & Output: Intake & Output 06/19/18 06/20/18 06/21/18 06/22/18 23:59 23:59 23:59 23:59 Intake Total 4754.533 3686.2 3263.333 2937.667 Output Total 850 1850 Balance 3904.533 1836.2 3263.333 2937.667 - Objective General Appearance: positive: Alert, Mild distress (The patient gets emotional at times and is confused.) Eyes Bilateral: positive: PERRL, EOMI, No lid inflammation Eyes: OU Scleral icterus (The patient is significantly jaundiced and has scleral icterus bilaterally) ENT: positive: ENT inspection nml, Pharynx nml, No signs of dehydration Neck: positive: Nml inspection, Thyroid nml, No JVD, Trachea midline. negative : Thyromegaly Respiratory: positive: Chest non-tender, No respiratory distress, Breath sounds nml. negative: Wheezes, Rales, Rhonchi Cardiovascular: positive: Regular rate & rhythm, No murmur, No gallop Abdomen: positive: No organomegaly, Nml bowel sounds, Tenderness, Other (The patient's abdomen is distended; there is a positive fluid wave). negative: Hepatomegaly, Splenomegaly Back: positive: Nml inspection. negative: CVA tenderness (R), CVA tenderness (L ) Skin: positive: No rash, Warm, Dry. negative: Color nml (Patient is significantly jaundiced), Cyanosis, Skin rash Extremities: positive: Non-tender, Full ROM, Nml appearance, No pedal edema Neurologic/Psychiatric: positive: Oriented x3, CN's nml (2-12), Sensation nml, Depressed mood/affect (Patient has confusion) - Lab Results Fish Bones: 06/22/18 06:29 06/22/18 06:29 Other Labs: Lab Results x24hrs 06/22/18 06/22/18 06/22/18 Range/Units 12:10 08:45 08:45 WBC (4.8-10.8) x10^3/uL RBC (4.20-5.40) 10^6/uL Hgb (12.0-16.0) g/dL Hct (37.0-47.0) % MCV (81.0-99.0) fL MCH (27.0-31.0) pg MCHC (32.0-36.0) g/dL RDW (12.0-15.0) % Plt Count (130-450) 10^3/uL MPV (7.9-10.8) fL Sodium (135-145) mmol/L Potassium (3.5-5.0) mmol/L Chloride (101-111) mmol/L Carbon Dioxide (21-32) mmol/L Anion Gap (6-13) BUN (6-20) mg/dL Creatinine (0.4-1.0) mg/dL Estimated GFR (MDRD) (>89) Glucose (70-100) mg/dL Lactic Acid 1.8 2.0 (0.5-2.2) mmol/L Calcium (8.5-10.3) mg/dL Phosphorus 2.9 (2.5-4.6) mg/dL Total Bilirubin (0.2-1.0) mg/dL AST (10-42) IU/L ALT (10-60) IU/L Alkaline Phosphatase (42-121) IU/L Ammonia (7-35) umol/L Total Protein (6.7-8.2) g/dL Albumin (3.2-5.5) g/dL Globulin (2.1-4.2) g/dL Albumin/Globulin Ratio (1.0-2.2) 06/22/18 06/22/18 06/22/18 Range/Units 06:29 06:29 06:29 WBC 35.4 H* (4.8-10.8) x10^3/uL RBC 2.57 L (4.20-5.40) 10^6/uL Hgb 10.3 L (12.0-16.0) g/dL Hct 30.9 L (37.0-47.0) % MCV 120.3 H (81.0-99.0) fL MCH 40.2 H (27.0-31.0) pg MCHC 33.4 (32.0-36.0) g/dL RDW 23.7 H (12.0-15.0) % Plt Count 115 L (130-450) 10^3/uL MPV 11.2 H (7.9-10.8) fL Sodium 135 (135-145) mmol/L Potassium 3.8 (3.5-5.0) mmol/L Chloride 115 H (101-111) mmol/L Carbon Dioxide 14 L (21-32) mmol/L Anion Gap 6.0 (6-13) BUN 12 (6-20) mg/dL Creatinine 0.4 (0.4-1.0) mg/dL Estimated GFR (MDRD) 169 (>89) Glucose 98 (70-100) mg/dL Lactic Acid (0.5-2.2) mmol/L Calcium 7.0 L (8.5-10.3) mg/dL Phosphorus (2.5-4.6) mg/dL Total Bilirubin 28.4 H (0.2-1.0) mg/dL AST 156 H (10-42) IU/L ALT 78 H (10-60) IU/L Alkaline Phosphatase 186 H (42-121) IU/L Ammonia 88.2 H* (7-35) umol/L Total Protein 6.3 L (6.7-8.2) g/dL Albumin 2.0 L (3.2-5.5) g/dL Globulin 4.3 H (2.1-4.2) g/dL Albumin/Globulin Ratio 0.5 L (1.0-2.2) ABX Reporting Has patient been on IV antibiotics over the past 48 hours?: Yes Assessment/Plan - Problem List (1) Acute hepatic failure Impression: The patient likely has an underlying cirrhosis as she is not recovering quickly from her acute hepatic failure. She initially presented in acute hepatic failure secondary to alcoholic hepatitis. Her transaminases are showing some improvement and her bilirubin is starting to come down from a high of 32 to 28.4 today. A repeat MELD score done today is the same as one done 4 days ago, 31 giving the patient a 52.6% chance of 3 month mortality. She has been receiving lactulose orally and has had multiple daily bowel movements. Despite her ammonia and bilirubin going up slightly yesterday she is more awake today than she has been since her admission. I have added rifaximin to her medication regimen. The hepatitis panel was positive for Hepatitis C, and the patient remains significantly jaundiced. She is self feeding. I have moved her to the [facility] hall, and a repeat PT/INR showed a slight improvement in her INR , coming down to 2.6 from 2.8. I spoke with Dr. Holt a waiter waitress from the [facility] today who feels that the patient is improving but still should stay hospitalized until she is able to consume about 3000 shemar a day. She will likely be discharged with elevated transaminases and bilirubin as well as an elevated ammonia level when that time comes. The patient's abdomen is taut with a fluid wave. I ordered a paracentesis for her today but she was too confused to sign the consent when she was down in the interventional radiology lab. I discussed this with the radiologist and the plan was to have both of us signed consent for the patient however her brother was in the room today and has signed for her. We will culture the paracentesis fluid as the pt's WBC count is rising. (2) Elevated WBC count Impression: The patient's white blood cell count has and rising slowly but steadily until a few days ago when it dropped about a half a point. We had been attributing this to the fact that the patient is receiving 40 mg of prednisone daily to help with her alcoholic hepatitis. When we rechecked today it had gone up to 35,000 from about 25,000. I have started her on aztreonam, Levaquin and vancomycin for healthcare acquired pneumonia and we are checking the patient's ascites fluid for signs of infection. Chest x-ray showed worsening of her opacities which the radiologist feels is most likely pneumonia. (3) Alcohol abuse Impression: The patient has a long history of alcohol abuse. She states she only drinks 3 glasses of wine daily but this does not appear to be likely. Her meld score indicates she has a 52.6 chance of mortality in the next 3 months, especially if she does not stop drinking. She will not qualify for liver transplant unless she can stop drinking for 6 months. Social work has been referred for counseling/treatment. When I spoke to her tonight she says she does not think she will have a hard time abstaining from drinking alcohol. (4) Hypokalemia Impression: The patient has been treated for hypokalemia since her admission and continues to lose potassium, probably through the diarrhea that the lactulose is causing. Her potassium level has remained at 3.8 both yesterday and today. We are replacing the potassium and will continue to monitor. (5) Hyponatremia Impression: Corrected, sodium level today 135 (6) Severe protein-calorie malnutrition Impression: The patient's total protein is 6.0 and her albumin is 2.0 (both trending up). Her MCV is 119.8, all indicators of severe protein calorie malnutrition and alcohol abuse. Nutrition has been consulted. (7) Chronic back pain Impression: The patient is not complaining of her back pain at this time but has been complaining at various times during her hospitalization. We are avoiding Tylenol because of her liver failure and NSAIDs because of a possible gastric ulcer. Continue current care/treatment with oxycodone as needed. Qualifiers: Back pain location: low back pain Back pain laterality: bilateral Sciatica presence: with sciatica Sciatica laterality: bilateral sciatica Qualified Code(s): M54.42 - Lumbago with sciatica, left side; M54.41 - Lumbago with sciatica, right side; M54.41 - Lumbago with sciatica, right side; G89.29 - Other chronic pain; G89.29 - Other chronic pain
[2018-06-22] MEDS: SERTRALINE 50 MG TABLET PO SCH (19:07)
[2018-06-22] MEDS: VANCOMYCIN INJ 1 GM in SODIUM CHLORIDE 0.9% 250 ML IV SCH (19:07)
[2018-06-22] MEDS: AZTREONAM 2 GM in SODIUM CHLORIDE 0.9% MINIBAG 100 ML IV SCH (21:21)
[2018-06-22] MEDS: SODIUM CHLORIDE FLUSH 0.9% 10 ML SYRINGE IVP PRN (21:21)
[2018-06-23] MEDS: SODIUM CHLORIDE FLUSH 0.9% 10 ML SYRINGE IVP SCH ×3 (00:43→17:07)
[2018-06-23] MEDS: LACTULOSE 10 GM/15 ML BOTTLE PO SCH ×4 (01:57→20:21)
[2018-06-23] MEDS: AZTREONAM 2 GM in SODIUM CHLORIDE 0.9% MINIBAG 100 ML IV SCH ×2 (05:53→15:57)
[2018-06-23] MEDS: NS W/40 MEQ KCL 1,000 ML IV SCH ×2 (05:53→15:58)
[2018-06-23 05:54] LABS: ALBUMIN/GLOBULIN RATIO 0.6 (1.0-2.2); BILIRUBIN,TOTAL 27.6 mg/dL (0.2-1.0); CREATININE 0.5 mg/dL (0.4-1.0); TOTAL PROTEIN 5.6 g/dL (6.7-8.2)
[2018-06-23 06:02] LABS: HGB - HEMOGLOBIN 9.1 g/dL (12.0-16.0); MEAN CORPUSCULAR HEMOGLOBIN 40.4 pg (27.0-31.0); MEAN CORPUSCULAR VOLUME 118.6 fL (81.0-99.0); MEAN PLATELET VOLUME 11.2 fL (7.9-10.8); RED BLOOD COUNT 2.25 10^6/uL (4.20-5.40); RED CELL DISTRIBUTION WIDTH 22.7 % (12.0-15.0); WHITE BLOOD COUNT 28.1 x10^3/uL (4.8-10.8)
[2018-06-23] MEDS: VANCOMYCIN INJ 1 GM in SODIUM CHLORIDE 0.9% 250 ML IV SCH (06:25)
--- NOTE | 2018-06-23 09:52 | Ultrasound Report ---
Procedure Date: 06/22/2018 Accession Number: [id number] / [id number] Procedure: US - Abdomen Limited CPT Code: FULL RESULT: EXAM: Abdomen Limited DATE: 06/22/2018 3:00 PM CLINICAL HISTORY: ASCITES COMPARISON: None. TECHNIQUE: Real-time scanning was performed with static images obtained. FINDINGS: Sonographic survey of the abdomen for ascites was performed. A small amount of ascites was seen in the lower abdomen, less than expected given physical exam and abdominal distention. IMPRESSION: Small amount of ascites in the lower abdominal quadrants. RADIA
[2018-06-23] MEDS: SACCHAROMYCES BOULARDII 250 MG CAPSULE PO SCH ×2 (10:23→17:06)
[2018-06-23] MEDS: NEUTRA-PHOS 250 MG TABLET PO SCH ×3 (10:23→17:06)
[2018-06-23] MEDS: oxyCODONE 5 MG TABLET PO PRN ×2 (10:24→20:22)
[2018-06-23] MEDS: POTASSIUM CHLORIDE 20 MEQ TABLET PO SCH ×2 (10:24→17:06)
[2018-06-23] MEDS: MULTIVITAMIN TABLET PO SCH (10:25)
[2018-06-23] MEDS: SERTRALINE 50 MG TABLET PO SCH (10:25)
[2018-06-23] MEDS: PANTOPRAZOLE 40 MG VIAL IVP SCH ×2 (10:49→20:22)
[2018-06-23] MEDS: POLYETHYLENE GLYCOL 3350 17 GM PACKET PO SCH (10:49)
[2018-06-23] MEDS: rifAXIMin 550 MG TABLET PO SCH ×2 (10:49→20:22)
[2018-06-23] MEDS: FOLIC ACID 1 MG TABLET PO SCH (10:49)
[2018-06-23] MEDS: THIAMINE 100 MG TABLET PO SCH (10:50)
[2018-06-23] MEDS: LORazepam 2 MG/ML VIAL IVP PRN (10:56)
--- NOTE | 2018-06-23 16:16 | Ultrasound Report ---
Procedure Date: 06/23/2018 Accession Number: [id number] / [id number] Procedure: US - Abdominal Paracentesis CPT Code: FULL RESULT: EXAM: Abdominal Paracentesis DATE: 06/23/2018 4:06 PM CLINICAL HISTORY: ascites COMPARISON: None. FINDINGS: Following obtaining informed consent, a suitable site in the patient's the right lower abdomen/pelvis was selected with ultrasound. The skin was prepped and draped in the usual sterile fashion. The skin and soft tissues were anesthetized with buffered lidocaine. A Safetycentesis catheter was inserted into the peritoneal cavity, and approximately 1300 mL of fluid was removed without difficulty. The patient tolerated the procedure well. No immediate complications. IMPRESSION: Successful ultrasound-guided paracentesis, yielding approximately 1300 mL of fluid. A sample was submitted to pathology for analysis.
[2018-06-23 17:15] LABS: BF SOURCE PERITONEAL; CC,BF RBC 126 /mm^3
[2018-06-23 17:16] LABS: BF COLOR YELLOW
[2018-06-23] MEDS ORDERED: BUFFERED LIDOCAINE 10 ML SYRINGE IU ONE (17:25)
--- NOTE | 2018-06-23 19:47 | PROVIDER PROGRESS NOTE ---
Assessment/Plan - Problem List (1) Acute hepatic failure Qualifiers: Hepatic coma status: without hepatic coma Qualified Code(s): K72.00 - Acute and subacute hepatic failure without coma Assessment/Plan: The patient likely has an underlying cirrhosis as she is not recovering quickly from her acute hepatic failure. She initially presented in acute hepatic failure secondary to alcoholic hepatitis. Her transaminases are showing some improvement and her bilirubin is starting to come down from a high of 32 to 27.6 today. A repeat MELD score done yesterday is the same as one done 4 days ago, 31 giving the patient a 52.6% chance of 3 month mortality. She has been receiving lactulose orally and has had multiple daily bowel movements. Her mentation is waxing and waning as she has periods where she is more lucid then becomes confused but overall she is more alert. She is also on rifaximin. The hepatitis panel was positive for Hepatitis C which may also be playing a role in her cirrhosis and hepatic failure although if this was from Hepatitis C we would expect her AST and ALT to be higher.. She is self feeding. The previous hospitalist spoke with Dr. Holt a combiner from the [facility] who feels that the patient is improving but still should stay hospitalized until she is able to consume about 3000 shemar a day. This maybe an unrealistic goal and this can be something that can be achieved outpatient once patient is stable and alert. She will likely be discharged with elevated transaminases and bilirubin as well as an elevated ammonia level. The patient will undergo a paracentesis today. PT will evaluate patient today. Patient needs a liver transplant but is not a candidate given her drinking and nutritional status. (2) Elevated WBC count Impression: Patient was started on abx for HCAP but CXR does not appear to show pneumonia nor does patient have clinical signs of pneumonia. Patients WBC is improved today down from 35.4 to 28.1. Patient will undergo a paracentesis today if that is negative I will discontinue antibiotics as we dont have source of infection. She has had multiple CXRs, UAs and blood cx all of which have been negative. Likely the leukocytosis is reactive. We will continue to monitor WBC but if patient is not spiking fevers or showing other signs of infection we will not continue abx. (3) Alcohol abuse Impression: The patient has a long history of alcohol abuse. She states she only drinks 3 glasses of wine daily but this does not appear to be likely. Her meld score indicates she has a 52.6 chance of mortality in the next 3 months, especially if she does not stop drinking. She will not qualify for liver transplant unless she can stop drinking for 6 months. Social work has been referred for counseling/treatment. Patient states she will not drink anymore. (4) Hypokalemia Impression: Improving. We are replacing the potassium and will continue to monitor. (5) Hyponatremia Impression: Resolved (6) Severe protein-calorie malnutrition Impression: The patient's total protein is 4.9 and her albumin is 1.9. Her MCV is 119.8, all indicators of severe protein calorie malnutrition and alcohol abuse. Nutrition has been consulted. (7) Chronic back pain Impression: The patient is not complaining of her back pain at this time but has been complaining at various times during her hospitalization. We are avoiding Tylenol because of her liver failure and NSAIDs because of a possible gastritis. Continue current care/treatment with oxycodone as needed. Qualifiers: Back pain location: low back pain Back pain laterality: bilateral Sciatica presence: with sciatica Sciatica laterality: bilateral sciatica Qualified Code(s): M54.42 - Lumbago with sciatica, left side; M54.41 - Lumbago with sciatica, right side; M54.41 - Lumbago with sciatica, right side; G89.29 - Other chronic pain; G89.29 - Other chronic pain - Current Meds Current Meds: Current Medications Generic Name Dose Route Start Last Admin Trade Name Waldoq PRN Reason Stop Dose Admin Folic Acid 1 mg 06/21/18 09:00 06/23/18 10:49 PO 1 mg DAILY JULIO Administration Ibuprofen 600 mg 06/18/18 10:51 06/18/18 17:41 Motrin PO 600 mg Q6HR PRN Administration PAIN Lactulose 30 gm 06/12/18 08:00 06/23/18 14:31 Lactulose PO Not Given Q6H JULIO Lorazepam 0.5 mg 06/22/18 22:51 06/23/18 10:56 Ativan Inj (Vial) IVP 0.5 mg Q2H PRN Administration Anxiety Multivitamins 1 tab 06/23/18 08:00 06/23/18 10:25 Theragran PO 1 tab DAILYWM JULIO Administration Ondansetron HCl 4 mg 06/10/18 00:20 06/21/18 17:17 Zofran Inj IVP 4 mg Q6HR PRN Administration Nausea / Vomiting Oxycodone HCl 5 mg 06/10/18 00:20 06/21/18 00:30 Roxicodone PO 5 mg Q4HR PRN Administration Pain 5 to 7 Oxycodone HCl 10 mg 06/23/18 00:15 06/23/18 10:24 Roxicodone PO 10 mg Q6HR PRN Administration Pain 8 to 10 Pantoprazole Sodium 40 mg 06/10/18 09:00 06/23/18 10:49 Protonix IVP 40 mg BID JULIO Administration Polyethylene Glycol 17 gm 06/11/18 09:00 06/23/18 10:49 Miralax PO Not Given DAILY JULIO Potassium Chloride 20 meq 06/18/18 08:00 06/23/18 17:06 K-Dur PO 20 meq BIDWM JULIO Administration Prednisolone 40 mg 06/10/18 08:00 06/23/18 10:46 Prelone Oral Soln PO 40 mg DAILYWM JULIO Administration Prochlorperazine Edisylate 10 mg 06/10/18 00:20 06/21/18 21:08 Compazine Inj IVP 10 mg Q6HR PRN Administration Nausea / Vomiting Rifaximin 550 mg 06/20/18 21:00 06/23/18 10:49 Xifaxan PO 06/26/18 09:59 550 mg BID JULIO Administration Saccharomyces Boulardii 250 mg 06/21/18 10:00 06/23/18 17:06 Florastor PO 250 mg BIDWM JULIO Administration Sertraline HCl 50 mg 06/22/18 18:00 06/23/18 10:25 Zoloft PO 50 mg DAILY JULIO Administration Sodium Chloride 10 ml 06/10/18 01:00 06/23/18 17:07 Normal Saline Flush 0.9% IVP 10 ml 0100,0900,1700 JULIO Administration Sodium Chloride 10 ml 06/10/18 00:20 06/22/18 21:21 Normal Saline Flush 0.9% IVP 10 ml PRN PRN Administration NEEDED PER PROVIDER ORDERS Sodium Phosphate 250 mg 06/21/18 08:00 08/07/18 17:06 K-Phos Neutral PO 250 mg TIDWM JULIO Administration Thiamine HCl 100 mg 06/21/18 09:00 06/23/18 10:50 Vitamin B-1 PO 100 mg DAILY JULIO Administration - Lab Result Lab results reviewed: Yes Fish Bone Diagrams: 06/24/18 05:35 06/24/18 05:35 - Diagnostic Imaging Results Diagnostic Imaging Results: Final report reviewed - Additional Planning Condition/Complexity: Guarded My Orders: My Active Orders 06/23/18 11:53 GRAM STAIN [RM] Stat 06/23/18 15:47 CUL,BODY FLUID(AEROBIC) [RM] Urgent 06/23/18 Lunch Regular Diet [DIET] Consult/Specialty: PT Plan Discussed with:: Patient Time Spent: 31-60 minutes Subjective - Subjective Patient Reports: Other (Alert but very weak, can barely move in the bed. She denies any fevers or chills. She continues to be tremulous.) Nursing Reports: Confused Objective Vital Signs: Vital Signs - 24 hr 06/22/18 06/23/18 06/23/18 20:06 00:04 05:00 Temperature 36.6 C 36.7 C 36.8 C Heart Rate [ 86 91 93 Brachial] Heart Rate [ Monitoring electrodes] Heart Rate [ Supine] Respiratory 16 18 18 Rate Blood Pressure 110/71 [Left Brachial artery] Blood Pressure 116/73 126/77 [Right Brachial artery] Blood Pressure [Supine] O2 Saturation 97 97 95 06/23/18 06/23/18 06/23/18 08:22 11:45 12:48 Temperature 37.0 C 36.8 C Heart Rate [ 97 98 Brachial] Heart Rate [ Monitoring electrodes] Heart Rate [ 100 Supine] Respiratory 18 18 Rate Blood Pressure 101/62 110/70 [Left Brachial artery] Blood Pressure [Right Brachial artery] Blood Pressure 103/57 L [Supine] O2 Saturation 94 96 06/23/18 06/23/18 16:21 16:52 Temperature 36.6 C 37.2 C Heart Rate [ 86 Brachial] Heart Rate [ 97 Monitoring electrodes] Heart Rate [ Supine] Respiratory 18 20 Rate Blood Pressure 100/63 113/69 [Left Brachial artery] Blood Pressure [Right Brachial artery] Blood Pressure [Supine] O2 Saturation 97 95 Oxygen O2 Source Room air I&O (Last 24 Hrs): Intake and Output Totals x24h 06/21/18 06/22/1806/23/18 23:59 23:59 23:59 Intake Total 3263.333 3277.747 3450 Output Total 400 Balance 3263.333 8358.197 3050 General: Alert, Oriented x3, Cooperative, Other (cachetic, jaundiced) HEENT: Atraumatic, PERRLA, EOMI, Mucous membr. moist/pink Neck: Supple, No JVD, No thyromegaly, +2 carotid pulse wo bruit, No LAD Lymphatic: no adenopathy Neuro: Alert, Non Focal, CN 2-12 Grossly Intact, Oriented Times 3, Other ( tremors) Cardiovascular: Regular rate, Normal S1, Normal S2, No murmurs Respiratory: Chest non-tender, No respiratory distress, Rales (Bases) Abdomen: Normal bowel sounds, Other (Distended) Extremities: No clubbing, No cyanosis, Normal pulses, Other (Bilateral LE edema) Comments/Notes: Jaundiced - Results Results: Laboratory Results WBC 28.1 x10^3/uL (4.8-10.8) H 06/23/18 05:22 RBC 2.25 10^6/uL (4.20-5.40) L 06/23/18 05:22 Hgb 9.1 g/dL (12.0-16.0) L 06/23/18 05:22 Hct 26.7 % (37.0-47.0) L 06/23/18 05:22 MCV 118.6 fL (81.0-99.0) H 06/23/18 05:22 MCH 40.4 pg (27.0-31.0) H 06/23/18 05:22 MCHC 34.0 g/dL (32.0-36.0) 06/23/18 05:22 RDW 22.7 % (12.0-15.0) H 06/23/18 05:22 Plt Count 95 10^3/uL (130-450) L 06/23/18 05:22 MPV 11.2 fL (7.9-10.8) H 06/23/18 05:22 Neut # (Auto) 21.4 10^3/uL (1.5-6.6) H 06/20/18 06:12 Lymph # (Auto) 1.5 10^3/uL (1.5-3.5) 06/20/18 06:12 [place] # (Auto) 2.3 10^3/uL (0.0-1.0) H 06/20/18 06:12 Eos # (Auto) 0.0 10^3/uL (0.0-0.7) 06/20/18 06:12 Baso # (Auto) 0.1 10^3/uL (0.0-0.1) 06/20/18 06:12 Absolute Nucleated RBC 0.02 x10^3/uL 06/20/18 06:12 Total Counted 100 06/19/18 06:07 Band Neuts % (Manual) Not Reportable 06/20/18 06:12 Abnorm Lymph % (Manual) Not Reportable 06/20/18 06:12 Metamyelocytes % 1 % (-0) H 06/19/18 06:07 Myelocytes % 1 % (-0) H 06/17/18 04:25 Nucleated RBC % 0.1 /100WBC 06/20/18 06:12 Neutrophils # (Manual) Not Reportable 06/20/18 06:12 Lymphocytes # (Manual) Not Reportable 06/20/18 06:12 Monocytes # (Manual) Not Reportable 06/20/18 06:12 Eosinophils # (Manual) Not Reportable 06/20/18 06:12 Basophils # (Manual) Not Reportable 06/20/18 06:12 Nucleated RBCs 1 % 06/16/18 05:20 Differential Comment MANUAL=AUTO DIFF 06/20/18 06:12 Manual Slide Review Indicated 06/09/18 20:54 WBC Morphology 1+ VACUOLATION (NORMAL) 1+ TOXIC GRANULATION (NORMAL) 06:07 WBC Morphology 1+ VACUOLATION (NORMAL) 1+ TOXIC GRANULATION (NORMAL) 06:07 Platelet Estimate DECREASED (<130,000) (NORMAL) 06/20/18 06:12 Platelet Morphology 1+ GIANT PLATELETS (NORMAL) 06/20/18 06:12 RBC Morph Micro Appear 2+ ANISOCYTOSIS (NORMAL) 2+ MACROCYTOSIS (NORMAL) 1+ HYPOCHROMASIA (NORMAL) 1+ TARGET CELLS (NORMAL) 1+ TEARDROP CELLS (NORMAL) 06/12/18 04:15 RBC Morph Micro Appear 2+ ANISOCYTOSIS (NORMAL) 2+ MACROCYTOSIS (NORMAL) 1+ HYPOCHROMASIA (NORMAL) 1+ TARGET CELLS (NORMAL) 1+ TEARDROP CELLS (NORMAL) 06/12/18 04:15 RBC Morph Micro Appear 2+ ANISOCYTOSIS (NORMAL) 2+ MACROCYTOSIS (NORMAL) 1+ HYPOCHROMASIA (NORMAL) 1+ TARGET CELLS (NORMAL) 1+ TEARDROP CELLS (NORMAL) 06/12/18 04:15 RBC Morph Micro Appear 2+ ANISOCYTOSIS (NORMAL) 2+ MACROCYTOSIS (NORMAL) 1+ HYPOCHROMASIA (NORMAL) 1+ TARGET CELLS (NORMAL) 1+ TEARDROP CELLS (NORMAL) 06/12/18 04:15 RBC Morph Micro Appear 2+ ANISOCYTOSIS (NORMAL) 2+ MACROCYTOSIS (NORMAL) 1+ HYPOCHROMASIA (NORMAL) 1+ TARGET CELLS (NORMAL) 1+ TEARDROP CELLS (NORMAL) 06/12/18 04:15 RBC Morph Micro Appear 2+ ANISOCYTOSIS (NORMAL) 1+ TARGET CELLS (NORMAL) 1+ HYPOCHROMASIA (NORMAL) 1+ POLYCHROMASIA (NORMAL) 1+ TEARDROP CELLS (NORMAL) 06/13/18 05:04 RBC Morph Micro Appear 2+ ANISOCYTOSIS (NORMAL) 1+ TARGET CELLS (NORMAL) 1+ HYPOCHROMASIA (NORMAL) 1+ POLYCHROMASIA (NORMAL) 1+ TEARDROP CELLS (NORMAL) 06/13/18 05:04 RBC Morph Micro Appear 2+ ANISOCYTOSIS (NORMAL) 1+ TARGET CELLS (NORMAL) 1+ HYPOCHROMASIA (NORMAL) 1+ POLYCHROMASIA (NORMAL) 1+ TEARDROP CELLS (NORMAL) 06/13/18 05:04 RBC Morph Micro Appear 2+ ANISOCYTOSIS (NORMAL) 1+ TARGET CELLS (NORMAL) 1+ HYPOCHROMASIA (NORMAL) 1+ POLYCHROMASIA (NORMAL) 1+ TEARDROP CELLS (NORMAL) 06/13/18 05:04 RBC Morph Micro Appear 2+ ANISOCYTOSIS (NORMAL) 1+ TARGET CELLS (NORMAL) 1+ HYPOCHROMASIA (NORMAL) 1+ POLYCHROMASIA (NORMAL) 1+ TEARDROP CELLS (NORMAL) 06/13/18 05:04 RBC Morph Micro Appear 2+ ANISOCYTOSIS (NORMAL) 2+ MACROCYTOSIS (NORMAL) 2+ HYPOCHROMASIA (NORMAL) 1+ TARGET CELLS (NORMAL) 1+ POLYCHROMASIA (NORMAL) 06/14/18 05:18 RBC Morph Micro Appear 2+ ANISOCYTOSIS (NORMAL) 2+ MACROCYTOSIS (NORMAL) 2+ HYPOCHROMASIA (NORMAL) 1+ TARGET CELLS (NORMAL) 1+ POLYCHROMASIA (NORMAL) 06/14/18 05:18 RBC Morph Micro Appear 2+ ANISOCYTOSIS (NORMAL) 2+ MACROCYTOSIS (NORMAL) 2+ HYPOCHROMASIA (NORMAL) 1+ TARGET CELLS (NORMAL) 1+ POLYCHROMASIA (NORMAL) 06/14/18 05:18 RBC Morph Micro Appear 2+ ANISOCYTOSIS (NORMAL) 2+ MACROCYTOSIS (NORMAL) 2+ HYPOCHROMASIA (NORMAL) 1+ TARGET CELLS (NORMAL) 1+ POLYCHROMASIA (NORMAL) 06/14/18 05:18 RBC Morph Micro Appear 2+ ANISOCYTOSIS (NORMAL) 2+ MACROCYTOSIS (NORMAL) 2+ HYPOCHROMASIA (NORMAL) 1+ TARGET CELLS (NORMAL) 1+ POLYCHROMASIA (NORMAL) 06/14/18 05:18 RBC Morph Micro Appear 3+ TARGET CELLS (NORMAL) 2+ MACROCYTOSIS (NORMAL) 2+ ANISOCYTOSIS (NORMAL) 06/15/18 05:30 RBC Morph Micro Appear 3+ TARGET CELLS (NORMAL) 2+ MACROCYTOSIS (NORMAL) 2+ ANISOCYTOSIS (NORMAL) 06/15/18 05:30 RBC Morph Micro Appear 3+ TARGET CELLS (NORMAL) 2+ MACROCYTOSIS (NORMAL) 2+ ANISOCYTOSIS (NORMAL) 06/15/18 05:30 RBC Morph Micro Appear 3+ TARGET CELLS (NORMAL) 2+ MACROCYTOSIS (NORMAL) 2+ ANISOCYTOSIS (NORMAL) 1+ POLYCHROMASIA (NORMAL) 06/16/18 05:20 RBC Morph Micro Appear 3+ TARGET CELLS (NORMAL) 2+ MACROCYTOSIS (NORMAL) 2+ ANISOCYTOSIS (NORMAL) 1+ POLYCHROMASIA (NORMAL) 06/16/18 05:20 RBC Morph Micro Appear 3+ TARGET CELLS (NORMAL) 2+ MACROCYTOSIS (NORMAL) 2+ ANISOCYTOSIS (NORMAL) 1+ POLYCHROMASIA (NORMAL) 06/16/18 05:20 RBC Morph Micro Appear 3+ TARGET CELLS (NORMAL) 2+ MACROCYTOSIS (NORMAL) 2+ ANISOCYTOSIS (NORMAL) 1+ POLYCHROMASIA (NORMAL) 06/16/18 05:20 RBC Morph Micro Appear 2+ ANISOCYTOSIS (NORMAL) 2+ MACROCYTOSIS (NORMAL) 1+ HYPOCHROMASIA (NORMAL) 1+ TARGET CELLS (NORMAL) 1+ POLYCHROMASIA (NORMAL) 06/17/18 04:25 RBC Morph Micro Appear 2+ ANISOCYTOSIS (NORMAL) 2+ MACROCYTOSIS (NORMAL) 1+ HYPOCHROMASIA (NORMAL) 1+ TARGET CELLS (NORMAL) 1+ POLYCHROMASIA (NORMAL) 06/17/18 04:25 RBC Morph Micro Appear 2+ ANISOCYTOSIS (NORMAL) 2+ MACROCYTOSIS (NORMAL) 1+ HYPOCHROMASIA (NORMAL) 1+ TARGET CELLS (NORMAL) 1+ POLYCHROMASIA (NORMAL) 06/17/18 04:25 RBC Morph Micro Appear 2+ ANISOCYTOSIS (NORMAL) 2+ MACROCYTOSIS (NORMAL) 1+ HYPOCHROMASIA (NORMAL) 1+ TARGET CELLS (NORMAL) 1+ POLYCHROMASIA (NORMAL) 06/17/18 04:25 RBC Morph Micro Appear 2+ ANISOCYTOSIS (NORMAL) 2+ MACROCYTOSIS (NORMAL) 1+ HYPOCHROMASIA (NORMAL) 1+ TARGET CELLS (NORMAL) 1+ POLYCHROMASIA (NORMAL) 06/17/18 04:25 RBC Morph Micro Appear 2+ ANISOCYTOSIS (NORMAL) 2+ MACROCYTOSIS (NORMAL) 1+ HYPOCHROMASIA (NORMAL) 06/18/18 04:31 RBC Morph Micro Appear 2+ ANISOCYTOSIS (NORMAL) 2+ MACROCYTOSIS (NORMAL) 1+ HYPOCHROMASIA (NORMAL) 06/18/18 04:31 RBC Morph Micro Appear 2+ ANISOCYTOSIS (NORMAL) 2+ MACROCYTOSIS (NORMAL) 1+ HYPOCHROMASIA (NORMAL) 06/18/18 04:31 RBC Morph Micro Appear 1+ ANISOCYTOSIS (NORMAL) 2+ TARGET CELLS (NORMAL) 1+ POLYCHROMASIA (NORMAL) 06/19/18 06:07 RBC Morph Micro Appear 1+ ANISOCYTOSIS (NORMAL) 2+ TARGET CELLS (NORMAL) 1+ POLYCHROMASIA (NORMAL) 06/19/18 06:07 RBC Morph Micro Appear 1+ ANISOCYTOSIS (NORMAL) 2+ TARGET CELLS (NORMAL) 1+ POLYCHROMASIA (NORMAL) 06/19/18 06:07 RBC Morph Micro Appear 2+ TARGET CELLS (NORMAL) 2+ ANISOCYTOSIS (NORMAL) 06/20/18 06:12 RBC Morph Micro Appear 2+ TARGET CELLS (NORMAL) 2+ ANISOCYTOSIS (NORMAL) 06/20/18 06:12 PT 28.2 secs (9.9-12.6) H 06/18/18 04:31 INR 2.6 (0.8-1.2) H 06/18/18 04:31 VBG pH 7.369 (7.31-7.41) 06/21/18 05:41 Ionized Calcium 1.02 mmol/L (1.15-1.33) L 06/21/18 05:41 Sodium 142 mmol/L (135-145) 06/23/18 05:22 Potassium 3.8 mmol/L (3.5-5.0) 06/23/18 05:22 Chloride 120 mmol/L (101-111) H* 06/23/18 05:22 Carbon Dioxide 15 mmol/L (21-32) L 06/23/18 05:22 Anion Gap 7.0 (6-13) 06/23/18 05:22 BUN 15 mg/dL (6-20) 06/23/18 05:22 Creatinine 0.5 mg/dL (0.4-1.0) 06/23/18 05:22 Estimated GFR (MDRD) 131 (>89) 06/23/18 05:22 Glucose 87 mg/dL (70-100) 06/23/18 05:22 Lactic Acid 1.8 mmol/L (0.5-2.2) 06/22/18 12:10 Calcium 7.0 mg/dL (8.5-10.3) L 06/23/18 05:22 Ionized Calcium YES 06/21/18 05:41 Phosphorus 2.9 mg/dL (2.5-4.6) 06/22/18 08:45 Magnesium 2.1 mg/dL (1.7-2.8) 06/21/18 05:41 Total Bilirubin 27.6 mg/dL (0.2-1.0) H 06/23/18 05:22 Direct Bilirubin 13.5 mg/dL (0.1-0.5) H 06/15/18 05:30 AST 146 IU/L (10-42) H 06/23/18 05:22 ALT 75 IU/L (10-60) H 06/23/18 05:22 Alkaline Phosphatase 166 IU/L (42-121) H 06/23/18 05:22 Ammonia 95.1 umol/L (7-35) H* 06/23/18 05:22 Total Creatine Kinase 31 IU/L (22-269) 06/09/18 20:54 CK-MB (CK-2) 0.7 ng/mL (0.6-6.3) 06/09/18 20:54 Troponin I < 0.04 ng/mL (<0.49) 06/09/18 20:54 Total Protein 5.6 g/dL (6.7-8.2) L 06/23/18 05:22 Albumin 2.0 g/dL (3.2-5.5) L 06/23/18 05:22 Globulin 3.6 g/dL (2.1-4.2) 06/23/18 05:22 Albumin/Globulin Ratio 0.6 (1.0-2.2) L 06/23/18 05:22 Prealbumin 8 mg/dL (18-45) L 06/21/18 05:41 Lipase 45 U/L (22-51) 06/09/18 20:54 Vitamin B12 1046 pg/mL (180-914) H 06/20/18 06:12 Folate 10.08 ng/mL (5.90 - >24.8) 06/20/18 06:12 Urine Color BROWN 06/18/18 20:30 Urine Clarity HAZY (CLEAR) 06/18/18 20:30 Urine pH 7.0 PH (5.0-7.5) 06/18/18 20:30 Ur Specific [place] 1.010 (1.002-1.030) 06/18/18 20:30 Urine Protein NEGATIVE mg/dL (NEGATIVE) 06/18/18 20:30 Urine Glucose (UA) 100 mg/dL (NEGATIVE) H 06/18/18 20:30 Urine Ketones NEGATIVE mg/dL (NEGATIVE) 06/18/18 20:30 Urine Occult Blood NEGATIVE (NEGATIVE) 06/18/18 20:30 Urine Nitrite NEGATIVE (NEGATIVE) 06/18/18 20:30 Urine Bilirubin LARGE (NEGATIVE) H 06/18/18 20:30 Urine Urobilinogen 0.2 (NORMAL) E.U./dL (NORMAL) 06/18/18 20:30 Ur Leukocyte Esterase TRACE (NEGATIVE) H 06/18/18 20:30 Urine RBC 0-5 /HPF (0-5) 06/18/18 20:30 Urine WBC 6-10 /HPF (0-5) H 06/18/18 20:30 Urine WBC Clumps PRESENT 06/18/18 20:30 Ur Squamous Epith Cells MANY Squamous (<= Few) H 06/18/18 20:30 Urine Bacteria Moderate /HPF (None Seen) H 06/18/18 20:30 Urine Mucus Few Strands 06/18/18 20:30 Ur Microscopic Review NOT INDICATED 06/11/18 13:00 Urine Culture Comments NOT INDICATED 06/18/18 20:30 Urine HCG, Qual NEGATIVE 06/09/18 20:25 Fluid Source PERITONEAL 06/23/18 15:47 Fluid Color YELLOW 06/23/18 15:47 Fluid Clarity CLEAR 06/23/18 15:47 Fluid WBC 72 /mm^3 06/23/18 15:47 Fluid RBC 126 /mm^3 06/23/18 15:47 Fluid Neutrophils % 59.0 % 06/23/18 15:47 Fluid Lymphocytes % 16.0 06/23/18 15:47 Fluid Monocytes % 10.0 % 06/23/18 15:47 Fluid Macrophages % 6.0 % 06/23/18 15:47 Fld Mesothelial Cell % 9.0 % 06/23/18 15:47 Salicylates 15.0 mg/dL 06/09/18 20:54 Urine Opiates Screen NEGATIVE (NEGATIVE) 06/10/18 05:35 Ur Oxycodone Screen NEGATIVE (NEGATIVE) 06/10/18 05:35 Urine Methadone Screen NEGATIVE (NEGATIVE) 06/10/18 05:35 Ur Propoxyphene Screen NEGATIVE (NEGATIVE) 06/10/18 05:35 Acetaminophen < 10 ug/mL (10-30) L 06/10/18 22:58 Ur Barbiturates Screen NEGATIVE (NEGATIVE) 06/10/18 05:35 Ur Tricyclics Screen NEGATIVE (NEGATIVE) 06/10/18 05:35 Ur Phencyclidine Scrn NEGATIVE (NEGATIVE) 06/10/18 05:35 Ur Amphetamine Screen NEGATIVE (NEGATIVE) 06/10/18 05:35 U Methamphetamines Scrn NEGATIVE (NEGATIVE) 06/10/18 05:35 U Benzodiazepines Scrn POSITIVE (NEGATIVE) H 06/10/18 05:35 Urine Cocaine Screen NEGATIVE (NEGATIVE) 06/10/18 05:35 U Cannabinoids Screen NEGATIVE (NEGATIVE) 06/10/18 05:35 Ethyl Alcohol < 5.0 mg/dL 06/10/18 04:30 Hepatitis A IgM Ab NON-REACTIVE (NON-REACTIVE) 06/16/18 07:31 Hep Bs Antigen NON-REACTIVE (NON-REACTIVE) 06/16/18 07:31 Hep B Core IgM Ab NON-REACTIVE (NON-REACTIVE) 06/16/18 07:31 Hepatitis C Antibody REACTIVE (NON-REACTIVE) A 06/16/18 07:31 Hep C Ab Signal/Cutoff 3.00 (<1.00) H 06/16/18 07:31 Blood Type B POSITIVE 06/10/18 09:26 - Procedures Procedures: Procedures EXCISION OF LIVER, PERCUTANEOUS APPROACH, DIAGNOSTIC (12/23/17) RESECTION OF GALLBLADDER, PERCUTANEOUS ENDOSCOPIC APPROACH (12/23/17) ABX Reporting Has patient been on IV antibiotics over the past 48 hours?: Yes Current Medications - Current Medications Current Medications: Active Medications Generic Name Dose Route Start Last Admin Trade Name Freq PRN Reason Stop Dose Admin Folic Acid 1 mg 06/21/18 09:00 06/23/18 10:49 PO 1 mg DAILY JUILO Administration Ibuprofen 600 mg 06/18/18 10:51 06/18/18 17:41 Motrin PO 600 mg Q6HR PRN Administration PAIN Lactulose 30 gm 06/12/18 08:00 06/24/18 02:03 Lactulose PO 30 gm Q6H JULIO Administration Lorazepam 0.5 mg 06/22/18 22:51 06/23/18 10:56 Ativan Inj (Vial) IVP 0.5 mg Q2H PRN Administration Anxiety Multivitamins 1 tab 06/23/18 08:00 06/23/18 10:25 Theragran PO 1 tab DAILYWM JULIO Administration Ondansetron HCl 4 mg 06/10/18 00:20 06/21/18 17:17 Zofran Inj IVP 4 mg Q6HR PRN Administration Nausea / Vomiting Oxycodone HCl 5 mg 06/10/18 00:20 06/23/18 20:22 Roxicodone PO 5 mg Q4HR PRN Administration Pain 5 to 7 Oxycodone HCl 10 mg 06/23/18 00:15 06/24/18 00:27 Roxicodone PO 10 mg Q6HR PRN Administration Pain 8 to 10 Pantoprazole Sodium 40 mg 06/10/18 09:00 06/23/18 20:22 Protonix IVP 40 mg BID JULIO Administration Polyethylene Glycol 17 gm 06/11/18 09:00 06/23/18 10:49 Miralax PO Not Given DAILY JULIO Potassium Chloride 20 meq 06/18/18 08:00 06/23/18 17:06 K-Dur PO 20 meq BIDWM JULIO Administration Prednisolone 40 mg 06/10/18 08:00 06/23/18 10:46 Prelone Oral Soln PO 40 mg DAILYWM JULIO Administration Prochlorperazine Edisylate 10 mg 06/10/18 00:20 06/21/18 21:08 Compazine Inj IVP 10 mg Q6HR PRN Administration Nausea / Vomiting Promethazine HCl 25 mg 06/10/18 00:20 Phenergan Inj IM Q6HR PRN Nausea / Vomiting Rifaximin 550 mg 06/20/18 21:00 06/23/18 20:22 Xifaxan PO 06/26/18 09:59 550 mg BID JULIO Administration Saccharomyces Boulardii 250 mg 06/21/18 10:00 06/23/18 17:06 Florastor PO 250 mg BIDWM JULIO Administration Sertraline HCl 50 mg 06/22/18 18:00 06/23/18 10:25 Zoloft PO 50 mg DAILY JULIO Administration Sodium Chloride 10 ml 06/10/18 01:00 06/24/18 00:27 Normal Saline Flush 0.9% IVP 10 ml 0100,0900,1700 JULIO Administration Sodium Chloride 10 ml 06/10/18 00:20 06/22/18 21:21 Normal Saline Flush 0.9% IVP 10 ml PRN PRN Administration NEEDED PER PROVIDER ORDERS Sodium Chloride 20 ml 06/20/18 17:20 Normal Saline Flush 0.9% IVP PRN PRN After Blood Draw Sodium Phosphate 250 mg 06/21/18 08:00 06/23/18 17:06 K-Phos Neutral PO 250 mg TIDWM JULIO Administration Thiamine HCl 100 mg 06/21/18 09:00 06/23/18 10:50 Vitamin B-1 PO 100 mg DAILY JULIO Administration Cyclobenzaprine HCl 5 - 10 mg PO TID PRN 06/10/18 Famotidine 20 mg PO DAILY 06/10/18 Methocarbamol 500 mg PO BID PRN 06/10/18 Sucralfate 1 gm PO TID 06/10/18
[2018-06-24] MEDS: SODIUM CHLORIDE FLUSH 0.9% 10 ML SYRINGE IVP SCH ×2 (00:27→09:02)
[2018-06-24] MEDS: oxyCODONE 5 MG TABLET PO PRN ×2 (00:27→09:07)
[2018-06-24] MEDS: LACTULOSE 10 GM/15 ML BOTTLE PO SCH ×3 (02:03→14:03)
[2018-06-24 05:44] LABS: HGB - HEMOGLOBIN 8.7 g/dL (12.0-16.0); MEAN CORPUSCULAR HEMOGLOBIN 40.2 pg (27.0-31.0); MEAN CORPUSCULAR HGB CONC 33.5 g/dL (32.0-36.0); MEAN CORPUSCULAR VOLUME 119.8 fL (81.0-99.0); MEAN PLATELET VOLUME 10.8 fL (7.9-10.8); RED BLOOD COUNT 2.16 10^6/uL (4.20-5.40); RED CELL DISTRIBUTION WIDTH 21.9 % (12.0-15.0); WHITE BLOOD COUNT 29.6 x10^3/uL (4.8-10.8)
[2018-06-24 06:02] LABS: ALBUMIN 1.9 g/dL (3.2-5.5); ALBUMIN/GLOBULIN RATIO 0.6 (1.0-2.2); BILIRUBIN,TOTAL 25.3 mg/dL (0.2-1.0); CALCIUM 6.8 mg/dL (8.5-10.3); CREATININE 0.6 mg/dL (0.4-1.0); TOTAL PROTEIN 4.9 g/dL (6.7-8.2)
[2018-06-24] MEDS: THIAMINE 100 MG TABLET PO SCH (09:01)
[2018-06-24] MEDS: rifAXIMin 550 MG TABLET PO SCH (09:01)
[2018-06-24] MEDS: POTASSIUM CHLORIDE 20 MEQ TABLET PO SCH (09:01)
[2018-06-24] MEDS: SERTRALINE 50 MG TABLET PO SCH (09:02)
[2018-06-24] MEDS: FOLIC ACID 1 MG TABLET PO SCH (09:02)
[2018-06-24] MEDS: SACCHAROMYCES BOULARDII 250 MG CAPSULE PO SCH (09:02)
[2018-06-24] MEDS: PANTOPRAZOLE 40 MG VIAL IVP SCH (09:02)
[2018-06-24] MEDS: NEUTRA-PHOS 250 MG TABLET PO SCH ×2 (09:02→11:51)
[2018-06-24] MEDS: MULTIVITAMIN TABLET PO SCH (09:02)
[2018-06-24] MEDS: POLYETHYLENE GLYCOL 3350 17 GM PACKET PO SCH (09:03)
--- NOTE | 2018-06-24 12:13 | Discharge Plan ---
"Discharge Plan for SNF / [facility] - DC Plan and Transition Orders Disposition: 03 SNF DC/Xfer Condition: Poor SNF Transition Orders: Admit to: [[facility]] under the care of [Barbara PRITCHETT] Discharge Diagnosis: [1. Acute hepatic failure 2. Elevated WBC count 3. Alcohol abuse 4. Hypokalemia 5. Hyponatremia 6. Severe protein calorie malnutrition 7. Chronic back pain] Medicare Certification: I certify that [facility] medically necessary on a continuing basis for any of the conditions for which she/he is receiving care during hospitalization. Notify PCP of admission and forward orders to primary provider for signature. Weight on admission and [Weekly]. Call PCP immediately if weight increases by [ 5] pounds or if patient develops dyspnea, chest pain/tightness or edema. House Bowel Program: [Yes/No] If no BM after 2 days, nurse may give M.O.M. 30ml PO PRN and /or ducolax Supp 1 SD and /or STIVEN 250mg P.O., and/or senna 1-2 tabs PO. On day 3 nurse may give repeat above order until residents constipation is resolved. Immunizations: Annual Influenza Vaccine: [Yes]. (between Jul 18 and February 14.) Unless allergy or already given Two-Step PPD: [Yes] per [facility] [phone] or appropriate documentation of approved exceptions Treatments & Other Orders: [Please make sure to give patient lactulose and titrate so she has 3-4 bowel movements a day] Oxygen Orders: [None] Lab Tests or X-Rays Orders: [Check CBC and CMP in 3 weeks] Orthopedic Orders: [Remove Sutures/Chad and Comment]. Medications: PLEASE REFER TO THE DISCHARGE MEDICATION LIST. Insulin Orders? [No] Diagnosis: Diabetes Initiate hypo and hyperglycemia protocols for BG <70 and BG >375. May check BG prn for signs/symptoms of dysglycemia. Frequency of BG checks: [Weekly] Basal Insulin: [] Lantus 100 units / ml inject subq as follows: [] [] Other: [] Correction Insulin: - Select the type of insulin below [Choose: Novolog/Humalog]100 units /ml insulin inject subq per orders indicate below [] LOW DOSE [] MODERATE DOSE [] MODERATE/HIGH DOSE [] HIGH DOSE GB UNITS GB UNITS GB UNITS GB UNITS 61-140 0 UNITS 61-140 0 UNITS 61-140 0 UNITS 61-140 0 UNITS 141-175 1 UNITS 141-175 1 UNITS 141-175 2 UNITS 141-175 3 UNITS 176-225 2 UNITS 176-225 3 UNITS 176-225 4 UNITS 176-225 5 UNITS 226-275 3 UNITS 226-275 5 UNITS 226-275 6 UNITS 226-275 7 UNITS 276-325 4 UNITS 276-325 7 UNITS 276-325 8 UNITS 276-325 9 UNITS 326-375 5 UNITS 326-375 9 UNITS 326-375 10 UNITS 326-375 11 UNITS >375 CONTACT MD >375 CONTACT MD >375 CONTACT MD >375 CONTACT MD Custom Dosing: [Choose: None/Novolog/Humalog] 100 units/ml Insulin inject subq as follows: GB Units 61-140 [] Units 141-175 [] Units 176-225 [] Units 226-275 [] Units 276-325 []Units 326-375 [] Units >375 Contact MD Allergies and Adverse Reactions: Allergies Allergy/AdvReac Type Severity Reaction Status Date / Time ceftriaxone sodium * Allergy Severe RASH,HIVES, Verified 06/09/18 20:07 [From Rocephin] BURNING,ITC JAMIE cephalexin monohydrate * Allergy Severe RASH,HIVES, Verified 06/09/18 20:07 [From Keflex] BURNING,ITC JAMIE ciprofloxacin Allergy Severe RASH,HIVES, Verified 06/09/18 20:07 BURNING,ITC JAMIE phenazopyridine HCl * Allergy Severe SWELLING Verified 06/09/18 20:07 [From Pyridium] OF AIRWAY Sulfa (Sulfonamide Allergy Severe RASH,HIVES, Verified 06/09/18 20:07 Antibiotics) BURNING,ITC JAMIE gentamicin Allergy Edema Verified 06/09/18 20:07 lamotrigine [From Lamictal] Allergy Hives Verified 06/09/18 20:07 levetiracetam [From Keppra] Allergy Anxiety Verified 06/09/18 20:07 - Medications New Prescriptions: Furosemide [Lasix] 20 mg PO DAILY #30 tablet LORazepam [Ativan] 0.5 mg PO Q6H PRN #20 tablet PRN Reason: Anxiety Omeprazole 20 mg PO BID #60 tablet. oxyCODONE [Roxicodone] 5 mg PO Q6H PRN #20 tablet PRN Reason: Pain predniSONE [Prednisone] 20 mg PO DAILY #24 tablet Saccharomyces Boulardii [Florastor] 250 mg PO BID #60 capsule Spironolactone [Aldactone] 12.5 mg PO DAILY #30 tablet - Diet Type: No added salt Texture: Regular Liquids: Thin May have monthly special meal: Yes - Therapies | Activity Therapy: Evaluation | Treat if indicated: PT, OT Rehabilitation Potential: Return to independent living Activity: Activity as Tolerated Weight Bearing: Full Weight Assistance Devices: Walker Additional Instructions: Patient will need a 14 day taper of prednisone as instructed. Follow Up: Patient will need to follow-up with her primary care physician in 2-3 weeks and will need a referral for hepatology as well as gastroenterology. She will need a surveillance EGD to look for varices. She will need to stay sober from alcohol for 6 months and improve her nutrition in order to be eligible for transplant in the future."
--- NOTE | 2018-06-24 12:42 | DISCHARGE SUMMARY ---
Discharge Summary Admit Date: 06/10/18 Discharge Date: 06/24/18 Discharging Provider: Donald Acharya MD Primary Care Provider: Barbara Khan [facility] Code Status: Do Not Attempt Resuscitation Condition at Discharge: Poor Discharge Disposition: 03 SNF DC/Xfer - DIAGNOSES Admission Diagnoses: 1. Acetaminophen toxicity 2. Acute hepatic failure 3. Liver masses 4. Alcohol abuse 5. Lactic acidosis 6. Hypokalemia 7. Chronic back pain 8. Hyponatremia Discharge Diagnoses with Status of Each Condition: 1. Acute hepatic failure: Poor 2. Alcoholic hepatitis: Guarded 3. Hepatitis C: Guarded 4. Alcohol abuse: Stable 5. Hepatic encephalopathy: Stable 6. Elevated WBC count: Guarded 7. Hypokalemia: Stable 8. Hyponatremia: Resolved 9. Severe proteincalorie malnutrition: Poor 10. Chronic back pain: Stable - HPI History of Present Illness: Patient is a 52-year-old female with a past medical history significant for fatty liver disease, alcohol abuse, history of umbilical hernia, hepatitis C, chronic low back pain, history of seizures possibly secondary to alcohol withdrawal, tobacco abuse and recent history of cholelithiasis status post cholecystectomy in November 2017 who presented to the emergency department with a chief complaint of jaundice. According to the patient she has not been doing well for the last 6 months. She states that symptoms initially started with abdominal pain, nausea and just not feeling well. She states that she was worked up for this about 6 months ago at which time she was found to have cholelithiasis and underwent a cholecystectomy. She states that after this procedure she is just never fully recovered. She states that she has had a poor appetite and has continued to have epigastric abdominal pain. She states that she is also had persistent nausea and has had increasing weakness over the last several months. She states that the symptoms have become much worse over the last few weeks when she stated that she has noticed constant pain in the epigastric area which is nonradiating and is associated with nausea and poor appetite. She also states that she has become increasingly weak. She does admit that she continues to drink alcohol but states she only drinks about 3 drinks a day of wine. She states that the reason that she finally came to the emergency department today is that the kids who live in the house that she is staying at told her that she needs to go to the emergency department because she has become increasingly weak and jaundiced. The patient states that she first started noticing the jaundice about 3 days ago and it has also progressively become worse. She also states that she has had increasing abdominal distention that has been going on for the last several weeks. The patient denies any Tylenol use and states that she only takes ibuprofen for her chronic back pain which has been worse over the last few days. She states that she consistently takes 600 mg of ibuprofen up to 4 times a day. The patient states that she does not take Tylenol nor does she take anything with Tylenol in it. The patient's purse had ibuprofen and OxyContin but no Tylenol in it. The patient denies any confusion or any changes in her mentation. Patient denies any fevers, chills, shortness of air, orthopnea or any cough. The patient denies any diarrhea or constipation. Patient denies any headaches, blurred vision, runny nose, sore throat, nasal congestion, difficulty swallowing, chest pain, palpitations, PND, increased lower extremity swelling, urinary urgency, urinary frequency, dysuria, polyuria , polydipsia, joint swelling, neck stiffness, hair loss, skin rash or any focal neurologic deficits. The patient does admit to bruising on her legs. She also admits to decreased appetite and recent weight loss. On presentation to the emergency department the patient was afebrile she was slightly tachycardic with a heart rate of 104. Patient otherwise was normotensive and was not in any respiratory distress. The patient did appear very jaundiced, weak and ill-appearing. The patient's initial lab work revealed that she had a leukocytosis of 14.8, hemoglobin of 9.9, platelet count of 113, INR of 3.9, potassium of 2.1, lactic acid of 3.9, total bilirubin of 20.6, AST of 111, ethyl alcohol level of 104 and a acetaminophen level of 191. Given the patient's elevated acetaminophen level and severely elevated bilirubin as well as INR the concern was for the patient having Tylenol toxicity with fulminant liver failure. The emergency room physician contacted the epic cadence analyst foreign legal consultant at [facility], Narayan Jeff, who felt that this was unlikely to be Tylenol toxicity however did recommend treatment with N- acetylcysteine. The epic cadence analyst stated that the patient has a very poor prognosis and a very poor chance of survival given her current labs. He thought that this was likely alcoholic liver failure and told the emergency room physician that at this point the patient was not a candidate for liver transplant and there was no beds available at the [facility] therefore he recommended admitting the patient to [facility] and treating with N-acetylcysteine, electrolyte replacement and monitoring the patient's bilirubin, INR and LFTs. Also the patient underwent a CT of her abdomen and pelvis which showed an enlarged fatty severely heterogeneous liver with suspicion of multiple liver masses likely representing diffuse metastatic disease. The epic cadence analyst at the [facility] recommended a multiphase MRI with liver protocol to further evaluate these findings. He did state that if any further recommendations or assistance was needed that we should not hesitate to call the [facility] for further recommendations. The epic cadence analyst also recommended a referral for alcohol treatment for the patient as she needed 6 months of abstinence from alcohol to qualify for liver transplant. - HOSPITAL COURSE Hospital Course: Patient was initially admitted to the intensive care unit and placed on N- acetylcysteine 21 hour protocol for what appeared to be Tylenol toxicity. However it was found that the patient's repeat Tylenol level was less than 10 and the initial Tylenol level was likely a lab error. Given the patient's severe hepatitis and hepatic failure we did complete the 21 hour protocol with N -acetylcysteine. The patient's mattery discriminant function and Alejandro alcoholic hepatitis score both supported the patient being placed on steroids for treatment of alcoholic hepatitis. The patient was placed on prednisone 40 mg daily. The patient's initial meld score was 34 giving her an estimated 3 month mortality of 52.6%. The patient's initial CT of the abdomen and pelvis showed possible liver masses therefore patient underwent an MRI of the abdomen which revealed hepatomegaly with marked heterogeneous fatty infiltration of the liver and no suspicious focal liver masses. The patient was very slow to improve both with her liver function tests as well as with her mentation. The patient had multiple sequelae of end-stage liver disease including thrombocytopenia, ascites, jaundice, an elevated INR and hepatic encephalopathy. The patient was started on lactulose and dose was gradually increased through out the hospitalization. We also added rifaximin for treatment of hepatic encephalopathy. Eventually after nearly 2 weeks of hospitalization the patient's mentation did improve to the point where she was able to participate with physical therapy. The patient was extremely weak and decompensated therefore physical therapy recommended subacute rehab. The patient was sent to [facility] for physical therapy and rehab at the time of discharge. During the hospitalization discussion was had with the patient's brother who is made the DPOA and the patient and decision was made to make the patient a DO NOT RESUSCITATE. The patient was found to have an elevated white blood cell count which peaked at 35.4 and was still elevated at 29.6 at the time of discharge. It was determined that the patient's leukocytosis is likely reactive to the ongoing hepatitis and liver failure. The patient underwent multiple tests to determine possible source of infection due to the elevated WBC. She had chest x-rays, urine analysis, paracentesis with cell count and differential as well as blood cultures. All of the tests were negative for a source of infection. Although patient was started on antibiotics for a short period of time these were discontinued prior to discharge. The patient will have a follow-up CBC in 3 weeks or when she sees her primary care physician. The patient was anemic and hemoglobin remained between 9.9 and 8.7. Given the patient's hepatic failure and hepatitis she is at risk for ulcers, gastritis and GI bleeding therefore she was placed on prophylactic treatment with Protonix and discharged with omeprazole twice daily. The patient was also found to have positive hepatitis panel with active hepatitis C virus. The patient was not started on any treatment for hepatitis C and will need to follow-up with hepatology for further recommendations or treatment. The patient's renal function remained stable throughout the hospitalization. She was hypokalemic and potassium was replaced throughout the hospitalization. Although over the course of 2 weeks the patient's bilirubin did come down from 33.4 down to 25.3 and LFTs remained stable. The patient's prognosis continues to be very poor going forward. She has poor social support, is high risk for continued alcohol abuse and has a very poor nutritional status. The patient did undergo a great deal of counseling during the hospitalization and seems to be committed to stopping drinking and improving her nutritional status. If she is able to she will then need to follow-up with hepatology to hopefully be placed on a transplant list at some point. The patient's only hope of survival at this point will be a transplantation. The patient will also need a surveillance EGD given her hepatic failure. She will need to follow-up with gastroenterology with a referral from her primary care physician in order to do this. It is very likely that the patient will have recurrent hospitalizations going forward and it is very likely that she will not survive the next 3-6 months. We have tried to optimize the patient's treatment for hepatic failure in hopes of giving her the best opportunity to survive. The patient was placed on a prednisone taper which will give her a total of 28 days of treatment with steroids in accordance to guidelines for alcoholic hepatitis treatment. The patient was discharged to [facility] for rehab in poor condition but was stable enough for discharge at this time. The patient's mental status appears to be near her baseline with treatment of her hepatic encephalopathy with lactulose and rifaximin. The patient was also discharged on oxycodone for her chronic back pain as we wanted to avoid NSAIDs and Tylenol in this patient. She was given Ativan for anxiety and tremors. She was also given Lasix and spironolactone for ascites and swelling due to her liver failure. The patient was encouraged to eat up to 3000 shemar a day and given thiamine, folic acid and multivitamin daily. The patient will need to follow-up with her primary care physician and get referrals for gastroenterology and hepatology in the near future - ALLERGIES Allergies/Adverse Reactions: Allergies Allergy/AdvReac Type Severity Reaction Status Date / Time ceftriaxone sodium * Allergy Severe RASH,HIVES, Verified 06/09/18 20:07 [From Rocephin] BURNING,ITC JAMIE cephalexin monohydrate * Allergy Severe RASH,HIVES, Verified 06/09/18 20:07 [From Keflex] BURNING,ITC JAMIE ciprofloxacin Allergy Severe RASH,HIVES, Verified 06/09/18 20:07 BURNING,ITC JAMIE phenazopyridine HCl * Allergy Severe SWELLING Verified 06/09/18 20:07 [From Pyridium] OF AIRWAY Sulfa (Sulfonamide Allergy Severe RASH,HIVES, Verified 06/09/18 20:07 Antibiotics) BURNING,ITC JAMIE gentamicin Allergy Edema Verified 06/09/18 20:07 lamotrigine [From Lamictal] Allergy Hives Verified 06/09/18 20:07 levetiracetam [From Keppra] Allergy Anxiety Verified 06/09/18 20:07 - MEDICATIONS Home Medications: Ambulatory Orders Medication Instructions Recorded Confirmed Methocarbamol 500 mg PO BID PRN 06/10/18 06/10/18 Cyclobenzaprine HCl 10 mg PO TID PRN #0 06/24/18 06/10/18 Folic Acid 1 mg PO DAILY tablet 06/24/18 Furosemide [Lasix] 20 mg PO DAILY #30 tablet 06/24/18 LORazepam [Ativan] 0.5 mg PO Q6H PRN #20 tablet 06/24/18 Lactulose 30 gm PO Q6H #10 bottle 06/24/18 Multivitamin [Theragran] 1 tab PO DAILYWM tablet 06/24/18 Neutra-Phos [K-Phos Neutral] 250 mg PO TIDWM tablet 06/24/18 Omeprazole 20 mg PO BID #60 tablet. 06/24/18 Potassium Chloride [K-Dur] 20 meq PO BIDWM tablet 06/24/18 Saccharomyces Boulardii [Florastor] 250 mg PO BID #60 capsule 06/24/18 Sertraline [Zoloft] 50 mg PO DAILY tablet 06/24/18 Spironolactone [Aldactone] 12.5 mg PO DAILY #30 tablet 06/24/18 Thiamine [Vitamin B-1] 100 mg PO DAILY tablet 06/24/18 oxyCODONE [Roxicodone] 5 mg PO Q6H PRN #20 tablet 06/24/18 predniSONE [Prednisone] 20 mg PO DAILY #24 tablet 06/24/18 rifAXIMin [Xifaxan] 550 mg PO BID tablet 06/24/18 - PHYSICAL EXAM AT DISCHARGE General Appearance: positive: Alert, Other (Jaundiced, thin and frail) Eyes Bilateral: positive: Normal inspection, PERRL, EOMI, No lid inflammation, Other (Scleral icterus and conjunctival pallor) ENT: positive: ENT inspection nml, Pharynx nml, No signs of dehydration. negative: Purulent nasal drainage, Pharyngeal erythema, Oral lesions Neck: positive: Nml inspection, Thyroid nml, No JVD, Trachea midline. negative : Thyromegaly, Lymphadenopathy (R), Lymphadenopathy (L), Stiff neck, Carotid bruit, Tracheal deviation Respiratory: positive: Chest non-tender, No respiratory distress, Rales (Bases) . negative: Wheezes, Rhonchi Cardiovascular: positive: Regular rate & rhythm, No murmur, No gallop Peripheral Pulses: positive: 2+ Abdomen: positive: Nml bowel sounds, Other (Disteneded abd). negative: Tenderness, Guarding, Rebound Back: positive: Nml inspection. negative: CVA tenderness (R), CVA tenderness (L ) Skin: positive: Warm, Dry, Pallor, Other (Jaundiced). negative: Cyanosis, Skin rash Extremities: positive: Non-tender, Full ROM, Nml appearance, Pedal edema Neurologic/Psychiatric: positive: Oriented x3, CN's nml (2-12), Motor nml, Sensation nml, Mood/affect nml - LABS Result Diagrams: 06/24/18 05:35 06/24/18 05:35 Other Lab Results: Laboratory Results WBC 29.6 x10^3/uL (4.8-10.8) H 06/24/18 05:35 RBC 2.16 10^6/uL (4.20-5.40) L 06/24/18 05:35 Hgb 8.7 g/dL (12.0-16.0) L 06/24/18 05:35 Hct 25.9 % (37.0-47.0) L 06/24/18 05:35 MCV 119.8 fL (81.0-99.0) H 06/24/18 05:35 MCH 40.2 pg (27.0-31.0) H 06/24/18 05:35 MCHC 33.5 g/dL (32.0-36.0) 06/24/18 05:35 RDW 21.9 % (12.0-15.0) H 06/24/18 05:35 Plt Count 87 10^3/uL (130-450) L 06/24/18 05:35 MPV 10.8 fL (7.9-10.8) 06/24/18 05:35 Neut # (Auto) 21.4 10^3/uL (1.5-6.6) H 06/20/18 06:12 Lymph # (Auto) 1.5 10^3/uL (1.5-3.5) 06/20/18 06:12 Baker # (Auto) 2.3 10^3/uL (0.0-1.0) H 06/20/18 06:12 Eos # (Auto) 0.0 10^3/uL (0.0-0.7) 06/20/18 06:12 Baso # (Auto) 0.1 10^3/uL (0.0-0.1) 06/20/18 06:12 Absolute Nucleated RBC 0.02 x10^3/uL 06/20/18 06:12 Total Counted 100 06/19/18 06:07 Band Neuts % (Manual) Not Reportable 06/20/18 06:12 Abnorm Lymph % (Manual) Not Reportable 06/20/18 06:12 Metamyelocytes % 1 % (-0) H 06/19/18 06:07 Myelocytes % 1 % (-0) H 06/17/18 04:25 Nucleated RBC % 0.1 /100WBC 06/20/18 06:12 Neutrophils # (Manual) Not Reportable 06/20/18 06:12 Lymphocytes # (Manual) Not Reportable 06/20/18 06:12 Monocytes # (Manual) Not Reportable 06/20/18 06:12 Eosinophils # (Manual) Not Reportable 06/20/18 06:12 Basophils # (Manual) Not Reportable 06/20/18 06:12 Nucleated RBCs 1 % 06/16/18 05:20 Differential Comment MANUAL=AUTO DIFF 06/20/18 06:12 Manual Slide Review Indicated 06/09/18 20:54 WBC Morphology 1+ VACUOLATION (NORMAL) 1+ TOXIC GRANULATION (NORMAL) 06:07 WBC Morphology 1+ VACUOLATION (NORMAL) 1+ TOXIC GRANULATION (NORMAL) 06:07 Platelet Estimate DECREASED (<130,000) (NORMAL) 06/20/18 06:12 Platelet Morphology 1+ GIANT PLATELETS (NORMAL) 06/20/18 06:12 RBC Morph Micro Appear 2+ ANISOCYTOSIS (NORMAL) 2+ MACROCYTOSIS (NORMAL) 1+ HYPOCHROMASIA (NORMAL) 1+ TARGET CELLS (NORMAL) 1+ TEARDROP CELLS (NORMAL) 06/12/18 04:15 RBC Morph Micro Appear 2+ ANISOCYTOSIS (NORMAL) 2+ MACROCYTOSIS (NORMAL) 1+ HYPOCHROMASIA (NORMAL) 1+ TARGET CELLS (NORMAL) 1+ TEARDROP CELLS (NORMAL) 06/12/18 04:15 RBC Morph Micro Appear 2+ ANISOCYTOSIS (NORMAL) 2+ MACROCYTOSIS (NORMAL) 1+ HYPOCHROMASIA (NORMAL) 1+ TARGET CELLS (NORMAL) 1+ TEARDROP CELLS (NORMAL) 06/12/18 04:15 RBC Morph Micro Appear 2+ ANISOCYTOSIS (NORMAL) 2+ MACROCYTOSIS (NORMAL) 1+ HYPOCHROMASIA (NORMAL) 1+ TARGET CELLS (NORMAL) 1+ TEARDROP CELLS (NORMAL) 06/12/18 04:15 RBC Morph Micro Appear 2+ ANISOCYTOSIS (NORMAL) 2+ MACROCYTOSIS (NORMAL) 1+ HYPOCHROMASIA (NORMAL) 1+ TARGET CELLS (NORMAL) 1+ TEARDROP CELLS (NORMAL) 06/12/18 04:15 RBC Morph Micro Appear 2+ ANISOCYTOSIS (NORMAL) 1+ TARGET CELLS (NORMAL) 1+ HYPOCHROMASIA (NORMAL) 1+ POLYCHROMASIA (NORMAL) 1+ TEARDROP CELLS (NORMAL) 06/13/18 05:04 RBC Morph Micro Appear 2+ ANISOCYTOSIS (NORMAL) 1+ TARGET CELLS (NORMAL) 1+ HYPOCHROMASIA (NORMAL) 1+ POLYCHROMASIA (NORMAL) 1+ TEARDROP CELLS (NORMAL) 06/13/18 05:04 RBC Morph Micro Appear 2+ ANISOCYTOSIS (NORMAL) 1+ TARGET CELLS (NORMAL) 1+ HYPOCHROMASIA (NORMAL) 1+ POLYCHROMASIA (NORMAL) 1+ TEARDROP CELLS (NORMAL) 06/13/18 05:04 RBC Morph Micro Appear 2+ ANISOCYTOSIS (NORMAL) 1+ TARGET CELLS (NORMAL) 1+ HYPOCHROMASIA (NORMAL) 1+ POLYCHROMASIA (NORMAL) 1+ TEARDROP CELLS (NORMAL) 06/13/18 05:04 RBC Morph Micro Appear 2+ ANISOCYTOSIS (NORMAL) 1+ TARGET CELLS (NORMAL) 1+ HYPOCHROMASIA (NORMAL) 1+ POLYCHROMASIA (NORMAL) 1+ TEARDROP CELLS (NORMAL) 06/13/18 05:04 RBC Morph Micro Appear 2+ ANISOCYTOSIS (NORMAL) 2+ MACROCYTOSIS (NORMAL) 2+ HYPOCHROMASIA (NORMAL) 1+ TARGET CELLS (NORMAL) 1+ POLYCHROMASIA (NORMAL) 06/14/18 05:18 RBC Morph Micro Appear 2+ ANISOCYTOSIS (NORMAL) 2+ MACROCYTOSIS (NORMAL) 2+ HYPOCHROMASIA (NORMAL) 1+ TARGET CELLS (NORMAL) 1+ POLYCHROMASIA (NORMAL) 06/14/18 05:18 RBC Morph Micro Appear 2+ ANISOCYTOSIS (NORMAL) 2+ MACROCYTOSIS (NORMAL) 2+ HYPOCHROMASIA (NORMAL) 1+ TARGET CELLS (NORMAL) 1+ POLYCHROMASIA (NORMAL) 06/14/18 05:18 RBC Morph Micro Appear 2+ ANISOCYTOSIS (NORMAL) 2+ MACROCYTOSIS (NORMAL) 2+ HYPOCHROMASIA (NORMAL) 1+ TARGET CELLS (NORMAL) 1+ POLYCHROMASIA (NORMAL) 06/14/18 05:18 RBC Morph Micro Appear 2+ ANISOCYTOSIS (NORMAL) 2+ MACROCYTOSIS (NORMAL) 2+ HYPOCHROMASIA (NORMAL) 1+ TARGET CELLS (NORMAL) 1+ POLYCHROMASIA (NORMAL) 06/14/18 05:18 RBC Morph Micro Appear 3+ TARGET CELLS (NORMAL) 2+ MACROCYTOSIS (NORMAL) 2+ ANISOCYTOSIS (NORMAL) 06/15/18 05:30 RBC Morph Micro Appear 3+ TARGET CELLS (NORMAL) 2+ MACROCYTOSIS (NORMAL) 2+ ANISOCYTOSIS (NORMAL) 06/15/18 05:30 RBC Morph Micro Appear 3+ TARGET CELLS (NORMAL) 2+ MACROCYTOSIS (NORMAL) 2+ ANISOCYTOSIS (NORMAL) 06/15/18 05:30 RBC Morph Micro Appear 3+ TARGET CELLS (NORMAL) 2+ MACROCYTOSIS (NORMAL) 2+ ANISOCYTOSIS (NORMAL) 1+ POLYCHROMASIA (NORMAL) 06/16/18 05:20 RBC Morph Micro Appear 3+ TARGET CELLS (NORMAL) 2+ MACROCYTOSIS (NORMAL) 2+ ANISOCYTOSIS (NORMAL) 1+ POLYCHROMASIA (NORMAL) 06/16/18 05:20 RBC Morph Micro Appear 3+ TARGET CELLS (NORMAL) 2+ MACROCYTOSIS (NORMAL) 2+ ANISOCYTOSIS (NORMAL) 1+ POLYCHROMASIA (NORMAL) 06/16/18 05:20 RBC Morph Micro Appear 3+ TARGET CELLS (NORMAL) 2+ MACROCYTOSIS (NORMAL) 2+ ANISOCYTOSIS (NORMAL) 1+ POLYCHROMASIA (NORMAL) 06/16/18 05:20 RBC Morph Micro Appear 2+ ANISOCYTOSIS (NORMAL) 2+ MACROCYTOSIS (NORMAL) 1+ HYPOCHROMASIA (NORMAL) 1+ TARGET CELLS (NORMAL) 1+ POLYCHROMASIA (NORMAL) 06/17/18 04:25 RBC Morph Micro Appear 2+ ANISOCYTOSIS (NORMAL) 2+ MACROCYTOSIS (NORMAL) 1+ HYPOCHROMASIA (NORMAL) 1+ TARGET CELLS (NORMAL) 1+ POLYCHROMASIA (NORMAL) 06/17/18 04:25 RBC Morph Micro Appear 2+ ANISOCYTOSIS (NORMAL) 2+ MACROCYTOSIS (NORMAL) 1+ HYPOCHROMASIA (NORMAL) 1+ TARGET CELLS (NORMAL) 1+ POLYCHROMASIA (NORMAL) 06/17/18 04:25 RBC Morph Micro Appear 2+ ANISOCYTOSIS (NORMAL) 2+ MACROCYTOSIS (NORMAL) 1+ HYPOCHROMASIA (NORMAL) 1+ TARGET CELLS (NORMAL) 1+ POLYCHROMASIA (NORMAL) 06/17/18 04:25 RBC Morph Micro Appear 2+ ANISOCYTOSIS (NORMAL) 2+ MACROCYTOSIS (NORMAL) 1+ HYPOCHROMASIA (NORMAL) 1+ TARGET CELLS (NORMAL) 1+ POLYCHROMASIA (NORMAL) 06/17/18 04:25 RBC Morph Micro Appear 2+ ANISOCYTOSIS (NORMAL) 2+ MACROCYTOSIS (NORMAL) 1+ HYPOCHROMASIA (NORMAL) 06/18/18 04:31 RBC Morph Micro Appear 2+ ANISOCYTOSIS (NORMAL) 2+ MACROCYTOSIS (NORMAL) 1+ HYPOCHROMASIA (NORMAL) 06/18/18 04:31 RBC Morph Micro Appear 2+ ANISOCYTOSIS (NORMAL) 2+ MACROCYTOSIS (NORMAL) 1+ HYPOCHROMASIA (NORMAL) 06/18/18 04:31 RBC Morph Micro Appear 1+ ANISOCYTOSIS (NORMAL) 2+ TARGET CELLS (NORMAL) 1+ POLYCHROMASIA (NORMAL) 06/19/18 06:07 RBC Morph Micro Appear 1+ ANISOCYTOSIS (NORMAL) 2+ TARGET CELLS (NORMAL) 1+ POLYCHROMASIA (NORMAL) 06/19/18 06:07 RBC Morph Micro Appear 1+ ANISOCYTOSIS (NORMAL) 2+ TARGET CELLS (NORMAL) 1+ POLYCHROMASIA (NORMAL) 06/19/18 06:07 RBC Morph Micro Appear 2+ TARGET CELLS (NORMAL) 2+ ANISOCYTOSIS (NORMAL) 06/20/18 06:12 RBC Morph Micro Appear 2+ TARGET CELLS (NORMAL) 2+ ANISOCYTOSIS (NORMAL) 06/20/18 06:12 PT 28.2 secs (9.9-12.6) H 06/18/18 04:31 INR 2.6 (0.8-1.2) H 06/18/18 04:31 VBG pH 7.369 (7.31-7.41) 06/21/18 05:41 Ionized Calcium 1.02 mmol/L (1.15-1.33) L 06/21/18 05:41 Sodium 140 mmol/L (135-145) 06/24/18 05:35 Potassium 3.4 mmol/L (3.5-5.0) L 06/24/18 05:35 Chloride 115 mmol/L (101-111) H 06/24/18 05:35 Carbon Dioxide 15 mmol/L (21-32) L 06/24/18 05:35 Anion Gap 10.0 (6-13) 06/24/18 05:35 BUN 18 mg/dL (6-20) 06/24/18 05:35 Creatinine 0.6 mg/dL (0.4-1.0) 06/24/18 05:35 Estimated GFR (MDRD) 106 (>89) 06/24/18 05:35 Glucose 110 mg/dL (70-100) H 06/24/18 05:35 Lactic Acid 1.8 mmol/L (0.5-2.2) 06/22/18 12:10 Calcium 6.8 mg/dL (8.5-10.3) L 06/24/18 05:35 Ionized Calcium YES 06/21/18 05:41 Phosphorus 2.9 mg/dL (2.5-4.6) 06/22/18 08:45 Magnesium 2.1 mg/dL (1.7-2.8) 06/21/18 05:41 Total Bilirubin 25.3 mg/dL (0.2-1.0) H 06/24/18 05:35 Direct Bilirubin 13.5 mg/dL (0.1-0.5) H 06/15/18 05:30 AST 127 IU/L (10-42) H 06/24/18 05:35 ALT 69 IU/L (10-60) H 06/24/18 05:35 Alkaline Phosphatase 162 IU/L (42-121) H 06/24/18 05:35 Ammonia 103.2 umol/L (7-35) H* 06/24/18 05:35 Total Creatine Kinase 31 IU/L (22-269) 06/09/18 20:54 CK-MB (CK-2) 0.7 ng/mL (0.6-6.3) 06/09/18 20:54 Troponin I < 0.04 ng/mL (<0.49) 06/09/18 20:54 Total Protein 4.9 g/dL (6.7-8.2) L 06/24/18 05:35 Albumin 1.9 g/dL (3.2-5.5) L 06/24/18 05:35 Globulin 3.0 g/dL (2.1-4.2) 06/24/18 05:35 Albumin/Globulin Ratio 0.6 (1.0-2.2) L 06/24/18 05:35 Prealbumin 8 mg/dL (18-45) L 06/21/18 05:41 Lipase 45 U/L (22-51) 06/09/18 20:54 Vitamin B12 1046 pg/mL (180-914) H 06/20/18 06:12 Folate 10.08 ng/mL (5.90 - >24.8) 06/20/18 06:12 Urine Color BROWN 06/18/18 20:30 Urine Clarity HAZY (CLEAR) 06/18/18 20:30 Urine pH 7.0 PH (5.0-7.5) 06/18/18 20:30 Ur Specific [place] 1.010 (1.002-1.030) 06/18/18 20:30 Urine Protein NEGATIVE mg/dL (NEGATIVE) 06/18/18 20:30 Urine Glucose (UA) 100 mg/dL (NEGATIVE) H 06/18/18 20:30 Urine Ketones NEGATIVE mg/dL (NEGATIVE) 06/18/18 20:30 Urine Occult Blood NEGATIVE (NEGATIVE) 06/18/18 20:30 Urine Nitrite NEGATIVE (NEGATIVE) 06/18/18 20:30 Urine Bilirubin LARGE (NEGATIVE) H 06/18/18 20:30 Urine Urobilinogen 0.2 (NORMAL) E.U./dL (NORMAL) 06/18/18 20:30 Ur Leukocyte Esterase TRACE (NEGATIVE) H 06/18/18 20:30 Urine RBC 0-5 /HPF (0-5) 06/18/18 20:30 Urine WBC 6-10 /HPF (0-5) H 06/18/18 20:30 Urine WBC Clumps PRESENT 06/18/18 20:30 Ur Squamous Epith Cells MANY Squamous (<= Few) H 06/18/18 20:30 Urine Bacteria Moderate /HPF (None Seen) H 06/18/18 20:30 Urine Mucus Few Strands 06/18/18 20:30 Ur Microscopic Review NOT INDICATED 06/11/18 13:00 Urine Culture Comments NOT INDICATED 06/18/18 20:30 Urine HCG, Qual NEGATIVE 06/09/18 20:25 Fluid Source PERITONEAL 06/23/18 15:47 Fluid Color YELLOW 06/23/18 15:47 Fluid Clarity CLEAR 06/23/18 15:47 Fluid WBC 72 /mm^3 06/23/18 15:47 Fluid RBC 126 /mm^3 06/23/18 15:47 Fluid Neutrophils % 59.0 % 06/23/18 15:47 Fluid Lymphocytes % 16.0 06/23/18 15:47 Fluid Monocytes % 10.0 % 06/23/18 15:47 Fluid Macrophages % 6.0 % 06/23/18 15:47 Fld Mesothelial Cell % 9.0 % 06/23/18 15:47 Salicylates 15.0 mg/dL 06/09/18 20:54 Urine Opiates Screen NEGATIVE (NEGATIVE) 06/10/18 05:35 Ur Oxycodone Screen NEGATIVE (NEGATIVE) 06/10/18 05:35 Urine Methadone Screen NEGATIVE (NEGATIVE) 06/10/18 05:35 Ur Propoxyphene Screen NEGATIVE (NEGATIVE) 06/10/18 05:35 Acetaminophen < 10 ug/mL (10-30) L 06/10/18 22:58 Ur Barbiturates Screen NEGATIVE (NEGATIVE) 06/10/18 05:35 Ur Tricyclics Screen NEGATIVE (NEGATIVE) 06/10/18 05:35 Ur Phencyclidine Scrn NEGATIVE (NEGATIVE) 06/10/18 05:35 Ur Amphetamine Screen NEGATIVE (NEGATIVE) 06/10/18 05:35 U Methamphetamines Scrn NEGATIVE (NEGATIVE) 06/10/18 05:35 U Benzodiazepines Scrn POSITIVE (NEGATIVE) H 06/10/18 05:35 Urine Cocaine Screen NEGATIVE (NEGATIVE) 06/10/18 05:35 U Cannabinoids Screen NEGATIVE (NEGATIVE) 06/10/18 05:35 Ethyl Alcohol < 5.0 mg/dL 06/10/18 04:30 Hepatitis A IgM Ab NON-REACTIVE (NON-REACTIVE) 06/16/18 07:31 Hep Bs Antigen NON-REACTIVE (NON-REACTIVE) 06/16/18 07:31 Hep B Core IgM Ab NON-REACTIVE (NON-REACTIVE) 06/16/18 07:31 Hepatitis C Antibody REACTIVE (NON-REACTIVE) A 06/16/18 07:31 Hep C Ab Signal/Cutoff 3.00 (<1.00) H 06/16/18 07:31 Blood Type B POSITIVE 06/10/18 09:26 - DIAGNOSTIC IMAGING Diagnostic Imaging Results: Final report reviewed Diagnostic Imaging Results Comments: EXAM: [id number] CT/ABPEW ([id number]) Procedure Date: 06/09/2018 Accession Number: [id number] / [id number] Procedure: CT - Abdomen/Pelvis W/ CPT Code: FULL RESULT: EXAM: CT ABDOMEN AND PELVIS EXAM DATE: 06/09/2018 10:12 PM. CLINICAL HISTORY: Jaundice firm palpable mass in right mid abdomen. COMPARISONS: ABDOMEN/PELVIS W/ 12/06/2016. TECHNIQUE: Routine helical CT imaging was performed through the abdomen and pelvis. IV contrast: ISOVUE 300 100mL. Enteric contrast: No. Reconstructions: Coronal and sagittal. In accordance with CT protocol optimization, one or more of the following dose reduction techniques were utilized for this exam: automated exposure control, adjustment of mA and/or KV based on patient size, or use of iterative reconstructive technique. FINDINGS: Lung Bases: Elevated right hemidiaphragm. Bibasilar atelectasis or infiltrate. Liver: Enlarged fatty severely heterogeneous liver measuring 28.8 cm. There are probably multiple masses. Gallbladder/Bile Ducts: Status post cholecystectomy. Spleen: Enlarged at 13.1 cm. Pancreas: Mild peripancreatic edema. Pancreas appears mildly prominent compared with the prior exam. No fluid collection seen. Adrenal Glands: Normal. Kidneys: Normal. No masses or hydronephrosis. Peritoneal Cavity/Bowel: No bowel obstruction seen. Mild amount of free fluid. No free air. Moderate stool in the colon. There are some areas of mild colonic wall thickening. No diverticulitis seen. Normal-sized retroperitoneal lymph nodes. Appendix appears normal. Pelvic Organs: Normal. The bladder and visualized pelvic organs are within normal limits. Vasculature: Mild atherosclerosis. No aortic aneurysm. Possible spontaneous splenorenal shunt. Bones: No aggressive lytic or blastic osseous lesions are identified. Other: None. IMPRESSION: 1. Enlarged fatty severely heterogeneous liver. Suspect multiple liver masses, likely representing diffuse metastatic disease. Fulminant inflammatory process considered less likely. 2. Mild splenomegaly with possible spontaneous splenorenal shunt. 3. Pancreatic edema is suspected. Correlate for possible pancreatitis. 4. There are some areas of mild wall thickening in the colon which could represent colitis. Portal hypertensive colopathy also possible. 5. Bibasilar atelectasis or infiltrate, right greater than left. EXAM: [id number] XR/CXRLP ([id number]) Procedure Date: 06/10/2018 Accession Number: [id number] / [id number] Procedure: XR - Chest for Line Placement CPT Code: FULL RESULT: EXAM: Chest for Line Placement DATE: 06/10/2018 11:59 AM CLINICAL HISTORY: Placement of PICC COMPARISON: None. TECHNIQUE: Single view of the chest. FINDINGS: Evaluation of the radiograph is limited by overlying wiring. Lungs/Pleura: No focal opacities evident. No pneumothorax or pleural effusion. Lung volumes are low. Mediastinum: Within exam limitations, cardiomediastinal contour is normal. Other: A right sided PICC terminates in the lower SVC. IMPRESSION: PICC with its distal tip in the lower SVC. EXAM: [id number] MRI/ABDWWO ([id number]) Procedure Date: 06/11/2018 Accession Number: [id number] / [id number] Procedure: MRI - Abdomen W/WO CPT Code: FULL RESULT: EXAM: MR ABDOMEN WITH AND WITHOUT CONTRAST (MR LIVER) EXAM DATE: 06/11/2018 12:12 PM. CLINICAL HISTORY: Possible liver cancer with mets on CT. COMPARISON: ABDOMEN/PELVIS W/ 06/09/2018. TECHNIQUE: Multiplanar breath-hold T1, T2, and DWI sequences obtained through the abdomen on an MR scanner. Images obtained before and after administration of 7.5 cc gadavist intravenous contrast. Multiphase postcontrast images obtained of the liver and abdomen. FINDINGS: Lung Bases: Unremarkable. Liver: Moderate enlarged liver with diffuse heterogeneous fatty infiltration with marked heterogeneous signal loss on out of phase sequences. This also causes a heterogeneous appearance on postcontrast imaging. This is consistent with the findings on CT. No focal enhancing liver masses are seen. No evidence of biliary dilatation. Mild ascites. Gallbladder: The gallbladder is partially distended and appears normal with no wall thickening or stone. Pancreas: The pancreas appears normal with no mass or ductal dilatation. Spleen: The spleen appears normal. Kidneys and Adrenals: The kidneys appear normal with no mass or hydronephrosis. There are no cysts in the kidneys. The adrenals appear normal. Bowel: The small bowel and colon appear normal with no inflammation or obstruction. Retroperitoneum: The retroperitoneal structures appear normal with no mass or lymphadenopathy. IMPRESSION: 1. Hepatomegaly with marked heterogeneous fatty infiltration of the liver, explains the findings on CT. No suspicious focal liver masses seen. 2. Mild ascites. 3. No additional mass or lymphadenopathy seen in the abdomen. EXAM: [id number] FL/INDPR ([id number]) Procedure Date: 06/12/2018 Accession Number: [id number] / [id number] Procedure: FL - Fluoro Independent Procedure CPT Code: FULL RESULT: EXAM: Fluoro Independent Procedure DATE: 06/12/2018 2:24 PM CLINICAL HISTORY: NG tube placement, no doboff of eliecer COMPARISON: None. TECHNIQUE: Under live fluoroscopic guidance a nasogastric tube was inserted past the gastroesophageal junction. Placement was confirmed by contrast injection. Lidocaine gel was used for patient comfort. Fluoroscopic exposure time: 3 minutes 17 seconds Number of fluoroscopic images: 2. FINDINGS: Normal anatomy. The patient appeared to tolerate the procedure well. IMPRESSION: Appropriate placement of a nasogastric tube. EXAM: [id number] FL/FDTUBE ([id number]) Procedure Date: 06/15/2018 Accession Number: [id number] / [id number] Procedure: FL - Feeding Tube Placement CPT Code: FULL RESULT: EXAM: Feeding Tube Placement DATE: 06/15/2018 11:56 AM CLINICAL HISTORY: not alert enough to eat COMPARISON: None. TECHNIQUE/FINDINGS: The patient was placed on the fluoroscopy table and a standard weighted tip feeding tube was inserted and a nasogastric fashion with the aid of lidocaine jelly for patient comfort under fluoroscopic guidance. Placement of the feeding tube tip below the diaphragm and within the bowel was confirmed by contrast injection. Fluoroscopy time was 2 minutes and 6 seconds with 1 spot image obtained. IMPRESSION: Fluoroscopically guided nasogastric feeding tube placement. EXAM: [id number] XR/CXR1VW ([id number]) Procedure Date: 06/18/2018 Accession Number: [id number] / [id number] Procedure: XR - Chest 1 View X-Ray CPT Code: 98058 FULL RESULT: EXAM: CHEST RADIOGRAPHY EXAM DATE: 06/18/2018 08:17 PM. CLINICAL HISTORY: Looking for a source of infection. COMPARISON: CHEST FOR LINE PLACEMENT 06/10/2018 11:48 AM. TECHNIQUE: 1 view. FINDINGS: Lungs/Pleura: Mild increase in right basilar density. Left lung appears unchanged. No pneumothorax. Mediastinum: Right-sided PICC line tip unchanged at mid SVC level. Heart size is normal. Trachea is midline. Other: None. IMPRESSION: Mild developing right basilar density favoring atelectasis but not excluding developing pneumonia. EXAM: XR/CXR1VW ([id number]) Procedure Date: 06/22/2018 Accession Number: [id number] / [id number] Procedure: XR - Chest 1 View X-Ray CPT Code: 42741 FULL RESULT: EXAM: Chest 1 View X-Ray DATE: 06/22/2018 10:24 AM CLINICAL HISTORY: increasing wbc COMPARISON: 06/18/2018 TECHNIQUE: Single view of the chest. FINDINGS: Interval development of patchy right mid lung and upper lung opacities as well as increased interstitial markings. The cardiomediastinal silhouette is stable. There is no large pleural effusion and no pneumothorax. IMPRESSION: Interval development of lung opacities, concerning for pneumonia in the setting of rising white cell count. Interval increase in interstitial markings should be correlated to volume status. EXAM: XR/ABD2VW ([id number]) Procedure Date: 06/22/2018 Accession Number: [id number] / [id number] Procedure: XR - Abdomen 2 View X-Ray CPT Code: 61063 FULL RESULT: EXAM: Abdomen 2 View X-Ray DATE: 06/22/2018 10:24 AM CLINICAL HISTORY: increasing wbc in cirrhotic COMPARISON: None. TECHNIQUE: 2 views. FINDINGS: Lung Bases: Unremarkable. Bowel Gas Pattern: Within normal limits. No dilated loops or abnormal fluid levels. Free Air: None. Other: Cholecystectomy clips are seen in the right upper quadrant IMPRESSION: Normal 2-view abdomen x-ray. EXAM: [id number] US/ABDLTD ([id number]) Procedure Date: 06/22/2018 Accession Number: [id number] / [id number] Procedure: US - Abdomen Limited CPT Code: FULL RESULT: EXAM: Abdomen Limited DATE: 06/22/2018 3:00 PM CLINICAL HISTORY: ASCITES COMPARISON: None. TECHNIQUE: Real-time scanning was performed with static images obtained. FINDINGS: Sonographic survey of the abdomen for ascites was performed. A small amount of ascites was seen in the lower abdomen, less than expected given physical exam and abdominal distention. IMPRESSION: Small amount of ascites in the lower abdominal quadrants. EXAM: [id number] US/ABDPAR ([id number]) Procedure Date: 06/23/2018 Accession Number: [id number] / [id number] Procedure: US - Abdominal Paracentesis CPT Code: FULL RESULT: EXAM: Abdominal Paracentesis DATE: 06/23/2018 4:06 PM CLINICAL HISTORY: ascites COMPARISON: None. FINDINGS: Following obtaining informed consent, a suitable site in the patient's the right lower abdomen/pelvis was selected with ultrasound. The skin was prepped and draped in the usual sterile fashion. The skin and soft tissues were anesthetized with buffered lidocaine. A Safetycentesis catheter was inserted into the peritoneal cavity, and approximately 1300 mL of fluid was removed without difficulty. The patient tolerated the procedure well. No immediate complications. IMPRESSION: Successful ultrasound-guided paracentesis, yielding approximately 1300 mL of fluid. A sample was submitted to pathology for analysis. - FOLLOW UP Follow Up: Patient is being discharged to [facility] for rehab with physical therapy. She will need to follow-up with her primary care physician and will need referrals for gastroenterology and hepatology. She will continue on a prednisone taper for an additional 14 days to complete 28 days of treatment for alcoholic hepatitis. Patient will abstain from drinking alcohol and will be allowed a 3000-calorie a day diet to improve her nutritional status - TIME SPENT Time Spent in Discharge (Minutes): 65
[2018-06-24 13:22] VITALS: BP 119/65
[2018-06-24] MEDS: LORazepam 2 MG/ML VIAL IVP PRN (13:35)
== END 2018-06-24 15:15 | DRG 432 ==
LOC: EDUNIT# → SUPCPDRO 19:53 → ED 19:53 → EEVIPCON 19:53 → ICU 06-10 00:12 → MS2 06-18 16:02
PROVIDERS: ADMIT Internal Medicine; ATTEND Internal Medicine
PROC: 30233L1 Transfusion of Nonautologous Fresh Plasma into Peripheral Vein, Percutaneous Approach (ICD-10-PCS; principal; 2018-06-10)
PROC: 02HV33Z Insertion of Infusion Device into Superior Vena Cava, Percutaneous Approach (ICD-10-PCS; 2018-06-10)
PROC: B548ZZA Ultrasonography of Superior Vena Cava, Guidance (ICD-10-PCS; 2018-06-10)
DX: K70.40 Alcoholic hepatic failure without coma (principal); E43 Unspecified severe protein-calorie malnutrition; E87.1 Hypo-osmolality and hyponatremia; K70.11 Alcoholic hepatitis with ascites; F10.10 Alcohol abuse, uncomplicated; E86.0 Dehydration; K70.10 Alcoholic hepatitis without ascites; Z68.25 Body mass index [BMI] 25.0-25.9, adult; M54.9 Dorsalgia, unspecified; G89.29 Other chronic pain; R16.0 Hepatomegaly, not elsewhere classified; Z72.0 Tobacco use; Z66 Do not resuscitate; E87.6 Hypokalemia
CPT/HCPCS: 36415; 43752; 49083; 71045; 74019; 74177; 74183; 76000; 76705; 80048; 80053; 80074; 80076; 80202; 80306; 80307; 80320; 80329; 81001; 81003; 81025; 82140; 82310; 82330; 82550; 82553; 82607; 82746; 83605; 83690; 83735; 84100; 84132; 84134; 84484; 85025; 85027; 85610; 86900; 86901; 87040; 87070; 87086; 87150; 87205; 88108; 88305; 89051; 96361; 96365; 96366; 96375; 99284; 99285

== ENCOUNTER 2018-06-29 18:15 | Outpatient (CLI) | payer MEDICAID, MEDICARE ==
[2018-06-29 19:05] LABS: BASOPHILS % (AUTO) 0.3 %; EOSINOPHILS % (AUTO) 0.2 %; HGB - HEMOGLOBIN 10.7 g/dL (12.0-16.0); LYMPHOCYTES % (AUTO) 4.6 %; MEAN CORPUSCULAR HEMOGLOBIN 40.2 pg (27.0-31.0); MEAN CORPUSCULAR VOLUME 118.2 fL (81.0-99.0); MEAN PLATELET VOLUME 11.8 fL (7.9-10.8); MONOCYTES % (AUTO) 4.1 %; NEUTROPHILS % (AUTO) 90.8 %; PLT - PLATELET COUNT 101 10^3/uL (130-450); RED BLOOD COUNT 2.66 10^6/uL (4.20-5.40); RED CELL DISTRIBUTION WIDTH 18.6 % (12.0-15.0)
[2018-06-29 19:11] LABS: WHITE BLOOD COUNT 41.8 x10^3/uL (4.8-10.8)
[2018-06-29 19:12] LABS: ABNORMAL LYMPHS % (MANUAL) 0 %
[2018-06-29 19:49] LABS: ALBUMIN 2.2 g/dL (3.2-5.5); ALBUMIN/GLOBULIN RATIO 0.6 (1.0-2.2); BILIRUBIN,TOTAL 29.9 mg/dL (0.2-1.0); CALCIUM 8.1 mg/dL (8.5-10.3); CREATININE 0.6 mg/dL (0.4-1.0); TOTAL PROTEIN 5.8 g/dL (6.7-8.2)
[2018-06-29 19:54] LABS: BAND NEUTROPHILS % (MANUAL) 26 %; DIFFERENTIAL COMMENT MANUAL DIFFERENTIAL; LYMPHOCYTES # (MANUAL) 0.4 10^3/uL (1.5-3.5); LYMPHOCYTES % (MANUAL) 1 %; NEUTROPHILS # (MANUAL) 41.4 10^3/uL (1.5-6.6); NEUTROPHILS % (MANUAL) 73 %; PLATELET ESTIMATE, MANUAL DECREASED (<130,000) (NORMAL); PLATELET MORPHOLOGY NORMAL APPEARANCE (NORMAL)
== END 2018-06-29 18:16 | disposition home or self-care (01) ==
LOC: LAB.R 18:15
DX: K72.00 Acute and subacute hepatic failure without coma (principal); E87.6 Hypokalemia
CPT/HCPCS: 80053; 85025

== ENCOUNTER 2018-07-03 08:50 | Outpatient (CLI) | payer MEDICAID, MEDICARE, OTHER ==
[2018-07-03 14:18] LABS: ALBUMIN 2.3 g/dL (3.2-5.5); ALBUMIN/GLOBULIN RATIO 0.6 (1.0-2.2); CALCIUM 8.5 mg/dL (8.5-10.3); CREATININE 0.6 mg/dL (0.4-1.0); TOTAL PROTEIN 6.1 g/dL (6.7-8.2)
== END 2018-07-03 08:51 | disposition home or self-care (01) ==
LOC: LAB.R 08:50
DX: K72.00 Acute and subacute hepatic failure without coma (principal); R79.89 Other specified abnormal findings of blood chemistry
CPT/HCPCS: 80053

== ENCOUNTER 2018-07-03 12:26 | Outpatient (CLI) | payer MEDICARE ==
--- NOTE | 2018-07-03 15:42 | Ultrasound Report ---
Procedure Date: 07/03/2018 Accession Number: [id number] / [id number] Procedure: US - Abdominal Paracentesis CPT Code: FULL RESULT: EXAM: ULTRASOUND-GUIDED PARACENTESIS EXAM DATE: 07/03/2018 01:24 PM. CLINICAL HISTORY: Alcoholic hepatitis with ascites. COMPARISON: Abdominal paracentesis 06/23/2018. TECHNIQUE: Risks, benefits, and alternatives to the procedure were discussed with the patient. All questions answered. Written and verbal consent obtained. Patient was placed in the supine position and the skin overlying the ascites marked with sonographic guidance. The skin was sterilely prepped and draped, and 1% buffered lidocaine was used for local anesthesia. An 18-gauge Yueh cath/needle was advanced into the peritoneal ascites and fluid aspirated. Upon completion, the catheter was removed. FINDINGS: A total of 3400 mL of fluid was removed without immediate complication. Patient tolerated procedure well. IMPRESSION: Ultrasound-guided paracentesis without immediate complications. [facility]
[2018-07-03] MEDS: BUFFERED LIDOCAINE 10 ML SYRINGE IU ONE ×2 (15:43→15:44)
== END 2018-07-03 12:27 | disposition home or self-care (01) ==
LOC: DI 12:26
PROVIDERS: ATTEND Family Medicine
DX: K70.11 Alcoholic hepatitis with ascites (principal); R79.89 Other specified abnormal findings of blood chemistry; K72.00 Acute and subacute hepatic failure without coma
CPT/HCPCS: 49083; 80053

== ENCOUNTER 2018-07-06 13:30 | Outpatient (CLI) | payer MEDICAID, MEDICARE, OTHER | END 2018-07-06 13:31 | disposition home or self-care (01) | LOC: LAB.R 13:30 | DX: E87.6 Hypokalemia (principal) | CPT/HCPCS: 84132 ==

== ENCOUNTER 2018-07-08 17:18 | Outpatient (CLI) | payer MEDICARE ==
[2018-07-08 17:57] LABS: BASOPHILS % (AUTO) 1.4 %; EOSINOPHILS % (AUTO) 0.6 %; HGB - HEMOGLOBIN 9.9 g/dL (12.0-16.0); LYMPHOCYTES % (AUTO) 1.8 %; MEAN CORPUSCULAR HEMOGLOBIN 39.8 pg (27.0-31.0); MEAN CORPUSCULAR HGB CONC 33.9 g/dL (32.0-36.0); MEAN CORPUSCULAR VOLUME 117.2 fL (81.0-99.0); MEAN PLATELET VOLUME 11.8 fL (7.9-10.8); MONOCYTES % (AUTO) 4.6 %; NEUTROPHILS % (AUTO) 91.6 %; PLT - PLATELET COUNT 69 10^3/uL (130-450); RED CELL DISTRIBUTION WIDTH 15.3 % (12.0-15.0)
[2018-07-08 18:03] LABS: WHITE BLOOD COUNT 35.7 x10^3/uL (4.8-10.8)
[2018-07-08 18:04] LABS: ABNORMAL LYMPHS % (MANUAL) 0 %; LYMPHOCYTES % (MANUAL) 0 %
[2018-07-08 18:07] LABS: ALBUMIN/GLOBULIN RATIO 0.6 (1.0-2.2); BILIRUBIN,TOTAL 22.9 mg/dL (0.2-1.0); CREATININE 0.8 mg/dL (0.4-1.0); TOTAL PROTEIN 5.3 g/dL (6.7-8.2)
[2018-07-08 18:20] LABS: BAND NEUTROPHILS % (MANUAL) 7 %; METAMYELOCYTES % (MANUAL) 1 %; MONOCYTES # (MANUAL) 1.8 10^3/uL (0.0-1.0); MYELOCYTES % (MANUAL) 1 %; NEUTROPHILS # (MANUAL) 33.2 10^3/uL (1.5-6.6); NEUTROPHILS % (MANUAL) 86 %
[2018-07-08 18:25] LABS: PLATELET ESTIMATE, MANUAL DECREASED (<130,000) (NORMAL); PLATELET MORPHOLOGY NORMAL APPEARANCE (NORMAL)
== END 2018-07-08 17:19 | disposition home or self-care (01) ==
LOC: LAB.R 17:18
DX: R79.89 Other specified abnormal findings of blood chemistry (principal); R68.89 Other general symptoms and signs
CPT/HCPCS: 80053; 85025

== ENCOUNTER 2018-07-13 16:45 | Outpatient (CLI) | payer OTHER, MEDICARE ==
[2018-07-13 17:21] LABS: BASOPHILS % (AUTO) 0.4 %; EOSINOPHILS % (AUTO) 1.1 %; HGB - HEMOGLOBIN 10.8 g/dL (12.0-16.0); LYMPHOCYTES % (AUTO) 5.5 %; MEAN CORPUSCULAR HEMOGLOBIN 39.3 pg (27.0-31.0); MEAN CORPUSCULAR HGB CONC 33.8 g/dL (32.0-36.0); MEAN CORPUSCULAR VOLUME 116.2 fL (81.0-99.0); MEAN PLATELET VOLUME 11.3 fL (7.9-10.8); MONOCYTES % (AUTO) 3.1 %; NEUTROPHILS % (AUTO) 89.9 %; PLT - PLATELET COUNT 75 10^3/uL (130-450); RED BLOOD COUNT 2.75 10^6/uL (4.20-5.40); RED CELL DISTRIBUTION WIDTH 14.6 % (12.0-15.0)
[2018-07-13 17:33] LABS: ALBUMIN 1.8 g/dL (3.2-5.5); ALBUMIN/GLOBULIN RATIO 0.5 (1.0-2.2); BILIRUBIN,TOTAL 24.7 mg/dL (0.2-1.0); CALCIUM 8.2 mg/dL (8.5-10.3); CREATININE 0.8 mg/dL (0.4-1.0); TOTAL PROTEIN 5.4 g/dL (6.7-8.2)
[2018-07-13 17:44] LABS: WHITE BLOOD COUNT 38.1 x10^3/uL (4.8-10.8)
[2018-07-13 17:45] LABS: ABNORMAL LYMPHS % (MANUAL) 0 %
[2018-07-13 17:47] LABS: BAND NEUTROPHILS % (MANUAL) 11 %; EOSINOPHILS # (MANUAL) 0.4 10^3/uL (0-0.7); LYMPHOCYTES # (MANUAL) 2.7 10^3/uL (1.5-3.5); LYMPHOCYTES % (MANUAL) 7 %; METAMYELOCYTES % (MANUAL) 1 %; MONOCYTES # (MANUAL) 0.8 10^3/uL (0.0-1.0); NEUTROPHILS # (MANUAL) 33.9 10^3/uL (1.5-6.6); NEUTROPHILS % (MANUAL) 78 %; PLATELET ESTIMATE, MANUAL DECREASED (<130,000) (NORMAL); PLATELET MORPHOLOGY NORMAL APPEARANCE (NORMAL); RBC MORPHOLOGY (MULTIPLE) 4+ MACROCYTOSIS (NORMAL)
[2018-07-13 17:48] LABS: DIFFERENTIAL COMMENT MANUAL DIFFERENTIAL
== END 2018-07-13 16:46 | disposition home or self-care (01) ==
LOC: LAB.R 16:45
DX: K72.00 Acute and subacute hepatic failure without coma (principal)
CPT/HCPCS: 80053; 82140; 85025

== ENCOUNTER 2018-07-17 08:40 | Outpatient (CLI) | payer MEDICARE ==
[2018-07-17 11:29] LABS: ALBUMIN 1.8 g/dL (3.2-5.5); ALBUMIN/GLOBULIN RATIO 0.5 (1.0-2.2); BILIRUBIN,TOTAL 24.4 mg/dL (0.2-1.0); CALCIUM 8.1 mg/dL (8.5-10.3); CREATININE 1.3 mg/dL (0.4-1.0); TOTAL PROTEIN 5.4 g/dL (6.7-8.2)
== END 2018-07-17 08:41 | disposition home or self-care (01) ==
LOC: LAB.R 08:40
DX: K72.00 Acute and subacute hepatic failure without coma (principal)
CPT/HCPCS: 80053

== ENCOUNTER → 2018-07-20 | Outpatient (CLI) | payer MEDICARE ==
[2018-07-20 13:28] LABS: BASOPHILS % (AUTO) 0.1 %; EOSINOPHILS % (AUTO) 0.5 %; HGB - HEMOGLOBIN 10.4 g/dL (12.0-16.0); LYMPHOCYTES % (AUTO) 3.1 %; MEAN CORPUSCULAR HEMOGLOBIN 38.9 pg (27.0-31.0); MEAN CORPUSCULAR HGB CONC 34.4 g/dL (32.0-36.0); MEAN CORPUSCULAR VOLUME 113.1 fL (81.0-99.0); MEAN PLATELET VOLUME 10.8 fL (7.9-10.8); MONOCYTES % (AUTO) 6.8 %; NEUTROPHILS % (AUTO) 89.5 %; PLT - PLATELET COUNT 112 10^3/uL (130-450); RED BLOOD COUNT 2.67 10^6/uL (4.20-5.40)
[2018-07-20 13:32] LABS: ALBUMIN 1.6 g/dL (3.2-5.5); ALBUMIN/GLOBULIN RATIO 0.5 (1.0-2.2); BILIRUBIN,TOTAL 20.8 mg/dL (0.2-1.0); CALCIUM 8.2 mg/dL (8.5-10.3); CREATININE 1.5 mg/dL (0.4-1.0); TOTAL PROTEIN 4.9 g/dL (6.7-8.2)
[2018-07-20 14:05] LABS: WHITE BLOOD COUNT 45.4 x10^3/uL (4.8-10.8)
[2018-07-20 14:06] LABS: ABNORMAL LYMPHS % (MANUAL) 0 %; BAND NEUTROPHILS % (MANUAL) 11 %; LYMPHOCYTES # (MANUAL) 2.7 10^3/uL (1.5-3.5); LYMPHOCYTES % (MANUAL) 6 %; METAMYELOCYTES % (MANUAL) 4 %; MONOCYTES # (MANUAL) 3.2 10^3/uL (0.0-1.0); NEUTROPHILS # (MANUAL) 37.7 10^3/uL (1.5-6.6); NEUTROPHILS % (MANUAL) 72 %
[2018-07-20 14:07] LABS: DIFFERENTIAL COMMENT MANUAL DIFFERENTIAL; PLATELET ESTIMATE, MANUAL DECREASED (<130,000) (NORMAL); PLATELET MORPHOLOGY NORMAL APPEARANCE (NORMAL)
== END ==
LOC: LAB.R 08:00
PROVIDERS: ATTEND Family Medicine
DX: K72.00 Acute and subacute hepatic failure without coma (principal); R68.89 Other general symptoms and signs
CPT/HCPCS: 80053; 85025

== ENCOUNTER 2018-07-24 12:30 | Outpatient (CLI) | payer MEDICAID, MEDICARE, OTHER ==
[2018-07-24 14:07] LABS: CALCIUM 8.1 mg/dL (8.5-10.3); CREATININE 1.5 mg/dL (0.4-1.0)
== END 2018-07-24 12:31 | disposition home or self-care (01) ==
LOC: LAB.R 12:30
DX: K72.00 Acute and subacute hepatic failure without coma (principal)
CPT/HCPCS: 80048

== ENCOUNTER 2018-07-29 17:01 | Outpatient (CLI) | payer MEDICARE, MEDICAID ==
[2018-07-29 17:27] LABS: HGB - HEMOGLOBIN 9.3 g/dL (12.0-16.0); LYMPHOCYTES % (AUTO) 5.8 %; MEAN CORPUSCULAR HEMOGLOBIN 37.2 pg (27.0-31.0); MEAN CORPUSCULAR HGB CONC 34.4 g/dL (32.0-36.0); MEAN CORPUSCULAR VOLUME 108.2 fL (81.0-99.0); MEAN PLATELET VOLUME 11.2 fL (7.9-10.8); MONOCYTES % (AUTO) 8.4 %; NEUTROPHILS % (AUTO) 83.8 %; PLT - PLATELET COUNT 107 10^3/uL (130-450)
[2018-07-29 17:48] LABS: WHITE BLOOD COUNT 36.5 x10^3/uL (4.8-10.8)
[2018-07-29 17:49] LABS: ABNORMAL LYMPHS % (MANUAL) 0 %
[2018-07-29 18:17] LABS: ALBUMIN 1.5 g/dL (3.2-5.5); ALBUMIN/GLOBULIN RATIO 0.5 (1.0-2.2); BILIRUBIN,TOTAL 14.3 mg/dL (0.2-1.0); CALCIUM 8.1 mg/dL (8.5-10.3); CREATININE 1.4 mg/dL (0.4-1.0); TOTAL PROTEIN 4.7 g/dL (6.7-8.2)
[2018-07-29 18:26] LABS: BAND NEUTROPHILS % (MANUAL) 3 %; EOSINOPHILS # (MANUAL) 0.4 10^3/uL (0-0.7); LYMPHOCYTES # (MANUAL) 1.8 10^3/uL (1.5-3.5); LYMPHOCYTES % (MANUAL) 5 %; MONOCYTES # (MANUAL) 2.9 10^3/uL (0.0-1.0); MYELOCYTES % (MANUAL) 2 %; NEUTROPHILS # (MANUAL) 30.7 10^3/uL (1.5-6.6); NEUTROPHILS % (MANUAL) 81 %
[2018-07-29 18:29] LABS: PLATELET ESTIMATE, MANUAL DECREASED (<130,000) (NORMAL); PLATELET MORPHOLOGY NORMAL APPEARANCE (NORMAL)
== END 2018-07-29 17:02 | disposition home or self-care (01) ==
LOC: LAB.R 17:01
PROVIDERS: ATTEND Family Medicine
DX: K70.10 Alcoholic hepatitis without ascites (principal); K72.00 Acute and subacute hepatic failure without coma
CPT/HCPCS: 80053; 82140; 85025

== ENCOUNTER 2018-08-04 12:05 | Outpatient (CLI) | payer MEDICARE, OTHER ==
--- NOTE | 2018-08-04 18:36 | CONSULTATION NOTE ---
Palliative Care Consultation - Referral Referring Provider: Dr Singh. Sherly PRITCHETT was her PCP in the past. Time of Visit: 08/04/2018. 12:05 - 13:25 Referral setting: [facility] ([facility]) Referral Reason: Advanced care planning end-stage liver disease - Information Sources Records reviewed: Previous records reviewed History/Review of Systems obtained from: Patient, Nursing, Other ([facility] Money Room Supervisor) Exam limitations: Other (Unreliable historian) - History of Present Illness Brief History of Present Illness: -52 year old female with alcoholic cirrhosis of the liver and hepatitis C, living at [facility] since June 24 2018. -Medical history: alcoholic cirrhosis; hepatitis C; h/o alcoholism; fatty liver disease; leukocytosis (oncology consultation scheduled 08/17/18 for suspicion of leukemia), severe protein calorie malnutrition; chronic back pain; chronic migraines; GERD; h/o seizures, possibly secondary to etoh control; tobacco abuse; depression; anxiety; panic; PTSD. -Patient was hospitalized at [facility] 06/09/18 - 06/24/18 for jaundice and general decline over the preceding 6 months. -She had abdominal pain, nausea, and general malaise subsequent to cholecystectomy in November 2017. -CT abdomen and pelvis revealed enlarged fatty, severely heterogenous liver with suspicion of multiple liver masses. -Recommendation was made for referral for alcohol treatment and if able to achieve 6 months of abstinence from alcohol could potentially qualify for a liver transplant. -Her MELD score was 34 -- an estimated 3-month mortality of 52.6%. -MRI of abdomen revealed hepatomegaly with marker heterogeneous fatty infiltration of the liver and no suspicious focal liver masses. -During the course of her hospitalization, her liver function tests and mentation gradually improved. -However she continued to have signs of end-stage liver disease: thrombocytopenia, ascites, jaundice, elevated INR and hepatic encephalopathy. -She was started on lactulose and rifaximin and she improved enough so that she could participate with physical therapy. -She was discharged from hospital to [facility] on 06/24/18 and is currently participating in PT and OT. -Ammonia levels remain elevated so she continues to experience cognitive and memory deficits -Leukocytosis peaked at 35,400 and was 29,600 at time of hospital discharge to [facility] in June, likely due to ongoing hepatitis and liver failure. -Her overall prognosis at time of admission to [facility] was very poor: poor social support, high risk for continued alcohol abuse and very poor nutritional status. -She had counseling at the hospital that appeared to be effective, hopefully leading to a commitment to stop drinking and improve her nutritional intake. She reports she is not currently smoking or drinking. -The long-term hope is that she can improve to the point of being eligible for a liver transplant. -Today she confirms to me that she is hoping for a liver transplant. She "wants to live" for her son, and becomes quite teary at several points during today's visit when discussing her illness or her son. -She has had 2 paracenteses: one was June 22, 2018, during her hospitalization, and the second one was since she has been residing at [facility]. -Dr Singh and the facility are following up on obtaining a gastroenterology consultation for the patient. -Since 2010 the patient has been on disability for migraines and chronic back pain. The recommendation is to avoid NSAIDs and Tylenol. She uses 2.5mg oxycodone, on average about twice daily. She reports it doesn't adequately control the pain, but understands that the dosing is kept low due to her liver. She uses lorazepam usually 2x/day for anxiety. -She had been participating in therapy and doing well, but hadn't been able to for the past day or so. She also put lactulose on temporary hold but will restart it today. -Today the nurse notes the patient is clearer and more lucid than she has previously been. -Patient notes episodes of mild epitaxis x several weeks. Not lin bleeding, more bloody mucus. Medical/Surgical History - Past Medical History Cardiovascular: reports: None, Other (chronic palpitations) Respiratory: reports: None Neuro: None Neuro: reports: Headache/migraine, Seizure disorder Endocrine/Autoimmune: reports: None GI: reports: GERD, Ulcers, Hiatal hernia, Chronic constipation, Hemorrhoids, Hepatitis (Hep C), Cirrhosis (alcoholic; fatty liver disease) STAFFING ACCOUNT MANAGER: reports: None : reports: Frequency HEENT: reports: Chronic vision loss, Other Psych: reports: Depression, Anxiety, Panic attacks, Post traumatic stress disor eileen Musculoskeletal: reports: Chronic back pain Derm: reports: None MRSA Hx?: No - Past Surgical History General: reports: Cholecystectomy (November 2017) Ortho: reports: Other /STAFFING ACCOUNT MANAGER: reports: Tubal ligation - Substance History Abuse: Recurrent use of substance despite neg consequences: Alcohol ("drinking many years," recently quit; date unknown) Dependence: Experiences withdrawal or developed tolerances: Tobacco (30+ years smoking, recently quit, date unknown.) Social History - Living Situation Living arrangement: care home ([facility] since 06/24/2018.) Living Situation: With caregiver(s) Support System: Patient reports being "homeless." She had recently left [facility], possibly was in [place]. Her Medicaid was terminated on 07/29/2018 due to her leaving the [facility]; the facility is in the process of reinstating her Medicaid. Her brother, Mau Roman, (mobile [phone]) and her mother live together in [place], and the patient reports that her brother "wants her to live with them." Her 15-year-old son, Jackson Fleming, currently lives with Vincent Brar, a youth ministry coordinator at the [facility] in [place]. Jackson will turn 18 on 08/28/18. She reports she and her son are very close, she speaks to him almost daily, and he will be coming to visit her later this afternoon. So will her brother Mau. The patient signed a palliative care HIPAA consent form with only her brother listed, Mau Roman, and not to share personal information. Family History - Family History Family History: Mother: Diabetes, Type 2, Parkinson's Disease, Father: Diabetes, Type 2, Brother: Parkinson's Disease Medications/Allergies - Medications Home Medications: Ambulatory Orders Medication Instructions Recorded Confirmed Folic Acid 1 mg PO DAILY tablet 06/24/18 08/04/18 Multivitamin [Theragran] 1 tab PO DAILYWM tablet 06/24/18 08/04/18 Thiamine [Vitamin B-1] 100 mg PO DAILY tablet 06/24/18 08/04/18 rifAXIMin [Xifaxan] 550 mg PO BID tablet 06/24/18 08/04/18 Furosemide [Lasix] 80 mg PO DAILY 08/04/18 08/04/18 House Bowel Program 1 ea PRN PRN 08/04/18 LORazepam [Ativan] 0.5 tab PO Q6H PRN 08/04/18 08/04/18 Lactulose 30 ml PO Q6H 08/04/18 08/04/18 Medpass 2.0 90 ml PO TID 08/04/18 Omeprazole 20 mg PO DAILY 08/04/18 08/04/18 Potassium Chloride [K-Dur] 20 meq PO TIDWM 08/04/18 08/04/18 Saccharomyces Boulardii [Florastor] 250 mg PO BID 08/04/18 08/04/18 Spironolactone [Aldactone] 100 mg PO DAILY 08/04/18 08/04/18 oxyCODONE [Roxicodone] 2.5 mg PO Q6H PRN 08/04/18 08/04/18 - Allergies Allergies/Adverse Reactions: Allergies Allergy/AdvReac Type Severity Reaction Status Date / Time ceftriaxone sodium * Allergy Severe RASH,HIVES, Verified 06/09/18 20:07 [From Rocephin] BURNING,ITC JAMIE cephalexin monohydrate * Allergy Severe RASH,HIVES, Verified 06/09/18 20:07 [From Keflex] BURNING,ITC JAMIE ciprofloxacin Allergy Severe RASH,HIVES, Verified 06/09/18 20:07 BURNING,ITC JAMIE phenazopyridine HCl * Allergy Severe SWELLING Verified 06/09/18 20:07 [From Pyridium] OF AIRWAY Sulfa (Sulfonamide Allergy Severe RASH,HIVES, Verified 06/09/18 20:07 Antibiotics) BURNING,ITC JAMIE gentamicin Allergy Edema Verified 06/09/18 20:07 lamotrigine [From Lamictal] Allergy Hives Verified 06/09/18 20:07 levetiracetam [From Keppra] Allergy Anxiety Verified 06/09/18 20:07 Review of Systems - Constitutional Constitutional: reports: Fatigue, Weight loss (Weight affected by ascites. 124.8 lbs 08/04/18. 121 lbs 08/03/18. Was in the 130s earlier in Jul, was in the 125- 129 lbs end of June 2018.) - Ears, Nose & Throat Ears, Nose & Throat: reports: Nosebleeds (bloody mucus, not lin blood x 2-3 weeks). denies: Hearing loss - Cardiovascular Cardiovascular: reports: Palpitations (chronic, lifelong), Edema - Respiratory Respiratory: reports: Other (SOB, chest heaviness when lying down to sleep) - Gastrointestinal Gastrointestinal: reports: Abdominal distention, Poor appetite - Genitourinary Genitourinary: denies: Incontinence - Musculoskeletal Musculoskeletal: reports: Back pain (chronic. 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, diagnosed December 2017.) - Neurological Neurological: reports: Headache (chronic migraine), Dizziness (episodic) Physical Exam - Vital Signs Temperature: 97.3 F Pulse Rate: 97 O2 Saturation: 95 (room air) Blood Pressure: 102/68 (wrist cuff) - Physical Exam General Appearance: positive: No acute distress, Alert Eyes Bilateral: negative: No scleral icterus (has scleral icterus) Neck: positive: Trachea midline Cardiovascular: positive: Regular rate & rhythm, Systolic murmur (2/) Respiratory: positive: Chest non-tender, No respiratory distress, Diminished in bases (diminished in RLL) Abdomen: positive: Hepatomegaly, Distended, Taut Skin: positive: Jaundice Extremities: positive: Pedal edema (2+ to 3+ on feet) Neurologic/Psychiatric: positive: Oriented x3, Depressed mood/affect (tearful when speaking of her health and of her son) Palliative Care - POLST Patient has POLST: Yes POLST Status: Full Code Pain: Pain unchanged, Location (Chronic back pain and migraines, has been on disability since 2010 for these problems.) Tiredness/Fatigue: Moderate (4-6) Performance Status: Ambulatory, participates in therapy Continent - Palliative Care Discussion: Patient continues to have some memory issues and confusion due to ammonia levels still running high. However, she still has decision making capacity, and has requested the POLST be updated from DNR and selective treatment. This was signed by her brother in the hospital when her condition looked very dire. Since then, her condition has improved. She "wants to live" for her son, and so we created a new POLST with full code. After my visit, I spoke on the phone with Bonita in admin who is now handling social work issue, and apparently the patient had previously asked Vance, the supply chain vice president at the SNF, about assisted suicide, but the patient also specified that she is "not suicidal." This is not something the patient asked about or mentioned during the palliative care assessment. She has a hematology consultation with Dr Jorgensen at the [facility] on August 17 regarding leukemia. Wesly has arranged for Par[employer]rans[employer]. The patient was not aware of this consultation when I mentioned it, although Bonita tells me she had been previously told about it. Bonita said she will reconfirm the appointment with the patient, and continue to remind her. The patient has told me her brother is willing to have her live with him (and their mother). However, the medical officer reports that this is not the case. During a care conference with the brother, he expressed his wish to be suppo rtive, but due to his own medical condition (Parkinson's) feels he cannot offer a lot of support, or have the patient live with them. The patient at one point moved out of state (to [place]?), and so her Medicaid was terminated as of 07/29/2018. The facility is aware of this and is in the process of assisting her to reapply for Medicaid. The patient displays some recognition of the seriousness of her health and condition. She has some familiarity with organ transplants; her former partner's mother had a liver transplant, and her partner's brother had a kidney transplant. She becomes tearful whenever she speaks of her health, and also of her son, whom she is very close to. She does reiterate to me several times that she "wants to live for him." She worries about how he is going to handle this news about her liver transplant and possible leukemia. She has not spoken with him yet, and doesn't want to speak about it today with me. Her son is going to come visit her this afternoon. She does say he is a smart kid, and "knows what is going on," but does not provide more details. She proudly showed me her photo album of him, and says that Vincent Brar, the youth ministry coordinator, has told her he is doing well in school. She had previously declined any counseling services proposed by the SNF, but was interested in palliative care services. She wants to continue to see palliative care. Bonita will try to get a care conference together, tentatively next week. Results - Lab Results Lab results reviewed: Yes Lab and Imaging Results: 07/29/18: WBC 36.5 H Hbg 9.3 Hcct 27.1 Plt count 107 L (130-450) Ammonia 113.8 H (7-35) AST 63 H ALT 19 Norm Tot protein 4.7 L Albumin 1.5 L B12 1046 H (180-914) Na 129 BUN 23 H Cr 1.4 H GFR 40 L Impression and Recommendations - Palliative Care Impression: 52 year old female with protein calorie malnutrition, and end-stage liver disease with alcoholic cirrhosis and Hepatitis C. She has stabilized somewhat since residing at [facility] after discharge from hospital in early June. She is hoping to qualify for liver transplant. Her social situation remains precarious as she has no home, and her 15-year-old son is currently living with a [facility] [employer] coordinator in [place]. Her brother and her mother live nearby in [place] but are not able to offer much support due to their own health conditions (both have Parkinson's, and the mother has dementia). The SNF is assisting the patient to reapply for Medicaid, the patient has an oncology consultation scheduled for Aug 17 for suspected leukekmia, and the facility is following up on obtaining a gastroenterology consultation. Palliative care will provide additional support and resources for goals of care and symptom management. Recommendations/Counseling Done: End stage alcoholic cirrhosis and Hepatitis C: Some improvement and stabilization. Patient no longer drinking alcohol, states she wants a liver transplant, this requires 6 months of sobriety and also sufficient social support. Facility is in process of arranging a GE consultation. Continue thiamine and folic acid supplements. Ascites: Patient has had two paracentesis, one during hospitalization and one since living at [facility]. Dr Singh's goal is to manage by diuresis and minimize how many paracentesis are performed. Continue spironolactone 100mg daily, Lasix 80mg daily, and potassium chloride 10meq daily. Weights improved: 124.8 lbs on 08/04, 130. lbs on 07/28, 133.8 lbs on 07/21. Continue daily weights. Elevated ammonia: Lactulose 30mL four times per day. It was on hold for a day or so due to explosive bowel movements, is being restarted today. Continue rifaximin 500mg BID. Elevated leukocytes/leukocytosis: Consultation with hematology, Dr Jorgensen, is scheduled for August 17. Continue rifaximin 500mg BID. On omeprazole for risk for gastrointestinal bleeding Chronic back pain: Continue oxycodone 2.5mg Q6h PRN. Usage is mostly 2x/day. No NSAIDs or Tylenol. Continue PT and OT. Chronic anxiety/PTSD: Continue lorazepam 0.25mg every 8 hours as needed. Usage is usually 2x/day Advanced care planning: Patient requested updating POLST from DNR/comfort care (signed by her brother during her hospitalization) to Full Code. We filled it out and signed it, left the original with [facility]. I gave a copy to the patient. Patient states her goal is to do the work up for liver transplant, and also go forward with meeting the oncologist regarding her elevated leukocytes. She also is homeless for the time being; brother has indicated to the facility he is not able to offer much in the way of support or have patient live with them. Bonita in administration is working on reapplying for Medicaid for patient and will schedule a care conference, hopefully for next week. Palliative care SCREEN PRINTING INSPECTOR involvement not indicated at this time, but that may change as events unfold. Follow up in 1-2 weeks. Time Spent: 80 minutes were spent with more than 50% of the time spent on counseling, education, anticipatory guidance, and coordination of care regarding alcoholic cirrhosis and leukocytosis.
== END 2018-08-04 12:06 | disposition home or self-care (01) ==
LOC: PC 12:05
PROVIDERS: ATTEND Nurse Practitioner
DX: Z51.5 Encounter for palliative care (principal); K72.90 Hepatic failure, unspecified without coma; K70.30 Alcoholic cirrhosis of liver without ascites; B19.20 Unspecified viral hepatitis C without hepatic coma; R18.8 Other ascites; R74.8 Abnormal levels of other serum enzymes; D72.829 Elevated white blood cell count, unspecified; G89.29 Other chronic pain; M54.9 Dorsalgia, unspecified; F41.9 Anxiety disorder, unspecified; F43.10 Post-traumatic stress disorder, unspecified; Z87.891 Personal history of nicotine dependence; E46 Unspecified protein-calorie malnutrition
CPT/HCPCS: 99306

== ENCOUNTER 2018-08-07 08:00 | Outpatient (CLI) | payer MEDICARE, MEDICAID, OTHER ==
[2018-08-07 22:49] LABS: BASOPHILS # (AUTO) 0.1 10^3/uL (0.0-0.1); BASOPHILS % (AUTO) 0.5 %; EOSINOPHILS # (AUTO) 0.1 10^3/uL (0.0-0.7); EOSINOPHILS % (AUTO) 0.6 %; HGB - HEMOGLOBIN 8.1 g/dL (12.0-16.0); LYMPHOCYTES # (AUTO) 2.2 10^3/uL (1.5-3.5); LYMPHOCYTES % (AUTO) 11.8 %; MEAN CORPUSCULAR HGB CONC 34.1 g/dL (32.0-36.0); MEAN CORPUSCULAR VOLUME 105.6 fL (81.0-99.0); MEAN PLATELET VOLUME 11.4 fL (7.9-10.8); MONOCYTES # (AUTO) 1.9 10^3/uL (0.0-1.0); NEUTROPHILS # (AUTO) 14.4 10^3/uL (1.5-6.6); NEUTROPHILS % (AUTO) 77.1 %; PLT - PLATELET COUNT 106 10^3/uL (130-450); RED BLOOD COUNT 2.25 10^6/uL (4.20-5.40); RED CELL DISTRIBUTION WIDTH 14.4 % (12.0-15.0); WHITE BLOOD COUNT 18.6 x10^3/uL (4.8-10.8)
== END 2018-08-07 08:01 | disposition home or self-care (01) ==
LOC: LAB.R 08:00
DX: E43 Unspecified severe protein-calorie malnutrition (principal); D72.829 Elevated white blood cell count, unspecified; E87.1 Hypo-osmolality and hyponatremia
CPT/HCPCS: 80053; 85025

== ENCOUNTER 2018-08-11 08:00 | Outpatient (CLI) | payer MEDICARE, OTHER ==
[2018-08-11 22:28] LABS: ALBUMIN 1.6 g/dL (3.2-5.5); ALBUMIN/GLOBULIN RATIO 0.5 (1.0-2.2); CALCIUM 7.8 mg/dL (8.5-10.3); CREATININE 0.8 mg/dL (0.4-1.0); TOTAL PROTEIN 4.8 g/dL (6.7-8.2)
== END 2018-08-11 08:01 | disposition home or self-care (01) ==
LOC: LAB.R 08:00
DX: E43 Unspecified severe protein-calorie malnutrition (principal); E87.1 Hypo-osmolality and hyponatremia; F10.10 Alcohol abuse, uncomplicated; K72.00 Acute and subacute hepatic failure without coma
CPT/HCPCS: 80053; 82140

== ENCOUNTER 2018-08-12 09:00 | Outpatient (CLI) | payer MEDICARE, OTHER | END 2018-08-12 09:01 | disposition home or self-care (01) | LOC: LAB.R 09:00 | DX: K72.00 Acute and subacute hepatic failure without coma (principal) | CPT/HCPCS: 82140 ==

== ENCOUNTER 2018-08-21 11:30 | Outpatient (CLI) | payer MEDICARE, MEDICAID ==
--- NOTE | 2018-08-21 19:01 | CONSULTATION NOTE ---
Palliative Care Consultation - Referral Referring Provider: Dr Eddie Singh Time of Visit: 08/21/18. 11:30 -12:00 Referral setting: [facility] ([facility]) - Information Sources Records reviewed: Previous records reviewed History/Review of Systems obtained from: Patient, Family, Nursing, Other (Therapy) Exam limitations: No limitations - History of Present Illness Brief History of Present Illness: -52 year old female with alcoholic cirrhosis of the liver and hepatitis C, living at [facility] since June 24 2018. -Medical history: alcoholic cirrhosis; hepatitis C; h/o alcoholism; fatty liver disease; leukocytosis (oncology consultation scheduled 08/17/18 for suspicion of leukemia), severe protein calorie malnutrition; chronic back pain; chronic migraines; GERD; h/o seizures, possibly secondary to etoh control; tobacco abuse; depression; anxiety; panic; PTSD. -Today was a care conference with Vance in Nursing, Bonita in SW, Xavier in Physical therapy, Kelsey patient, Luis M patient's brother, Vincent external relations director, and Rosa family friend. -Family and friends are here with facility personal and Palliative Care SUPERVISOR RIDES to discuss her discharge in 1-2 weeks. -She has made excellent progress in therapy/rehabilitation. She has "passed with flying colors." -Vincent the external relations director is arranging for housing on his property that will house patient and her son. - has arranged MISAEL caregiving, 20 hours per month. -A state oncology social work will be here on 08/24 to interview patient. -Patient also has an apppointment on 08/24 for blood work prior to her gastroenterology appointment on 08/31. This appointment will be the first step toward possible liver transplant. -Explained to patient and support group that qualifying for a liver transplantation is a long process, and they made determinations based on sobriety (minimum of 6 months) medical compliance, and level of psychosocial support system of the candidate. -It was discussed that they also look at ongoing efforts to maintain sobriety, such as AA or similar groups membership and participation. -Patient confirms that she has been sober for 4 months. Medical/Surgical History - Past Medical History Cardiovascular: reports: None, Other Respiratory: reports: None Neuro: None Neuro: reports: Headache/migraine, Seizure disorder Endocrine/Autoimmune: reports: None GI: reports: GERD, Ulcers, Hiatal hernia, Chronic constipation, Hemorrhoids, Hepatitis, Cirrhosis WATER QUALITY CONTROL ENGINEER: reports: None : reports: Frequency HEENT: reports: Chronic vision loss, Other Psych: reports: Depression, Anxiety, Panic attacks, Post traumatic stress disorder Musculoskeletal: reports: Chronic back pain Derm: reports: None MRSA Hx?: No - Past Surgical History General: reports: Cholecystectomy Ortho: reports: Other /WATER QUALITY CONTROL ENGINEER: reports: Tubal ligation Medications/Allergies - Medications Home Medications: Ambulatory Orders Medication Instructions Recorded Confirmed Folic Acid 1 mg PO DAILY tablet 06/24/18 08/17/18 Multivitamin [Theragran] 1 tab PO DAILYWM tablet 06/24/18 08/17/18 Thiamine [Vitamin B-1] 100 mg PO DAILY tablet 06/24/18 08/17/18 rifAXIMin [Xifaxan] 550 mg PO BID tablet 06/24/18 08/17/18 Furosemide [Lasix] 80 mg PO DAILY 08/04/18 08/17/18 House Bowel Program 1 ea PRN PRN 08/04/18 08/17/18 LORazepam [Ativan] 0.5 tab PO Q6H PRN 08/04/18 08/17/18 Lactulose 30 ml PO Q6H 08/04/18 08/17/18 Medpass 2.0 90 ml PO TID 08/04/18 08/17/18 Omeprazole 20 mg PO DAILY 08/04/18 08/17/18 Potassium Chloride [K-Dur] 20 meq PO TIDWM 08/04/18 08/17/18 Saccharomyces Boulardii [Florastor] 250 mg PO BID 08/04/18 08/17/18 Spironolactone [Aldactone] 100 mg PO DAILY 08/04/18 08/17/18 oxyCODONE [Roxicodone] 2.5 mg PO Q6H PRN 08/04/18 08/17/18 - Allergies Allergies/Adverse Reactions: Allergies Allergy/AdvReac Type Severity Reaction Status Date / Time ceftriaxone sodium * Allergy Severe RASH,HIVES, Verified 06/09/18 20:07 [From Rocephin] BURNING,ITC JAMIE cephalexin monohydrate * Allergy Severe RASH,HIVES, Verified 06/09/18 20:07 [From Keflex] BURNING,ITC JAMIE ciprofloxacin Allergy Severe RASH,HIVES, Verified 06/09/18 20:07 BURNING,ITC JAMIE phenazopyridine HCl * Allergy Severe SWELLING Verified 06/09/18 20:07 [From Pyridium] OF AIRWAY Sulfa (Sulfonamide Allergy Severe RASH,HIVES, Verified 06/09/18 20:07 Antibiotics) BURNING,ITC JAMIE gentamicin Allergy Edema Verified 06/09/18 20:07 lamotrigine [From Lamictal] Allergy Hives Verified 06/09/18 20:07 levetiracetam [From Keppra] Allergy Anxiety Verified 06/09/18 20:07
--- NOTE | 2018-08-21 19:14 | CONSULTATION NOTE ---
Palliative Care Follow Up - Referral Referring Provider: Dr Eddie Singh Time of Visit: 08/21/2018 Referral setting: [facility] ([facility]) Referral Reason: Advanced care planning / advanced liver disease - Information Sources Records reviewed: RN notes reviewed, Previous records reviewed History/Review of Systems obtained from: Patient, Family, Nursing, Other (Social work, medical research associate, physical therapist) Exam limitations: No limitations - History of Present Illness Update Brief HPI Update: -52 year old female with alcoholic cirrhosis of the liver and hepatitis C, living at [facility] since June 24 2018. -Medical history: alcoholic cirrhosis; hepatitis C; h/o alcoholism; fatty liver disease; leukocytosis (oncology consultation scheduled 08/17/18 for suspicion of leukemia), severe protein calorie malnutrition; chronic back pain; chronic migraines; GERD; h/o seizures, possibly secondary to etoh control; tobacco abuse; depression; anxiety; panic; PTSD. -Today was a care conference with Vance in Nursing, Bonita in SW, Xavier in Physical therapy, Kelsey patient, Luis M patient's brother, Vincent unemployment insurance director, and Rosa family friend. -Family and friends are here with facility personal and Palliative Care CONSTRUCTION PROJECT ADMINISTRATOR to discuss her discharge in 1-2 weeks. -She has made excellent progress in therapy/rehabilitation. She has "passed with flying colors." -Vincent the unemployment insurance director is arranging for housing on his property that will house patient and her son. - has arranged MISAEL caregiving, 20 hours per month. -A state addiction social worker will be here on 08/24 to interview patient. -Patient also has an appointment on 08/24 for blood work prior to her gastroenterology appointment on 08/31. This appointment will be the first step toward possible liver transplant. -Explained to patient and support group that qualifying for a liver transplantation is a long process, and they made determinations based on sobriety (minimum of 6 months) medical compliance, and level of psychosocial support system of the candidate. -It was discussed that they also look at ongoing efforts to maintain sobriety, such as AA or similar groups membership and participation. -Patient confirms that she has been sober for 4 months. Medications/Allergies - Medications Home Medications: Ambulatory Orders Medication Instructions Recorded Confirmed Folic Acid 1 mg PO DAILY tablet 06/24/18 08/17/18 Multivitamin [Theragran] 1 tab PO DAILYWM tablet 06/24/18 08/17/18 Thiamine [Vitamin B-1] 100 mg PO DAILY tablet 06/24/18 08/17/18 rifAXIMin [Xifaxan] 550 mg PO BID tablet 06/24/18 08/17/18 Furosemide [Lasix] 80 mg PO DAILY 08/04/18 08/17/18 House Bowel Program 1 ea PRN PRN 08/04/18 08/17/18 LORazepam [Ativan] 0.5 tab PO Q6H PRN 08/04/18 08/17/18 Lactulose 30 ml PO Q6H 08/04/18 08/17/18 Medpass 2.0 90 ml PO TID 08/04/18 08/17/18 Omeprazole 20 mg PO DAILY 08/04/18 08/17/18 Potassium Chloride [K-Dur] 20 meq PO TIDWM 08/04/18 08/17/18 Saccharomyces Boulardii [Florastor] 250 mg PO BID 08/04/18 08/17/18 Spironolactone [Aldactone] 100 mg PO DAILY 08/04/18 08/17/18 oxyCODONE [Roxicodone] 2.5 mg PO Q6H PRN 08/04/18 08/17/18 - Allergies Allergies/Adverse Reactions: Allergies Allergy/AdvReac Type Severity Reaction Status Date / Time ceftriaxone sodium * Allergy Severe RASH,HIVES, Verified 06/09/18 20:07 [From Rocephin] BURNING,ITC JAMIE cephalexin monohydrate * Allergy Severe RASH,HIVES, Verified 06/09/18 20:07 [From Keflex] BURNING,ITC JAMIE ciprofloxacin Allergy Severe RASH,HIVES, Verified 06/09/18 20:07 BURNING,ITC JAMIE phenazopyridine HCl * Allergy Severe SWELLING Verified 06/09/18 20:07 [From Pyridium] OF AIRWAY Sulfa (Sulfonamide Allergy Severe RASH,HIVES, Verified 06/09/18 20:07 Antibiotics) BURNING,ITC JAMIE gentamicin Allergy Edema Verified 06/09/18 20:07 lamotrigine [From Lamictal] Allergy Hives Verified 06/09/18 20:07 levetiracetam [From Keppra] Allergy Anxiety Verified 06/09/18 20:07 Review of Systems - Eyes Eyes: reports: Vision loss Physical Exam - Vital Signs Temperature: 96.2 F Pulse Rate: 95 O2 Saturation: 99 Blood Pressure: 102/60 - Physical Exam General Appearance: positive: No acute distress, Alert Eyes Bilateral: positive: No lid inflammation, Other (scleral icterus) ENT: positive: No signs of dehydration Neck: positive: Trachea midline Respiratory: positive: No respiratory distress Abdomen: positive: Distended (but improved) Skin: positive: Jaundice Extremities: positive: Nml appearance Neurologic/Psychiatric: positive: Oriented x3, Mood/affect nml Comments/Other: Limited ROS Palliative Care - POLST Patient has POLST: Yes POLST Status: Full Code Tiredness/Fatigue: None - Palliative Care Discussion: Patient's plan after discharge from the SNF is to establish residence with her son, Gigi, in the housing that Vincent Brar, youth ministry coordinator at [facility] in [place], will provide. This will be on Vincent's property. [facility] fruit and vegetable factory worker Bonita is coordinating with [facility] for MISAEL caregiving support (20 hours/month) and [facility] addiction social worker for assessment. Patient has a gastroenterology consultation on 08/31/18. Transportation is being coordinated by patient and her social network, Rosa or Vincent. The patient has experience in using transit to travel [place] and appears very motivated. She also has had 3 family members/friends who have gone through organ donation and so is familiar with what it involves. In attendance to support the patient is her brother, Luis M, her friend Rosa who is willing to provide transportation and other support. Also present is Vincent Jacques, the medical transcription supervisor who has been mentoring the patient's son while she has been in SNF. We discussed that this social support one of the sweeney determinants of whether she will eventually qualify for a liver transplant. Patient has been very successful at therapy in rehabilitation. She states her son is her motivation to stay sober, and to stay alive. Results - Lab Results Lab results reviewed: Yes Lab and Imaging Results: 08/17/18 Labs: Na 129 L K 3.7 Cl 100 L Co2 19 L BUN 10 Cr 1.0 GFR 59 L (40 07/29/18, 106 06/24/18) Tot bili 8.3 H (25.3 06/24/18) AST 69 H (63 07/29/18) ALT 23 (19 07/29/18) Alk phos 21 Alb 2.3 (1.5 07/29/18) WBC 13.3 (36.5 07/29/18) RBC 2.6 Hgb 9.6 (9.3 07/29/18) Hct 27 (27.1 07/29/18) MCV 104 Ferritin 600.1 H Folate 35 norm Impression and Recommendations - Palliative Care Impression: 52 year old female with end-stage liver disease with alcoholic cirrhosis and Hepatitis C currently at [facility] completing her physical rehab. She has made excellent progress in rehab and the plan is to discharge to a new residence being prepared for her and her son by the medical transcription supervisor of a local restorationism. She has been sober for 4 months, and is hoping to qualify for liver transplant. Her initial gastroenterology consultation is 08/31. Her labs have improved significantly - WBCs dropped from 36.5 to 13.3. She has a follow up lab draw 08/24. Palliative care will continue to monitor and provide support on out p atient basis after patient DC's from SNF. Recommendations/Counseling Done: Advanced liver disease: Patient has first gastroenterology consultation on 08/31, with goal of eventual liver transplant. She has blood draw on 08/24 for hematology. New labs show significant improvement: WBCs dropped from 36.5 in Jul to 13.3 on 08/17. GFR improved from 40 to 59. Total bili dropped from 25.3 in Jun to 8.3 in Aug. H&H has been stable. Physical therapist reports excellent progress, with no need for outpatient PT.GFR was normal in Jun (106) dropped to 40 in Jul, but increased to 59 in Aug. Advance care planning: Plan is patient's discharge from SNF in 1-2 weeks. Her family and Vincent Maykel, a youth ministry coordinator at a local restorationism who has been taking care of her son, is obtaining housing for the patient and her son. Patient has been arranging transport for her appointments, and her friend Rosa is available for back up. Patient will need to research sober support and rehabilitation groups such as AA. Palliative Care will continue monitoring and providing support post-discharge from SNF. Patient will need to establish a new PCP once she DC's from SNF. Ultimate goal is to qualify for liver transplant. fruit and vegetable factory worker is coordinating with [facility] for MISAEL, food stamps, and other social support. programs Follow up in 2 weeks. Time Spent: 30 minutes spent with more than 50% of the time spent on counseling and coordination of care.
== END 2018-08-21 11:31 | disposition home or self-care (01) ==
LOC: PC 11:30
PROVIDERS: ATTEND Nurse Practitioner
DX: Z51.5 Encounter for palliative care (principal); K72.90 Hepatic failure, unspecified without coma; K70.30 Alcoholic cirrhosis of liver without ascites; B19.20 Unspecified viral hepatitis C without hepatic coma; R74.8 Abnormal levels of other serum enzymes; D72.829 Elevated white blood cell count, unspecified; G89.29 Other chronic pain; M54.9 Dorsalgia, unspecified; F41.9 Anxiety disorder, unspecified; F43.10 Post-traumatic stress disorder, unspecified; F10.11 Alcohol abuse, in remission; F17.200 Nicotine dependence, unspecified, uncomplicated; E43 Unspecified severe protein-calorie malnutrition; Z79.891 Long term (current) use of opiate analgesic
CPT/HCPCS: 99309

== ENCOUNTER 2018-09-10 12:00 | Outpatient (CLI) | payer MEDICARE, MEDICAID ==
--- NOTE | 2018-09-11 09:42 | CONSULTATION NOTE ---
Palliative Care Follow Up - Referral Referring Provider: Dr Arcadio Singh. PCP is Dr Whitmore Time of Visit: 09/10/2018. 12:00 - 13:20 Referral Reason: Nausea / vomiting - History of Present Illness Update Brief HPI Update: -52 year old female with alcoholic cirrhosis of the liver and hepatitis C. She was discharged from [facility] on 09/04 after completing physical therapy/rehab there. Her goal is liver transplant. -Medical history: alcoholic cirrhosis; hepatitis C; h/o alcoholism; fatty liver disease; leukocytosis (oncology consultation scheduled 08/17/18 for suspicion of leukemia), severe protein calorie malnutrition; chronic back pain; chronic migraines; GERD; h/o seizures, possibly secondary to etoh control; tobacco abuse; depression; anxiety; panic; PTSD. -Today she is nauseous and vomiting during the first part of my visit. Eventually the nausea passed. -Patient reports she had N/V most days during her stay at [facility]. -It improved initially after DC from [facility] but recently became worse once she started her period. -She was to have been DC'd with ondansetron, which was used in the SNF and helped control it, but she wasn't. -Neither her PCP nor glass finisher prescribed anything for the nausea during her recent visits. -Her other complaint is chronic, ongoing migraines and back pain, both of which she has suffered from for years and are the reasons she is on disability. -She is unable to use ibuprofen any longer due to historical overuse ([id number] 3- 4x/day), nor Tylenol due to hepatic toxicity. She reports other medications she has used, possibly triptans, etc, have not given relief -She was given oxycodone while in [facility], steadily titrated down to the current level of 2.5mg BID PRN. She has used oxycodone for at least 3 years. She was DC'd with the remainder of her oxycodone tablets (quantity 22). -She has also historically used lorazepam for periodic anxiety and restlessness, including RLS. -I discussed with patient that this class is meant for short term usage only (a few weeks), and the burdens and risks of ongoing treatment -We discussed alternatives, such as gabapentin (treatment failure; she reports weaning herself off this), she doesnt remember if pregabalin/Lyrica was tried. -We discussed starting an SSRI such as citalopram which has anti-anxiety characteristics. At this time she declines, saying Im not depressed. I provided education. Propanolol was also discussed, she reports having issues with low BP and low HR. -Patient has a supply (about 40 tabs) of Lorazapam from the SNF. At future visits we will continue the conversation about alternative anti-anxiety medications. -She also reports neuropathic pain in LEs. Gabapentin, pramipexole have been tried and don't work on that or the RLS. She can't recall if Pregabalin was tried. -She gets relief from migraine pain with oxycodone and lying down for 4-5 hours. She gets migraines about 3-4x per week. -Patient agrees to sign a controlled substance agreement for continued use of oxycodone at 2.5mg BID prn. There is risk associated with using opioids for a patient with h/o alcohol abuse, but untreated pains increases anxiety and the risk of self-medicating with alcohol. -She saw Dr Rosales in hematology 08/24/18, the leukocytosis is trending downward to normal range with no signs of leukemia. He recommends a 6-month follow-up. -She saw glass finisher Dr Gooden of [facility] 08/31/18, she recommends repeat paracentesis to r/o spontaneous bacterial peritonitis, continued alcohol abstinence, 2g sodium restricted diet, and an EGD to r/o esophageal varices. EGD is scheduled for 10/06. -She had a visit with her new PCP Dr Whitmore, but did not get refill scripts for oxycodone, lorazepam or any of her meds. Social History - Living Situation Living arrangement: At home Living Situation: Other Support System: Patient is living in a relatively comfortable RV on the property of the detective youth bureau, Vincent Brar, with whom her 15-year-old son has been living. -Her social support network is fragile and precarious, currently depending on the generosity and reliability of Red Mapache. Transport will be an ongoing issue. Patient's friend, Rosa, had committed at the family conference at [facility] to help out. Also she has a brother living in [place] with their mother. The brother has Parkinson's so his ability to provide support is limited. -SNF SW had arranged 20 hours of MISAEL caregiving per month. Medications/Allergies - Medications Home Medications: Ambulatory Orders Medication Instructions Recorded Confirmed Folic Acid 1 mg PO DAILY tablet 06/24/18 09/11/18 Multivitamin [Theragran] 1 tab PO DAILYWM tablet 06/24/18 09/11/18 Thiamine [Vitamin B-1] 100 mg PO DAILY tablet 06/24/18 09/11/18 rifAXIMin [Xifaxan] 550 mg PO BID tablet 06/24/18 09/11/18 Furosemide [Lasix] 40 mg PO DAILY 08/04/18 09/11/18 LORazepam [Ativan] 0.25 mg PO BID 08/04/18 09/11/18 Lactulose 30 ml PO BID 08/04/18 09/11/18 Medpass 2.0 90 ml PO TID 08/04/18 09/11/18 Omeprazole 20 mg PO DAILY 08/04/18 09/11/18 Potassium Chloride [K-Dur] 20 meq PO BID 08/04/18 09/11/18 Spironolactone [Aldactone] 50 mg PO DAILY 08/04/18 09/11/18 oxyCODONE [Roxicodone] 2.5 mg PO BID 08/04/18 09/11/18 Ondansetron Odt [Zofran Odt] 4 mg PO Q6H PRN MDD Oral 09/11/18 09/11/18 disintegrating tablet - Allergies Allergies/Adverse Reactions: Allergies Allergy/AdvReac Type Severity Reaction Status Date / Time ceftriaxone sodium * Allergy Severe RASH,HIVES, Verified 06/09/18 20:07 [From Rocephin] BURNING,ITC JAMIE cephalexin monohydrate * Allergy Severe RASH,HIVES, Verified 06/09/18 20:07 [From Keflex] BURNING,ITC JAMIE ciprofloxacin Allergy Severe RASH,HIVES, Verified 06/09/18 20:07 BURNING,ITC JAMIE phenazopyridine HCl * Allergy Severe SWELLING Verified 06/09/18 20:07 [From Pyridium] OF AIRWAY Sulfa (Sulfonamide Allergy Severe RASH,HIVES, Verified 06/09/18 20:07 Antibiotics) BURNING,ITC JAMIE gentamicin Allergy Edema Verified 06/09/18 20:07 lamotrigine [From Lamictal] Allergy Hives Verified 06/09/18 20:07 [facility]iracetam [[facility] Allergy Anxiety Verified 06/09/18 20:07 Review of Systems - Constitutional Constitutional: reports: Weight loss (Ascites has decreased. She reports eating well but is at 95 lbs. Normal range is 113-115 lbs. Her BMI on 09/08 PCP visit was 1755. In CareAge she went up to 141 (ascites)) - Ears, Nose & Throat Ears, Nose & Throat: reports: Other (missing what looks like all or most of her teeth). denies: Hearing loss - Gastrointestinal Gastrointestinal: reports: Abdominal pain, Abdominal distention, Nausea, Vomiting (in mornings, worse with periods) - Genitourinary Genitourinary: denies: Dysuria, Incontinence - Musculoskeletal Musculoskeletal: reports: Back pain (synovial cyst between discs L4-L6). denies: Assistive devices, Transfer issues - Neurological Neurological: reports: Headache (chronic migraines) Physical Exam - Vital Signs Temperature: 96.5 F Pulse Rate: 103 (due to migraine pain) O2 Saturation: 99 Blood Pressure: 117/83 (wrist cuff) - Physical Exam General Appearance: positive: Alert, Mild distress, Other (due to migraine pain) Eyes Bilateral: positive: No lid inflammation, Other (icterus) ENT: positive: No signs of dehydration Neck: positive: Trachea midline Cardiovascular: positive: No murmur, No gallop, Tachycardia Respiratory: positive: Chest non-tender, No respiratory distress, Breath sounds nml Abdomen: positive: Non-tender, Hepatomegaly, Distended (improved) Skin: positive: Jaundice (improved) Extremities: positive: No pedal edema, Other (thin extremities) Neurologic/Psychiatric: positive: Oriented x3, Mood/affect nml Palliative Care - POLST Patient has POLST: Yes POLST Status: Full Code Pain: Pain unchanged, Comment (chronic back pain and migraine pain. not complaining of abdominal pain.) Nausea: Moderate (4-6), With vomiting Depression: None (denies) Anxiety: Moderate (4-6) Dyspnea: None Anorexia: None (denies), Weight loss (95 lbs. Baseline is 113-115 lbs) Constipation: No, Comment (Is on opioids but also uses lactulose, so no other bowel meds are prescribed) - Palliative Care Discussion: -Patient's POST is full code, her goal is liver transplant and staying alive to raise her adolescent son, Souleymane Fleming. She reports having about a month and a half left until the end of the 6-month "sober" period to qualify, at least in that aspect, for a transplant. -Her living/social situation is tenuous, but appears currently stable, with the patient living in an RV on the property of Vincent Jacques, youth nutritional monitor for [facility]. Her son sleeps in the house with Vincent's family. -Transport can still be a problematic issue, but she has been able to make it to her post-discharge medical appointments. -She reports being compliant with lactulose and rifaximin. Her ascites has decreased and labs are improved. -When discussing the Controlled Substances Contract, I clarified that she would need to manage her usage and refill schedule, and call in for refills with sufficient lead time (5-7 days), and would need to be able to get to [place] to turkey picker the oxycodone scripts. If I am scheduled for visits in the [facility] I can drop them at [facility]. Impression and Recommendations - Palliative Care Impression: 52-year-old female with end-stage liver disease with alcoholic cirrhosis and Hepatitis C. She was discharged 09/04 from [facility] after completing her physical rehab. She is living on the property of a detective youth bureau, with her son. Her goal is to qualify for liver transplant. She had a gastroenterology consultation 08/31 and is scheduled for an endoscopy 10/06. Her labs have improved and next lab draw is 10/[address] Whitmore. Palliative care will continue to monitor and provide support. Recommendations/Counseling Done: End stage alcoholic cirrhosis and Hepatitis C: Improved, still jaundiced, but improved. Abdomen decreased in girth. Patient reports using lactulose and rifaxim. as prescribed. Patient reports she is not drinking alcohol, Facility is in process of arranging a GE consultation. Continue thiamine and folic acid supplements. Continue rifaximin 550mg BID. On omeprazole for risk for gastrointestinal bleeding. Ascites: Patient has had two paracentesis, one during hospitalization and at [facility]. Dr Gooden recommended repeat paracentesis to r/o spontaneous bacterial peritonitis. Continue spironolactone, Lasix, and potassium chloride BID. Weights is at 97 lbs. Elevated ammonia: Lactulose 30mL BID and rifaximin 550mg BID. Thrombocytopenia: Rresolved. Per consultation with hematology, Dr Rosales on 08/24, leukocytosis is trending downward to normal range, with no signs of leukemia. Dr Rosales recommends 6-month follow up. Chronic back pain: Oxycodone 2.5mg (1/2 tab) PO BID PRN. She agreed to continue it at that level and we signed a Controlled Substance Agreement. I wrote a refill script for 30 day supply. NSAIDs and Tylenol are contraindicated. Chronic migraines: She uses oxycodone to control the pain, and naps for 4 hours. Reports other medications have not helped. Chronic anxiety/PTSD: Has a supply of lorazepam from the SNF: 0.25mg BID as needed. At future visits will revisit finding alternatives for anxiety, eg, citalopram, etc. Advanced care planning: Patient is full code, her brother had previously filled out a POLST for DNR/comfort care. She a new POLST changing it to full code while she was still at [facility]. Patients goal is to qualify for a liver transplant. Staying alive for her 15-year-old son is her motivation. Follow up 1-2 weeks re N/V Time Spent: 80 minutes were spent with more than 50% of the time spent on counseling, education, and coordination of care regarding abdominal and pain symptoms.
== END 2018-09-10 12:01 | disposition home or self-care (01) ==
LOC: PC 12:00
PROVIDERS: ATTEND Nurse Practitioner
DX: R11.2 Nausea with vomiting, unspecified (principal); K70.30 Alcoholic cirrhosis of liver without ascites; K72.90 Hepatic failure, unspecified without coma; B19.20 Unspecified viral hepatitis C without hepatic coma; D72.829 Elevated white blood cell count, unspecified; M54.9 Dorsalgia, unspecified; G43.909 Migraine, unspecified, not intractable, without status migrainosus; F41.9 Anxiety disorder, unspecified; F43.10 Post-traumatic stress disorder, unspecified; F10.21 Alcohol dependence, in remission; E43 Unspecified severe protein-calorie malnutrition; R10.9 Unspecified abdominal pain; R14.0 Abdominal distension (gaseous); R30.0 Dysuria
CPT/HCPCS: 99350

== ENCOUNTER 2018-10-06 11:55 | Outpatient (CLI) | payer MEDICARE, MEDICAID ==
[2018-10-06 17:46] LABS: BASOPHILS # (AUTO) 0.1 10^3/uL (0.0-0.1); BASOPHILS % (AUTO) 0.9 %; EOSINOPHILS # (AUTO) 0.1 10^3/uL (0.0-0.7); EOSINOPHILS % (AUTO) 1.9 %; LYMPHOCYTES # (AUTO) 1.1 10^3/uL (1.5-3.5); LYMPHOCYTES % (AUTO) 20.1 %; MEAN CORPUSCULAR HEMOGLOBIN 33.4 pg (27.0-31.0); MEAN CORPUSCULAR HGB CONC 33.3 g/dL (32.0-36.0); MEAN CORPUSCULAR VOLUME 100.3 fL (81.0-99.0); MONOCYTES # (AUTO) 0.5 10^3/uL (0.0-1.0); NEUTROPHILS # (AUTO) 3.7 10^3/uL (1.5-6.6); NEUTROPHILS % (AUTO) 68.1 %; PLT - PLATELET COUNT 108 10^3/uL (130-450); RED CELL DISTRIBUTION WIDTH 13.1 % (12.0-15.0); WHITE BLOOD COUNT 5.4 x10^3/uL (4.8-10.8)
[2018-10-06 18:00] LABS: ALBUMIN 3.6 g/dL (3.2-5.5); ALBUMIN/GLOBULIN RATIO 1.1 (1.0-2.2); CALCIUM 9.5 mg/dL (8.5-10.3); CREATININE 0.7 mg/dL (0.4-1.0); TOTAL PROTEIN 6.9 g/dL (6.7-8.2)
[2018-10-06 18:01] LABS: INR 1.9 (0.8-1.2); PT - PROTHROMBIN TIME 21.4 secs (9.9-12.6)
== END 2018-10-06 11:56 | disposition home or self-care (01) ==
LOC: LAB.F 11:55
PROVIDERS: ATTEND Internal Medicine
DX: K74.60 Unspecified cirrhosis of liver (principal)
CPT/HCPCS: 36415; 80053; 85025; 85610; 85730

== ENCOUNTER 2018-10-06 12:45 | Outpatient (CLI) | payer MEDICARE, MEDICAID ==
--- NOTE | 2018-10-06 17:10 | CONSULTATION NOTE ---
Palliative Care Follow Up - Referral Referring Provider: Dr Whitmore PCP Time of Visit: 10/06/2018. 12:45 - 13:20 Referral setting: Home Referral Reason: Chronic pain / nausea - Information Sources Records reviewed: Previous records reviewed History/Review of Systems obtained from: Patient Exam limitations: No limitations - History of Present Illness Update Brief HPI Update: -52 year old female with alcoholic cirrhosis of the liver, fatty liver disease, and hepatitis C. She was hospitalized in June for acute hepatic failure and severe protein calorie malnutrition, was discharged 06/24/18 to [facility] for rehabiliation. She was subsequently discharged from [facility] September 04 to the property of a Religious senior advisory who had been sheltering her 15 year old son. She is currently living on the property in an . Her son Jayden lives in the pipe washer's house. -Medical history: alcoholic cirrhosis; hepatitis C; fatty liver disease;cholelithiasis s/p cholecystectomy November 2017; h/o severe protein calorie malnutrition; chronic back pain; chronic migraines and headaches; GERD; h/o seizures; h/o alcohol abuse; h/o tobacco abuse; depression; anxiety; panic; PTSD. -Patient reports having seen her PCP today for tests due to bleeding she has experienced: spontaneous epitaxis, and also bleeding from a pinpoint, nontender, nonpruritic lesion at the base of her L nostril. She reports that this lesion, plus 2 on her hands/wrists appeared during her stay at [facility] and haven't resolved. They appear to be insect bites. -Patient continues to report episodic nausea, she uses ondansetron about 3x per week for relief. -She continues to use oxycodone half-tablets twice daily as needed for her chr onic back pain and headaches. -She reports sobriety is going well, she is not drinking alcohol and isn't tempted to. -She reports compliance with lactulose, and rifaximin; doesn't report loose stools. -Her abdominal girth is significantly improved compared to her time in [facility], and has improved from the previous palliative care visit in August. I was lacking a measuring tape; will take measurements at next visit. -The jaundice has improved and scleral icterus remains noticeable. -Patient reports feeling better and doing better. She had the endoscopy scheduled for later this month but must reschedule it due to transport issues, hopefully scheduling it for October. She does not drive. -Chronic back pain is at baseline. She reports about 3 migraines a week, and daily headaches, controlled adequately with small dose oxycodone (2.5 mg BID PRN, 7.5mg MED. Social History - Living Situation Living arrangement: At home Living Situation: With family, With friend(s) Support System: Patient is living in a relatively comfortable RV on the property of the senior advisory, [employer], with whom her 15-year-old son has been living. -Her social support network is fragile and precarious, currently depending on the generosity and reliability of [employer]ar. Transport will be an ongoing issue. Patient's friend, Rosa, had committed at the family conference at [facility] to help out. Also she has a brother living in [place] with their mother. The brother has Parkinson's so his ability to provide support is limited. -[facility] had arranged 20 hours of MISAEL caregiving per month. Medications/Allergies - Medications Home Medications: Ambulatory Orders Medication Instructions Recorded Confirmed Folic Acid 1 mg PO DAILY tablet 06/24/18 10/06/18 Multivitamin [Theragran] 1 tab PO DAILYWM tablet 06/24/18 10/06/18 Thiamine [Vitamin B-1] 100 mg PO DAILY tablet 06/24/18 10/06/18 rifAXIMin [Xifaxan] 550 mg PO BID tablet 06/24/18 10/06/18 Furosemide [Lasix] 40 mg PO DAILY 08/04/18 10/06/18 LORazepam [Ativan] 0.25 mg PO BID 08/04/18 10/06/18 Lactulose 30 ml PO BID 08/04/18 10/06/18 Omeprazole 20 mg PO DAILY 08/04/18 10/06/18 Potassium Chloride [K-Dur] 20 meq PO BID 08/04/18 10/06/18 Spironolactone [Aldactone] 50 mg PO DAILY 08/04/18 10/06/18 oxyCODONE [Roxicodone] 2.5 mg PO BID 08/04/18 10/06/18 Ondansetron Odt [Zofran Odt] 4 mg PO Q6H PRN MDD Oral 09/11/18 10/06/18 disintegrating tablet Lactose-Reduced Food [Ensure 1 ea PO TID PRN 10/06/18 10/06/18 Compact] - Allergies Allergies/Adverse Reactions: Allergies Allergy/AdvReac Type Severity Reaction Status Date / Time ceftriaxone sodium * Allergy Severe RASH,HIVES, Verified 06/09/18 20:07 [From Rocephin] BURNING,ITC JAMIE cephalexin monohydrate * Allergy Severe RASH,HIVES, Verified 06/09/18 20:07 [From Keflex] BURNING,ITC JAMIE ciprofloxacin Allergy Severe RASH,HIVES, Verified 06/09/18 20:07 BURNING,ITC JAMIE phenazopyridine HCl * Allergy Severe SWELLING Verified 06/09/18 20:07 [From Pyridium] OF AIRWAY Sulfa (Sulfonamide Allergy Severe RASH,HIVES, Verified 06/09/18 20:07 Antibiotics) BURNING,ITC JAMIE gentamicin Allergy Edema Verified 06/09/18 20:07 lamotrigine [From Lamictal] Allergy Hives Verified 06/09/18 20:07 levetiracetam [From Keppra] Allergy Anxiety Verified 06/09/18 20:07 Review of Systems - Constitutional Constitutional: reports: Fatigue, Poor appetite, Weight gain (Currently 98 lbs, was 92 lbs.), Other - Ears, Nose & Throat Ears, Nose & Throat: reports: Other (Missing all or most of her teeth). denies: Hearing loss - Cardiovascular Cardiovascular: denies: Palpitations, Chest pain, Edema, Exertional dyspnea, Decr. exercise tolerance - Respiratory Respiratory: denies: Cough, Orthopnea, SOB at rest - Gastrointestinal Gastrointestinal: reports: Abdominal pain, Nausea (several times per week), Vomiting. denies: Rectal bleeding, Osvaldo blood emesis - Genitourinary Genitourinary: denies: Dysuria, Frequency, Incontinence - Musculoskeletal Musculoskeletal: reports: Back pain (chronic) - Neurological Neurological: reports: Headache (migraines several times a week; headaches daily) - Psychiatric Psychiatric: reports: Anxiety Physical Exam - Vital Signs Temperature: 96.2 F Pulse Rate: 89 O2 Saturation: 99 Blood Pressure: 139/80 - Physical Exam General Appearance: positive: No acute distress, Alert Eyes Bilateral: positive: Other (scleral icterus) ENT: positive: No signs of dehydration Neck: positive: No JVD, Trachea midline Cardiovascular: positive: Regular rate & rhythm, No murmur, No gallop Respiratory: positive: Chest non-tender, No respiratory distress. negative: Wheezes, Rales, Rhonchi Abdomen: positive: Non-tender, Soft, Hepatomegaly. negative: Distended Skin: positive: Jaundice (improved) Extremities: positive: Nml appearance, No pedal edema Neurologic/Psychiatric: positive: Oriented x3, Mood/affect nml Palliative Care - POLST POLST Status: Full Code Pain: Pain unchanged, Location (headaches; chronic back pain) Nausea: None (none currently, but has episodes several times per week) Constipation: No - Palliative Care Discussion: She reports having no problems with her sobriety, which has been since June. I inquired if she followed a 12-step program or had other support, she said no. Part of it is she is isolated here and doesn't get out. She also has said that staying alive for her son is her motivation. She wants to have the endoscopy as soon as possible. The next step is getting approval for liver transplant. She is wondering if it's possible she won't need a liver transplant. I did tell her that is a question I cannot answer, but it will get answered as she goes forward in the process. She admits to being "scared to " of the thought of a liver transplant. I offered presence, reassurance, and empathy. Palliative Care will continue to provide support and oversight through the process. Results - Lab Results Lab results reviewed: Yes Lab and Imaging Results: 10/06/18: WBC 5.4 RBC 3.3 L Hgb 11.0 L Hct 33.1 L MCV 100.3 H Plt 108 L Na 132 L K+ 3.8 Ch 103 BUN 6 Cr 0.7 GFR 89 Bilirubin 3.0 H AST 46 H ALT 18 Alk Phos 114 PT 21.4 H INR 1.9 H APTT 38.6 H Impression and Recommendations - Palliative Care Impression: 52 year old female with alcoholic cirrhosis of the liver, fatty liver disease, and hepatitis C. She was hospitalized in June for acute hepatic failure and severe protein calorie malnutrition, was discharged 06/24/18 to [facility] for rehabiliation. She was discharged from [facility] Sep 04 and has been living with the family who took in her son during her hospitalization. She will be undergoing endoscopy with the aim of being able to qualify for a liver transplant. She has been sober since June. She has been having episodes of epitaxis and also bleeding from a small lesion under L nostril, possibly an insect bite. Her PCP has run some clotting tests. She has ongoing, episodic nausea and abdominal pain, managed with ondansetron. Her chronic pain is managed by oxycodone 5mg daily as needed. Palliative care will continue to monitor and provide support. Recommendations/Counseling Done: End stage alcoholic cirrhosis and Hepatitis C: Improved, jaundice is better, scleral icterus is still quite evident. Abdomen looks close to normal and girth looks like it has improved since previous visit. Patient reports she continues to use lactulose and rifaximin as prescribed. Patient also reports she is maintaining her sobriety and has been since June. Continue rifaximin, lactulose thiamine, and folic acid supplements and omeprazole as needed for risk for gastrointestinal bleeding. She has to reschedule the endoscopy from this month to hopefully next month, due to transport issues (she doesn't drive). She was seen by Dr Gooden of [facility] in August. 10/06/18 labs run by PCP reveal elevated AST, with ALT and Alk phos WNL, bilirubin remains elevated, and clotting factors are also elevated, sodium is low at 132. Chronic back pain: Continue oxycodone 2.5mg (1/2 tab) PO BID PRN. Controlled Substance Agreement in place. Consulted CONTROL BOARD OPERATOR reciepient list and there is no concerning activity. I wrote a refill script for 30 day supply. NSAIDs and Tylenol are contraindicated. Chronic migraines: Oxycodone controls the pain, along with sleeping it off. Patient says she has tried many other medications over the years, without relief. She reports having migraines around 3 times per week, and daily headaches. She reports adequate fluid intake. Chronic anxiety/PTSD: Not worsening. Has a supply of lorazepam from the SNF: 0.25mg BID as needed. At future visits will revisit finding alternatives for anxiety, eg, citalopram, etc. Advanced care planning: Patient is full code. Patients goal remains to qualify for a liver transplant and "get on the list." Palliative care will continue to provide oversight and support and manage pain medications. Follow up next month. Time Spent: 35 minutes were spent with more than 50% of the time spent on counseling, education, and coordination of care.
== END 2018-10-06 12:46 | disposition home or self-care (01) ==
LOC: PC 12:45
PROVIDERS: ATTEND Nurse Practitioner
DX: Z51.5 Encounter for palliative care (principal); B19.20 Unspecified viral hepatitis C without hepatic coma; R79.89 Other specified abnormal findings of blood chemistry; G89.29 Other chronic pain; M54.9 Dorsalgia, unspecified; G43.909 Migraine, unspecified, not intractable, without status migrainosus; F41.9 Anxiety disorder, unspecified; F10.21 Alcohol dependence, in remission; Z87.891 Personal history of nicotine dependence; Z79.891 Long term (current) use of opiate analgesic
CPT/HCPCS: 99348

== ENCOUNTER 2018-11-21 05:00 | Outpatient (CLI) | payer MEDICARE, MEDICAID | END 2018-11-21 05:01 | disposition critical access hospital (66) | LOC: EMS 05:00 | PROVIDERS: ATTEND Surgery | DX: R10.9 Unspecified abdominal pain (principal) | CPT/HCPCS: A0425; A0427 ==

== ENCOUNTER 2018-11-21 05:04 | Emergency (ER) | payer MEDICARE, MEDICAID ==
[2018-11-21] MEDS ORDERED: MAG HYDROX/AL HYDROX/SIMETH 30 ML UDC PO STA ×2 (05:31→06:46)
[2018-11-21] MEDS ORDERED: SUCRALFATE 1 GM/10 ML UDC PO STA (05:32)
--- NOTE | 2018-11-21 05:35 | ED Physician Documentation ---
PD HPI ABD PAIN - Stated complaint Stated Complaint: ABD PAIN - Chief complaint Chief Complaint: Abd Pain - History obtained from History obtained from: Patient, Family, EMS - History of Present Illness Timing - onset: How many months ago (2) Timing - details: Gradual onset, Still present, Waxing and waning Quality: Sharp, Pain Location: Epigastric, LUQ Improved by: Meds Worsened by: Eating Associated symptoms: Nausea, Dizzy. No: Fever, Vomiting, Constipation Similar symptoms before: Diagnosis (liver failure) Recently seen: Clinic - Additional information Additional information: 53-year-old female with history of alcoholic cirrhosis has had a hospitalization over the summer and following that she went to [facility] [place] to recuperate. She has been sober and has had improvement in her jaundice and her symptoms. She has had symptoms of epigastric and left upper quadrant abdominal pain for the past several months as well as intermittent vertigo. She describes the vertigo as the room spinning and she denies lightheadedness. She is on both furosemide and spironolactone. She states that she called the ambulance this morning because of continued abdominal pain and dizziness. She relates the abdominal pain is worse than usual. She states that she has been sucking on a lot of Tums yesterday. Her most recent visit was to palliative care team at the [facility] on . Review of Systems Constitutional: reports: Fatigue. denies: Fever, Myalgias Eyes: denies: Decreased vision Ears: denies: Ear pain Nose: denies: Rhinorrhea / runny nose, Congestion Throat: denies: Sore throat Cardiac: denies: Chest pain / pressure, Palpitations Respiratory: denies: Dyspnea, Cough GI: reports: Abdominal Pain, Nausea. denies: Vomiting, Constipation, Diarrhea : denies: Dysuria, Frequency, Discharge Musculoskeletal: reports: Back pain. denies: Neck pain Neurologic: denies: Generalized weakness, Focal weakness, Numbness PD PAST MEDICAL HISTORY - Past Medical History Past Medical History: Yes Cardiovascular: Other Respiratory: None Neuro: Seizure disorder Endocrine/Autoimmune: None GI: GERD, Ulcers, Hiatal hernia, Chronic constipation, Hemorrhoids, Hepatitis, Cirrhosis LEAD SHAREPOINT DEVELOPER: None : Frequency, Other HEENT: Chronic vision loss, Other Psych: Depression, Anxiety, Panic attacks, Post traumatic stress disorder Musculoskeletal: Chronic back pain Derm: None Other Past Medical History: HEPATIC ENCEPALOPATHY...TYLENOL TOXICITY... - Past Surgical History Past Surgical History: Yes General: Cholecystectomy Ortho: Other /LEAD SHAREPOINT DEVELOPER: Tubal ligation - Present Medications Home Medications: Ambulatory Orders Medication Instructions Recorded Confirmed Folic Acid 1 mg PO DAILY tablet 06/24/18 11/21/18 Multivitamin [Theragran] 1 tab PO DAILYWM tablet 06/24/18 11/21/18 rifAXIMin [Xifaxan] 550 mg PO BID tablet 06/24/18 11/21/18 Furosemide [Lasix] 40 mg PO DAILY 08/04/18 11/21/18 LORazepam [Ativan] 0.25 mg PO BID PRN 08/04/18 11/21/18 Lactulose 30 ml PO BID 08/04/18 11/21/18 Omeprazole 20 mg PO DAILY 08/04/18 11/21/18 Potassium Chloride [K-Dur] 20 meq PO BID 08/04/18 11/21/18 Spironolactone [Aldactone] 50 mg PO DAILY 08/04/18 11/21/18 Ondansetron Odt [Zofran Odt] 4 mg PO Q6H PRN MDD Oral 09/11/18 11/21/18 disintegrating tablet oxyCODONE [Roxicodone] 2.5 mg PO BID PRN MDD 6 tablets 11/09/18 11/21/18 only; for 6days only Meclizine HCl 25 mg PO Q6HR PRN #30 tab.chew 11/21/18 Thiamine HCl [Vitamin B-1] 100 mg PO DAILY 11/21/18 11/21/18 oxyCODONE [Roxicodone] 2.5 mg PO BID #20 tablet 11/21/18 - Allergies Allergies/Adverse Reactions: Allergies Allergy/AdvReac Type Severity Reaction Status Date / Time ceftriaxone sodium * Allergy Severe RASH,HIVES, Verified 11/21/18 05:15 [From Rocephin] BURNING,ITC JAMIE cephalexin monohydrate * Allergy Severe RASH,HIVES, Verified 11/21/18 05:15 [From Keflex] BURNING,ITC JAMIE ciprofloxacin Allergy Severe RASH,HIVES, Verified 11/21/18 05:15 BURNING,ITC JAMIE phenazopyridine HCl * Allergy Severe SWELLING Verified 11/21/18 05:15 [From Pyridium] OF AIRWAY Sulfa (Sulfonamide Allergy Severe RASH,HIVES, Verified 11/21/18 05:15 Antibiotics) BURNING,ITC JAMIE gentamicin Allergy Edema Verified 11/21/18 05:15 lamotrigine [From Lamictal] Allergy Hives Verified 11/21/18 05:15 levetiracetam [From Keppra] Allergy Anxiety Verified 11/21/18 05:15 lidocaine AdvReac Itching Verified 11/21/18 05:31 - Social History Does the pt smoke?: Yes Smoking Status: Current every day smoker Does the pt drink ETOH?: Yes Does the pt have substance abuse?: No - Immunizations Immunizations are current?: Yes Immunizations: TDAP >10years/unknown - POLST Patient has POLST: Yes POLST Status: Full Code PD ED PE NORMAL - Vitals Vital signs reviewed: Yes (hypertensive mild ) - General General: Alert and oriented X 3, No acute distress, Well developed/nourished - HEENT HEENT: Atraumatic, PERRL, EOMI, Ears normal, Moist mucous membranes, Other (slceral icterus is present and less than previously ) - Neck Neck: Supple, no meningeal sign, No bony TTP - Cardiac Cardiac: RRR, No murmur - Respiratory Respiratory: No respiratory distress, Clear bilaterally - Abdomen Abdomen: Soft, Other (epigastric and LUQ pain to palpation ) - Back Back: No CVA TTP, No spinal TTP - Derm Derm: Normal color, Warm and dry, No rash - Extremities Extremities: No deformity, No edema, No calf tenderness / cord - Neuro Neuro: Alert and oriented X 3, reproductive surgeon 2-12 intact, No motor deficit, No sensory deficit, Normal speech Eye Opening: Spontaneous Motor: Obeys Commands Verbal: Oriented GCS Score: 15 - Psych Psych: Normal mood, Normal affect Results - Vitals Vitals: Vital Signs - 24 hr 11/21/18 11/21/18 11/21/18 05:11 05:25 05:38 Temperature 36.9 C Heart Rate 89 84 79 Respiratory 17 17 17 Rate Blood Pressure 131/80 H 128/92 H O2 Saturation 100 100 100 11/21/18 11/21/18 06:15 06:32 Temperature Heart Rate 78 78 Respiratory 16 16 Rate Blood Pressure 123/72 117/77 O2 Saturation 100 100 Oxygen O2 Source Room air - Labs Labs: Laboratory Tests 11/21/18 11/21/18 11/21/18 05:51 05:51 05:51 WBC 6.7 RBC 3.39 L Hgb 10.9 L Hct 33.2 L MCV 97.9 MCH 32.2 H MCHC 32.9 RDW 16.1 H Plt Count 96 L MPV 8.5 Neut # (Auto) 4.8 Lymph # (Auto) 1.2 L Z[place]ata # (Auto) 0.5 Eos # (Auto) 0.1 Baso # (Auto) 0.0 Absolute Nucleated RBC 0.00 Nucleated RBC % 0.1 PT 23.2 H INR 2.1 H Sodium 133 L Potassium 4.0 Chloride 104 Carbon Dioxide 21 Anion Gap 8.0 BUN 6 Creatinine 0.5 Estimated GFR (MDRD) 130 Glucose 127 H Calcium 9.6 Total Bilirubin 2.6 H AST 49 H ALT 21 Alkaline Phosphatase 103 Troponin I Total Protein 6.7 Albumin 3.5 Globulin 3.2 Albumin/Globulin Ratio 1.1 Lipase 72 H Urine Color Urine Clarity Urine pH Ur Specific [place] Urine Protein Urine Glucose (UA) Urine Ketones Urine Occult Blood Urine Nitrite Urine Bilirubin Urine Urobilinogen Ur Leukocyte Esterase Ur Microscopic Review Urine Culture Comments Ethyl Alcohol < 5.0 11/21/18 11/21/18 05:51 07:10 WBC RBC Hgb Hct MCV MCH MCHC RDW Plt Count MPV Neut # (Auto) Lymph # (Auto) [place] # (Auto) Eos # (Auto) Baso # (Auto) Absolute Nucleated RBC Nucleated RBC % PT INR Sodium Potassium Chloride Carbon Dioxide Anion Gap BUN Creatinine Estimated GFR (MDRD) Glucose Calcium Total Bilirubin AST ALT Alkaline Phosphatase Troponin I < 0.04 Total Protein Albumin Globulin Albumin/Globulin Ratio Lipase Urine Color YELLOW Urine Clarity CLEAR Urine pH 7.5 Ur Specific [place] 1.015 Urine Protein NEGATIVE Urine Glucose (UA) NEGATIVE Urine Ketones NEGATIVE Urine Occult Blood NEGATIVE Urine Nitrite NEGATIVE Urine Bilirubin NEGATIVE Urine Urobilinogen 0.2 (NORMAL) Ur Leukocyte Esterase NEGATIVE Ur Microscopic Review NOT INDICATED Urine Culture Comments NOT INDICATED Ethyl Alcohol Procedures - IVC sono (time) 3035 Bedside IVC sono: IVC measures (cm) (1.52), Euvolemia PD MEDICAL DECISION MAKING - ED course Complexity details: reviewed results, re-evaluated patient, considered differential, d/w patient, d/w family ED course: 53 y/o female with abdominal pain for months/years today her pain is bad and improved dramatically with fentanyl given in the ambulance. She has no improvement with GI cocktail. Her numbers for her liver failure are improving month by month and she maintains she is sober and it seems she must be. I have no explanation for the pain she has had for all these years. She has been on pain management with a low dose of oxycodone previously and she is not on this now. We will provide a script for now. Departure - Departure Disposition: 01 Home, Self Care Clinical Impression: Abdominal pain, Vertigo Condition: Stable Instructions: ED Abdominal Pain Unkn Cause, ED Vertigo Unspecified Follow-Up: Efrain Whitmore MD [Primary Care Provider] - Prescriptions: Meclizine HCl 25 mg PO Q6HR PRN #30 tab.chew PRN Reason: Dizziness oxyCODONE [Roxicodone] 2.5 mg PO BID #20 tablet
[2018-11-21 05:57] LABS: BASOPHILS % (AUTO) 0.3 %; EOSINOPHILS # (AUTO) 0.1 10^3/uL (0.0-0.7); HGB - HEMOGLOBIN 10.9 g/dL (12.0-16.0); LYMPHOCYTES # (AUTO) 1.2 10^3/uL (1.5-3.5); LYMPHOCYTES % (AUTO) 18.3 %; MEAN CORPUSCULAR HEMOGLOBIN 32.2 pg (27.0-31.0); MEAN CORPUSCULAR HGB CONC 32.9 g/dL (32.0-36.0); MEAN CORPUSCULAR VOLUME 97.9 fL (81.0-99.0); MEAN PLATELET VOLUME 8.5 fL (7.9-10.8); MONOCYTES # (AUTO) 0.5 10^3/uL (0.0-1.0); MONOCYTES % (AUTO) 7.8 %; NEUTROPHILS # (AUTO) 4.8 10^3/uL (1.5-6.6); NEUTROPHILS % (AUTO) 71.6 %; PLT - PLATELET COUNT 96 10^3/uL (130-450); RED BLOOD COUNT 3.39 10^6/uL (4.20-5.40); RED CELL DISTRIBUTION WIDTH 16.1 % (12.0-15.0); WHITE BLOOD COUNT 6.7 x10^3/uL (4.8-10.8)
[2018-11-21 06:11] LABS: ALBUMIN 3.5 g/dL (3.2-5.5); ALBUMIN/GLOBULIN RATIO 1.1 (1.0-2.2); ALKALINE PHOSPHATASE 103 IU/L (42-121); ALT ALANINE AMINOTRANSFERASE 21 IU/L (10-60); AST ASPARTATE AMINOTRANSFERASE 49 IU/L (10-42); BILIRUBIN,TOTAL 2.6 mg/dL (0.2-1.0); BUN - BLOOD UREA NITROGEN 6 mg/dL (6-20); CALCIUM 9.6 mg/dL (8.5-10.3); CARBON DIOXIDE - CO2 21 mmol/L (21-32); CHLORIDE 104 mmol/L (101-111); CREATININE 0.5 mg/dL (0.4-1.0); GFR - MDRD 130 (>89); GLUCOSE 127 mg/dL (70-100); LIPASE 72 U/L (22-51); SODIUM 133 mmol/L (135-145); TOTAL PROTEIN 6.7 g/dL (6.7-8.2)
[2018-11-21 06:20] LABS: INR 2.1 (0.8-1.2); PT - PROTHROMBIN TIME 23.2 secs (9.9-12.6)
[2018-11-21] MEDS ORDERED: CHERRY SYRUP 10 ML UDC PO ONE (06:37)
[2018-11-21] MEDS ORDERED: PHYTONADIONE 10 MG/ML AMP PO ONE (06:37)
[2018-11-21] MEDS ORDERED: LIDOCAINE VISCOUS 2% 15 ML UDC MM STA (06:46)
[2018-11-21] MEDS ORDERED: PHYTONADIONE 10 MG/ML AMP ONE (07:05)
[2018-11-21 07:22] LABS: BILIRUBIN,URINE NEGATIVE (NEGATIVE); GLUCOSE, URINE (UA) NEGATIVE (NEGATIVE); KETONES,URINE (UA) NEGATIVE (NEGATIVE); LEUKOCYTE ESTERASE, URINE NEGATIVE (NEGATIVE); NITRITE,URINE NEGATIVE (NEGATIVE); OCCULT BLOOD,URINE NEGATIVE (NEGATIVE); PH,URINE 7.5 PH (5.0-7.5); PROTEIN,URINE NEGATIVE (NEGATIVE); UROBILINOGEN,URINE 0.2 (NORMAL) E.U./dL (NORMAL)
[2018-11-21 07:26] LABS: CLARITY,URINE CLEAR (CLEAR)
[2018-11-21] MEDS ORDERED: HYDROmorphone 1 MG/ML CARPUJECT IVP STA (07:35)
[2018-11-21] MEDS ORDERED: ONDANSETRON 4 MG/2 ML VIAL IVP STA (07:36)
[2018-11-21 07:54] VITALS: BP 116/70
== END 2018-11-21 07:58 | disposition home or self-care (01) ==
LOC: EDUNIT# → EDSEX → ED 05:04
DX: R10.13 Epigastric pain (principal); R10.12 Left upper quadrant pain; R42 Dizziness and giddiness; F17.200 Nicotine dependence, unspecified, uncomplicated
CPT/HCPCS: 36415; 80053; 81003; 83690; 84484; 85025; 85610; 96374; 99284; A9270; J1170; 80320; 81001; 87086

== ENCOUNTER 2018-12-13 18:53 | Emergency (ER) | payer MEDICARE, MEDICAID ==
--- NOTE | 2018-12-13 19:40 | ED Physician Documentation ---
PD HPI UPPER EXT INJURY - Stated complaint Stated Complaint: FINGER CUT - Chief complaint Chief Complaint: Laceration - History obtained from History obtained from: Patient - History of Present Illness Location: Left, Hand Type of injury: Laceration (while cutting onion at home tonight. Last tet about 5 yrs ago.) Review of Systems Constitutional: reports: Reviewed and negative Nose: reports: Reviewed and negative Cardiac: reports: Reviewed and negative PD PAST MEDICAL HISTORY - Past Medical History Cardiovascular: Other Respiratory: None Neuro: Seizure disorder Endocrine/Autoimmune: None GI: GERD, Ulcers, Hiatal hernia, Chronic constipation, Hemorrhoids, Hepatitis, Cirrhosis COMPUTED TOMOGRAPHY TECHNOLOGIST: None : Frequency, Other HEENT: Chronic vision loss, Other Psych: Depression, Anxiety, Panic attacks, Post traumatic stress disorder Musculoskeletal: Chronic back pain Derm: None - Past Surgical History Past Surgical History: Yes General: Cholecystectomy Ortho: Other /COMPUTED TOMOGRAPHY TECHNOLOGIST: Tubal ligation - Present Medications Home Medications: Ambulatory Orders Medication Instructions Recorded Confirmed RX: Folic Acid 1 mg PO DAILY tablet 06/24/18 12/13/18 RX: Multivitamin [Theragran] 1 tab PO DAILYWM tablet 06/24/18 12/13/18 RX: rifAXIMin [Xifaxan] 550 mg PO BID tablet 06/24/18 12/13/18 Furosemide [Lasix] 40 mg PO DAILY 08/04/18 12/13/18 RX: Lactulose 30 ml PO BID 08/04/18 12/13/18 RX: Omeprazole 20 mg PO DAILY 08/04/18 12/13/18 RX: Potassium Chloride [K-Dur] 20 meq PO BID 08/04/18 12/13/18 Spironolactone [Aldactone] 50 mg PO DAILY 08/04/18 12/13/18 RX: oxyCODONE [Roxicodone] 2.5 mg PO BID #20 tablet 11/21/18 12/13/18 Thiamine HCl [Vitamin B-1] 100 mg PO DAILY 11/21/18 12/13/18 - Allergies Allergies/Adverse Reactions: Allergies Allergy/AdvReac Type Severity Reaction Status Date / Time ceftriaxone sodium * Allergy Severe RASH,HIVES, Verified 11/21/18 05:15 [From Rocephin] BURNING,ITC JAMIE cephalexin monohydrate * Allergy Severe RASH,HIVES, Verified 11/21/18 05:15 [From Keflex] BURNING,ITC JAMIE ciprofloxacin Allergy Severe RASH,HIVES, Verified 11/21/18 05:15 BURNING,ITC JAMIE phenazopyridine HCl * Allergy Severe SWELLING Verified 11/21/18 05:15 [From Pyridium] OF AIRWAY Sulfa (Sulfonamide Allergy Severe RASH,HIVES, Verified 11/21/18 05:15 Antibiotics) BURNING,ITC JAMIE gentamicin Allergy Edema Verified 11/21/18 05:15 lamotrigine [From Lamictal] Allergy Hives Verified 11/21/18 05:15 levetiracetam [From Keppra] Allergy Anxiety Verified 11/21/18 05:15 lidocaine AdvReac Itching Verified 11/21/18 05:31 - Social History Does the pt smoke?: Yes Smoking Status: Current every day smoker Does the pt drink ETOH?: Yes Does the pt have substance abuse?: No - Immunizations Immunizations are current?: Yes Immunizations: TDAP >10years/unknown - POLST Patient has POLST: Yes POLST Status: Full Code PD ED PE NORMAL - Vitals Vital signs reviewed: Yes - General General: Alert and oriented X 3, No acute distress - Extremities Extremities: Other (At the level of the MCP of the left thumb on the radial side there is a 1cm laceration that is just into the fat without tendon or neurovascular compromise.) - Neuro Neuro: Alert and oriented X 3, Normal speech - Psych Psych: Normal mood, Normal affect Results - Vitals Vitals: Vital Signs - 24 hr 12/13/18 12/13/18 18:59 20:18 Temperature 36.2 C L Heart Rate 100 90 Respiratory 16 Rate Blood Pressure 141/79 H 123/75 O2 Saturation 100 100 Oxygen O2 Source Room air Procedures - Laceration (location) L hand Length in cm: 1 Wound type: Linear Neurovascular status: Sensory intact, Motor intact, Vascular intact Tendon involvement: Tendon intact Anesthesia: Lidocaine 1%, With bicarb Wound Preparation: Irrigated copiously NS Skin layer closure: Nylon, Interrupted, Size #-0 - enter number ([phone]), Sutures - enter # (3) Other: Tetanus UTD Complexity: Simple Departure - Departure Disposition: 01 Home, Self Care Clinical Impression: Laceration Condition: Good Record reviewed to determine appropriate education?: Yes Instructions: ED Laceration Hand Comments: Come back for any signs of infection which would include: Redness, swelling, drainage, increased pain, or fevers. Follow-up with your physician in about 14 days for suture removal. Your blood pressure was elevated today on check into the emergency department. This does not mean that you have hypertension, it is a common phenomenon to come to the emergency department and have elevated blood pressure. I recommend that you see your primary care physician within the week to have it rechecked when you are feeling better. Discharge Date/Time: 12/13/18 20:18
[2018-12-13] MEDS ORDERED: BUFFERED LIDOCAINE 10 ML SYRINGE SUBQ STA (19:42)
[2018-12-13 20:18] VITALS: BP 123/75
== END 2018-12-13 20:18 | disposition home or self-care (01) ==
LOC: ED 18:53 → EEVIPCON 18:53 → ED 20:18
DX: S61.412A Laceration without foreign body of left hand, initial encounter (principal); W26.0XXA Contact with knife, initial encounter; Y93.G1 Activity, food preparation and clean up; Y92.009 Unspecified place in unspecified non-institutional (private) residence as the place of occurrence of the external cause; R03.0 Elevated blood-pressure reading, without diagnosis of hypertension; F17.200 Nicotine dependence, unspecified, uncomplicated
CPT/HCPCS: 12001; 99282; 99283

== ENCOUNTER 2018-12-23 12:50 | Outpatient (CLI) | payer MEDICARE, MEDICAID ==
--- NOTE | 2018-12-23 14:48 | Ultrasound Report ---
Reason: ABDOMINAL PAIN-EPIGASTRIC,ALCOHOLIC CIRRHOSIS OF L Procedure Date: 12/23/2018 Accession Number: [id number] / [id number] Procedure: US - Abdomen Limited CPT Code: FULL RESULT: EXAM: ABDOMEN ULTRASOUND LIMITED, RIGHT UPPER QUADRANT EXAM DATE: 12/23/2018 01:32 PM. CLINICAL HISTORY: Abdominal pain-epigastric, alcoholic cirrhosis of liver. COMPARISON: Abdomen limited 06/22/2018 2:34 PM. Abdomen, pelvis with contrast 12/06/2016 2:24 PM. TECHNIQUE: Real-time scanning was performed with static images obtained. FINDINGS: Liver: Normal in size and echotexture. Smooth serosal surfaces. 17 cm. Main portal vein flow: Hepatopetal. Gallbladder: Surgically absent. Biliary System: CBD measures 7 mm; unchanged from comparison CT of 12/06/2016. No intrahepatic or extrahepatic ductal dilatation. Other: Normal appearance of the right kidney with a stable column Michael also noted on the abdominal CT 12/06/2016. IMPRESSION: No specific abnormalities. Status post cholecystectomy. RADIA
== END 2018-12-23 12:51 | disposition home or self-care (01) ==
LOC: DI 12:50
PROVIDERS: ATTEND Student in an Organized Health Care Education/Training Program
DX: K70.31 Alcoholic cirrhosis of liver with ascites (principal); R10.13 Epigastric pain; Z90.49 Acquired absence of other specified parts of digestive tract
CPT/HCPCS: 76705

== ENCOUNTER 2018-12-31 10:45 | Outpatient (CLI) | payer MEDICARE, MEDICAID ==
[2018-12-31 17:52] LABS: HGB - HEMOGLOBIN 12.2 g/dL (12.0-16.0); MEAN CORPUSCULAR HEMOGLOBIN 32.9 pg (27.0-31.0); MEAN CORPUSCULAR HGB CONC 32.4 g/dL (32.0-36.0); MEAN CORPUSCULAR VOLUME 101.5 fL (81.0-99.0); MEAN PLATELET VOLUME 9.1 fL (7.9-10.8); RED BLOOD COUNT 3.71 10^6/uL (4.20-5.40); RED CELL DISTRIBUTION WIDTH 14.8 % (12.0-15.0); WHITE BLOOD COUNT 5.7 x10^3/uL (4.8-10.8)
[2018-12-31 18:28] LABS: ALBUMIN/GLOBULIN RATIO 1.4 (1.0-2.2); BILIRUBIN,TOTAL 1.9 mg/dL (0.2-1.0); CALCIUM 10.3 mg/dL (8.5-10.3); CREATININE 0.7 mg/dL (0.4-1.0); TOTAL PROTEIN 6.9 g/dL (6.7-8.2)
== END 2018-12-31 10:46 | disposition home or self-care (01) ==
LOC: LAB.F 10:45
PROVIDERS: ATTEND Internal Medicine
DX: K74.60 Unspecified cirrhosis of liver (principal)
CPT/HCPCS: 36415; 80053; 84443; 85027; 85610; 85730

== ENCOUNTER 2019-01-11 13:11 | Outpatient (CLI) | payer MEDICARE, MEDICAID ==
[2019-01-11 18:43] LABS: HGB - HEMOGLOBIN 13.2 g/dL (12.0-16.0); MEAN CORPUSCULAR HEMOGLOBIN 33.1 pg (27.0-31.0); MEAN CORPUSCULAR HGB CONC 33.7 g/dL (32.0-36.0); MEAN CORPUSCULAR VOLUME 98.4 fL (81.0-99.0); MEAN PLATELET VOLUME 9.2 fL (7.9-10.8); RED BLOOD COUNT 3.99 10^6/uL (4.20-5.40); RED CELL DISTRIBUTION WIDTH 14.2 % (12.0-15.0); WHITE BLOOD COUNT 6.9 x10^3/uL (4.8-10.8)
[2019-01-11 19:35] LABS: ALBUMIN/GLOBULIN RATIO 1.2 (1.0-2.2); BILIRUBIN,TOTAL 1.9 mg/dL (0.2-1.0); CALCIUM 9.9 mg/dL (8.5-10.3); CREATININE 0.7 mg/dL (0.4-1.0); TOTAL PROTEIN 7.4 g/dL (6.7-8.2)
== END 2019-01-11 13:12 | disposition home or self-care (01) ==
LOC: LAB.F 13:11
PROVIDERS: ATTEND Internal Medicine
DX: K74.60 Unspecified cirrhosis of liver (principal)
CPT/HCPCS: 36415; 80053; 84443; 85027; 85610; 85730

== ENCOUNTER 2019-01-28 17:56 | Outpatient (CLI) | payer MEDICARE, MEDICAID ==
--- NOTE | 2019-01-28 18:18 | CONSULTATION NOTE ---
Palliative Care Follow Up - Referral Referring Provider: Dr Whitmore Time of Visit: Nila 01/28/2019. 12:15 - 13:00 Referral setting: Home Referral Reason: Back pain - Information Sources Records reviewed: Previous records reviewed History/Review of Systems obtained from: Patient Exam limitations: No limitations - History of Present Illness Update Brief HPI Update: 53-year-old female with alcoholic cirrhosis of the liver, fatty liver disease, and hepatitis C (the Hep C diagnosis is disputed by the patient). She was hospitalized in June for acute hepatic failure and severe protein calorie malnutrition, was at [facility] for rehabilitation, and discharged from the SNF in August 2018. She has been living on the property of a [employer] since then. Her son Jayden was living in the hospital pharmacy director's house, now lives in an RV on the property with her. Medical history: alcoholic cirrhosis; hepatitis C; fatty liver disease;cholelithiasis s/p cholecystectomy November 2017; h/o severe protein calorie malnutrition; chronic back pain: from synovial cyst, spinal stenosis and bulging disk, self reported by patient; chronic migraines and headaches; GERD; h/o seizures; h/o alcohol abuse; h/o tobacco abuse; depression; anxiety; panic; PTSD. Patient has seen her PCP for synovial cyst, spinal stenosis, and bulging disk in lower back, hair loss, and chronic epistaxis. Her nosebleed is improving. Her hair continues to fall out, so she wears a cap all the time. She has been to ld to wait for papers to be sent regarding a dermatology referral her PCP made. She has been told in the past that her herniated disc is inoperable. She subsequently learned that it is not, so is pursuing a referral through her PCP. She has an MRI scheduled for February 01. Her main concern today is increased pain in her back, and request to increase her oxycodone dosing. She walks with extreme difficulty, cannot sit or stand for more than a short duration, and limps and grimaces significantly. She does not want to try PT; the back problem is of long duration. She has tried "all modalities" with no improvement: epidurals, pressure points, TENS units, aqua therapy[place] or Parat[place]it [place]. She has very little social support and difficulty obtaining transport. She reports continued abstinence from alcohol. She had an endoscopy in November and has not been able to follow up yet with . Social History - Living Situation Living arrangement: At home Living Situation: With family (son) Support System: Patient is living in an RV on the property of abstract writer, Vincent Brar. Jayden, her 15-year-old son had been living in the house with Vincent's family, now he is living in the RV with the patient. Her social support network is fragile and precarious, currently depending on the generosity and reliability of Vincent Brar, her friends, and at times her brother. He lives in [place] with their mother. He has Parkinson's so his ability to offer support is limited. Medications/Allergies - Medications Home Medications: Ambulatory Orders Medication Instructions Recorded Confirmed Folic Acid 1 mg PO DAILY tablet 06/24/18 01/28/19 rifAXIMin [Xifaxan] 550 mg PO BID tablet 06/24/18 01/28/19 Furosemide [Lasix] 40 mg PO DAILY 08/04/18 01/28/19 Omeprazole 20 mg PO DAILY 08/04/18 01/28/19 Potassium Chloride [K-Dur] 20 meq PO BID 08/04/18 01/28/19 Spironolactone [Aldactone] 50 mg PO DAILY 08/04/18 01/28/19 Multivit-Min/FA/Lycopen/Lutein 1 tab PO DAILY 01/28/19 01/28/19 [Centrum Silver Men Tablet] Ondansetron [Ondansetron Odt] 4 mg PO Q6H PRN 01/28/19 01/28/19 oxyCODONE [Roxicodone] 5 mg PO BID 01/28/19 01/28/19 - Allergies Allergies/Adverse Reactions: Allergies Allergy/AdvReac Type Severity Reaction Status Date / Time ceftriaxone sodium * Allergy Severe RASH,HIVES, Verified 11/21/18 05:15 [From Rocephin] BURNING,ITC JAMIE cephalexin monohydrate * Allergy Severe RASH,HIVES, Verified 11/21/18 05:15 [From Keflex] BURNING,ITC JAMIE ciprofloxacin Allergy Severe RASH,HIVES, Verified 11/21/18 05:15 BURNING,ITC JAMIE phenazopyridine HCl * Allergy Severe SWELLING Verified 11/21/18 05:15 [From Pyridium] OF AIRWAY Sulfa (Sulfonamide Allergy Severe RASH,HIVES, Verified 11/21/18 05:15 Antibiotics) BURNING,ITC JAMIE gentamicin Allergy Edema Verified 11/21/18 05:15 lamotrigine [From Lamictal] Allergy Hives Verified 11/21/18 05:15 levetiracetam [From Keppra] Allergy Anxiety Verified 11/21/18 05:15 lidocaine AdvReac Itching Verified 11/21/18 05:31 Review of Systems - Constitutional Constitutional: reports: Weight stable - Ears, Nose & Throat Ears, Nose & Throat: reports: Other (missing all her teeth) - Cardiovascular Cardiovascular: denies: Chest pain, Exertional dyspnea - Respiratory Respiratory: denies: SOB at rest, SOB with exertion - Gastrointestinal Gastrointestinal: reports: Good appetite. denies: Constipation - Genitourinary Genitourinary: denies: Dysuria - Musculoskeletal Musculoskeletal: reports: Back pain (Chronic x years. Severe, worsening, denies PT modalities have helped), Other (unable to stand for very long; legs give out. difficulty finding comfortable standing or resting positions) - Integumentary Integumentary: reports: Pigment changes (mild jaundice) - Psychiatric Psychiatric: reports: Anxiety - Hematologic/Lymphatic Hematologic/Lymphatic: reports: Bleeding tendencies (epistaxis, but lessening) - All Other Systems All Other Systems: reports: Other (Focused ROS) Physical Exam - Vital Signs Temperature: 96.6 F Pulse Rate: 97 O2 Saturation: 95 (room air) Blood Pressure: 137/91 (wrist cuff) - Physical Exam General Appearance: positive: Moderate distress (due to pain) Eyes Bilateral: positive: Other (mild scleral icterus) ENT: positive: No signs of dehydration Neck: positive: Trachea midline Cardiovascular: positive: Regular rate & rhythm, No murmur Abdomen: positive: Non-tender, Soft, Hepatomegaly, Other (ascites is mild to none). negative: Distended Skin: positive: Jaundice (minimal) Extremities: positive: No pedal edema Neurologic/Psychiatric: positive: Oriented x3, Mood/affect nml Palliative Care - POLST Patient has POLST: Yes POLST Status: Full Code Pain: Pain worsening, Location (low back), Severity (8-9) Performance Status: ambulation and physical movement compromised by back pain - Palliative Care Discussion: Patient states it's becoming difficult living on the property of the hospital pharmacy director and his family. Her son has moved out of the house and is living in the RV with her. It is likely a culture clash, patient and her son are not temple. It is not possible to gauge the tension, since the hospital pharmacy director is never present during palliative care visits, but patient makes it clear she would like to move. She does express gratitude and acknowledgement that they are fortunate to have a roof over their heads. Her income is $700/month, per her self report, so housing option are extremely limited. She is on or trying to get on two wait lists for [facility]. One for [place] in [place]. Also applying to [place]. It is unclear how many benefits, if any, she is receiving from [facility]. At one time she was to have 20 hours of MISAEL, but she doesn't need it in the RV. Lack of transportation is a significant obstacle. [place], is not on a bus or Paratransit line. She reports having to use a taxi to go grocery shopping, $[address] She states she is abstaining from drinking alcohol. Impression and Recommendations - Palliative Care Impression: 53-year-old female with alcoholic cirrhosis of the liver, fatty liver disease, and hepatitis C (she disputes the Hep C). Her chronic back pain, due to multiple sources including bulging disk, synovial cyst and spinal stenosis, is increasing and hindering physical movement and activities of daily living, and she could benefit from increasing oxycodone pain medication. She is scheduled for an MRI next week. Palliative care will continue to monitor and provide support. Recommendations/Counseling Done: End stage alcoholic cirrhosis and Hepatitis C: Patient denies having had Hep C. Jaundice continues to improve and scleral icterus is fainter. She reports MELD score has improved to 15; at its highest it was 30. Lactulose has stopped. Rifaximin and folic acid continue. Patient reports she is abstaining from alcohol and has been since June. She is following up with Dr Gooden of [facility] in [place]. Chronic back pain: Worsening pain is hindering her ability to be mobile and perform daily tasks. Increase oxycodone to 5mg PO BID PRN. Controlled Substance Agreement in place. Consulted [employer] recipient list, there is no concerning activity. I wrote a script for 60 tablets: a 30-day supply. NSAIDs and Tylenol are contraindicated. Patient has an MRI scheduled for 02/01/19 and is following up with PCP for surgery referral. Chronic migraines: No complaints today. She uses Oxycodone to control migraines when they occur. Patient reports other medications have not worked or had undesirable side effects: triptans, beta blockers, Tylenol and NSAIDs. Had provided previous counseling to not skip meals, maintain adequate water intake. Also can use riboflavin 400mg daily (can take 3 months to take effect) and magnesium 250mg daily if she can tolerate the increased loose stools. She has stopped these last two. Can consider gabapentin, though studies show it's not helpful in prevention. Advance care planning: Full code. She is on 2 wait lists for [employer] housing for herself and son. She has no [facility] pathologist assistant. Palliative care will continue to provide oversight and support and manage pain medications. Time Spent: 45 minutes were spent with more than 50% of the time spent on counseling, educat ion, and coordination of care.
== END 2019-01-28 17:57 | disposition home or self-care (01) ==
LOC: PC 17:56
PROVIDERS: ATTEND Nurse Practitioner
DX: Z51.5 Encounter for palliative care (principal); K70.31 Alcoholic cirrhosis of liver with ascites; B19.20 Unspecified viral hepatitis C without hepatic coma; E43 Unspecified severe protein-calorie malnutrition; G89.29 Other chronic pain; M54.9 Dorsalgia, unspecified; F41.9 Anxiety disorder, unspecified; K76.0 Fatty (change of) liver, not elsewhere classified; G43.909 Migraine, unspecified, not intractable, without status migrainosus; M51.86 Other intervertebral disc disorders, lumbar region; M71.38 Other bursal cyst, other site; M48.00 Spinal stenosis, site unspecified; Z79.891 Long term (current) use of opiate analgesic
CPT/HCPCS: 99349

== ENCOUNTER 2019-02-01 09:39 | Outpatient (CLI) | payer MEDICARE, MEDICAID ==
[2019-02-01] MEDS ORDERED: GADOBUTROL 7.5 MMOL/7.5 ML VIAL IVP ONE (10:50)
--- NOTE | 2019-02-02 07:02 | MRI Report ---
Reason: SPINAL STENOSIS,LUMBAR Procedure Date: 02/01/2019 Accession Number: [id number] / [id number] Procedure: MRI - Lumbar Spine W/WO CPT Code: FULL RESULT: EXAM: MRI LUMBAR SPINE WITHOUT AND WITH CONTRAST EXAM DATE: 02/01/2019 11:10 AM. CLINICAL HISTORY: Spinal stenosis, lumbar. COMPARISONS: LUMBAR SPINE W/O 07/08/2017 12:45 PM. TECHNIQUE: Multiplanar, multisequence T1-weighted and fluid-sensitive sequences of the lumbar spine from T12 to S1 before and after administration of intravenous contrast. Other: None. IV contrast: 5 cc Gadavist. FINDINGS: Neurologic Structures: The conus terminates at T12. The conus medullaris and cauda equina are unremarkable. Alignment: Anterolisthesis 3 mm L5 on L6. Bone Marrow: 6 [id number] lumbar vertebrae. No gross fractures or bone lesions. No bone marrow replacement or abnormal enhancement. Disk Levels/Facets: T12-L1: Unremarkable. L1-L2: Unremarkable. L2-L3: Preservation of disk height and signal. The intervertebral foramina are negative for stenosis. L3-L4: Mild facet joint arthrosis. Negative for spinal canal stenosis or foraminal stenosis. L4-L5: Mild facet joint arthrosis. L5-L6: Posterior 2 mm disk protrusion. Moderate central spinal canal stenosis. Mild bilateral lateral recess stenosis. Mild right foraminal stenosis. Negative for interval change as compared to the MRI lumbar spine 07/08/2017. Moderate facet joint arthrosis. Mild increased apophyseal joint fluid. Ligamentum flavum thickening. L6-S1: Mild facet joint arthrosis. Negative for spinal canal stenosis or foraminal stenosis. Spinal Canal: No enhancing masses within the spinal canal. No epidural abscess. Musculature: Normal. No edema, abnormal enhancement, or fatty atrophy. Other: The visualized retroperitoneum is unremarkable. IMPRESSION: Moderate spinal canal stenosis and mild bilateral lateral recess stenosis L5-L6 secondary to posterior 2 mm disk protrusion, facet hypertrophy and ligamentum flavum thickening without change as compared to the MRI lumbar spine 07/08/2017. Comment: The following findings are so common in adults without low back pain that while we report their presence, they must be interpreted with caution and in the context of the clinical situation. (Reference Lucreciak et al, Spine 2001) Prevalence of findings in patients without low back pain: Disk degeneration (any evidence): 92% Disk desiccation/T2 signal loss: 83% Disk height loss: 56% Disk bulge: 64% Disk protrusion: 32% Annular tear/high intensity zone: 38% RADIA
== END 2019-02-01 09:40 | disposition home or self-care (01) ==
LOC: DI 09:39
PROVIDERS: ATTEND Internal Medicine
DX: M48.061 Spinal stenosis, lumbar region without neurogenic claudication (principal); M51.26 Other intervertebral disc displacement, lumbar region
CPT/HCPCS: 72158

== ENCOUNTER 2019-04-19 11:47 | Outpatient (CLI) | payer MEDICARE, MEDICAID ==
[2019-04-19 18:17] LABS: INR 1.8 (0.8-1.2)
[2019-04-19 18:25] LABS: PARTIAL THROMBOPLASTIN TIME 37.5 secs (24.9-33.3)
[2019-04-19 18:30] LABS: ALBUMIN 4.1 g/dL (3.2-5.5); ALBUMIN/GLOBULIN RATIO 1.3 (1.0-2.2); BILIRUBIN,TOTAL 2.4 mg/dL (0.2-1.0); CALCIUM 9.8 mg/dL (8.5-10.3); CREATININE 0.7 mg/dL (0.4-1.0); TOTAL PROTEIN 7.3 g/dL (6.7-8.2)
== END 2019-04-19 11:48 | disposition home or self-care (01) ==
LOC: LAB.F 11:47
PROVIDERS: ATTEND Internal Medicine
DX: K74.60 Unspecified cirrhosis of liver (principal)
CPT/HCPCS: 36415; 80053; 85610; 85730

== ENCOUNTER 2019-05-04 16:36 | Outpatient (CLI) | payer MEDICARE, MEDICAID ==
--- NOTE | 2019-05-04 17:30 | CONSULTATION NOTE ---
Palliative Care Follow Up - Referral Referring Provider: Dr Whitmore Time of Visit: Elenita 05/04/2019. 13:30 - 14:10 Referral setting: Home Referral Reason: Back pain - Information Sources Records reviewed: Previous records reviewed History/Review of Systems obtained from: Patient Exam limitations: No limitations - History of Present Illness Update Brief HPI Update: 53-year-old female with alcoholic cirrhosis of the liver, fatty liver disease, and hepatitis C (the Hep C diagnosis is disputed by the patient). She was hospitalized in June 2018 for acute hepatic failure and severe protein calorie malnutrition, then [facility] for rehabilitation, and discharged in August 2018. 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 Medical history: alcoholic cirrhosis; hepatitis C; fatty liver disease;cholelithiasis s/p cholecystectomy November 2017; h/o severe protein calorie malnutrition; chronic back pain: from synovial cyst, spinal stenosis and bulging disk, self reported by patient; chronic migraines and headaches; GERD; h/o seizures; h/o alcohol abuse; h/o tobacco abuse; depression; anxiety; panic; PTSD. Patient is alert and awake, limping from the chronic back pain that radiated into R hip. She went to an appointment with Dr Crow, of [facility] in [place], it turned out not to be scheduled on that day. She has not been able to make a new appointment due to her precarious transportation situation. She lives in a relatively isolated location, no bus lines or [employer] go by her location, and she has limited friends or others who are available to driver messenger her. The family whose property she lives on did take her to the erroneous appointment in [place]. They will be traveling and unavailable for extended periods in May, which will affect the patient's ability to get transport during that time. Currently she catches a ride with them on Tuesdays and Fridays to [place] to help her brother with their mother who has advancing dementia. She had a lumbar MRI in January, but had not seen it. She been hopeful that her synovial cyst and bulging disk could be operable, and wanted a second opinion, from neurologist Dr Schaefer in [place], who also says what she has isn't operable. The 02/01/2019 MRI reveals moderate spinal canal stenosis and mild bilateral lateral recess stenosis L5-L6 secondary to posterior 2mm disk protrusion, facet hypertrophy and ligamentum flavum thickening without change as compared to MRI of lumbar spine 07/08/2017. The MRI report says that findings of disk degeneration/desiccation/height loss/bulge/protrusion are so common in adults without low back pain they must be interpreted with caution and in the context of the clinical situation. When asked if she has pursued chiropractic, or a pain clinic, she did so about 5 years ago, but failed the urine test, having borrowed some pain medications from a friend. They would not treat her due to this. She has not pursued admission to that or another pain clinic since then. Patient does report that her hair loss has resolved bit it's growing back curlier than before. Her PCP has routine labs drawn every 3 months; they have been relatively stable. 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 Her social support network is fragile and precarious. She depends on others for transport and lives in an area not served by bus lines or [employer]. Her brother has Parkinson's, and lives with their mother who has advancing dementia. They live in [place]. The patient visits them twice weekly to help out. Medications/Allergies - Medications Home Medications: Ambulatory Orders Medication Instructions Recorded Confirmed Folic Acid 1 mg PO DAILY tablet 06/24/18 03/01/19 rifAXIMin [Xifaxan] 550 mg PO BID tablet 06/24/18 03/01/19 Furosemide [Lasix] 40 mg PO DAILY 08/04/18 03/01/19 Omeprazole 20 mg PO DAILY 08/04/18 03/01/19 Potassium Chloride [K-Dur] 20 meq PO BID 08/04/18 03/01/19 Spironolactone [Aldactone] 50 mg PO DAILY 08/04/18 03/01/19 Multivit-Min/FA/Lycopen/Lutein 1 tab PO DAILY 01/28/19 03/01/19 [Centrum Silver Men Tablet] Ondansetron [Ondansetron Odt] 4 mg PO Q6H PRN 01/28/19 03/01/19 oxyCODONE [Roxicodone] 5 mg PO BID 01/28/19 03/01/19 - Allergies Allergies/Adverse Reactions: Allergies Allergy/AdvReac Type Severity Reaction Status Date / Time ceftriaxone sodium * Allergy Severe RASH,HIVES, Verified 03/01/19 12:27 [From Rocephin] BURNING,ITC JAMIE cephalexin monohydrate * Allergy Severe RASH,HIVES, Verified 03/01/19 12:27 [From Keflex] BURNING,ITC JAMIE ciprofloxacin Allergy Severe RASH,HIVES, Verified 03/01/19 12:27 BURNING,ITC JAMIE phenazopyridine HCl * Allergy Severe SWELLING Verified 03/01/19 12:27 [From Pyridium] OF AIRWAY Sulfa (Sulfonamide Allergy Severe RASH,HIVES, Verified 03/01/19 12:27 Antibiotics) BURNING,ITC JAMIE gentamicin Allergy Edema Verified 03/01/19 12:27 lamotrigine [From Lamictal] Allergy Hives Verified 03/01/19 12:27 levetiracetam [From Keppra] Allergy Anxiety Verified 03/01/19 12:27 lidocaine AdvReac Itching Verified 03/01/19 12:27 Review of Systems - Constitutional Constitutional: reports: Weight stable - Ears, Nose & Throat Ears, Nose & Throat: reports: Other (missing all or most teeth) - Cardiovascular Cardiovascular: reports: Decr. exercise tolerance (due to back pain). denies: Chest pain, Exertional dyspnea - Respiratory Respiratory: denies: SOB at rest - Gastrointestinal Gastrointestinal: reports: Good appetite. denies: Constipation - Genitourinary Genitourinary: denies: Dysuria, Incontinence - Musculoskeletal Musculoskeletal: reports: Back pain (chronic x years; difficult to stand for very long). denies: Assistive devices - Integumentary Integumentary: reports: Hair changes (hair is no longer falling out. It's growing out curly, which is new.) - Neurological Neurological: reports: Abnormal gait (due to back pain) - Psychiatric Psychiatric: reports: Anxiety Physical Exam - Vital Signs Temperature: 96.6 F Pulse Rate: 81 O2 Saturation: 99 (room air) Blood Pressure: 119/75 (wrist cuff) - Physical Exam General Appearance: positive: No acute distress, Alert Eyes Bilateral: positive: Normal inspection. negative: No scleral icterus (very mild icterus, has improved noticeable) Neck: positive: No JVD, Trachea midline Cardiovascular: positive: Regular rate & rhythm, No murmur Respiratory: positive: Chest non-tender, No respiratory distress, Breath sounds nml Abdomen: positive: Non-tender, Soft, Hepatomegaly (mildly enlarged) Skin: negative: Jaundice (improved, not noticeable) Extremities: positive: No pedal edema Neurologic/Psychiatric: positive: Oriented x3, Mood/affect nml Palliative Care - POLST Patient has POLST: Yes POLST Status: Full Code Pain: Pain unchanged, Location (back pain radiationg to R hip) Anorexia: None Constipation: No Performance Status: Ambulation and physical movement compromised by back pain. - Palliative Care Discussion: Patient would like to move out of the by winter, though housing options are extremely limited. The patient has at some point signed up for Section 8 housing, she says she signed up for all the available housing but the wait list is years. They want to remain in [facility], and not relocate to [place]. Where they currently live has no public transport, no Paratransit. She appears to depend largely on her landlord and his for rides. Getting transport to medical appointments, particularly [place], is a challenge. She could benefit from support and help from Palliative Care SW as far as exploring transport options, such as volunteer driving programs. Results - Lab Results Lab results reviewed: Yes Impression and Recommendations - Palliative Care Impression: 53-year-old female with alcoholic cirrhosis of the liver, fatty liver disease, and hepatitis C. There was a gastroenterology appointment mixup, so she was unable to receive an update on status of her liver disease. Transport to medical appointments is challenging; she doesn't live near public transport lines. Palliative care social insurance administrator could be of benefit with resources and support. Recommendations/Counseling Done: End stage alcoholic cirrhosis and Hepatitis C: [place] having had Hep C. Jaundice is no longer noted, and scleral icterus is very faint. Still on Rifaximin and folic acid. Patient has questions for GE regarding the possibility of her liver regenerating and wants to follow up. There was a mixup with the appointment in [place] with Dr Gooden of [facility]. Patient needs to reschedule but must work around transport limitations. The people who normally can take her to some appointments will be gone most of May. Palliative Care SW may be able to provide support and resources for transport to medical ap pointments Chronic back pain: Chronic, no improvement. Patient obtained a second MRI, and review by Dr Schaefer, neurologist in [place], confirmed that her spinal conditions aren't operable. The 02/01/19 MRI revealed some fairly common inoperable conditions and no change from an 07/08/2017 lumbar MRI. Continue oxycodone 5mg BID prn (this dosing was started in January). Controlled Substance Agreement in place. Consulted RN EXAMINER recipient list, there is no concerning activity. NSAIDs and Tylenol are contraindicated. Counselled her to maintain gentle activity, spinal mobilization and movement as tolerated, avoid sedentariness. Advance care planning: Full code. She is on 2 wait lists for [employer] housing for herself and son. She has no [facility] director of philanthropy. Will refer her to Palliative care SW for resources and support around transport options and possibly housing. Time Spent: 40 minutes were spent with more than 50% of the time spent on counseling, education, and coordination of care.
== END 2019-05-04 16:37 | disposition home or self-care (01) ==
LOC: PC 16:36
PROVIDERS: ATTEND Nurse Practitioner
DX: Z51.5 Encounter for palliative care (principal); K70.30 Alcoholic cirrhosis of liver without ascites; B19.20 Unspecified viral hepatitis C without hepatic coma; K76.0 Fatty (change of) liver, not elsewhere classified; G89.29 Other chronic pain; M54.9 Dorsalgia, unspecified; M51.86 Other intervertebral disc disorders, lumbar region; G43.909 Migraine, unspecified, not intractable, without status migrainosus; K21.9 Gastro-esophageal reflux disease without esophagitis; F10.11 Alcohol abuse, in remission; F32.9 Major depressive disorder, single episode, unspecified; F41.9 Anxiety disorder, unspecified; F43.10 Post-traumatic stress disorder, unspecified; R26.9 Unspecified abnormalities of gait and mobility; Z79.891 Long term (current) use of opiate analgesic; Z87.891 Personal history of nicotine dependence
CPT/HCPCS: 99349

== ENCOUNTER 2019-07-28 10:59 | Outpatient (CLI) | payer MEDICARE, MEDICAID ==
[2019-07-28 11:29] LABS: BASOPHILS % (AUTO) 0.5 %; EOSINOPHILS # (AUTO) 0.2 10^3/uL (0.0-0.7); EOSINOPHILS % (AUTO) 2.6 %; HGB - HEMOGLOBIN 13.9 g/dL (12.0-16.0); LYMPHOCYTES # (AUTO) 1.8 10^3/uL (1.5-3.5); MEAN CORPUSCULAR HEMOGLOBIN 32.9 pg (27.0-31.0); MEAN CORPUSCULAR HGB CONC 33.5 g/dL (32.0-36.0); MEAN CORPUSCULAR VOLUME 98.3 fL (81.0-99.0); MEAN PLATELET VOLUME 10.5 fL (7.9-10.8); MONOCYTES # (AUTO) 0.5 10^3/uL (0.0-1.0); MONOCYTES % (AUTO) 7.6 %; NEUTROPHILS # (AUTO) 4.1 10^3/uL (1.5-6.6); PLT - PLATELET COUNT 78 10^3/uL (130-450); RED BLOOD COUNT 4.22 10^6/uL (4.20-5.40); WHITE BLOOD COUNT 6.6 x10^3/uL (4.8-10.8)
[2019-07-28 11:35] LABS: INR 1.7 (0.8-1.2); PT - PROTHROMBIN TIME 19.2 secs (9.9-12.6)
[2019-07-28 11:57] LABS: ALBUMIN 4.4 g/dL (3.2-5.5); ALBUMIN/GLOBULIN RATIO 1.6 (1.0-2.2); BILIRUBIN,TOTAL 1.8 mg/dL (0.2-1.0); CALCIUM 9.9 mg/dL (8.5-10.3); CREATININE 0.7 mg/dL (0.4-1.0); TOTAL PROTEIN 7.2 g/dL (6.7-8.2)
== END 2019-07-28 11:00 | disposition home or self-care (01) ==
LOC: LAB 10:59
PROVIDERS: ATTEND Student in an Organized Health Care Education/Training Program
DX: K70.31 Alcoholic cirrhosis of liver with ascites (principal)
CPT/HCPCS: 36415; 80053; 82105; 85025; 85610

== ENCOUNTER 2019-08-05 10:00 | Outpatient (CLI) | payer MEDICARE, MEDICAID ==
--- NOTE | 2019-08-05 19:52 | CONSULTATION NOTE ---
Palliative Care Follow Up - Referral Referring Provider: Dr. Efrain Whitmore Time of Visit: [phone] Referral setting: [facility] – [place] Referral Reason: Alcoholic cirrhosis; Acute on Chronic Pain Syndrome - Information Sources Records reviewed: Previous records reviewed History/Review of Systems obtained from: Patient Exam limitations: No limitations - History of Present Illness Update Brief HPI Update: This is a complex 53-year-old woman who presents today, with escalating acute on chronic back pain. She is a complicated history in the context she was hospitalized 06/10/2018 to 06/24/2018. With acute hepatic failure, alcoholic hepatitis, hep C, alcohol abuse, and hepatic encephalopathy. The previous 6 months she had been doing very poorly, and had undergone a cholecystectomy for cholelithiasis. And continued with persistent abdominal pain. She had a fairly long and extended SNF stay, but continued to improve. Has been seeing Dr. [facility], to monitor her recovery. During her acute hospitalization she did have a meld score of 34, she has recently had labs on 07/28 and presents today with a meld score of 15. She is actually disappointed, as her goal is to get it down to 10, she has remained abstinent from alcohol, she has been trying to work on nutrition, she has had a very difficult social situation. She had been living in a trailer, but with her 15-year-old son, and they have recently moved in with her brother in [place]. 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 Her brother has severe Parkinson's and cognitive issues, but her living situation is currently more stable. Patient has been referred to pain clinics, is unable to get an appointment nor support. Patient's most pressing symptom at this point as far as quality of life, is the progressive and increasing pain, impacting her functional status, anxiety, and presents with insomnia. Patient did have a recent MRI that does show moderate spinal canal stenosis and mild bilateral lateral recess stenosis of L5-L6 secondary to a posterior disc protrusion. She is somewhat focused on a cyst, though findings only show mild increased apophyseal joint fluid. Her understanding from neurosurgery, she is not a candidate. In following up on patient's story line regarding her pain, she reports she presented with acute sciatica in 2005, while doing heavy lifting with work. Her story includes treatment with chiropractic, what she perceives is poor outcome, she did develop what she describes as paroxysmal dystonia, which included severe migraines. She reports she still has some dystonias, some cramping in her hands when she wakes up, some in her toes, these can last from several minutes to a couple hours. She reports she has tried for her back pain spinal blocks at [place] for 3 without any relief, intermittent Toradol, aqua therapy, TENS, PT, craniosacral work, and has used heating pad even with some relief. She reports she has used gabapentin in the past, though remembers maximum dose at 600 mg, she reports she was on that over a year without any improvement.She reports her past coping has been to use the alcohol to manage her pain, and currently has had abstinence. She is unable to use NSAIDs, she reports she was using handfuls of acetaminophen which led to some of the complexity around her hospitalization in 2018 with toxicity. She has been allotted only a few oxycodone (BID ordered), she reports she does use these for times of increased activity, though at most gets only minimal relief and only for 2 or 3 hours. She describes functional decline related to her pain, reports increased pain mid lower lumbar area, increase in severity of pain with standing, unable to stand for greater than 2 minutes. She cannot straighten up, she does use a cane for ambulation, but gait is shuffled and painful. She does demonstrate multiple pain behaviors with shifting repositioning. She reports most of her pain is relieved from back with positioning on back or lifting of knees. She also describes over the last couple years increasing sharp shooting pains, concentrated through her lower buttocks down the back of her legs, she is osteoarthritic and severe pain in her knees, and sharp shooting tingling pain in her feet and her hands. She reports she usually tries to just power through, but now is impacting her sleep, and feels quite over whelmed with the severity. Patient's past medical history includes alcoholic cirrhosis; hepatitis C; fatty liver disease; cholelithiasis status post cholecystectomy; history of severe protein calorie nutrition,; chronic back pain; chronic migraines; GERD; history of seizures; history of alcohol abuse; history of tobacco abuse; depression; anxiety, history of panic attacks; and PTSD. Social History - Living Situation Living arrangement: At home Living Situation: With family Support System: Patient is currently living with her brother, who has health issues. She and he have different styles, but she is trying to be accommodating and supportive. She reports her son is doing quite well, he is doing an online follow-up for high school. They are still dealing with issues around her mother's estate, she is expressing appropriate feelings of grief and loss. She is quite grateful to have a more stable living situation, and is hoping for the best. Medications/Allergies - Medications Home Medications: Ambulatory Orders Medication Instructions Recorded Confirmed Folic Acid 1 mg PO DAILY tablet 06/24/18 08/06/19 rifAXIMin [Xifaxan] 550 mg PO BID tablet 06/24/18 08/06/19 Furosemide [Lasix] 20 mg PO DAILY 08/04/18 08/06/19 Omeprazole 20 mg PO DAILY 08/04/18 08/06/19 Potassium Chloride [K-Dur] 20 meq PO TID 08/04/18 08/06/19 Spironolactone [Aldactone] 50 mg PO DAILY 08/04/18 08/06/19 Multivit-Min/FA/Lycopen/Lutein 1 tab PO DAILY 01/28/19 08/06/19 [Centrum Silver Men Tablet] Ondansetron [Ondansetron Odt] 4 mg PO Q6H PRN 01/28/19 08/06/19 oxyCODONE [Roxicodone] 5 mg PO QID PRN 01/28/19 08/06/19 Pregabalin 50 mg PO ACHS MDD TID titrating up 08/06/19 08/06/19 - Allergies Allergies/Adverse Reactions: Allergies Allergy/AdvReac Type Severity Reaction Status Date / Time ceftriaxone sodium * Allergy Severe RASH,HIVES, Verified 03/01/19 12:27 [From Rocephin] BURNING,ITC JAMIE cephalexin monohydrate * Allergy Severe RASH,HIVES, Verified 03/01/19 12:27 [From Keflex] BURNING,ITC JAMIE ciprofloxacin Allergy Severe RASH,HIVES, Verified 03/01/19 12:27 BURNING,ITC JAMIE phenazopyridine HCl * Allergy Severe SWELLING Verified 03/01/19 12:27 [From Pyridium] OF AIRWAY Sulfa (Sulfonamide Allergy Severe RASH,HIVES, Verified 03/01/19 12:27 Antibiotics) BURNING,ITC JAMIE gentamicin Allergy Edema Verified 03/01/19 12:27 lamotrigine [From Lamictal] Allergy Hives Verified 03/01/19 12:27 levetiracetam [From Keppra] Allergy Anxiety Verified 03/01/19 12:27 lidocaine AdvReac Itching Verified 03/01/19 12:27 Review of Systems - Constitutional Constitutional: reports: Fatigue, Weight stable (105). denies: Fever, Chills - Ears, Nose & Throat Ears, Nose & Throat: reports: Nosebleeds (report these had improved with move out of moldy trailer; Did present with small one today) - Cardiovascular Cardiovascular: reports: Lightheadedness - Respiratory Respiratory: denies: Cough, SOB at rest - Gastrointestinal Gastrointestinal: reports: Good appetite. denies: Abdominal pain, Diarrhea, Nausea - Musculoskeletal Musculoskeletal: reports: Muscle pain, Back pain, Muscle aches, Stiffness, Limit ed range of motion, Muscle weakness, Joint pain, Assistive devices (uses cane) - Integumentary Integumentary: reports: Dryness, Hair changes (had experienced hair loss; now coming in "curly") - Neurological Neurological: reports: General weakness, Headache (intermittent migraines) - Psychiatric Psychiatric: reports: Anxiety, Other (insomnia). denies: Depression - Hematologic/Lymphatic Hematologic/Lymphatic: reports: Bleeding tendencies (nose bleeds). denies: Recurrent infections - All Other Systems All Other Systems: reports: Other (new labs with MELD score 15) Physical Exam - Vital Signs Pulse Rate: 81 Respiratory Rate: 18 Blood Pressure: 131/75 (not taken diuretics today related to using public transportation) - Physical Exam General Appearance: positive: Alert, Moderate distress (related to pain) Eyes Bilateral: positive: Normal inspection, No scleral icterus ENT: positive: Other (edentulous) Neck: positive: No JVD, Trachea midline Cardiovascular: positive: Regular rate & rhythm Respiratory: positive: No respiratory distress, Breath sounds nml Abdomen: positive: Soft. negative: Tenderness, Distended, Taut Skin: positive: Dryness. negative: Jaundice Extremities: positive: No pedal edema Neurologic/Psychiatric: positive: Oriented x3, Mood/affect nml, Weakness Palliative Care - POLST Patient has POLST: Yes POLST Status: Full Code Pain: Pain worsening, Location (see HPI) Tiredness/Fatigue: Moderate (4-6) Drowsiness/Sedation: None Nausea: None Depression: None Anxiety: Mild (1-3) Dyspnea: None Anorexia: None Sleep: Sleeps poorly Constipation: No Performance Status: Patient limited with ambulation secondary to severe pain. With limiting activity, has had some deconditioning, patient is quite frustrated though continues to try and participate in household tasks, ambulates with a cane for short distances with frequent rests, as well is independent in her ADLs. - Palliative Care Discussion: Patient does have a 16-year-old son, whom is her reason for focusing on health and wellness. She very much wants to improve her meld score, her goal is 10. Unfortunately due to transportation issues, she is going to have to reestablish with new GI, she is Scheduled to see in [place] on 08/21. Patient's hope is to improve her pain management, to be able to improve her functional status. She perceives it is worsening, and is hoping to find a partnership with provider to be able to improve this. Discussion did ensue regarding concern for patient's history with substance abuse disorder, patient reports steadfast commitment to abstinence, and continued hoping to create a better life for herself and her son. Agreed to trial with close supervision, medications with goal to improve functional status and decrease severity of pain though with understanding given etiology, will not be pain free. Results - Lab Results Lab results reviewed: Yes Impression and Recommendations - Palliative Care Impression: This is a 53-year-old woman with alcoholic cirrhosis of the liver, fatty liver disease, and a meld score 15. Patient is pending gastroenterology follow-up, with new provider 08/21. Patient presents with escalating acute on chronic pain, peripheral neuropathy, and declining functional status related to pain levels. Patient is secured more stable living situation, and continues to focus on abstinence and improving her underlying health. Palliative care to provide support for pain and symptom management and anticipatory guidance. Patient is pending gastroenterology follow-up, with new provider 08/21. Patient presents with escalating acute on chronic pain, peripheral neuropathy, and declining functional status related to pain levels. Patient is secured more stable living situation, and continues to focus on abstinence and improving her underlying health. Palliative care to provide support for pain and symptom management and anticipatory guidance. Recommendations/Counseling Done: 1. Alcoholic cirrhosis. Patient does present with a meld score today of 15, she was hoping for decrease. Patient continues on her rifaximin mean, spiral lactone, furosemide, and potassium. Patient does appear without any signs or symptoms of ascites or lower extremity edema, does have intermittent dizziness and gets quite dehydrated. Patient most likely needs to have her diuretics adjusted, given her presentation today, will decrease her furosemide from 40 mg to 20 mg. Patient is scheduled to see me next week, and can follow-up with GI regarding titration of medications as she is doing better.She is instructed to continue with her potassium at 20 mEq 3 times daily as on 07/28 her potassium was still 3.5. 2. Nosebleeds. Patient reports these have improved with the change in her living situation, I did present with small nosebleed today stopped easily. Instructed to obtain Afrin, to use intermittently if needed to help with acute bleeds. 3. Acute on chronic pain. This is multifactorial as well as multiple pain generators. Patient describes significant peripheral neuropathy both in her lower extremities and in her hands, suspect this is alcohol induced. She has long-term had significant back pain, with spinal stenosis. She has tried multiple alternative and integrative therapies with little relief. Counseling provided regarding neuropathic pain management is often gabapentin, pregabalin, and methadone. She would be a good candidate for methadone in the context of her history of substance abuse disorder, but has significant fears as she has had friends overdose on it before. She has used gabapentin without relief, we did discuss with the increase in severity of her peripheral neuropathic pain component, would suggest at least trialing pregabalin, she is in agreement. Counseling provided regarding the limitation and risk given her history of substance abuse disorder, for use of opioids. She has received some intermittent relief with intermittent dosing of oxycodone. Discussed the duality of methadone again, as well is considering long-acting fentanyl patch, which would decrease abuse potential. We will make one change at a time, will go ahead and increase her oxycodone to 5 tabs 4 times daily, for use for breakthrough pain. Goals set to improve functionality, decrease the severity of pain to be able to improve ambulation and activity, will establish pain contract at next visit. Patient to keep a log of side effects and response, as well as understand will be a process to commit to finding a safe but effective formula to improve her quality of life issues. We will also follow-up with GI, expressed my concerns regarding not wanting to use opioids if going to impact transplant possibilities in the future, she is in agreement for me to contact him when asked established. 4. Anxiety. Patient continues with significant financial stressors, but increased stability with new living situation. She is feeling quite hopeful, does not feel at risk for concerns regarding her abstinence. Patient currently not on any medications for depression or anxiety, will explore this as an adjuvant in the future. 5. Advanced care planning. Patient is new to this palliative care [employer], working on establishing rapport, goals of care, patient with serious illness but hopeful to improve both quality and quantity of life. Time Spent: 65 minutes with greater than 50% of this done in counseling regarding benefits and burdens of opioid/pain management, goals of care, and anticipatory guidance.
== END 2019-08-05 10:01 | disposition home or self-care (01) ==
LOC: PC 10:00
PROVIDERS: ATTEND Nurse Practitioner Adult Health
DX: Z51.5 Encounter for palliative care (principal); K70.30 Alcoholic cirrhosis of liver without ascites; F10.10 Alcohol abuse, uncomplicated; G89.29 Other chronic pain; F11.10 Opioid abuse, uncomplicated; M48.00 Spinal stenosis, site unspecified; R10.9 Unspecified abdominal pain; G62.9 Polyneuropathy, unspecified; F32.9 Major depressive disorder, single episode, unspecified; F41.0 Panic disorder [episodic paroxysmal anxiety]; F43.10 Post-traumatic stress disorder, unspecified; G47.00 Insomnia, unspecified; R26.9 Unspecified abnormalities of gait and mobility; K76.0 Fatty (change of) liver, not elsewhere classified; G43.909 Migraine, unspecified, not intractable, without status migrainosus; K21.9 Gastro-esophageal reflux disease without esophagitis; E43 Unspecified severe protein-calorie malnutrition; R04.0 Epistaxis; Z90.49 Acquired absence of other specified parts of digestive tract; Z86.19 Personal history of other infectious and parasitic diseases
CPT/HCPCS: 99215

== ENCOUNTER 2019-08-12 10:46 | Outpatient (CLI) | payer MEDICARE, MEDICAID ==
--- NOTE | 2019-08-12 19:54 | CONSULTATION NOTE ---
Palliative Care Follow Up - Referral Referring Provider: Dr. Efrain Whitmore Time of Visit: [id number] [place] [facility] [place] Reason: Alcoholic Cirrhosis/Acute on Chronic Pain Syndrome - Information Sources Records reviewed: Previous records reviewed History/Review of Systems obtained from: Patient Exam limitations: No limitations - History of Present Illness Update Brief HPI Update: This is a complex 53-year-old woman who presents today with ongoing escalating acute on chronic back pain. Please see visit note 08/05/2019 for more extensive history. She has known alcoholic cirrhosis, and last was hospitalized acutely 06/10/2018 to 06/24/2018 with acute hepatic failure, alcoholic hepatitis, hep C, alcohol abuse, and hepatic encephalopathy. She is continued to improve, despite a very difficult social situation, she has been seeing Dr. Gooden to monitor recover, her original meld score was 34, recently with labs on 07/28 she had a meld score of 15. She is as a result of her insurance, needing to reestablish with a new GI, Dr. Felice Paz he will see her for the first time on 08/24. She is disappointed as far as continuity of care, but grateful still to be continuing sobriety and with her son. Patient does have known severe back pain, her original injury and deterioration started in 2005, she has severe dystonias, she has had a long history including her alcohol abuse in the context for managing her back pain, with spinal blocks, Toradol, aqua therapy, TENS, PT, craniosacral work. She had a recent MRI that does show moderate spinal canal stenosis as well as mild bilateral lateral recess stenosis of L5-L6 secondary to posterior disc protrusion. She has been having decline in her functional status, she is unable to stand for greater than 2 or 3 minutes secondary to severe pain, and her legs giving out. She reports she was told she is not a surgical candidate, though I suspect this may be related to her overall health issues. In the context of her quality of life, she finds the severe back pain most limiting, she tries to stay distracted, is interfering in her sleep, impacts her functional status, as well as her emotional well-being. In the context of pain management, she has been referred to pain clinics, but is unable to get an appointment or support. She has been on gabapentin in the past, was willing to trial some pregabalin, unfortunately after several days, she had hallucinations, confusion, and hyper analgesia not improvement in her pain. She does have overall sharp shooting pains but bilateral pattern, as well as neuropathies in her hands and feet. She is left with very few options, long discussion today regarding benefits of burdens particularly in light of her substance abuse history, she does get some improvement with small doses of oxycodone, but only last for 2 or 3 hours but does make it so she can function and do some household tasks. We came to an agreement of oxycodone 10 mg 3 times daily, but do need to follow-up with GI regarding not wanting to impact her status for liver transplant in the future if needed. Social History - Living Situation Living arrangement: At home Living Situation: With family Support System: She unfortunately has relocated to live with her brother, as her mother has recently . Her brother has health issues as well. They are working things out as far as how to live together, she also has her teenage son that is living with them. They are still dealing with issues around her mother's estate, she is expressing appropriate feelings of grief and loss. She is feeling much encouraged to have a stabilized living situation. She still experiences multiple financial stressors Medications/Allergies - Medications Home Medications: Ambulatory Orders Medication Instructions Recorded Confirmed Folic Acid 1 mg PO DAILY tablet 06/24/18 08/14/19 rifAXIMin [Xifaxan] 550 mg PO BID tablet 06/24/18 08/14/19 Furosemide [Lasix] 40 mg PO DAILY 08/04/18 08/14/19 Omeprazole 20 mg PO DAILY 08/04/18 08/14/19 Potassium Chloride [K-Dur] 20 meq PO TID 08/04/18 08/14/19 Spironolactone [Aldactone] 50 mg PO DAILY 08/04/18 08/14/19 Multivit-Min/FA/Lycopen/Lutein 1 tab PO DAILY 01/28/19 08/14/19 [Centrum Silver Men Tablet] Ondansetron [Ondansetron Odt] 4 mg PO Q6H PRN 01/28/19 08/14/19 oxyCODONE [Roxicodone] 10 mg PO TID MDD 6 tabs 01/28/19 08/14/19 Lactulose 5 - 15 ml PO PRN PRN 08/14/19 08/14/19 - Allergies Allergies/Adverse Reactions: Allergies Allergy/AdvReac Type Severity Reaction Status Date / Time ceftriaxone sodium * Allergy Severe RASH,HIVES, Verified 03/01/19 12:27 [From Rocephin] BURNING,ITC JAMIE cephalexin monohydrate * Allergy Severe RASH,HIVES, Verified 03/01/19 12:27 [From Keflex] BURNING,ITC JAMIE ciprofloxacin Allergy Severe RASH,HIVES, Verified 03/01/19 12:27 BURNING,ITC JAMIE phenazopyridine HCl * Allergy Severe SWELLING Verified 03/01/19 12:27 [From Pyridium] OF AIRWAY Sulfa (Sulfonamide Allergy Severe RASH,HIVES, Verified 03/01/19 12:27 Antibiotics) BURNING,ITC JAMIE gentamicin Allergy Edema Verified 03/01/19 12:27 lamotrigine [From Lamictal] Allergy Hives Verified 03/01/19 12:27 levetiracetam [From Keppra] Allergy Anxiety Verified 03/01/19 12:27 lidocaine AdvReac Itching Verified 03/01/19 12:27 pregabalin AdvReac Hallucinati Verified 08/14/19 07:17 ons Review of Systems - Constitutional Constitutional: reports: Fatigue, Weight stable (105). denies: Fever, Chills - Eyes Eyes: reports: Vision loss - Ears, Nose & Throat Ears, Nose & Throat: reports: Dry mouth - Cardiovascular Cardiovascular: denies: Edema - Respiratory Respiratory: reports: Other (smokes about 4-5/day attempting to decrease further; uses for anxiety/coping with pain). denies: SOB at rest - Gastrointestinal Gastrointestinal: reports: Good appetite. denies: Abdominal distention, Constipation, Bloating - Genitourinary Genitourinary: reports: Frequency (with diuretics) - Musculoskeletal Musculoskeletal: reports: Muscle pain, Back pain, Muscle aches, Stiffness, Limited range of motion, Muscle weakness, Assistive devices (uses cane) - Integumentary Integumentary: reports: Dryness - Neurological Neurological: reports: General weakness, Other (peripheral neuropathy hands/feet; dystonias and cramping hands/toes). denies: Memory problems - Psychiatric Psychiatric: reports: Depression, Anxiety - Hematologic/Lymphatic Hematologic/Lymphatic: reports: Bleeding tendencies (nose bleeds intermittent). denies: Recurrent infections - All Other Systems All Other Systems: reports: Reviewed and negative Physical Exam - Vital Signs Pulse Rate: 80 Respiratory Rate: 18 O2 Saturation: 100 (ra @ rest) Blood Pressure: 121/72 (w/out diuretics because of travel time) - Physical Exam General Appearance: positive: Alert, Mild distress Eyes Bilateral: positive: Normal inspection ENT: positive: No signs of dehydration Neck: positive: Trachea midline Cardiovascular: positive: Regular rate & rhythm Respiratory: positive: No respiratory distress, Breath sounds nml Abdomen: positive: Non-tender, Soft, Other (no palpable or observable s/s ascites). negative: Distended Skin: positive: Dryness Extremities: positive: No pedal edema Neurologic/Psychiatric: positive: Oriented x3, Depressed mood/affect Comments/Other: Patient does present with pain behaviors, she has a difficult gait, needing to reposition frequently, intermittent dystonias manifesting as cramping in hands observed. Palliative Care - POLST Patient has POLST: Yes POLST Status: Full Code Pain: Pain worsening, Location (see HPI), Severity (8-9/10) Tiredness/Fatigue: Mild (1-3) Drowsiness/Sedation: None Nausea: None Depression: Mild (1-3) Anxiety: Mild (1-3) Dyspnea: None Anorexia: None Sleep: Sleeps poorly (related to pain worse at night) Constipation: Yes, Opoid induced, Managed Feelings of wellbeing/Perceived Quality of Life: Fair, No change Performance Status: Patient is very limited in her ambulation secondary to pain, has difficulty with gait, feels like her legs will give out, plus pain becomes excruciating. She is very fearful she is going to become wheelchair-bound. She does pace herself with her activity, and uses medications appropriately to follow through on household tasks, she does get 2 to 3 hours of relief. She does use cane to try and offload some, does not want any further assistive devices and is putting off getting wheelchair. - Palliative Care Discussion: Patient verbalizing appropriate feelings of grief and loss related to her functional status, at baseline she was very active worked outside and gardening and landscaping. She finds her limitations somewhat overwhelming, as well as the pain. She tries to focus on what she can do, getting a rhythm in her new home setting, working on household tasks doing meal prep for family, she does need to use [employer] for transportation. She feels like she is coping currently with her sobriety, she is coming on 14 months. Her goals are to be there for her son, wants to see him "walk down the aisle". She and her brother have worked out their differences, and with his health she is balancing in helping him. Her biggest frustration is the limitations related to her back pain and her needing to continuously find ways to cope. Results - Lab Results Lab results reviewed: Yes Impression and Recommendations - Palliative Care Impression: This is a 53-year-old woman with alcoholic cirrhosis of the liver, fatty liver disease, and a meld score of 15. She is pending gastroenterology follow-up with new provider 08/24. Patient presents with escalating acute on chronic pain, peripheral neuropathy, and declining functional status related to pain levels. Patient is secured in more stable living situation, and continues to focus on abstinence and improving her underlying health. Palliative care to provide support for pain and symptom management and anticipatory guidance. Recommendations/Counseling Done: 1. Alcohol level looks cirrhosis. Patient presents with a meld score 15, she was hoping as a goal to decrease it. She continues on her rifaximin mean, Spironolactone, we had talked about decreasing her furosemide given she appears on the dry side, but she wanted to wait until GI consult. She was instructed to continue with her potassium at 20 mEq 3 times daily on 07/28 her potassium is still only 3.5. Agreed would coordinate questions relating to diuretics with Dr. Paz as well as opioids. 2. Acute on chronic pain. This is multifactorial as well she has multiple pain generators. Patient has long-term significant back pain, with spinal stenosis, has trialed multiple alternative and integrative therapies with little relief. Unfortunately she did fail for her neuropathy management, pregabalin with unacceptable side effects. She would be a good candidate for methadone, given her history of substance abuse disorder, but she is quite fearful she has had experience with people with overdosing. She does get some relief though not adequate, from the oxycodone, counseling provided regarding concerns in the context of controlling and adhering to limits. Agreement reached for oxycodone 5 mg tabs 2 tabs 3 times daily, for a total of 6 and not to exceed. Will be no early refills, she is to focus on her goals which are to use it to improve her functional status, complete her household tasks, and contribute to her ability to sleep at night. Patient is hopeful if her underlying comorbidity regarding her liver improves, she can be reconsidered for possible candidate for surgical intervention. 3. Anxiety. Patient continues with significant financial stressors, but things have improved with increased stability with new living situation. She is feeling quite hopeful, does not feel at risk regarding her abstinence. She is declined at this point in time to explore any medications for her depression and/or anxiety, will continue to address this on a ongoing basis as may be helpful for her pain management in the future. 4. Advanced care planning. Patient is new to this palliative care RAP ARTIST, working on establishing rapport, developing goals of care, patient was serious illness but hopeful to improve both quality and quantity of life. Her goal is to provide support and parenting to her teenage son. Time Spent: 45 minutes with greater than 50% of this done in counseling regarding opioid use, safety, pain management, goals of care and anticipatory guidance. Will coordinate care with ashish Paz, patient also pending MRI of her liver.
== END 2019-08-12 10:47 | disposition home or self-care (01) ==
LOC: PC 10:46
PROVIDERS: ATTEND Nurse Practitioner Adult Health
DX: Z51.5 Encounter for palliative care (principal); K70.30 Alcoholic cirrhosis of liver without ascites; G89.29 Other chronic pain; M54.9 Dorsalgia, unspecified; F41.9 Anxiety disorder, unspecified; F32.9 Major depressive disorder, single episode, unspecified; F43.10 Post-traumatic stress disorder, unspecified; G62.9 Polyneuropathy, unspecified; H54.7 Unspecified visual loss; F17.200 Nicotine dependence, unspecified, uncomplicated; R35.0 Frequency of micturition; K76.0 Fatty (change of) liver, not elsewhere classified; M48.00 Spinal stenosis, site unspecified; B19.20 Unspecified viral hepatitis C without hepatic coma; F10.10 Alcohol abuse, uncomplicated; G40.909 Epilepsy, unspecified, not intractable, without status epilepticus; Z79.891 Long term (current) use of opiate analgesic
CPT/HCPCS: 99215

== ENCOUNTER 2019-08-19 14:34 | Outpatient (CLI) | payer MEDICARE, MEDICAID ==
[2019-08-19] MEDS ORDERED: GADOBUTROL 7.5 MMOL/7.5 ML VIAL ONE (15:17)
[2019-08-19] MEDS ORDERED: GADOBUTROL 7.5 MMOL/7.5 ML VIAL IVP ONE (16:16)
--- NOTE | 2019-08-20 23:09 | MRI Report ---
Reason: ALCOHOLIC CIRRHOSIS OF LIVER Procedure Date: 08/19/2019 Accession Number: [id number] / [id number] Procedure: MRI - Abdomen W/WO CPT Code: FULL RESULT: EXAM: MR ABDOMEN WITH AND WITHOUT CONTRAST (MR PANCREAS AND MRCP) EXAM DATE: 08/19/2019 04:14 PM. CLINICAL HISTORY: ALCOHOLIC CIRRHOSIS OF LIVER. COMPARISON: ABDOMEN W/WO 06/11/2018 11:36 AM ABDOMEN LIMITED 12/23/2018 1:05 PM. TECHNIQUE: Multiplanar breath-hold T1, T2, and DWI sequences obtained through the pancreas and abdomen on an MR scanner. Dedicated 2D and 3D MRCP sequences obtained through the biliary and pancreatic ducts. Images obtained before and after administration of 5 cc Gadavist intravenous contrast. Multiphase postcontrast sequences obtained through the pancreas. FINDINGS: Lung Bases: Unremarkable. Liver: Heterogeneous hepatic steatosis without focal mass. Recanalized umbilical vein noted. Gallbladder: The gallbladder is partially distended and appears normal with no wall thickening or stone. Bile Ducts: No intrahepatic or extrahepatic duct dilatation. CBD measures 10 mm, slightly prominent however no distal obstruction. Pancreas: The pancreas appears normal with no mass. The pancreatic duct measures 3 mm in diameter and appears normal with no stone or stricture. Spleen: Moderate splenomegaly. Significant portosystemic collaterals including recanalized umbilical vein, perisplenic, splenorenal, retrogastric and gastroesophageal collaterals. Kidneys: The kidneys appear normal with no mass or hydronephrosis. Adrenals: The adrenals appear normal. Bowel: The visualized segments of the small bowel and colon appear normal with no inflammation or obstruction. Retroperitoneum: The retroperitoneal structures appear normal with no mass or lymphadenopathy. Other: None. IMPRESSION: Heterogeneous hepatic steatosis without focal mass. Moderate splenomegaly. Significant portosystemic collaterals including recanalized umbilical vein, perisplenic, splenorenal, retrogastric and gastroesophageal collaterals. CBD measures 10 mm, slightly prominent however no distal obstruction. Normal-appearing pancreatic gland and pancreatic duct. RADIA
== END 2019-08-19 14:35 | disposition home or self-care (01) ==
LOC: DI 14:34
PROVIDERS: ATTEND Student in an Organized Health Care Education/Training Program
DX: K70.31 Alcoholic cirrhosis of liver with ascites (principal); K76.0 Fatty (change of) liver, not elsewhere classified; R16.1 Splenomegaly, not elsewhere classified
CPT/HCPCS: 74183; A9585

== ENCOUNTER 2019-10-01 17:20 | Outpatient (CLI) | payer MEDICARE, MEDICAID | END 2019-10-01 17:21 | disposition EMS.NT | LOC: EMS 17:20 | PROVIDERS: ATTEND Surgery | DX: R58 Hemorrhage, not elsewhere classified (principal) ==

== ENCOUNTER 2019-10-04 13:02 | Emergency (ER) | payer MEDICARE, MEDICAID ==
[2019-10-04] MEDS ORDERED: LIDOCAINE 2% 10 ML MDV SUBQ STA (14:19)
[2019-10-04 14:44] LABS: BASOPHILS % (AUTO) 0.8 %; EOSINOPHILS # (AUTO) 0.2 10^3/uL (0.0-0.7); EOSINOPHILS % (AUTO) 4.8 %; HGB - HEMOGLOBIN 12.8 g/dL (12.0-16.0); LYMPHOCYTES # (AUTO) 1.5 10^3/uL (1.5-3.5); LYMPHOCYTES % (AUTO) 30.2 %; MEAN CORPUSCULAR HGB CONC 33.2 g/dL (32.0-36.0); MEAN CORPUSCULAR VOLUME 96.5 fL (81.0-99.0); MEAN PLATELET VOLUME 10.1 fL (7.9-10.8); MONOCYTES # (AUTO) 0.5 10^3/uL (0.0-1.0); MONOCYTES % (AUTO) 9.6 %; NEUTROPHILS # (AUTO) 2.7 10^3/uL (1.5-6.6); NEUTROPHILS % (AUTO) 54.4 %; PLT - PLATELET COUNT 65 10^3/uL (130-450); RED CELL DISTRIBUTION WIDTH 13.5 % (12.0-15.0)
--- NOTE | 2019-10-04 14:58 | ED Physician Documentation ---
History of Present Illness - Stated complaint Stated Complaint: FINGER INJURY - Chief complaint Chief Complaint: Wound - History obtained from History obtained from: Patient - History of Present Illness Pain level max: 2 Pain level now: 1 - Additonal information Additional information: 53-year-old female presents to the emergency department with what she states is a thorn in her right third digit. She states is been there for several weeks, she tried to take it out and had bleeding 2 days ago and again yesterday. Has a history of thrombocytopenia. She is concerned that her platelets are low. She denies any fevers, swelling, purulent drainage. She states that her tetanus is up-to-date. Review of Systems Constitutional: denies: Fever, Chills Respiratory: denies: Cough GI: denies: Vomiting PD PAST MEDICAL HISTORY - Past Medical History Cardiovascular: Other Respiratory: None Neuro: Seizure disorder Endocrine/Autoimmune: None GI: GERD, Ulcers, Hiatal hernia, Chronic constipation, Hemorrhoids, Hepatitis, Cirrhosis CRANE ASSEMBLER: None : Frequency, Other HEENT: Chronic vision loss, Other Psych: Depression, Anxiety, Panic attacks, Post traumatic stress disorder Musculoskeletal: Chronic back pain Derm: None - Past Surgical History Past Surgical History: Yes General: Cholecystectomy Ortho: Other /CRANE ASSEMBLER: Tubal ligation - Present Medications Home Medications: Ambulatory Orders Medication Instructions Recorded Confirmed Folic Acid 1 mg PO DAILY tablet 06/24/18 09/20/19 rifAXIMin [Xifaxan] 550 mg PO BID tablet 06/24/18 08/14/19 Furosemide [Lasix] 40 mg PO DAILY 08/04/18 09/20/19 Omeprazole 20 mg PO DAILY 08/04/18 08/14/19 Potassium Chloride [K-Dur] 20 meq PO TID 08/04/18 09/20/19 Spironolactone [Aldactone] 50 mg PO DAILY 08/04/18 08/14/19 Multivit-Min/FA/Lycopen/Lutein 1 tab PO DAILY 01/28/19 08/14/19 [Centrum Silver Men Tablet] Ondansetron [Ondansetron Odt] 4 mg PO Q6H PRN 01/28/19 08/14/19 oxyCODONE [Roxicodone] 10 mg PO TID MDD 6 tabs 01/28/19 09/20/19 Lactulose 5 - 15 ml PO PRN PRN 08/14/19 09/20/19 Ascorbic Acid [Vitamin C] 500 mg PO DAILY 09/20/19 09/20/19 Iron Sulfate 325 mg ORAL DAILY 09/20/19 - Allergies Allergies/Adverse Reactions: Allergies Allergy/AdvReac Type Severity Reaction Status Date / Time ceftriaxone sodium * Allergy Severe RASH,HIVES, Verified 10/04/19 13:12 [From Rocephin] BURNING,ITC JAMIE cephalexin monohydrate * Allergy Severe RASH,HIVES, Verified 10/04/19 13:12 [From Keflex] BURNING,ITC JAMIE ciprofloxacin Allergy Severe RASH,HIVES, Verified 10/04/19 13:12 BURNING,ITC JAMIE phenazopyridine HCl * Allergy Severe SWELLING Verified 10/04/19 13:12 [From Pyridium] OF AIRWAY Sulfa (Sulfonamide Allergy Severe RASH,HIVES, Verified 10/04/19 13:12 Antibiotics) BURNING,ITC JAMIE gentamicin Allergy Edema Verified 10/04/19 13:12 lamotrigine [From Lamictal] Allergy Hives Verified 10/04/19 13:12 levetiracetam [From Keppra] Allergy Anxiety Verified 10/04/19 13:12 lidocaine AdvReac Itching Verified 10/04/19 13:12 pregabalin AdvReac Hallucinati Verified 10/04/19 13:12 ons - Social History Does the pt smoke?: Yes Smoking Status: Current every day smoker Does the pt drink ETOH?: Yes Does the pt have substance abuse?: No - Immunizations Immunizations are current?: Yes Immunizations: TDAP >10years/unknown - POLST Patient has POLST: Yes POLST Status: Full Code PD ED PE NORMAL - Vitals Vital signs reviewed: Yes - General General: Alert and oriented X 3, No acute distress - HEENT HEENT: Moist mucous membranes - Neck Neck: Supple, no meningeal sign - Derm Derm: Warm and dry - Extremities Extremities: Other (Right middle finger with a small thorn. No swelling. No signs of infection. Neurovascular intact. This is in the distal tip.) - Neuro Neuro: Alert and oriented X 3 Results - Vitals Vitals: Vital Signs - 24 hr 10/04/19 10/04/19 13:06 15:18 Temperature 36.8 C Heart Rate 92 78 Respiratory 16 18 Rate Blood Pressure 134/92 H 119/71 O2 Saturation 100 100 Oxygen O2 Source Room air - Labs Labs: Laboratory Tests 10/04/19 14:30 WBC 5.0 RBC 4.00 L Hgb 12.8 Hct 38.6 MCV 96.5 MCH 32.0 H MCHC 33.2 RDW 13.5 Plt Count 65 L MPV 10.1 Neut # (Auto) 2.7 Lymph # (Auto) 1.5 Guthrie # (Auto) 0.5 Eos # (Auto) 0.2 Baso # (Auto) 0.0 Absolute Nucleated RBC 0.00 Nucleated RBC % 0.0 PD MEDICAL DECISION MAKING - ED course Complexity details: considered differential, d/w patient ED course: The finger was anesthetized with lidocaine. Excellent anesthesia achieved. The thorn was removed with forceps. All fragments were retrieved. No signs of infection. Dermabond was applied over the area. Tolerated well. No complications. Neurovascular intact. Tetanus is up-to-date. She is thrombocytopenic, but this is close to her baseline. No excessive bleeding here. Patient counseled regarding signs and symptoms for which I believe and urgent re-evaluation would be necessary. Patient with good understanding of and agreement to plan and is comfortable going home at this time This document was made in part using voice recognition software. While efforts are made to proofread this document, sound alike and grammatical errors may occur. Departure - Departure Disposition: 01 Home, Self Care Clinical Impression: Soft tissues foreign body Condition: Good Instructions: ED Foreign Body Soft Tissue Removed Follow-Up: Lizbet Drake ARNP [Primary Care Provider] - Within 1 week Comments: Follow-up with your doctor in 1 week for a wound check. Return if you worsen Discharge Date/Time: 10/04/19 15:17
[2019-10-04 15:19] VITALS: BP 119/71
== END 2019-10-04 15:17 | disposition home or self-care (01) ==
LOC: ED 13:02
DX: S60.452A Superficial foreign body of right middle finger, initial encounter (principal); W45.8XXA Other foreign body or object entering through skin, initial encounter; D69.6 Thrombocytopenia, unspecified; F17.200 Nicotine dependence, unspecified, uncomplicated
CPT/HCPCS: 36415; 85025; 99282; 99283

== ENCOUNTER 2019-10-15 11:04 | Outpatient (CLI) | payer MEDICARE, MEDICAID ==
--- NOTE | 2019-10-15 13:36 | CONSULTATION NOTE ---
Palliative Care Follow Up - Referral Referring Provider: Dr. Efrain Whitmore Time of Visit: 1111:45 Referral setting: [facility] – [place] Referral Reason: Acute on Chronic Pain/Alcohlic Cirrohsis/Anxiety - Information Sources Records reviewed: Previous records reviewed History/Review of Systems obtained from: Patient Exam limitations: No limitations - History of Present Illness Update Brief HPI Update: This is a complex 53-year-old woman who presents today with ongoing acute on chronic back pain. Please see note 08/05/2019 for more extensive history. She does have known alcoholic cirrhosis, she has not been hospitalized since May 2018. She has continued to improve despite a very difficult social situation, unfortunately this is continued to escalate. This is caused her a significant amount of anxiety, as well as increased physical distress. She presents today is quite tearful, had had an altercation with her brother previous as to leaving, Continues to struggle significantly with her lower back pain, alcoholic neuropathies, and poor activity tolerance. Patient's pain is mostly localized in her L5/L6 area, known stenosis and posterior disc protrusion, she also has ongoing severe intermittent dystonias, and has tried multiple things to manage her back pain. She is limited by her pain as far as being able to ambulate for long distances., She is using her cane, she has been told she is not a surgical candidate, though I suspect this may be related to other health issues. We had agreed in the context of her managing, the measurement would not be the severity of her pain, but her ability to function. She is found this most helpful with 10 mg 4 times a day, she uses it in preparation her response to activity. She is interested today in looking further at supporting herself with physical therapy, she will explore her different options regarding her insurance, and let me know where to send the referral. Patient's anxiety is directly related to her relationship with her brother. Her brother has underlying Parkinson's, with intermittent episodes of dementia, there was already significant tension between the 2 of them, his behavior is becoming more paranoid. She is worried about the stresses far as impacting her overall health. She has actually by [employer] has become mostly his caregiver, b ut she and her son are living in the home, and he can be both emotionally and physically threatening. Social History - Living Situation Living arrangement: At home Support System: She is currently living in the home, that was her mother's with her brother who has multiple health problems as well as underlying dementia. She has started to look around for an alternative living situation, as this is caused her quite a bit of tension and distress. She does have very little financial income, and is caring and oversight for her teenage son. She lives in the living room, is sleeping on a futon, that also is probably adding to her pain. Medications/Allergies - Medications Home Medications: Ambulatory Orders Medication Instructions Recorded Confirmed Folic Acid 1 mg PO DAILY tablet 06/24/18 10/15/19 rifAXIMin [Xifaxan] 550 mg PO BID tablet 06/24/18 10/15/19 Furosemide [Lasix] 40 mg PO DAILY 08/04/18 10/15/19 Omeprazole 20 mg PO DAILY 08/04/18 10/15/19 Potassium Chloride [K-Dur] 20 meq PO TID 08/04/18 10/15/19 Spironolactone [Aldactone] 50 mg PO DAILY 08/04/18 10/15/19 Multivit-Min/FA/Lycopen/Lutein 1 tab PO DAILY 01/28/19 10/15/19 [Centrum Silver Men Tablet] Ondansetron [Ondansetron Odt] 4 mg PO Q6H PRN 01/28/19 10/15/19 oxyCODONE [Roxicodone] 10 mg PO QID MDD 8 tabs 01/28/19 10/15/19 Lactulose 5 - 15 ml PO PRN PRN 08/14/19 10/15/19 Ascorbic Acid [Vitamin C] 500 mg PO DAILY 09/20/19 10/15/19 Iron Sulfate 325 mg ORAL DAILY 09/20/19 10/15/19 - Allergies Allergies/Adverse Reactions: Allergies Allergy/AdvReac Type Severity Reaction Status Date / Time ceftriaxone sodium * Allergy Severe RASH,HIVES, Verified 10/04/19 13:12 [From Rocephin] BURNING,ITC JAMIE cephalexin monohydrate * Allergy Severe RASH,HIVES, Verified 10/04/19 13:12 [From Keflex] BURNING,ITC JAMIE ciprofloxacin Allergy Severe RASH,HIVES, Verified 10/04/19 13:12 BURNING,ITC JAMIE phenazopyridine HCl * Allergy Severe SWELLING Verified 10/04/19 13:12 [From Pyridium] OF AIRWAY Sulfa (Sulfonamide Allergy Severe RASH,HIVES, Verified 10/04/19 13:12 Antibiotics) BURNING,ITC JAMIE gentamicin Allergy Edema Verified 10/04/19 13:12 lamotrigine [From Lamictal] Allergy Hives Verified 10/04/19 13:12 levetiracetam [From Keppra] Allergy Anxiety Verified 10/04/19 13:12 lidocaine AdvReac Itching Verified 10/04/19 13:12 pregabalin AdvReac Hallucinati Verified 10/04/19 13:12 ons Review of Systems - Constitutional Constitutional: reports: Fatigue, Weight stable. denies: Fever, Chills - Ears, Nose & Throat Ears, Nose & Throat: reports: Dry mouth - Cardiovascular Cardiovascular: reports: Lightheadedness, Decr. exercise tolerance. denies: Chest pain - Respiratory Respiratory: denies: SOB at rest - Gastrointestinal Gastrointestinal: reports: Early satiety, Other (trying to eat healthy but limited by her income). denies: Abdominal distention, Constipation, Nausea - Musculoskeletal Musculoskeletal: reports: Muscle pain, Back pain, Muscle aches, Stiffness, Limited range of motion, Muscle weakness, Joint pain, Assistive devices (uses cane) - Integumentary Integumentary: reports: Lesions (gets blisters instep of foot), Other (recent sliver /ed visit right 3rd digit) - Neurological Neurological: reports: General weakness, Headache, Memory problems (occasional) - Psychiatric Psychiatric: reports: Depression, Anxiety (worsening) - Endocrine Endocrine: reports: Intolerance to cold - Hematologic/Lymphatic Hematologic/Lymphatic: denies: Recurrent infections - All Other Systems All Other Systems: reports: Reviewed and negative Physical Exam - Vital Signs Pulse Rate: 100 (emotionally upset) Respiratory Rate: 18 O2 Saturation: 100 (ra @ rest) Blood Pressure: 146/90 - Physical Exam General Appearance: positive: Alert, Mild distress, Anxious Eyes Bilateral: positive: Normal inspection ENT: positive: No signs of dehydration Neck: positive: No JVD, Trachea midline Cardiovascular: positive: Regular rate & rhythm, Tachycardia Respiratory: positive: No respiratory distress, Breath sounds nml, Diminished in bases Abdomen: positive: Soft Skin: positive: Pallor, Dryness, Other (peeling noted in instep/appears like tinea pedis but not in between toes/ no blisters on exam happen about every 2 weeks/ has poor support/old shoes) Extremities: positive: No pedal edema Neurologic/Psychiatric: positive: Oriented x3, Depressed mood/affect, Flat affect Palliative Care - POLST Patient has POLST: Yes POLST Status: Full Code Pain: Pain worsening, Comment (patient has had to be more ambulatory with apartment search and day to day activities; worsening pain) Tiredness/Fatigue: None Drowsiness/Sedation: None Nausea: None Anorexia: None Dyspnea: None Depression: Moderate (4-6) Anxiety: Severe (7-10), Comment (related to her circumstances with brother) Feelings of wellbeing/Perceived Quality of Life: Fair, Worsening Sleep: Sleeps poorly, Variable sleep pattern, Other (sleepy hygience poor; sleeps in living room/uncomfortable futon-sleep interuptions frequent) Constipation: No Performance Status: Patient able to manage short distances of ambulation, with her cane. Though this does exacerbate her pain. She does have mild issues as far as activity intolerance, with fatigue but most impactful with being on her feet. She is independent in her ADLs, does attempt to keep up with household tasks, though this standing is problematic. - Palliative Care Discussion: Patient is frustrated in her attempt to really focus on wellbeing and good behaviors. Her financial stressors and her brother are thwarting some of her ability to really focus on good nutrition, she understands that she needs better use of her protein, but cannot afford fish at this point in time. She is also distressed as the tension between her brother and son are is escalating, and the re has been some threatening behaviors. We did spend a bit of time processing some of this, she is quite tearful, she was encouraged to call 911 if she felt unsafe. She is looking at possibly changing her current living situation, as she does understand with her brother's dementia, there is most likely no resolution as far as coming to some understanding. She is awaiting low income housing placement, and still needs temporary custodial. Impression and Recommendations - Palliative Care Impression: This a 53-year-old woman with alcoholic cirrhosis of the liver, fatty liver disease, and underlying acute on chronic pain, alcoholic peripheral neuropathy, and anxiety. Unfortunately her new living situation, is causing more distress, with her brothers unpredictable behaviors. Her pain is being managed on her current regimen, though continues problematic and impacting her function. Palliative care to continue provide support for pain and symptom management and anticipatory guidance. Recommendations/Counseling Done: 1. Alcoholic cirrhosis of the liver. Patient is trying to stay within her tary regulations, and eat healthy. She is somewhat limited by her financial stressors. She has continued to remain sober, she is quite committed to this, and particularly supporting her son. She does have a new GI doc, Dr. Paz, reports there is no changes made, as well as she saw her previous liver specialist. She is hopeful she can continue to improve. 2. Anxiety. She does present with exacerbation of anxiety today, specific to her significant financial to stressors as well as worsening issues with her brother. Counseling provided regarding priority for safety, and self-care, she has some working medical palliative care social science instructor as well will check in with him. 3.Acute on chronic back pain. This is multifactorial as well she has multiple pain generators. She has had a trial for pregabalin, for her neuropathy management, and she had too many side effects. She is currently on oxycodone 5 tabs 2 tabs 4 times a day, she understands she is not to exceed 8 tabs in 24 hours. We reviewed the goals which are to improve her functional status, complete household tasks, and contribute her ability to sleep at night. She is hoping at some point to be a possible candidate for surgical intervention. She is willing though to revisit particularly for strengthening of her upper extremities core and may be some aqua therapy for her lower extremities again. She will explore where she would like a referral given her insurance. We will continue to meet every 2 to 3 months as part of an opioid contract. 4. Advanced care planning. Patient's goals are to continue to improve her underlying health and well-being, manage her symptoms to an acceptable level, decrease her stressors, she would like to live long enough to be able to support her son through his transition into adulthood. Time Spent: 45 minutes with greater than 50% of this done in counseling regarding anxiety, safety issues, opioid use and anticipatory guidance.
== END 2019-10-15 11:05 | disposition home or self-care (01) ==
LOC: PC 11:04
PROVIDERS: ATTEND Nurse Practitioner Adult Health
DX: Z51.5 Encounter for palliative care (principal); G89.29 Other chronic pain; K70.30 Alcoholic cirrhosis of liver without ascites; F41.9 Anxiety disorder, unspecified; Z79.899 Other long term (current) drug therapy; Z79.891 Long term (current) use of opiate analgesic; Z63.8 Other specified problems related to primary support group; Z59.6 Low income
CPT/HCPCS: 99215

== ENCOUNTER 2019-12-15 10:17 | Outpatient (CLI) | payer MEDICARE, MEDICAID ==
--- NOTE | 2019-12-15 13:17 | CONSULTATION NOTE ---
Palliative Care Follow Up - Referral Referring Provider: Dr. Efrain Whitmore/Lizbet PRITCHETT Time of Visit: [id number] Referral setting: [facility] [place] Referral Reason: Acute on Chronic Pain/ Alcoholic cirrhosis/Anxiety - Information Sources Records reviewed: Previous records reviewed History/Review of Systems obtained from: Patient Exam limitations: No limitations - History of Present Illness Update Brief HPI Update: This is a complex 53-year-old woman who presents today with ongoing acute on chronic back pain. She does have known alcoholic cirrhosis, just had her endoscopy yesterday, reports is fairly stable as far as her varices, and continues to improve slowly. She remains sober. She does have a difficult social situation, which continues to escalate and add to her anxiety. She has recently tried physical therapy, and is worried about exacerbating her pain, but is willing to move forward with several more visits. Her goal is to increase her core strength, as well as improve her balance. She does continue with lower back pain, [place]-induced neuropathies, and poor activity tolerance. Patient's pain is mostly localized in her L5/L6 area that she has an extra vertebrae, she has known stenosis and posterior disc protrusion. She does have intermittent severe dystonias, and has had a long history for trying to manage her back pain. She does ambulate with her cane, she is taking her oxycodone, pacing it in preparation for response to activity. She is using it appropriately and has remained with an scheduled maximum of 8 tabs a day. Patient also has severe underlying anxiety, strictly related to her living situation. Her brother has Parkinson's, with fluctuating altered mental status and paranoia, she is worried about the stresses impacting her overall health. She has multiple financial stressors, she is trying to care for her and support her teenage son in the home, she has been trying to find an alternative living situation, but has not found any affordable or acceptable answers. Social History - Living Situation Living arrangement: At home Living Situation: With family Support System: Patient previously had been living in a trailer, quite isolated, her mother has since passed, and she is moved into the family home with her brother. Unfortunately he does have multiple health problems. She is looking for an alternative living situation, but is impacted by her financial situation. Medications/Allergies - Medications Home Medications: Ambulatory Orders Medication Instructions Recorded Confirmed Folic Acid 1 mg PO DAILY tablet 06/24/18 12/15/19 rifAXIMin [Xifaxan] 550 mg PO BID tablet 06/24/18 12/15/19 Furosemide [Lasix] 20 mg PO DAILY 08/04/18 12/15/19 Omeprazole 20 mg PO DAILY 08/04/18 12/15/19 Potassium Chloride [K-Dur] 20 meq PO TID 08/04/18 12/15/19 Spironolactone [Aldactone] 50 mg PO DAILY 08/04/18 12/15/19 Multivit-Min/FA/Lycopen/Lutein 1 tab PO DAILY 01/28/19 12/15/19 [Centrum Silver Men Tablet] Ondansetron [Ondansetron Odt] 4 mg PO Q6H PRN 01/28/19 12/15/19 oxyCODONE [Roxicodone] 10 mg PO QID MDD 8 tabs 01/28/19 12/15/19 Lactulose 5 - 15 ml PO PRN PRN 08/14/19 12/15/19 Ascorbic Acid [Vitamin C] 500 mg PO DAILY 09/20/19 12/15/19 Iron Sulfate 325 mg ORAL DAILY 09/20/19 12/15/19 - Allergies Allergies/Adverse Reactions: Allergies Allergy/AdvReac Type Severity Reaction Status Date / Time ceftriaxone sodium * Allergy Severe RASH,HIVES, Verified 10/04/19 13:12 [From Rocephin] BURNING,ITC JAMIE cephalexin monohydrate * Allergy Severe RASH,HIVES, Verified 10/04/19 13:12 [From Keflex] BURNING,ITC JAMIE ciprofloxacin Allergy Severe RASH,HIVES, Verified 10/04/19 13:12 BURNING,ITC JAMIE phenazopyridine HCl * Allergy Severe SWELLING Verified 10/04/19 13:12 [From Pyridium] OF AIRWAY Sulfa (Sulfonamide Allergy Severe RASH,HIVES, Verified 10/04/19 13:12 Antibiotics) BURNING,ITC JAMIE gentamicin Allergy Edema Verified 10/04/19 13:12 lamotrigine [From Lamictal] Allergy Hives Verified 10/04/19 13:12 levetiracetam [From Keppra] Allergy Anxiety Verified 10/04/19 13:12 lidocaine AdvReac Itching Verified 10/04/19 13:12 pregabalin AdvReac Hallucinati Verified 10/04/19 13:12 ons Review of Systems - Constitutional Constitutional: reports: Fatigue, Weight stable (105; She is having trouble gaining weight, this has more to do with her ability to access food. She is using the foodbank). denies: Fever, Chills - Eyes Eyes: reports: Vision loss - Cardiovascular Cardiovascular: reports: Palpitations, Decr. exercise tolerance - Respiratory Respiratory: reports: SOB with exertion. denies: SOB at rest - Gastrointestinal Gastrointestinal: reports: Early satiety, Good appetite. denies: Constipation - Musculoskeletal Musculoskeletal: reports: Muscle pain, Back pain, Muscle aches, Stiffness, Limited range of motion, Muscle weakness, Assistive devices (uses cand) - Integumentary Integumentary: reports: Dryness - Neurological Neurological: reports: General weakness, Focal weakness (left leg gives out easily) - Psychiatric Psychiatric: reports: Depression, Anxiety - Endocrine Endocrine: reports: Intolerance to cold - Hematologic/Lymphatic Hematologic/Lymphatic: denies: Recurrent infections - All Other Systems All Other Systems: reports: Reviewed and negative Physical Exam - Vital Signs Temperature: 36.8 C Pulse Rate: 80 Respiratory Rate: 18 Blood Pressure: 104/68 - Physical Exam General Appearance: positive: Mild distress Eyes Bilateral: positive: Normal inspection ENT: positive: No signs of dehydration Neck: positive: Trachea midline Cardiovascular: positive: Regular rate & rhythm (was told she had a murmur; not able to discern) Respiratory: positive: No respiratory distress, Breath sounds nml, Diminished in bases Abdomen: positive: Non-tender, Soft Skin: positive: Dryness Extremities: positive: No pedal edema Neurologic/Psychiatric: positive: Oriented x3, Depressed mood/affect, Flat affect Palliative Care - POLST Patient has POLST: Yes POLST Status: Full Code Pain: Pain worsening, Location (Full body; concentrated to hyperalgesia of hands/legs neck and shoulder area; worst pain in lower lumbar area) Tiredness/Fatigue: Mild (1-3) Drowsiness/Sedation: None Nausea: None Anorexia: None Dyspnea: None Depression: Moderate (4-6) (mostly situational in response to situation) Anxiety: Moderate (4-6) Feelings of wellbeing/Perceived Quality of Life: Fair, Acceptable, No change Sleep: Variable sleep pattern Constipation: Yes, Opoid induced, Managed Performance Status: Patient does have to pace herself, she is able to ambulate short distances, but with the increase in severity of pain. She is able to manage her own ADLs, she is doing some household tasks some out of necessity which also exacerbates her pain. - Palliative Care Discussion: Patient continues to struggle with trying to make sense of how best to manage her diminishing quality of life. She has initiated physical therapy, has some frustrations about not being taken seriously or heard regarding what she has tried and what is most helpful for her. We did pull her MRI of her spine, for her to take with her to her next appointment. She continues to have complications regarding her living situation, as well as struggle with financial stressors. Patient does appear quite tearful, and overwhelmed, but has been very focused on getting as well as she can, and hopes to continue to be able to support her son long-term. Results - Lab Results Lab results reviewed: No Lab and Imaging Results: Patient did not go get labs drawn as ordered; plan was to evaluate need for continued higher dose K Impression and Recommendations - Palliative Care Impression: This is a 54-year-old woman with alcoholic cirrhosis of the liver, fatty liver disease, and underlying acute on chronic pain alcoholic peripheral neuropathy, and anxiety. She recently had endoscopy, reports especially understands that her varices are still present, but everything is improving, no concern for worsening. She continues to struggle with her chronic pain, with only moderate relief with intermittent oxycodone, she is trialing physical therapy to see about her balance and strengthening, as well as hope for decreasing her pain levels. Palliative care providing support regarding anticipatory guidance, pain management, as well's psychosocial support through SHAKE PACKER and SUSTAINABILITY ANALYST visits. Recommendations/Counseling Done: 1. Alcoholic cirrhosis of the liver. Patient is trying to stay within her dietary regulations, is working on eating healthy, and getting adequate fluids. She is somewhat limited by her financial stressors, and access to food. She has continued to remain sober, and is quite committed to this. She is hopeful she can continue to show improvement. 2. Acute on chronic back pain. This is multifactorial as well as has multiple pain generators. We have most recently trialed pregabalin for her management of her neuropathy, but experienced too many side effects. She is currently using oxycodone 5 mg tabs up to 8 tabs a day, spacing it around her activity level. Her pain is most pronounced and significant in the morning, needing 2-1/2 tabs, then she titrates half tab through the day and 2 at night. Reviewed the functional goals, which are to continue to support her to manage her household t asks, and contribute her ability to sleep at night. She has started physical therapy, is worried about this exacerbating her pain, awaiting approval for aqua therapy through her insurance. We will continue to meet every 2 to 3 months as part of our opioid agreement. 3. Anxiety. This continues to worsen specific to both her financial stressors as well as worsening health problems of her brother. Counseling provided regarding priority of safety, and self-care, she is working with medical palliative care long term care social worker and encouraged to reach out and expand her community. [place],. 4. Advanced care planning. Patient's goals are can improve her underlying health, and wellbeing and she is hoping to get her pain to an acceptable level. She would like to live long enough to build support her son through his transition into adulthood. Time Spent: 40 minutes with greater than 50% of this done in counseling regarding pain and symptom management, management of psychosocial stressors, as well as anticipatory guidance.
== END 2019-12-15 10:18 | disposition home or self-care (01) ==
LOC: PC 10:17
PROVIDERS: ATTEND Nurse Practitioner Adult Health
DX: Z51.5 Encounter for palliative care (principal); K70.30 Alcoholic cirrhosis of liver without ascites; G89.29 Other chronic pain; F41.9 Anxiety disorder, unspecified; K59.03 Drug induced constipation; T40.2X5A Adverse effect of other opioids, initial encounter; Z79.891 Long term (current) use of opiate analgesic; Z79.899 Other long term (current) drug therapy; Z59.6 Low income; Z63.79 Other stressful life events affecting family and household
CPT/HCPCS: 99215

== ENCOUNTER 2019-12-21 13:00 | Outpatient (CLI) | payer MEDICARE, MEDICAID ==
[2019-12-21 13:39] LABS: CALCIUM 9.5 mg/dL (8.5-10.3); CREATININE 0.7 mg/dL (0.4-1.0)
== END 2019-12-21 13:01 | disposition home or self-care (01) ==
LOC: LAB 13:00
PROVIDERS: ATTEND Nurse Practitioner Adult Health
DX: Z79.899 Other long term (current) drug therapy (principal)
CPT/HCPCS: 36415; 80048

== ENCOUNTER 2019-12-31 11:01 | Outpatient (CLI) | payer MEDICARE, MEDICAID ==
--- NOTE | 2019-12-31 13:00 | XRAY Report ---
Reason: COCCYX PAIN Procedure Date: 12/31/2019 Accession Number: [id number] / [id number] Procedure: XR - Sacrum/Coccyx CPT Code: Final Report FULL RESULT: EXAM: SACRUM AND COCCYX RADIOGRAPHY 3 VIEWS EXAM DATE: 12/31/2019. HISTORY: Coccyx pain. COMPARISONS: Abdomen and pelvis CT done 06/09/2018. TECHNIQUE: AP, cephalad angulated AP and lateral views. FINDINGS: Alignment: Normal. The sacrum and coccyx are normally aligned. Bones: No fracture or other acute abnormality. Mild flattening of the left femoral head and shortening of the left femoral neck, probably from a previous injury, appear unchanged. Joints: The sacroiliac joints appear normal. Soft Tissues: Normal. IMPRESSION: Normal sacrum and coccyx radiography. [facility]
== END 2019-12-31 11:02 | disposition home or self-care (01) ==
LOC: DI 11:01
PROVIDERS: ATTEND Nurse Practitioner Adult Health
DX: M53.3 Sacrococcygeal disorders, not elsewhere classified (principal)
CPT/HCPCS: 72220

== ENCOUNTER 2020-02-28 16:44 | Outpatient (CLI) | payer MEDICARE, MEDICAID ==
--- NOTE | 2020-02-28 17:56 | PROVIDER PROGRESS NOTE ---
HPI/Interval History - HPI/Interval History This is a complex 53-year-old woman who presents today with ongoing acute on chronic back pain, which mostly localized to her L5/L6 area, she has know stenosis, and posterioir disc protrusion. She does have intermittent severe dystonias, and has had a long history of trying to manage her back pain, which has also resulted in alcoholic cirrhosis. She has been sober coming up on 3 years, is quite proud of herself, but still continues to perceive herself is suffering. We had tried to get her into a surgical consult, she has seen multiple spinal surgeons who have refused to operate. She was also set up with physical therapy, hoping to do aqua therapy, but with his CO VID 19 this got way late. At this point in time would hope to at least get her back in for TENS unit use, she does have 1 but needs further instruction on how best to use this. Her pain is been exacerbated in the context that she has had to do more activities, she has a complex social situation, and needing to help her brother. She is doing more laundry, she is needing to stand up for cooking, and is doing a significant medic cleaning. This exacerbates her pain, she is trying to pace herself. She does use her oxycodone 5 mg tabs up to 8 a day, she has been fairly compliant staying within this. Today she presents with a deep tissue injury across her lower back and spinal area, presenting is bruising. In review, she is sleeping out on a futon, she is unable to sit as they have no chairs so is often positioned curled up, and putting significant stress on this. We did discuss in the context of some problem solving around that, including possibly getting a wheelchair where she can position herself upright and get a pressure relief cushion. She continues with high anxiety, her brother has severe Parkinson's, her brother and son are not getting along and she feels somewhat stuck. She is on a housing waiting list, but she is #17 expects not that today taking care of for a couple years. She is trying to eat healthy, but is limited regarding her finances. She has found some distractions and started making jewelry. Patient is quite tearful, does have significant amount of stressors including financial and social. She is not sleeping well both related to the pain, and her room is actually the living room. Review of Systems - Constitutional Constitutional: reports: Fatigue, Weight loss (96 pounds). denies: Fever, Ch ills - Eyes Eyes: reports: Vision loss - Ears, Nose & Throat Ears, Nose & Throat: reports: Postnasal drainage (r/t allergies), Dental decay - Cardiovascular Cardiovascular: reports: Decr. exercise tolerance - Respiratory Respiratory: denies: SOB at rest - Gastrointestinal Gastrointestinal: reports: Other (stressed). denies: Constipation, Nausea - Integumentary Integumentary: reports: Dryness - Neurological Neurological: reports: General weakness, Headache, Numbness, Abnormal gait - Psychiatric Psychiatric: reports: Depression, Anxiety - Hematologic/Lymphatic Hematologic/Lymphatic: denies: Recurrent infections - All Other Systems All Other Systems: reports: Reviewed and negative Medications/Allergies - Medications Home Medications: Ambulatory Orders Medication Instructions Recorded Confirmed Folic Acid 1 mg PO DAILY tablet 06/24/18 12/15/19 rifAXIMin [Xifaxan] 550 mg PO BID tablet 06/24/18 02/29/20 Furosemide [Lasix] 20 mg PO DAILY 08/04/18 12/15/19 Omeprazole 20 mg PO DAILY 08/04/18 02/29/20 Potassium Chloride [K-Dur] 20 meq PO TID 08/04/18 02/29/20 Spironolactone [Aldactone] 50 mg PO DAILY 08/04/18 02/29/20 Multivit-Min/FA/Lycopen/Lutein 1 tab PO DAILY 01/28/19 02/29/20 [Centrum Silver Men Tablet] Ondansetron [Ondansetron Odt] 4 mg PO Q6H PRN 01/28/19 02/29/20 oxyCODONE [Roxicodone] 10 mg PO QID MDD 8 tabs 01/28/19 02/29/20 Lactulose 5 - 15 ml PO PRN PRN 08/14/19 02/29/20 Ascorbic Acid [Vitamin C] 500 mg PO DAILY 09/20/19 12/15/19 Iron Sulfate 325 mg ORAL DAILY 09/20/19 12/15/19 traZODone [Desyrel] 50 - 100 mg PO QPM PRN 02/29/20 02/29/20 - Allergies Allergies/Adverse Reactions: Allergies Allergy/AdvReac Type Severity Reaction Status Date / Time ceftriaxone sodium * Allergy Severe RASH,HIVES, Verified 10/04/19 13:12 [From Rocephin] BURNING,ITC JAMIE cephalexin monohydrate * Allergy Severe RASH,HIVES, Verified 10/04/19 13:12 [From Keflex] BURNING,ITC JAMIE ciprofloxacin Allergy Severe RASH,HIVES, Verified 10/04/19 13:12 BURNING,ITC JAMIE phenazopyridine HCl * Allergy Severe SWELLING Verified 10/04/19 13:12 [From Pyridium] OF AIRWAY Sulfa (Sulfonamide Allergy Severe RASH,HIVES, Verified 10/04/19 13:12 Antibiotics) BURNING,ITC JAMIE gentamicin Allergy Edema Verified 10/04/19 13:12 lamotrigine [From Lamictal] Allergy Hives Verified 10/04/19 13:12 levetiracetam [From Keppra] Allergy Anxiety Verified 10/04/19 13:12 lidocaine AdvReac Itching Verified 10/04/19 13:12 pregabalin AdvReac Hallucinati Verified 10/04/19 13:12 ons Palliative Care Pain: Pain worsening, Location (back see hpi) Performance Status: Patient reports she is being more active, she is ambulating more. She is having more pain with this but is finding herself pacing her activities. - Palliative Care Discussion: Patient continues to struggle, she is quite proud of her accomplishment reports "I do what I say I am going to do". She continues to abstain from alcohol. She is trying to work on healthy behaviors and wellbeing, but is limited by multiple stressors in her current living situation. Impression and Recommendations - Palliative Care Impression: This is a 54-year-old woman with alcoholic cirrhosis of liver, fatty liver disease, and a low underlying acute on chronic pain in back, as well as alcoholic peripheral neuropathy and underlying anxiety. She continues to struggle with her chronic pain, with only intermittent moderate relief with her oxycodone, unfortunately physical therapy has been put on hold. 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 Alcoholic cirrhosis of the liver. Patient continues to remain sober, is quite committed to this and coming on 3 years this summer. She is working on eating healthy, getting adequate fluids but this is challenging given her financial and living situation. She does not have follow-up with GI every 6 months, and continues to be compliant with keeping her appointments. 2. Acute on chronic back pain. This is multifactorial as well as multiple pain generators. Counseling provided regarding positioning and decreased stress on her lower back, hopefully can return to PT would recommend follow-up with TENS unit for further support. She is willing to engage, will need to transition to new physical therapist. Awaiting lifting of restrictions related to the [place] VID 19. Patient at this point in time is not interested in further referrals [place] We will put this on hold for now. Patient's oxycodone was refilled with continued 8 tabs in 24 hours, 3. Insomnia. This is multifactorial, patient does sleep in the middle of the living room, with multiple interruptions to the night. She is also had exacerbated in her pain, will initiate trazodone 50 mg and titrate up to 100 if tolerated. Patient does have odd reactions at times to medications, she will start with a half a tab and evaluate response and let me know how it goes. She feels if she would get better sleep, her pain would be more tolerable. 4. Anxiety this continues to worsen both with her financial stressors is worsening problems with her brother. Also significant amount of stress with her son, she is trying to get him into job core, and continually working on problem solving regarding different barriers she is running into. She is working with medical palliative care social studies department chair encouraged to reach out and expand her ongoing community. Time Spent: [id number] [facility] Telehealth Visit - TeleMedicine Visit Referring Provider: Lizbet PRITCHETT Visit Type:: TeleHealth Phone Call Patient agrees and consents to this telehealth visit type: Yes Time spent:: 35 minutes Video type:: phone call Location of provider:: Office Location of patient:: Home Provider Statement: I spent 100% on the TeleHealth Phone Call with the patient with greater than 50% spent counseling the patient and coordination of care.
== END 2020-02-28 16:45 | disposition home or self-care (01) ==
LOC: PC 16:44
PROVIDERS: ATTEND Nurse Practitioner Adult Health
DX: Z51.5 Encounter for palliative care (principal); K70.30 Alcoholic cirrhosis of liver without ascites; G89.29 Other chronic pain; M48.061 Spinal stenosis, lumbar region without neurogenic claudication; M51.26 Other intervertebral disc displacement, lumbar region; S30.0XXA Contusion of lower back and pelvis, initial encounter; G47.00 Insomnia, unspecified; F41.9 Anxiety disorder, unspecified; R63.4 Abnormal weight loss; R06.02 Shortness of breath; G62.1 Alcoholic polyneuropathy; Z79.899 Other long term (current) drug therapy; Z79.891 Long term (current) use of opiate analgesic; Z59.9 Problem related to housing and economic circumstances, unspecified

== ENCOUNTER 2020-08-04 09:33 | Outpatient (CLI) | payer MEDICARE, MEDICAID ==
[2020-08-04 10:04] LABS: CALCIUM 9.4 mg/dL (8.5-10.3); CREATININE 0.6 mg/dL (0.4-1.0)
== END 2020-08-04 09:34 | disposition home or self-care (01) ==
LOC: LAB 09:33
PROVIDERS: ATTEND Nurse Practitioner Adult Health
DX: Z79.899 Other long term (current) drug therapy (principal)
CPT/HCPCS: 36415; 80048

== ENCOUNTER 2020-08-17 03:13 | Outpatient (CLI) | payer MEDICARE, MEDICAID | END 2020-08-17 03:14 | disposition critical access hospital (66) | LOC: EMS 03:13 | PROVIDERS: ATTEND Surgery | DX: R31.9 Hematuria, unspecified (principal) | CPT/HCPCS: A0425; A0429 ==

== ENCOUNTER 2020-08-17 03:32 | Emergency (ER) | payer MEDICARE, MEDICAID ==
--- NOTE | 2020-08-17 03:39 | ED Physician Documentation ---
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 c/o hematuria, one episode tonight. she developed right flank pain en route to ED which improved without intervention shortly before arrival. Review of Systems Constitutional: reports: Reviewed and negative Cardiac: reports: Reviewed and negative Respiratory: reports: Reviewed and negative GI: reports: Abdominal Pain (right flank). denies: Nausea, Vomiting, Constipation, Diarrhea : reports: Hematuria. denies: Dysuria, Frequency, Vaginal bleeding PD PAST MEDICAL HISTORY - Past Medical History Cardiovascular: Other Respiratory: None Neuro: Seizure disorder Endocrine/Autoimmune: None GI: GERD, Ulcers, Hiatal hernia, Chronic constipation, Hemorrhoids, Hepatitis, Cirrhosis MEDICAL RECRUITER: None : Frequency, Other HEENT: Chronic vision loss, Other Psych: Depression, Anxiety, Panic attacks, Post traumatic stress disorder Musculoskeletal: Chronic back pain Derm: None - Past Surgical History Past Surgical History: Yes General: Cholecystectomy Ortho: Other /MEDICAL RECRUITER: Tubal ligation - Present Medications Home Medications: Ambulatory Orders Medication Instructions Recorded Confirmed Folic Acid 1 mg PO DAILY tablet 06/24/18 08/17/20 rifAXIMin [Xifaxan] 550 mg PO BID tablet 06/24/18 08/17/20 Furosemide [Lasix] 20 mg PO DAILY 08/04/18 08/17/20 Omeprazole 20 mg PO DAILY 08/04/18 08/17/20 Potassium Chloride [K-Dur] 20 meq PO TID 08/04/18 08/17/20 Spironolactone [Aldactone] 50 mg PO DAILY 08/04/18 06/22/20 Multivit-Min/FA/Lycopen/Lutein 1 tab PO DAILY 01/28/19 08/17/20 [Centrum Silver Men Tablet] Ondansetron [Ondansetron Odt] 4 mg PO Q6H PRN 01/28/19 06/22/20 oxyCODONE [Roxicodone] 10 mg PO QID MDD 8 tabs 01/28/19 08/17/20 Lactulose 5 - 15 ml PO PRN PRN 08/14/19 06/22/20 Ascorbic Acid [Vitamin C] 500 mg PO DAILY 09/20/19 08/17/20 Iron Sulfate 325 mg ORAL DAILY 09/20/19 08/17/20 traZODone [Desyrel] 50 - 100 mg PO QPM PRN 02/29/20 06/22/20 - Allergies Allergies/Adverse Reactions: Allergies Allergy/AdvReac Type Severity Reaction Status Date / Time ceftriaxone sodium * Allergy Severe RASH,HIVES, Verified 08/17/20 03:43 [From Rocephin] BURNING,ITC JAMIE cephalexin monohydrate * Allergy Severe RASH,HIVES, Verified 08/17/20 03:43 [From Keflex] BURNING,ITC JAMIE ciprofloxacin Allergy Severe RASH,HIVES, Verified 08/17/20 03:43 BURNING,ITC JAMIE phenazopyridine HCl * Allergy Severe SWELLING Verified 08/17/20 03:43 [From Pyridium] OF AIRWAY Sulfa (Sulfonamide Allergy Severe RASH,HIVES, Verified 08/17/20 03:43 Antibiotics) BURNING,ITC JAMIE gentamicin Allergy Edema Verified 08/17/20 03:43 lamotrigine [From Lamictal] Allergy Hives Verified 08/17/20 03:43 levetiracetam [From Keppra] Allergy Anxiety Verified 08/17/20 03:43 lidocaine AdvReac Itching Verified 08/17/20 03:43 pregabalin AdvReac Hallucinati Verified 08/17/20 03:43 ons - Social History Does the pt smoke?: Yes Smoking Status: Current every day smoker Does the pt drink ETOH?: Yes Does the pt have substance abuse?: No - Immunizations Immunizations are current?: Yes Immunizations: TDAP >10years/unknown - POLST Patient has POLST: No POLST Status: Full Code PD ED PE NORMAL - Vitals Vital signs reviewed: Yes - General General: Alert and oriented X 3, No acute distress, Well developed/nourished - Cardiac Cardiac: RRR, No murmur - Respiratory Respiratory: No respiratory distress, Clear bilaterally - Abdomen Abdomen: Soft, Non tender, Non distended - Back Back: No CVA TTP - Derm Derm: Normal color, Warm and dry - Extremities Extremities: No edema Results - Vitals Vitals: Vital Signs - 24 hr 08/17/20 08/17/20 08/17/20 03:35 06:15 07:30 Temperature 37.2 C 36.6 C Heart Rate 86 69 80 Respiratory 18 14 18 Rate Blood Pressure 113/81 H 123/65 108/67 O2 Saturation 100 99 100 08/17/20 07:59 Temperature 36.8 C Heart Rate Respiratory Rate Blood Pressure O2 Saturation Oxygen O2 Source Room air - Labs Labs: Laboratory Tests 08/17/20 08/17/20 08/17/20 03:48 03:48 04:10 WBC 4.7 L RBC 4.01 L Hgb 12.7 Hct 37.7 MCV 94.0 MCH 31.7 H MCHC 33.7 RDW 14.0 Plt Count 67 L MPV 11.2 H Neut # (Auto) 2.2 Lymph # (Auto) 1.8 Hand # (Auto) 0.5 Eos # (Auto) 0.3 Baso # (Auto) 0.0 Absolute Nucleated RBC 0.00 Nucleated RBC % 0.0 Sodium Potassium Chloride Carbon Dioxide Anion Gap BUN Creatinine Estimated GFR (MDRD) Glucose Calcium Total Bilirubin AST ALT Alkaline Phosphatase Total Protein Albumin Globulin Albumin/Globulin Ratio Lipase Urine Color YELLOW Urine Clarity CLEAR Urine pH 7.0 Ur Specific Man 1.010 1.010 Urine Protein NEGATIVE Urine Glucose (UA) NEGATIVE Urine Ketones NEGATIVE Urine Occult Blood LARGE H Urine Nitrite NEGATIVE Urine Bilirubin NEGATIVE Urine Urobilinogen 0.2 (NORMAL) Ur Leukocyte Esterase NEGATIVE Urine RBC 0-5 Urine WBC 0-3 Ur Squamous Epith Cells FEW Squamous Urine Bacteria None Seen Ur Microscopic Review INDICATED Urine Culture Comments NOT INDICATED Urine HCG, Qual NEGATIVE 08/17/20 04:10 WBC RBC Hgb Hct MCV MCH MCHC RDW Plt Count MPV Neut # (Auto) Lymph # (Auto) Hand # (Auto) Eos # (Auto) Baso # (Auto) Absolute Nucleated RBC Nucleated RBC % Sodium 138 Potassium 3.8 Chloride 109 Carbon Dioxide 21 Anion Gap 8.0 BUN 10 Creatinine 0.7 Estimated GFR (MDRD) 88 L Glucose 100 Calcium 9.1 Total Bilirubin 1.4 H AST 32 ALT 16 Alkaline Phosphatase 94 Total Protein 6.3 L Albumin 4.0 Globulin 2.3 Albumin/Globulin Ratio 1.7 Lipase 33 Urine Color Urine Clarity Urine pH Ur Specific Man Urine Protein Urine Glucose (UA) Urine Ketones Urine Occult Blood Urine Nitrite Urine Bilirubin Urine Urobilinogen Ur Leukocyte Esterase Urine RBC Urine WBC Ur Squamous Epith Cells Urine Bacteria Ur Microscopic Review Urine Culture Comments Urine HCG, Qual - Rads (name of study) CT A/P Radiology: Prelim report reviewed, See rad report PD MEDICAL DECISION MAKING - ED course Complexity details: reviewed results, re-evaluated patient, considered differential, d/w patient Departure - Departure Disposition: 01 Home, Self Care Clinical Impression: Hematuria Qualifiers: Hematuria type: gross Qualified Code(s): R31.0 - Gross hematuria Condition: Good Instructions: ED Hematuria Discharge Date/Time: 08/17/20 07:59
[2020-08-17 03:55] LABS: BILIRUBIN,URINE NEGATIVE (NEGATIVE); GLUCOSE, URINE (UA) NEGATIVE (NEGATIVE); KETONES,URINE (UA) NEGATIVE (NEGATIVE); LEUKOCYTE ESTERASE, URINE NEGATIVE (NEGATIVE); NITRITE,URINE NEGATIVE (NEGATIVE); OCCULT BLOOD,URINE LARGE (NEGATIVE); PROTEIN,URINE NEGATIVE (NEGATIVE); UROBILINOGEN,URINE 0.2 (NORMAL) E.U./dL (NORMAL)
[2020-08-17 04:03] LABS: BACTERIA,URINE None Seen /HPF (None Seen); CLARITY,URINE CLEAR (CLEAR); RBC,URINE 0-5 /HPF (0-5); SQUAMOUS EPITHELIAL CELL,UR FEW Squamous (<= Few)
[2020-08-17 04:04] LABS: HCG UR QUAL NEGATIVE
[2020-08-17 04:19] LABS: BASOPHILS % (AUTO) 0.8 %; EOSINOPHILS # (AUTO) 0.3 10^3/uL (0.0-0.7); EOSINOPHILS % (AUTO) 5.3 %; HGB - HEMOGLOBIN 12.7 g/dL (12.0-16.0); LYMPHOCYTES # (AUTO) 1.8 10^3/uL (1.5-3.5); MEAN CORPUSCULAR HEMOGLOBIN 31.7 pg (27.0-31.0); MEAN CORPUSCULAR HGB CONC 33.7 g/dL (32.0-36.0); MEAN PLATELET VOLUME 11.2 fL (7.9-10.8); MONOCYTES # (AUTO) 0.5 10^3/uL (0.0-1.0); MONOCYTES % (AUTO) 9.5 %; NEUTROPHILS # (AUTO) 2.2 10^3/uL (1.5-6.6); NEUTROPHILS % (AUTO) 46.2 %; PLT - PLATELET COUNT 67 10^3/uL (130-450); RED BLOOD COUNT 4.01 10^6/uL (4.20-5.40); WHITE BLOOD COUNT 4.7 x10^3/uL (4.8-10.8)
[2020-08-17 04:28] LABS: ALBUMIN/GLOBULIN RATIO 1.7 (1.0-2.2); BILIRUBIN,TOTAL 1.4 mg/dL (0.2-1.0); CALCIUM 9.1 mg/dL (8.5-10.3); CREATININE 0.7 mg/dL (0.4-1.0); TOTAL PROTEIN 6.3 g/dL (6.7-8.2)
[2020-08-17 07:55] VITALS: BP 108/67
--- NOTE | 2020-08-17 09:19 | CT Report ---
PROCEDURE: Abdomen/Pelvis WO INDICATIONS: hematuria, right flank pain TECHNIQUE: Noncontrast 5 mm thick sections acquired from the diaphragms to the symphysis. 5 mm coronal and sagi ttal reformats were then performed. For radiation dose reduction, the following was used: automated exposure control, adjustment of mA and/or kV according to patient size. COMPARISON: MR abdomen 08/19/2019 CT abdomen pelvis 06/09/2018 FINDINGS: Image quality: Excellent. ABDOMEN: Lung bases: Lung bases are clear. Heart size is normal. Solid organs: Liver is nodular in appearance with heterogeneous areas of attenuation, poorly defined given lack of IV contrast. It is noted similar appearance was identified on prior exam. Spleen is anastasia rderline enlarged. Gallbladder has been removed Pancreas is normal in contours. No adrenal nodules. Kidneys are normal in size. Mild to moderate right hydronephrosis. No stones are identified within the kidney, ureter or bladder. Peritoneum and bowel: Unenhanced bowel loops demonstrate normal wall thickness and caliber. No free fluid or air. Prominent stool is present without obstruction. Nodes and vessels: No retroperitoneal or mesenteric adenopathy by size criteria. Aorta and inferior vena cava are normal in caliber. Perisplenic varices are present. Miscellaneous: No ventral hernias. PELVIS: Genitourinary: Bladder wall thickness is normal. Miscellaneous: No inguinal hernias or adenopathy. Bones: No suspicious bony lesions. No vertebral body compression fractures. IMPRESSION: 1. Nodular appearance of the liver with heterogeneous attenuation most consistent with cirrhosis. Het erogeneous attenuation could be secondary to areas of geographic steatosis as identified on prior exa m. However, given overall appearance of steatosis and noncontrast exam, underlying areas of mass lesi on cannot be definitively excluded. As clinically indicated, further evaluation with MRI is recommend ed. 2. Splenic varices suggestive portal venous hypertension. 3. Mild to moderate right hydronephrosis without visualized source of obstruction. Recently passed st one cannot be excluded. The above findings are concordant with preliminary report. Reviewed by: Laura Hogan MD on 08/17/2020 9:17 AM PDT Approved by: Laura Hogan MD on 08/17/2020 9:17 AM PDT Station ID: [id number]
== END 2020-08-17 07:59 | disposition home or self-care (01) ==
LOC: EDUNIT# → ED 03:32 → EEVIPCON 03:32 → ED 07:59
DX: R31.0 Gross hematuria (principal); N13.30 Unspecified hydronephrosis; K74.60 Unspecified cirrhosis of liver; F17.200 Nicotine dependence, unspecified, uncomplicated
CPT/HCPCS: 36415; 74176; 80053; 81001; 81003; 81025; 83690; 85025; 87086; 99284

== ENCOUNTER 2020-10-27 11:00 | Outpatient (CLI) | payer MEDICARE, MEDICAID ==
--- NOTE | 2020-10-27 17:36 | CONSULTATION NOTE ---
Palliative Care Follow Up - Referral Referring Provider: Dr. Efrain Whitmore Time of Visit: 09-28 [place] [facility] [place] Reason: Chronic Pain Syndrome/cirrhosis/Anxiety - Information Sources Records reviewed: Previous records reviewed History/Review of Systems obtained from: Patient Exam limitations: No limitations - History of Present Illness Update Brief HPI Update: This is a complex 55-year-old woman with ongoing chronic back pain, mostly localized to her L5/L6. She has known spinal stenosis and posterior disc protrusion. She also has intermittent severe dystonias and a long history of trying to manage her back pain which also included resulting in her alcoholic cirrhosis. She has been clean and sober for over 2 years, she continues to perceive herself though is suffering, did complete physical therapy. Her pain is exacerbated with increased activity, she has recently moved, and has improved her situation patient is using her oxycodone 5 mg tablets up to 8 tabs a day, she spaces out half tab every 2-3 hours, and manages this around her activity schedule. She is quite diligent and has not overused. She does meet her functional goals with this, she has had some exacerbation as she does have an abdominal hernia, she is awaiting consult with [facility]. This is complex as we are in the middle of the pandemic. She has been limiting her lifting, and this is improved her pain. She is followed by GI for her alcoholic cirrhosis, she is continue to try focus on healthy behaviors. She does have a meld score of 12, does not demonstrate any ascites, and has tolerated being off her diuretics. She remains though hypokalemic, this is continuing with potassium supplementation. Patient also continues with anxiety, this is improved no longer living with her brother, but she still is providing him support as he has Parkinson's along with cognitive decline. She does have her son who is currently living with her, unfortunately everything is on hold again because of the pandemic, but they are doing better in their own apartment. Her biggest complaint is management of insomnia, this is related to her persistent anxiety. Patient does have many complex financial stressors, as well as limited social support. Social History - Living Situation Living arrangement: At home Living Situation: With family Support System: Patient was able to secure low income housing, she and her son have their own apartment. She does live close to her brother whom she continues to provide support. Her son is awaiting for application to [employer], though everything is on hold because of the pandemic. 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 Medications/Allergies - Medications Home Medications: Ambulatory Orders Medication Instructions Recorded Confirmed Folic Acid 1 mg PO DAILY tablet 06/24/18 10/29/20 rifAXIMin [Xifaxan] 550 mg PO BID tablet 06/24/18 10/29/20 Omeprazole 20 mg PO DAILY 08/04/18 10/29/20 Potassium Chloride [K-Dur] 20 meq PO BID 08/04/18 10/29/20 Multivit-Min/FA/Lycopen/Lutein 1 tab PO DAILY 01/28/19 10/29/20 [Centrum Silver Men Tablet] Ondansetron [Ondansetron Odt] 4 mg PO Q6H PRN 01/28/19 10/29/20 oxyCODONE [Roxicodone] 10 mg PO QID MDD 8 tabs 01/28/19 10/29/20 Lactulose 5 - 15 ml PO PRN PRN 08/14/19 10/29/20 Ascorbic Acid [Vitamin C] 500 mg PO DAILY 09/20/19 10/29/20 Iron Sulfate 325 mg ORAL DAILY 09/20/19 10/29/20 traZODone [Desyrel] 50 - 100 mg PO QPM PRN 02/29/20 10/29/20 - Allergies Allergies/Adverse Reactions: Allergies Allergy/AdvReac Type Severity Reaction Status Date / Time ceftriaxone sodium * Allergy Severe RASH,HIVES, Verified 08/17/20 03:43 [From Rocephin] BURNING,ITC JAMIE cephalexin monohydrate * Allergy Severe RASH,HIVES, Verified 08/17/20 03:43 [From Keflex] BURNING,ITC JAMIE ciprofloxacin Allergy Severe RASH,HIVES, Verified 08/17/20 03:43 BURNING,ITC JAMIE phenazopyridine HCl * Allergy Severe SWELLING Verified 08/17/20 03:43 [From Pyridium] OF AIRWAY Sulfa (Sulfonamide Allergy Severe RASH,HIVES, Verified 08/17/20 03:43 Antibiotics) BURNING,ITC JAMIE gentamicin Allergy Edema Verified 08/17/20 03:43 lamotrigine [From Lamictal] Allergy Hives Verified 08/17/20 03:43 levetiracetam [From Keppra] Allergy Anxiety Verified 08/17/20 03:43 lidocaine AdvReac Itching Verified 08/17/20 03:43 pregabalin AdvReac Hallucinati Verified 08/17/20 03:43 ons Review of Systems - Constitutional Constitutional: reports: Fatigue, Weight stable (103.9). denies: Fever, Chills - Eyes Eyes: reports: Vision loss - Cardiovascular Cardiovascular: denies: Lightheadedness - Respiratory Respiratory: reports: SOB with exertion, Other (Continues to smoke 5-6 cigerettes). denies: Cough, SOB at rest - Gastrointestinal Gastrointestinal: reports: Good appetite. denies: Reflux/heartburn (stopped omeprazole for short period of time with return of GERD; taking again) - Genitourinary Genitourinary: reports: Other (no further vaginal bleeding) - Musculoskeletal Musculoskeletal: reports: Back pain, Muscle aches, Stiffness, Limited range of motion, Muscle weakness, Joint pain - Integumentary Integumentary: reports: Dryness - Neurological Neurological: reports: General weakness, Numbness (legs at times) - Psychiatric Psychiatric: reports: Anxiety (worsening) - All Other Systems All Other Systems: reports: Reviewed and negative Physical Exam - Vital Signs Temperature: 97.3 C Pulse Rate: 80 Respiratory Rate: 18 O2 Saturation: 100 (ra @rest) Blood Pressure: 111/70 - Physical Exam General Appearance: positive: Alert, Anxious Eyes Bilateral: positive: Normal inspection ENT: positive: No signs of dehydration Neck: positive: Trachea midline Cardiovascular: positive: Regular rate & rhythm Respiratory: positive: No respiratory distress, Breath sounds nml, Diminished in bases Abdomen: positive: Non-tender, Soft Skin: positive: Pallor, Dryness Extremities: positive: No pedal edema Neurologic/Psychiatric: positive: Oriented x3, Weakness, Depressed mood/affect, Flat affect Palliative Care - POLST Patient has POLST: No POLST Status: Full Code Pain: Pain improved, Location (headache/right scapula/gilateral hips/back radiating down both legs/feet/calves) Tiredness/Fatigue: Mild (1-3) Drowsiness/Sedation: None Nausea: None Anorexia: None Dyspnea: None Depression: Mild (1-3) Anxiety: Moderate (4-6) Feelings of wellbeing/Perceived Quality of Life: Fair, Improved Sleep: Sleeps poorly, Variable sleep pattern Constipation: Yes, Opoid induced, Managed Performance Status: Patient is ambulatory, though needs frequent rest related to exacerbating pain. She rides the bus, so does have to walk to get groceries and to appointments. She is able to manage her own ADLs, though is quite limited now with her hernia for lifting. - Palliative Care Discussion: Patient is feeling somewhat over whelmed with the layers of the pandemic, and a waiting her medical appointments. She does have a pending gyncolgolgical appointment to follow-up with her vaginal bleeding, this has been a couple months in happening. She continues to be quite frustrated by the limitations of the healthcare system, particularly trying to work with her PCP office, she [place], currently now travels down the [facility] Unfortunately with her appointment with the surgeon, Dr. EH HEALY, though she very much felt connected to her given the complexity of her underlying illness, was recommended she follow-up at [facility] for surgery and support. She feels like she needs to wait until things are more calm as far as the pandemic, before she pursues this. 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 We spent time discussing her as a caregiver, and need to focus on some of meeting her care needs and self-care Impression and Recommendations - Palliative Care Impression: This is a 55-year-old woman with alcoholic cirrhosis of the liver, fatty liver disease, and underlying acute chronic back pain. She does have severe alcoholic peripheral neuropathy, intermittent dystonias, and exacerbated underlying anxiety. She is managing with her current dosing of oxycodone, has completed physical therapy, and continues to remain active. Palliative care provide support regarding anticipatory guidance, pain management, and psychosocial support through intermittent visits. Recommendations/Counseling Done: 1. Alcohol cirrhosis of the liver. Patient continues remain sober, is committed to this, continues to work on decreasing "her meld score". She does follow-up with GI, transportation is complex for her, she is recently stopped her diuretics without any untoward effect. 2. Abdominal hernia. Patient had exacerbation of her hernia, particularly in the context of moving and increase activity. She has had consult for this, unfortunately needs to transition to [facility]. Is awaiting for pandemic numbers to improve, but is planned to have it repaired. She has been following lifting precautions, and this is improved her pain management and is somewhat better. She does so feel it needs to be repaired. 3. Chronic back pain. This is multifactorial, as well as noted multiple pain generators. She has completed her physical therapy. Patient continues to be compliant with her oxycodone 5 mg tabs with 8 tabs in 24 hours. Review of her medication regimen, both patient and I are in agreement this is a good balance where it keeps her functional and she titrates accordingly through the day. 4. Anxiety. This continues to fluctuate, she has found a better living situation, it is still helping with her brother's care but not living with him which is decreased her stress. She still has multiple financial stressors, and has long-term had anxiety. She has not tolerated medications in the past for this, she does try and enlist distraction, her jewelry making, and activity often helps her as far as pacing. Reinforced positive self-care behaviors, recommended considering ways to increase her community and social support. 5. Insomnia. Patient has been anxious about initiating the trazodone, has only taken 1 time. We did discuss would recommend given her poor sleep, recommend starting at a half a tablet 50 mg, and increase every 2 or 3 evenings. Counseling provided regarding how medication works, also helps with this pain and at higher doses therapeutic for depression. Time Spent: 60 minutes with greater than 50% of this done in counseling regarding review of pain regimen, anxiety, psychosocial support, and coordination of care.
== END 2020-10-27 11:01 | disposition home or self-care (01) ==
LOC: PC 11:00
PROVIDERS: ATTEND Nurse Practitioner Adult Health
DX: Z51.5 Encounter for palliative care (principal); K70.30 Alcoholic cirrhosis of liver without ascites; G62.1 Alcoholic polyneuropathy; K46.9 Unspecified abdominal hernia without obstruction or gangrene; M54.9 Dorsalgia, unspecified; G89.29 Other chronic pain; F41.9 Anxiety disorder, unspecified; G47.00 Insomnia, unspecified; M51.26 Other intervertebral disc displacement, lumbar region; M48.061 Spinal stenosis, lumbar region without neurogenic claudication; E87.6 Hypokalemia; N93.9 Abnormal uterine and vaginal bleeding, unspecified
CPT/HCPCS: 99215

== ENCOUNTER 2020-12-06 14:17 | Outpatient (CLI) | payer MEDICARE, MEDICAID ==
--- NOTE | 2020-12-03 15:34 | PROVIDER PROGRESS NOTE ---
Subjective - Prog Note Date Prog Note Date: 12/03/20 Prog Note Time: 15:33 - Subjective Subjective: Entered patient chart to order a controlled medication electronically. Patient will take a single dose of alprazolam prior to procedure scheduled for this visit. Has PTSD from prior exam. Rx sent to [facility]
--- NOTE | 2020-12-06 16:43 | Ultrasound Report ---
PROCEDURE: Pelvic w/Transvaginal INDICATIONS: POSTMENOPAUSAL BLEEDING TECHNIQUE: Real-time scanning was performed of the pelvic organs, with image documentation. Additional endovagi nal scanning was necessary due to incomplete visualization of the adnexal and endometrial structures by transabdominal scanning. COMPARISON: None. FINDINGS: No pathologic free abdominal or pelvic fluid. Uterus: Uterus is normal in size at 6.5 x 4.2 x 4.6 cm. The endometrium measures 0.9 mm in combined thickness. Ovaries: Right ovary measures 2.8 x 1.2 x 2.3 cm, volume 4.1 cc. Left ovary measures 2.4 x 1.1 x 2.0 cm, volume 2.6 cc. IMPRESSION: Unremarkable exam. No sonographic cause of bleeding. If concern persists, further evaluation is recom mended. Reviewed by: Laura Hogan MD on 12/06/2020 4:42 PM PST Approved by: Laura Hogan MD on 12/06/2020 4:42 PM PST Station ID: [id number]
== END 2020-12-06 14:18 | disposition home or self-care (01) ==
LOC: DI 14:17
PROVIDERS: ATTEND Obstetrics & Gynecology
DX: N95.0 Postmenopausal bleeding (principal)

== ENCOUNTER 2020-12-07 15:22 | Outpatient (CLI) | payer MEDICARE, MEDICAID ==
--- NOTE | 2020-12-08 09:56 | Mammography Report ---
BILATERAL DIGITAL SCREENING MAMMOGRAM 3D/2D: 12/07/2020 CLINICAL: Baseline exam. Routine screening. No prior exams were available for comparison. The tissue of both breasts is heterogeneously dense. T his may lower the sensitivity of mammography. There is an oval equal density focal asymmetry with an obscured and circumscribed margin in the left breast at 12 o'clock posterior depth. No other significant masses, calcifications, or other findings are seen in either breast. IMPRESSION: INCOMPLETE: NEEDS ADDITIONAL IMAGING EVALUATION The oval equal density focal asymmetry in the left breast is indeterminate. Mediolateral and spot co mpression views as well as additional views with possible ultrasound are recommended. This exam was interpreted at Station ID: [id number]. NOTE: For mammograms, a report in lay terms will be sent to the patient. Approximately 15% of breast malignancies will not be visualized mammographically. In the management of a palpable breast mass, a negative mammogram must not discourage biopsy of a clinically suspicious lesion. Electronically Signed By: Candelario Araiza M.D. ddp/radha:12/07/2020 16:22:06 ACR BI-RADS Category 0: Incomplete 3340F PARENCHYMAL PATTERN: (D) - The breast(s) demonstrate(s) heterogeneously dense fibroglandular pararchiey ma. BI-RADS CATEGORY: (0) - 0 Mammo and [place] [id number] Immediate follow-up LATERALITY: (B)
== END 2020-12-07 15:23 | disposition home or self-care (01) ==
LOC: DI.N 15:22
PROVIDERS: ATTEND Registered Nurse
DX: Z12.31 Encounter for screening mammogram for malignant neoplasm of breast (principal); N64.89 Other specified disorders of breast

== ENCOUNTER 2020-12-08 09:14 | Outpatient (CLI) | payer MEDICARE, MEDICAID ==
--- NOTE | 2020-12-08 17:23 | Ultrasound Report ---
PROCEDURE: Abdomen Limited INDICATIONS: ALCOHOLIC CIRRHOSIS OF LIVER WITH ASCITES TECHNIQUE: Real-time focused scanning was performed of the abdomen, with image documentation. COMPARISON: Prior CT without contrast through the abdomen/pelvis 08/17/2020. FINDINGS: The liver is hyperechoic, consistent with fatty infiltration, and appears coarse in echote xture consistent with cirrhotic change. The liver is not enlarged, the craniocaudad length is 15.7 cm . Prior cholecystectomy. Bile ducts are within normal limits in size considering prior cholecystectom y. The spleen was not imaged, the right kidney is normal, except for mild pelvic cal[facility]ct[facility] at [facility]. IMPRESSION: Cirrhotic change of the liver, with fatty infiltration. No ascites or varices were found. Right kidney shows no evidence of urinary tract stone, but there is mild pelvicaliectasis, Reviewed by: Adelso Salas MD on 12/08/2020 5:22 PM PST Approved by: Adelso Salas MD on 12/08/2020 5:22 PM PST Station ID: [id number]
== END 2020-12-08 09:15 | disposition home or self-care (01) ==
LOC: DI 09:14
PROVIDERS: ATTEND Student in an Organized Health Care Education/Training Program
DX: K74.60 Unspecified cirrhosis of liver (principal); N13.30 Unspecified hydronephrosis

== ENCOUNTER 2020-12-21 10:35 | Outpatient (CLI) | payer MEDICARE, MEDICAID ==
[2020-12-21 18:24] LABS: BASOPHILS % (AUTO) 0.5 %; EOSINOPHILS # (AUTO) 0.3 10^3/uL (0.0-0.7); EOSINOPHILS % (AUTO) 4.8 %; HGB - HEMOGLOBIN 14.1 g/dL (12.0-16.0); LYMPHOCYTES # (AUTO) 2.3 10^3/uL (1.5-3.5); LYMPHOCYTES % (AUTO) 37.7 %; MEAN CORPUSCULAR HEMOGLOBIN 29.2 pg (27.0-31.0); MEAN CORPUSCULAR HGB CONC 31.8 g/dL (32.0-36.0); MEAN CORPUSCULAR VOLUME 91.9 fL (81.0-99.0); MEAN PLATELET VOLUME 11.2 fL (7.9-10.8); MONOCYTES # (AUTO) 0.5 10^3/uL (0.0-1.0); MONOCYTES % (AUTO) 7.4 %; NEUTROPHILS % (AUTO) 49.4 %; PLT - PLATELET COUNT 86 10^3/uL (130-450); RED BLOOD COUNT 4.83 10^6/uL (4.20-5.40); RED CELL DISTRIBUTION WIDTH 13.7 % (12.0-15.0); WHITE BLOOD COUNT 6.1 x10^3/uL (4.8-10.8)
[2020-12-21 18:28] LABS: INR 1.4 (0.8-1.2); PT - PROTHROMBIN TIME 14.9 secs (9.9-12.6)
[2020-12-21 18:45] LABS: ALBUMIN 4.4 g/dL (3.2-5.5); ALBUMIN/GLOBULIN RATIO 1.8 (1.0-2.2); ALKALINE PHOSPHATASE 105 IU/L (42-121); ALT ALANINE AMINOTRANSFERASE 17 IU/L (10-60); AST ASPARTATE AMINOTRANSFERASE 34 IU/L (10-42); BILIRUBIN,TOTAL 1.3 mg/dL (0.2-1.0); BUN - BLOOD UREA NITROGEN 8 mg/dL (6-20); CALCIUM 9.8 mg/dL (8.5-10.3); CARBON DIOXIDE - CO2 24 mmol/L (21-32); CHLORIDE 105 mmol/L (101-111); CHOL/HDL RATIO 2.9 (<4.4); CHOLESTEROL 221 mg/dL; CREATININE 0.6 mg/dL (0.4-1.0); GLUCOSE 86 mg/dL (70-100); HDL CHOLESTEROL 75 mg/dL; LDL CHOLESTEROL,CALCULATED 129 mg/dL; LDL/HDL RATIO 1.7 (<4.4); TOTAL PROTEIN 6.9 g/dL (6.7-8.2); VLDL CHOLESTEROL 17 mg/dL
[2020-12-21 19:43] LABS: FREE T4 (FREE THYROXINE) 1.27 ng/dL (0.58-1.64)
[2020-12-21 20:46] LABS: HEMOGLOBIN A1c% 4.9 % (4.27-6.07)
== END 2020-12-21 23:59 | disposition home or self-care (01) ==
LOC: LAB.WCP 10:35
PROVIDERS: ATTEND Obstetrics & Gynecology
DX: N95.0 Postmenopausal bleeding (principal); E61.1 Iron deficiency; Z13.1 Encounter for screening for diabetes mellitus; N64.3 Galactorrhea not associated with childbirth; Z13.29 Encounter for screening for other suspected endocrine disorder; K59.00 Constipation, unspecified; K70.30 Alcoholic cirrhosis of liver without ascites
CPT/HCPCS: 36415; 80053; 80061; 82105; 82670; 83036; 83721; 84146; 84439; 84443; 85025; 85610

== ENCOUNTER 2021-01-04 10:50 | Outpatient (CLI) | payer MEDICARE, MEDICAID ==
--- NOTE | 2021-01-05 13:27 | Ultrasound Report ---
LIMITED ULTRASOUND OF LEFT BREAST: 01/04/2021 CLINICAL: Patient returns today to evaluate a focal asymmetry in the left breast. Comparison is made to exams dated: 01/04/2021 mammogram and 12/07/2020 mammogram - [facility]. Real-time ultrasound of the left breast 1-2 o'clock region was performed. Meyers scale images of the real-time examination were reviewed. Fibroglandular tissue but no mass is identifed in the area of the mammographic focal asymmetry in the left breast at approximately the 1-2 o'clock position posterior depth. IMPRESSION: PROBABLY BENIGN No sonographic abnormality is seen corresponding to the mammographic focal aysmmetry in the left [address]. Follow up left breast mammogram and possible ultrasound in 6 months are recommended to demonstrat e stability. This exam was interpreted at Station ID: [id number]. Electronically Signed By: Darian Pederson M.D. ar/:01/05/2021 13:23:05 Ultrasound BI-RADS: 3 Probably benign BI-RADS CATEGORY: (3) - 3 Mammo and US [id number] 6 month follow-up LATERALITY: (L)
--- NOTE | 2021-01-05 13:27 | Mammography Report ---
UNILATERAL LEFT DIGITAL DIAGNOSTIC MAMMOGRAM 3D/2D: 01/04/2021 CLINICAL: Patient returns today to evaluate an asymmetry in left breast Additional evaluation request ed from prior study. Comparison is made to exam dated: 12/07/2020 mammogram - [facility]. The tissue of left breast is heterogeneously dense. This may lower the sensitivity of mammography. There is a 1 cm oval equal density focal asymmetry with an obscured and circumscribed margin in the l eft breast at 2 o'clock posterior depth. This is seen in additional views. The focal asymmetry is likely posterior to the spot CC view on the current exam. No other significant masses or calcifications are seen in the breast. IMPRESSION: INCOMPLETE: NEEDS ADDITIONAL IMAGING EVALUATION The 1 cm oval equal density focal asymmetry in the left breast is indeterminate. An ultrasound is re commended. Targeted ultrasound is recommended for further evaluation, which will be performed immedi ately following this exam. This exam was interpreted at Station ID: [id number]. NOTE: For mammograms, a report in lay terms will be sent to the patient. Approximately 15% of breast malignancies will not be visualized mammographically. In the management of a palpable breast mass, a negative mammogram must not discourage biopsy of a clinically suspicious lesion. Electronically Signed By: Darian reina/radha:01/04/2021 13:45:56 ACR BI-RADS Category 0: Incomplete 3340F PARENCHYMAL PATTERN: (D) - The breast(s) demonstrate(s) heterogeneously dense fibroglandular pararchiey ramon. BI-RADS CATEGORY: (0) - 0 Ultrasound [id number] Immediate follow-up LATERALITY: (L)
== END 2021-01-04 10:51 | disposition home or self-care (01) ==
LOC: DI 10:50
PROVIDERS: ATTEND Registered Nurse
DX: R92.8 Other abnormal and inconclusive findings on diagnostic imaging of breast (principal); N95.0 Postmenopausal bleeding
CPT/HCPCS: 36415; 82670; 83001

== ENCOUNTER 2021-01-26 08:19 | Outpatient (CLI) | payer MEDICARE, MEDICAID ==
[2021-01-26] MEDS ORDERED: GADOBUTROL 10 MMOL/10 ML VIAL ONE (09:20)
[2021-01-26] MEDS ORDERED: GADOBUTROL 10 MMOL/10 ML VIAL IVP ONE (10:38)
--- NOTE | 2021-01-26 12:30 | MRI Report ---
PROCEDURE: Abdomen W/WO INDICATIONS: ALCOHOLIC CIRRHOSIS OF LIVER W/ASCITES CONTRAST: IV CONTRAST: Gadavist ml: 4.5 TECHNIQUE: Coronal ultra fast SE, axial 2D spoiled GE in- and [id number]; axial breath-hold T2 fast SE. Dynam ic axial ultra fast GE during the administration of contrast; post-contrast coronal ultra fast GE or 2D spoiled GE with fat saturation from the hepatic dome to the iliac crests. Optional diffusion weig hted imaging and ADC may be performed. COMPARISON: 08/19/2019, CT abdomen pelvis 08/17/2020, ultrasound of the abdomen 12/08/2020 FINDINGS: Image quality: Excellent. Lung bases: No basal pleural effusions. Heart size is normal. Solid organs: The liver has a macronodular margin and is mildly enlarged. There are several T2 hyper intense fibrotic bands coursing through the liver. There is recanalization of the umbilical vein. Pos tcontrast, there are no arterially enhancing lesions. No areas of suspicious washout. The spleen is mildly enlarged measuring 13.0 cm in length. No perisplenic ascites. Gallbladder is surgically absent. Biliary system is non dilated. Pancreas is normal in morphology. No adrenal nodules. Both kidneys demonstrate normal size and enhancement. There is mild right hydronephrosis as seen on t he most recent ultrasound. No hydroureter visible. Right posterior upper pole cortical cyst. Nodes and vessels: Several varices are seen in the left upper quadrant. A portosystemic shunt is see n just below the level of the diaphragm from [id number]. No retroperitoneal or mesenteric adenopat hy by size criteria. Aorta and inferior vena cava are normal in size. Bowel and peritoneum: Unenhanced bowel loops are normal in caliber. No free fluid. Bones and soft tissues: No ventral hernias. Bone marrow is normal in overall signal. IMPRESSION: 1. Cirrhotic liver morphology with changes of fibrosis. 2. No discrete liver lesion. 3. Mild splenomegaly, well established varices and portosystemic shunt. No ascites on the scan. 4. Chronic, mild right hydronephrosis without hydroureter. There may be UPJ obstruction. Reviewed by: Alana Messina MD on 01/26/2021 12:28 PM PST Approved by: Alana Messina MD on 01/26/2021 12:28 PM PST Station ID: [id number]
== END 2021-01-26 08:20 | disposition home or self-care (01) ==
LOC: DI 08:19
PROVIDERS: ATTEND Student in an Organized Health Care Education/Training Program
DX: K70.31 Alcoholic cirrhosis of liver with ascites (principal); R16.1 Splenomegaly, not elsewhere classified; N13.30 Unspecified hydronephrosis
CPT/HCPCS: 74183; A9585

== ENCOUNTER 2021-02-23 11:07 | Outpatient (CLI) | payer MEDICARE, MEDICAID ==
--- NOTE | 2021-02-23 13:46 | CONSULTATION NOTE ---
Palliative Care Follow Up - Referral Referring Provider: Dr. Whitmore/Dea PRITCHETT PCP Time of Visit: [id number]; review of records 15= 55 min [place] setting[place] [facility] [place] Reason: Chronic Pain Syndrome/Alcoholic Cirrhosis - Information Sources Records reviewed: Previous records reviewed History/Review of Systems obtained from: Patient Exam limitations: No limitations - History of Present Illness Update Brief HPI Update: This is a complex 55-year-old woman with ongoing chronic pain, mostly localized to her L5/L6. She has known spinal stenosis and posterior disc protrusion, with intermittent dystonias and long history of trying to manage her back pain. She has been clean and sober for over 2 years, continues to perceive her self is suffering, did complete physical therapy, her pain is exacerbated with any increase in activities, she does stay within her allotted 8 tabs of oxycodone codon 5 mg tabs. She uses it to manage her activities schedule. She is able to reflect and meet her functional goals with this, she does have some exacerbation of discomfort as is abdominal hernia unfortunately surgery will not work on her secondary to her underlying health problems. She has been limiting her lifting, with some improved pain. She is followed by GI for her alcoholic cirrhosis, she has a meld score of 13, does not demonstrate any ascites, had recently had an EGD, that showed grade 1 varices in the lower third of esophagus, small in size, as well as type II gastroesophageal varices along the fundi without any bleeding and somewhat improved from the year before. She continues to show signs and symptoms of mild portal hypertension gastropathy PE. She has remained off of diuretics and jolie erating this fine, does not demonstrate any fluid retention in her abdomen or her lower extremities. She also had a CT scan on 01/26/2021, that shows cirrhotic liver morphology with changes of fibrosis no liver lesions, mild splenomegaly well-established varices and portosystemic shunt. She also shows chronic mild right hydronephrosis without hydroureter. Patient continues to struggle with just her complex social situation. Her son is living with her, she has minimal financial resources, she also has a brother who has Parkinson's with cognitive decline and tries to provide support for him as well. 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 She has very little ability to sustain employment given her significant pain and physical limitations. Her other complaint is insomnia, this is related to her persistent anxiety. Patient does not perceive any medications we have talked about to manage her anxiety long-term is to be of benefit. Of note she does have severe medication sensitivities when used. She had been prescribed trazodone last time, she is quite fearful of trying it, we are working on some strategies regarding that today. She is still working with gynecology, to work-up her elevated estrogen and prolactin, she has not been able to follow through, she is awaiting for second round of labs and follow-up with her provider. She is somewhat hesitant and she does not want to go on progesterone, she is not had any further vaginal bleeding. Social History - Living Situation Living arrangement: At home Living Situation: With family Support System: Patient lives in subsidized housing in [place]. She does have more social support [place] as feels more comfortable there. Unfortunately housing is limited down there. She does share an apartment with her son, this has been very difficult for her, she had hoped that he would move on to [facility] or to another program that would better serve him. She has limited community/psychosocial support. Medications/Allergies - Medications Home Medications: Ambulatory Orders Medication Instructions Recorded Confirmed Folic Acid 1 mg PO DAILY tablet 06/24/18 02/23/21 Omeprazole 20 mg PO DAILY 08/04/18 02/23/21 Potassium Chloride [K-Dur] 20 meq PO BID 08/04/18 02/23/21 Multivit-Min/FA/Lycopen/Lutein 1 tab PO DAILY 01/28/19 02/23/21 [Centrum Silver Men Tablet] Ondansetron [Ondansetron Odt] 4 mg PO Q6H PRN 01/28/19 02/23/21 oxyCODONE [Roxicodone] 10 mg PO QID MDD 8 tabs 01/28/19 02/23/21 Lactulose 5 - 15 ml PO PRN PRN 08/14/19 02/23/21 Ascorbic Acid [Vitamin C] 500 mg PO DAILY 09/20/19 02/23/21 Iron Sulfate 325 mg ORAL DAILY 09/20/19 02/23/21 traZODone [Desyrel] 50 - 100 mg PO QPM PRN 02/29/20 02/23/21 - Allergies Allergies/Adverse Reactions: Allergies Allergy/AdvReac Type Severity Reaction Status Date / Time ceftriaxone sodium * Allergy Severe RASH,HIVES, Verified 08/17/20 03:43 [From Rocephin] BURNING,ITC JAMIE cephalexin monohydrate * Allergy Severe RASH,HIVES, Verified 08/17/20 03:43 [From Keflex] BURNING,ITC JAMIE ciprofloxacin Allergy Severe RASH,HIVES, Verified 08/17/20 03:43 BURNING,ITC JAMIE phenazopyridine HCl * Allergy Severe SWELLING Verified 08/17/20 03:43 [From Pyridium] OF AIRWAY Sulfa (Sulfonamide Allergy Severe RASH,HIVES, Verified 08/17/20 03:43 Antibiotics) BURNING,ITC JAMIE gentamicin Allergy Edema Verified 08/17/20 03:43 lamotrigine [From Lamictal] Allergy Hives Verified 08/17/20 03:43 levetiracetam [From Keppra] Allergy Anxiety Verified 08/17/20 03:43 lidocaine AdvReac Itching Verified 08/17/20 03:43 pregabalin AdvReac Hallucinati Verified 08/17/20 03:43 ons Review of Systems - Constitutional Constitutional: reports: Fatigue, Weight stable (103.9). denies: Fever, Chills - Eyes Eyes: reports: Vision loss - Respiratory Respiratory: reports: SOB with exertion, Other (Continues to smoke 6-7 cigerettes). denies: Cough, SOB at rest - Gastrointestinal Gastrointestinal: reports: Good appetite. denies: Reflux/heartburn (stopped ome prazole for short period of time with return of GERD; taking again) - Genitourinary Genitourinary: reports: Other (no further vaginal bleeding) - Musculoskeletal Musculoskeletal: reports: Back pain, Muscle aches, Stiffness, Limited range of motion, Muscle weakness, Joint pain - Integumentary Integumentary: reports: Dryness - Neurological Neurological: reports: General weakness, Numbness (legs at times) - Psychiatric Psychiatric: reports: Anxiety (worsening) - All Other Systems All Other Systems: reports: Reviewed and negative Physical Exam - Vital Signs Pulse Rate: 65 Respiratory Rate: 18 Blood Pressure: 135/78 - Physical Exam General Appearance: positive: Alert, Anxious Eyes Bilateral: positive: Normal inspection ENT: positive: No signs of dehydration Neck: positive: Trachea midline Cardiovascular: positive: Regular rate & rhythm Respiratory: positive: No respiratory distress, Breath sounds nml, Diminished in bases Abdomen: positive: Non-tender, Soft Skin: positive: Pallor, Dryness Extremities: positive: No pedal edema Neurologic/Psychiatric: positive: Oriented x3, Depressed mood/affect, Flat affect Palliative Care - POLST Patient has POLST: No Pain: Pain unchanged, Location (Patient with low back pain radiating down right leg, complains of squeezing viper like contractions, heightened discomfort across top of head to neck and shoulders area, worsening with weightbearing and standing.), Severity (7/10) Tiredness/Fatigue: Severe (7-10) Drowsiness/Sedation: Mild (1-3) Nausea: None Anorexia: Mild (1-3) Dyspnea: None Depression: None Anxiety: Severe (7-10) Feelings of wellbeing/Perceived Quality of Life: Fair, Worsening Sleep: Sleeps poorly (has not trialed), Variable sleep pattern Constipation: No Performance Status: Patient is ambulatory, though can only sustain standing for about 3 minutes. She can walk if she stays in forward motion. She is able to manage her ADLs, she does fatigue quickly. And is limited mostly by her pain. She has been using a cane in the past, has been trying not to use it at this point in time. Did discuss my concerns about safety as well as relief of offloading that can come with her walking stick. - Palliative Care Discussion: Patient continues to try and navigate her multiple health problems, the healthcare system in the midst of the pandemic, and her multiple complex stressors in the context of her limited resources. She is not interested in any social science analyst, she has limited social support, and demonstrates increasing anxiety. Provided supportive listening given the context of her multiple stressors, patient would benefit from some CBT, and patient does report she does try and access mindfulness and meditation techniques. Her most effective management of her stressors are is to walk, unfortunately this does exacerbate her pain as well. Results - Lab Results Lab results reviewed: Yes Impression and Recommendations - Palliative Care Impression: This is a 55-year-old woman with alcoholic cirrhosis of the liver, fatty liver disease, and underlying chronic back pain. She does have severe alcoholic peripheral neuropathy, intermittent dystonias, as well as chronic low back pain related to her stenosis. She is managing with her current dosing of oxycodone, has completed physical therapy, and does continue to try and engage in activities. Palliative care support regarding anticipatory guidance, chronic pain management, and psychosocial support through intermittent visits. Recommendations/Counseling Done: 1. Alcoholic cirrhosis of liver. Patient continues remain sober, is committed to this, continues to work on decreasing "her meld score". She has been discontinued off her diuretics and rifampin, is tolerating this without any untoward effect. She did have a CT of the abdomen as well as her EGD, is awaiting final follow-up with her GI specialist. 2. Abdominal hernia. Patient continues to struggle with her abdominal hernia, has tried to avoid lifting. She unfortunately is high risk, would need to be transition to [place], she has not followed through on these appointments, but is hoping for repair in the future. 3. Chronic back pain. This is multifactorial as well as noted multiple pain generators. She has completed physical therapy. She has remained compliant with her oxycodone 5 mg with 8 tabs in 24 hours. In review of her medication regimen both patient having agreement this is good balance what keeps her functional and she titrates accordingly through the day. 4. Anxiety. This continues to be somewhat of overwhelm for her, and fluctuates. She has multiple stressors, and long-term anxiety. She has not tolerated medicines in the past, she does use distraction, walking, enjoying making as far as also using pacing. Reinforced positive self-care behaviors, patient is unable to really connect as far as community, [place] 5. Insomnia. Patient remains anxious about initiating trazodone, she continues to struggle with poor sleep. We discussed cutting the pill in quarters, and just take a quarter of a pill and add every 3 or 4 days another quarter to see if she tolerates has any side effects or any untoward's effects. She feels like that might be a better strategy for her. Encouraged her to give it a try given her insomnia with very few other options for trial given her medication sensitivities. 6. IntervalVaginal bleeding. She has not had any further vaginal bleeding, though has not finished her work-up with gynecology. Did encourage her to follow through with labs and work-up given if there were something that needed chin, it is better to address this sooner than later. 55 minutes review of records, review of pain and symptom management, saw safety issues, anxiety management, and anticipatory guidance
== END 2021-02-23 11:08 | disposition home or self-care (01) ==
LOC: PC 11:07
PROVIDERS: ATTEND Nurse Practitioner Adult Health
DX: Z51.5 Encounter for palliative care (principal); G89.4 Chronic pain syndrome; M54.9 Dorsalgia, unspecified; K70.30 Alcoholic cirrhosis of liver without ascites; K76.6 Portal hypertension; K31.89 Other diseases of stomach and duodenum; I85.10 Secondary esophageal varices without bleeding; K46.9 Unspecified abdominal hernia without obstruction or gangrene; F41.8 Other specified anxiety disorders; F51.05 Insomnia due to other mental disorder; Z59.6 Low income; Z79.891 Long term (current) use of opiate analgesic; Z79.899 Other long term (current) drug therapy
CPT/HCPCS: 99215

== ENCOUNTER 2021-04-26 10:39 | Outpatient (CLI) | payer MEDICARE, MEDICAID | END 2021-04-26 10:40 | disposition home or self-care (01) | LOC: LAB 10:39 | PROVIDERS: ATTEND Obstetrics & Gynecology | DX: N95.0 Postmenopausal bleeding (principal) | CPT/HCPCS: 36415; 82670; 83001 ==

== ENCOUNTER 2021-05-18 11:00 | Outpatient (CLI) | payer MEDICARE, MEDICAID ==
--- NOTE | 2021-05-18 16:00 | CONSULTATION NOTE ---
Palliative Care Follow Up - Referral Referring Provider: Lizbet PRITCHETT Time of Visit: 1100 60 minutes [place] [facility] [place] Reason: Chronic Pain Syndrome/Alcoholic Cirrhosis - Information Sources Records reviewed: Previous records reviewed History/Review of Systems obtained from: Patient Exam limitations: No limitations - History of Present Illness Update Brief HPI Update: This is a complex 55-year-old woman with ongoing chronic pain, mostly localized in her L5/L6. She has known spinal stenosis and posterior disc disc protrusion with intermittent dystonias and long history of multiple approaches to manage her back pain. She is been clean and sober coming up on 3 years, continues to perceive herself as suffering from her persistent pain, she did complete a round of physical therapy. Her pain is exacerbated with increasing activities but she does stay with her allotted 8 tabs of oxycodone 5 mg tabs in 24 hours we have not done any increases over the last 2 years. Patient continues with 8-9 over 10 pain, but does meet her functional goals with this, to be able to get up and get moving, ambulate on a regular basis, as she is dependent on the bus. Unfortunately she also has some discomfort with abdominal hernia and surgery was not a option secondary to her underlying health problems. She has limited her lifting with some improvement in her pain overall. Patient is followed by GI for her alcoholic cirrhosis, she does have a meld score of 13, had a recent CT scan that does not show any ascites, she also had her EGD. She was able to come off her Rifaximin. She has not had any increase in lower extremity edema, she does remain persistently high Po kalemia can is on potassium twice daily to manage. Patient continues to struggle with anxiety, related to her complex social situation. 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 She has had persistent insomnia, she lives in apartments which because the environment she is not able to sleep at night. She also has persisting anxiety given complex intense relationship with her son. Of note patient has severe medication sensitivities, has been trialed on multiple medications both for mood, pain, and sleep and has done poorly. She is still working with gynecology to work-up her elevated estrogen and prolactin, she still has lower extremity itching and discomfort, she still has intermittent vaginal bleeding, and is due to see them in May. Social History - Living Situation Living arrangement: At home Living Situation: With family Support System: Patient lives in subsidized housing in [place] with her son. She could to use more social support she has a few friends, and has been very difficult with her son. She has limited community and psychosocial support. Medications/Allergies - Medications Home Medications: Ambulatory Orders Medication Instructions Recorded Confirmed Folic Acid 1 mg PO DAILY tablet 06/24/18 05/18/21 Potassium Chloride [K-Dur] 20 meq PO BID 08/04/18 05/18/21 Multivit-Min/FA/Lycopen/Lutein 1 tab PO DAILY 01/28/19 05/18/21 [Centrum Silver Men Tablet] Ondansetron [Ondansetron Odt] 4 mg PO Q6H PRN 01/28/19 05/18/21 oxyCODONE [Roxicodone] 10 mg PO QID MDD 8 tabs 01/28/19 02/23/21 Lactulose 5 - 15 ml PO PRN PRN 08/14/19 05/18/21 Ascorbic Acid [Vitamin C] 500 mg PO DAILY 09/20/19 05/18/21 Iron Sulfate 325 mg ORAL DAILY 09/20/19 05/18/21 traZODone [Desyrel] 50 - 100 mg PO QPM PRN 02/29/20 05/18/21 - Allergies Allergies/Adverse Reactions: Allergies Allergy/AdvReac Type Severity Reaction Status Date / Time ceftriaxone sodium * Allergy Severe RASH,HIVES, Verified 08/17/20 03:43 [From Rocephin] BURNING,ITC JAMIE cephalexin monohydrate * Allergy Severe RASH,HIVES, Verified 08/17/20 03:43 [From Keflex] BURNING,ITC JAMIE ciprofloxacin Allergy Severe RASH,HIVES, Verified 08/17/20 03:43 BURNING,ITC JAMIE phenazopyridine HCl * Allergy Severe SWELLING Verified 08/17/20 03:43 [From Pyridium] OF AIRWAY Sulfa (Sulfonamide Allergy Severe RASH,HIVES, Verified 08/17/20 03:43 Antibiotics) BURNING,ITC JAMIE gentamicin Allergy Edema Verified 08/17/20 03:43 lamotrigine [From Lamictal] Allergy Hives Verified 08/17/20 03:43 levetiracetam [From Keppra] Allergy Anxiety Verified 08/17/20 03:43 lidocaine AdvReac Itching Verified 08/17/20 03:43 pregabalin AdvReac Hallucinati Verified 08/17/20 03:43 ons Review of Systems - Constitutional Constitutional: reports: Fatigue, Weight stable (108). denies: Fever, Chills - Eyes Eyes: reports: Vision loss - Respiratory Respiratory: reports: SOB with exertion, Other (Continues to smoke 8-10 cigerettes relates worse with anxiety). denies: Cough, SOB at rest - Gastrointestinal Gastrointestinal: reports: Good appetite, Other (reports eating more poorly with anxiety at home). denies: Reflux/heartburn (stopped omeprazole for short period of time with return of GERD; taking again) - Genitourinary Genitourinary: reports: Other (no further vaginal bleeding) - Musculoskeletal Musculoskeletal: reports: Back pain, Muscle aches, Stiffness, Limited range of motion, Muscle weakness, Joint pain - Integumentary Integumentary: reports: Rash (LE), Pruritis, Dryness - Neurological Neurological: reports: General weakness, Numbness (legs at times) - Psychiatric Psychiatric: reports: Anxiety (worsening) - All Other Systems All Other Systems: reports: Reviewed and negative Physical Exam - Vital Signs Pulse Rate: 56 Respiratory Rate: 18 Blood Pressure: 127/72 - Physical Exam General Appearance: positive: Alert, Anxious Eyes Bilateral: positive: Normal inspection ENT: positive: No signs of dehydration Neck: positive: Trachea midline Cardiovascular: positive: Regular rate & rhythm Respiratory: positive: No respiratory distress Abdomen: positive: Soft, Tenderness (at abdominal hernia; is reducable) Skin: positive: Pallor, Dryness Extremities: positive: No pedal edema Neurologic/Psychiatric: positive: Oriented x3, Depressed mood/affect, Flat affect Palliative Care - POLST Patient has POLST: Yes POLST Status: Full Code Pain: Pain unchanged, Location (neck/back of head; back radiating down right leg; sharp needle sensations through feet and knees/calves), Severity (910), Pattern (9/10) Tiredness/Fatigue: None Drowsiness/Sedation: None Nausea: None Anorexia: None Dyspnea: None Depression: Mild (1-3) Anxiety: Severe (7-10) Feelings of wellbeing/Perceived Quality of Life: Poor, Worsening Sleep: Sleeps poorly Constipation: No Performance Status: Patient still ambulatory, does need pain medications get up and get going. She tends to walk off her anxiety, walking does exacerbate her pain. She is able to manage her ADLs, rides the bus to all her appointments, try not to lift things secondary to her hernia. - Palliative Care Discussion: Patient continues to struggle with her complex social situation, things are getting more difficult with her son, and she is very concerned. Did recommend if she felt unsafe, to reach out to [facility], she does feel like she is in a bad situation and is quite tearful through her whole visit. 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 She is coming up on 3 years sober, positive reinforcement is given regarding this, she has worked very hard to try and put things back together. Impression and Recommendations - Palliative Care Impression: This is a 55-year-old woman with alcoholic cirrhosis of liver, fatty liver disease, and underlying chronic pain and pain syndrome. She does have severe alcoholic peripheral neuropathy, intermittent dystonias as well as chronic low back pain related to her stenosis. She has been managing her current dosing of oxycodone without any difficulties, with meeting her functional goal. Palliative care continue provide support, chronic pain management and psychosocial support through intermittent visits. Recommendations/Counseling Done: 1. Alcoholic cirrhosis of the liver. Patient continues to remain sober, is committed to this and continues to work on decreasing "her meld score". She has been discontinued off her rifampin and diuretics, is tolerating this without any untoward GI effect. She has had her CT of abdomen, EGD, and follow-up with her GI specialist. She does not need to do anything until next year. 2. Abdominal hernia. She continues to struggle with abdominal hernia, she is avoiding lifting, she is unfortunately high risk and will need to transition to [place] for surgery. This is overwhelming for her and her current situation to consider following through on any of these, she reports is manageable currently. Did discuss with her an abdominal hernia belt, she will look into this. 3. Chronic back pain. This is multifactorial as well as noted multiple pain generators. She has completed physical therapy, remains active, remains comp liant with her opioid dosing. In review of her medication management both patient and I have agreement this is good balance we will keep should functional and she can titrate it accordingly through the day as it is short acting. 4. Anxiety. This continues to be somewhat of an overwhelm for her and fluctuating, she has multiple stressors, and long-term anxiety. 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 She does have an exacerbation of this in particular related to tension with her son, discussed concerns regarding this with resources encouraged. 5. Insomnia. Patient has environmental stressors, and unable to sleep because of the noise and issues with son, she has used small doses of trazodone but given the noise factor, is unable to sleep. Unfortunately this impacts her coping as well as her pain. 6. Vaginal bleeding. She has had 1 or 2 episodes, and continues also to struggle with lower extremity rash. She is finishing her work-up with gynecology, I did encourage considering progesterone at least short-term to give her some relief from her skin issues. She has an appointment in May. 60 minutes with review of chart, scans, labs, [id number] with patient, counseling regarding symptom management and review of pain regimen. Plan to review again in 3 months, agreed to continue her opioid prescribing as patient is compliant and using functional goals
== END 2021-05-18 11:01 | disposition home or self-care (01) ==
LOC: PC 11:00
PROVIDERS: ATTEND Nurse Practitioner Adult Health
DX: Z51.5 Encounter for palliative care (principal); G89.4 Chronic pain syndrome; F41.9 Anxiety disorder, unspecified; K70.30 Alcoholic cirrhosis of liver without ascites; G62.1 Alcoholic polyneuropathy; F17.210 Nicotine dependence, cigarettes, uncomplicated; K46.9 Unspecified abdominal hernia without obstruction or gangrene; G47.00 Insomnia, unspecified; N93.9 Abnormal uterine and vaginal bleeding, unspecified; R21 Rash and other nonspecific skin eruption; L29.9 Pruritus, unspecified; Z79.899 Other long term (current) drug therapy; Z79.891 Long term (current) use of opiate analgesic; Z62.820 Parent-biological child conflict; Z60.8 Other problems related to social environment; Z87.898 Personal history of other specified conditions
CPT/HCPCS: 99215; G2212; 99417

== ENCOUNTER 2021-07-03 07:30 | Day surgery (SDC) | payer MEDICARE, MEDICAID ==
[2021-07-03] MEDS ORDERED: LACTATED RINGERS 1,000 ML IV ONE ×3 (07:55→11:22)
[2021-07-03 08:26] LABS: BASOPHILS % (AUTO) 0.6 %; EOSINOPHILS # (AUTO) 0.2 10^3/uL (0.0-0.7); EOSINOPHILS % (AUTO) 3.1 %; HGB - HEMOGLOBIN 15.6 g/dL (12.0-16.0); LYMPHOCYTES # (AUTO) 2.8 10^3/uL (1.5-3.5); LYMPHOCYTES % (AUTO) 38.6 %; MEAN CORPUSCULAR HGB CONC 33.9 g/dL (32.0-36.0); MEAN CORPUSCULAR VOLUME 94.3 fL (81.0-99.0); MEAN PLATELET VOLUME 10.8 fL (7.9-10.8); MONOCYTES # (AUTO) 0.4 10^3/uL (0.0-1.0); MONOCYTES % (AUTO) 6.2 %; NEUTROPHILS # (AUTO) 3.7 10^3/uL (1.5-6.6); NEUTROPHILS % (AUTO) 51.4 %; PLT - PLATELET COUNT 79 10^3/uL (130-450); RED BLOOD COUNT 4.88 10^6/uL (4.20-5.40); RED CELL DISTRIBUTION WIDTH 12.8 % (12.0-15.0); WHITE BLOOD COUNT 7.1 x10^3/uL (4.8-10.8)
[2021-07-03 08:37] LABS: CALCIUM 9.8 mg/dL (8.5-10.3); CREATININE 0.7 mg/dL (0.4-1.0)
[2021-07-03] MEDS ORDERED: BUPIVACAINE 0.5% PF 10 ML VIAL IM ONE ×2 (09:25)
[2021-07-03] MEDS ORDERED: LIDOCAINE 2%-EPI 1:100000 20 ML MDV SUBQ ONE ×2 (09:26)
[2021-07-03] MEDS ORDERED: LEVONORGESTREL 20 MCG/24H IUD IY ONE ×2 (09:31→09:34)
--- NOTE | 2021-07-03 09:32 | ANESTHESIA ---
Pre-Anesthesia VS, & Labs - Diagnosis Post-menopausal bleeding - Procedure Myosure hysteroscopy, D&C, IUD placement Vital Signs: Temp Pulse Resp BP Pulse Ox 36 C L 81 14 145/81 H 99 07/03/21 07:57 07/03/21 07:57 07/03/21 07:57 07/03/21 07:57 07/03/21 07:57 Height: 5 ft 2 in Weight (kg): 47.5 kg Body Mass Index: 19.1 BMI Classification: Healthy weight - NPO >8 hours - Is Patient ?: No - Lab Results Current Lab Results: Laboratory Tests 07/03/21 08:15: Blood Type B POSITIVE, Antibody Screen NEGATIVE, Crossmatch IS Only See Detail 07/03/21 08:15: Sodium 142, Potassium 4.0, Chloride 107, Carbon Dioxide 25, Anion Gap 10.0, BUN 9, Creatinine 0.7, Estimated GFR (MDRD) 88 L, Glucose 95, Calcium 9.8 07/03/21 08:15: WBC 7.1, RBC 4.88, Hgb 15.6, Hct 46.0, MCV 94.3, MCH 32.0 H, M CHC 33.9, RDW 12.8, Plt Count 79 L, MPV 10.8, Neut # (Auto) 3.7, Lymph # (Auto) 2.8, [place] # (Auto) 0.4, Eos # (Auto) 0.2, Baso # (Auto) 0.0, Absolute Nucleated RBC 0.00, Nucleated RBC % 0.0 Lab results reviewed: Yes Fish Bones: 07/03/21 08:15 07/03/21 08:15 Home Medications and Allergies Potassium Chloride [K-Dur] 20 meq PO BID 08/04/18 Ondansetron [Ondansetron Odt] 4 mg PO Q6H PRN 01/28/19 oxyCODONE [Roxicodone] 10 mg PO QID MDD 8 tabs 01/28/19 Allergies/Adverse Reactions: Allergies Allergy/AdvReac Type Severity Reaction Status Date / Time ceftriaxone sodium * Allergy Severe RASH,HIVES, Verified 08/17/20 03:43 [From Rocephin] BURNING,ITC JAMIE cephalexin monohydrate * Allergy Severe RASH,HIVES, Verified 08/17/20 03:43 [From Keflex] BURNING,ITC JAMIE ciprofloxacin Allergy Severe RASH,HIVES, Verified 08/17/20 03:43 BURNING,ITC JAMIE phenazopyridine HCl * Allergy Severe SWELLING Verified 08/17/20 03:43 [From Pyridium] OF AIRWAY Sulfa (Sulfonamide Allergy Severe RASH,HIVES, Verified 08/17/20 03:43 Antibiotics) BURNING,ITC JAMIE gentamicin Allergy Edema Verified 08/17/20 03:43 lamotrigine [From Lamictal] Allergy Hives Verified 08/17/20 03:43 levetiracetam [From Keppra] Allergy Anxiety Verified 08/17/20 03:43 lidocaine AdvReac Itching Verified 08/17/20 03:43 pregabalin AdvReac Hallucinati Verified 08/17/20 03:43 ons Anes History & Medical History - Anesthetic History Anesthesia Complications: reports: No previous complications Family history of Anesthesia Complications: Denies Family history of Malignant Hyperthermia: Denies - Medical History Cardiovascular: reports: Other Pulmonary: reports: None Gastrointestinal: reports: GERD, Ulcers, Hiatal hernia, Chronic constipation, Hemorrhoids, Hepatitis, Cirrhosis, Other (MELD score 12) Urinary: reports: Frequency, Other Neuro: reports: Seizure disorder Musculoskeletal: reports: Chronic back pain Endocrine/Autoimmune: reports: None Blood Disorders: reports: None Skin: reports: None Smoking Status: Current every day smoker - Surgical History General: reports: Cholecystectomy Gynecologic: reports: Tubal ligation Orthopedic: reports: Other Exam General: Alert, Oriented x3, Cooperative, No acute distress Dental: Other (edentulous) Mouth Openin Fingerbreadth Neck Mobility: Normal Mallampati classification: I Respiratory: Lungs clear Cardiovascular: Regular rate, Normal S1, Normal S2, No murmurs Plan Anesthesia Type: General, MAC Consent for Procedure(s) Verified and Reviewed: Yes Code Status: Attempt Resuscitation ASA classification: 3-Severe systemic disease Is this case an emergency?: No
[2021-07-03] MEDS ORDERED: NALOXONE 0.4 MG/ML VIAL IVP PRN (09:33)
[2021-07-03] MEDS ORDERED: fentaNYL 100 MCG/2 ML VIAL IVP PRN (09:33)
[2021-07-03] MEDS ORDERED: ATROPINE ABBOJECT 1 MG/10 ML SYRINGE IVP PRN (09:33)
[2021-07-03] MEDS ORDERED: HYDROmorphone 0.5 MG/0.5 ML SYRINGE IVP PRN (09:33)
[2021-07-03] MEDS ORDERED: ePHEDrine 50 MG/ML VIAL IVP PRN (09:33)
[2021-07-03] MEDS ORDERED: MORPHINE 2 MG/ML CARPUJECT IVP PRN (09:33)
[2021-07-03] MEDS ORDERED: ONDANSETRON 4 MG/2 ML VIAL IVP PRN (09:33)
[2021-07-03] MEDS ORDERED: METOCLOPRAMIDE 10 MG/2 ML VIAL IVP PRN (09:33)
[2021-07-03] MEDS ORDERED: BUPIVACAINE 0.5% PF 10 ML VIAL ONE (09:34)
[2021-07-03] MEDS ORDERED: LIDOCAINE 2%-EPI 1:100000 20 ML MDV ONE (09:34)
[2021-07-03] MEDS ORDERED: MIDAZOLAM 2 MG/2 ML VIAL ONE (09:41)
[2021-07-03] MEDS ORDERED: fentaNYL 100 MCG/2 ML VIAL ONE (09:42)
[2021-07-03] MEDS ORDERED: ONDANSETRON 4 MG/2 ML VIAL ONE (09:42)
[2021-07-03] MEDS ORDERED: PROPOFOL 200 MG/20 ML VIAL IVP ONE (09:42)
[2021-07-03] MEDS ORDERED: LIDOCAINE-MPF 2% 5 ML VIAL ONE (09:53)
[2021-07-03] MEDS ORDERED: LACTATED RINGERS 1,000 ML IV SCH (10:00)
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
[2021-07-03 11:53] VITALS: BP 136/74
--- NOTE | 2021-07-03 15:31 | ANESTHESIA POST OP EVALUATION ---
Anesthesia Post Eval - Post Anesthesia Eval Vitals: Last Vital Signs Temp 36.2 C L 07/03/21 11:52 Pulse 68 07/03/21 11:52 Resp 14 07/03/21 11:52 BP 136/74 H 07/03/21 11:52 Pulse Ox 98 07/03/21 11:52 CV Function Including HR & BP: Stable Pain Control: Satisfactory Nausea & Vomiting: Negative Mental Status: Baseline Respiratory Status: Airway Patent Hydration Status: Satisfactory Anesthesia Complications: None
== END 2021-07-03 07:31 | disposition home or self-care (01) ==
LOC: SDS 07:30
PROVIDERS: ATTEND Obstetrics & Gynecology
PROC: 0UB98ZZ Excision of Uterus, Via Natural or Artificial Opening Endoscopic (ICD-10-PCS; principal; 2021-07-03 09:45)
DX: N85.8 Other specified noninflammatory disorders of uterus (principal); D69.6 Thrombocytopenia, unspecified; I49.9 Cardiac arrhythmia, unspecified; R01.1 Cardiac murmur, unspecified; R56.9 Unspecified convulsions; K74.60 Unspecified cirrhosis of liver; I85.00 Esophageal varices without bleeding; F10.20 Alcohol dependence, uncomplicated; D50.9 Iron deficiency anemia, unspecified; R12 Heartburn; G89.29 Other chronic pain; M54.9 Dorsalgia, unspecified; F41.9 Anxiety disorder, unspecified; F41.0 Panic disorder [episodic paroxysmal anxiety]; F40.240 Claustrophobia; F17.200 Nicotine dependence, unspecified, uncomplicated; Z20.822 Contact with and (suspected) exposure to COVID-19; Z79.891 Long term (current) use of opiate analgesic; Z87.828 Personal history of other (healed) physical injury and trauma; Z86.19 Personal history of other infectious and parasitic diseases; Z87.11 Personal history of peptic ulcer disease
CPT/HCPCS: 36415; 58300; 58558; 80048; 85025; 86850; 86900; 86901; 86920; 87635; 93005; J7120; J7298

== ENCOUNTER 2021-08-28 14:19 | Outpatient (CLI) | payer MEDICARE, MEDICAID ==
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
== END 2021-08-28 14:20 | disposition home or self-care (01) ==
LOC: PC 14:19
PROVIDERS: ATTEND Nurse Practitioner Adult Health
DX: Z51.5 Encounter for palliative care (principal); F41.9 Anxiety disorder, unspecified; M54.9 Dorsalgia, unspecified; K72.10 Chronic hepatic failure without coma; G89.4 Chronic pain syndrome; K46.9 Unspecified abdominal hernia without obstruction or gangrene; M54.51 Vertebrogenic low back pain; K70.30 Alcoholic cirrhosis of liver without ascites; R64 Cachexia; G62.1 Alcoholic polyneuropathy; G43.909 Migraine, unspecified, not intractable, without status migrainosus; G44.209 Tension-type headache, unspecified, not intractable; N93.9 Abnormal uterine and vaginal bleeding, unspecified; H54.7 Unspecified visual loss; Z79.891 Long term (current) use of opiate analgesic; Z79.899 Other long term (current) drug therapy
CPT/HCPCS: 99215

== ENCOUNTER 2021-12-14 10:50 | Outpatient (CLI) | payer MEDICARE, MEDICAID ==
--- NOTE | 2021-12-14 11:52 | CONSULTATION NOTE ---
Palliative Care Follow Up - Referral Referring Provider: Lizbet PRITCHETT Time of Visit: 11:00 45 minutes [place] [facility] [place] Reason: Chronic Back Pain/Peripherpal neuropathy/Insomnia/ESLD - Information Sources Records reviewed: Previous records reviewed History/Review of Systems obtained from: Patient Exam limitations: No limitations - History of Present Illness Update Brief HPI Update: This is a complex 56-year-old woman with ongoing chronic pain, mostly localized in her L5/L6, with known spinal stenosis and posterior DEXA scan protrusion. Patient has long history of peripheral neuropathies, intermittent dystonias, now with acute exacerbation of her pain in her feet. She has multiple medication allergies, along history of approaches to manage her back pain, she is unable to do NSAIDs or acetaminophen given her diagnosis of alcoholic cirrhosis. She has been clean and sober coming up on for years, perceives herself is suffering from her persistent pain, has completed physical therapy, and uses her 8 tabs of oxycodone 5 mg in 24 hours appropriately. We have not had to do any increases over the last 2 years, though she continues to rate her pain fairly right high at 6/10. She uses it to improve her functional status.Transportation and financial stressors are a huge issue, she is unable to transition to pain clinic, will continue to follow on palliative care, initial evaluation had been for her ESLD which she is doing fairly well with currently. Patient most recently had omicron Covid per her perception, she was with someone who tested positive. She is unvaccinated because of her multiple allergies and unable to take vaccinations. She reports she mostly had achiness, cold symptoms, multiple joint aches, sore throat, swollen glands, and increase in heart palpitations. Currently she just has persistent fatigue. Patient is followed by GI for her alcoholic cirrhosis/fatty liver disease. She does have a meld score of 13 and gets reevaluated both a CT scan and EGD on a yearly basis, she has been off her refaxing without any increased lower extremity edema or of ascites. She continues though with persistent hypokalemia. Patient continues to struggle with her underlying anxiety disorder, though this is improved with her son moving out. Unfortunately is still not an ideal living situation for her but she is no longer homeless.She also has been having increased trouble with insomnia, relates this to the burning sensation in her heels, and intermittent and significant cramping in her lower extremities. Social History - Living Situation Living arrangement: At home Living Situation: Alone (Patient lives alone,) Support System: Patient lives in subsidized housing, is hoping at some point to transition to [facility] where her friends are, she does need to use buses to get around, which often exacerbates her pain with prolonged standing and sitting. 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 Medications/Allergies - Medications Home Medications: Ambulatory Orders Medication Instructions Recorded Confirmed Folic Acid 1 mg PO DAILY tablet 06/24/18 12/14/21 Potassium Chloride [K-Dur] 20 meq PO BID 08/04/18 12/14/21 Ondansetron [Ondansetron Odt] 4 mg PO Q6H PRN 01/28/19 12/14/21 oxyCODONE [Roxicodone] 10 mg PO QID MDD 8 5 mg tabs uses 01/28/19 08/29/21 spread out traZODone [Desyrel] 50 mg PO QPM PRN 12/14/21 12/14/21 - Allergies Allergies/Adverse Reactions: Allergies Allergy/AdvReac Type Severity Reaction Status Date / Time ceftriaxone sodium * Allergy Severe RASH,HIVES, Verified 08/17/20 03:43 [From Rocephin] BURNING,ITC JAMIE cephalexin monohydrate * Allergy Severe RASH,HIVES, Verified 08/17/20 03:43 [From Keflex] BURNING,ITC JAMIE ciprofloxacin Allergy Severe RASH,HIVES, Verified 08/17/20 03:43 BURNING,ITC JAMIE phenazopyridine HCl * Allergy Severe SWELLING Verified 08/17/20 03:43 [From Pyridium] OF AIRWAY Sulfa (Sulfonamide Allergy Severe RASH,HIVES, Verified 08/17/20 03:43 Antibiotics) BURNING,ITC JAMIE gentamicin Allergy Edema Verified 08/17/20 03:43 lamotrigine [From Lamictal] Allergy Hives Verified 08/17/20 03:43 levetiracetam [From Keppra] Allergy Anxiety Verified 08/17/20 03:43 lidocaine AdvReac Itching Verified 08/17/20 03:43 pregabalin AdvReac Hallucinati Verified 08/17/20 03:43 ons Review of Systems - Constitutional Constitutional: reports: Fatigue, Poor appetite, Weight loss (105.1 with clothes on) - Eyes Eyes: reports: Vision loss - Cardiovascular Cardiovascular: reports: Palpitations, Decr. exercise tolerance - Respiratory Respiratory: reports: SOB with exertion, Other (increased smoking with anxiety). denies: Cough, SOB at rest - Gastrointestinal Gastrointestinal: reports: Poor appetite, Early satiety, Other. denies: Constipation, Diarrhea - Genitourinary Genitourinary: reports: Other (has IUD but continues with persistent bleeding; fluctuates) - Musculoskeletal Musculoskeletal: reports: Muscle pain, Back pain, Muscle aches, Stiffness, Limited range of motion, Muscle weakness, Joint pain - Integumentary Integumentary: reports: Rash (LE improved with progesterone), Pruritis, Dryness - Neurological Neurological: reports: General weakness, Headache (migraines 1-2x month; persistent H/A residual of COVID), Numbness, Abnormal gait, Other - Psychiatric Psychiatric: reports: Anxiety (worsening). denies: Suicidal - Endocrine Endocrine: reports: Intolerance to cold - Hematologic/Lymphatic Hematologic/Lymph: reports: Other (recent COVID not vaccinated) - All Other Systems All Other Systems: reports: Reviewed and negative Physical Exam - Vital Signs Pulse Rate: 85 Respiratory Rate: 16 Blood Pressure: 121/82 - Physical Exam General Appearance: positive: Alert, Anxious, Cachetic Eyes Bilateral: positive: Normal inspection, No scleral icterus Neck: positive: Trachea midline Cardiovascular: positive: Regular rate & rhythm Respiratory: positive: No respiratory distress Abdomen: positive: Soft, Tenderness (feels developing second hernia) Skin: positive: Dryness, Pruritis. negative: Jaundice Extremities: positive: No pedal edema, Other (gait ataxic) Neurologic/Psychiatric: positive: Oriented x3, Weakness, Depressed mood/affect, Flat affect Palliative Care - POLST Patient has POLST: No POLST Status: Full Code Pain: Pain worsening, Location (Pain radiates from low back; worse in hipa right greater than left; severe in heels awakening her at night) Tiredness/Fatigue: Mild (1-3) Drowsiness/Sedation: None Nausea: None Anorexia: None Dyspnea: None Depression: None Anxiety: Moderate (4-6) Feelings of wellbeing/Perceived Quality of Life: Fair, Acceptable, Improved Sleep: Sleeps poorly Constipation: No Performance Status: Patient's activity tolerance is limited by her pain, does need to ride buses and ambulate, so paces self and medication to maximize functional status. - Palliative Care Discussion: Patient is feeling better now that her son is not living with her, feels safer. She continues to struggle with poor quality of life and complex social situation as well as poor social support. She does have fluctuating anxiety, unfortunately she has not tolerated medications in the past for both anxiety and/or depression. Provided psychosocial support, encouraged use of resources available but continues to feel overwhelmed overall Impression and Recommendations - Palliative Care Impression: This is a 56-year-old woman with alcoholic cirrhosis of the liver, fatty liver disease, underlying chronic pain syndrome, and severe anxiety. She does present with severe alcohol peripheral neuropathy, intermittent dystonias chronic chronic back pain as result of her stenosis and disc disease. She does describe increasing cramping and burning in her feet, more exacerbated over the last week or 2. She is sleeping poorly. Patient has been managing her current dosing of oxycodone without any difficulties, meeting her functional goals. Palliative care continue provide support for chronic pain management, psychosocial support, through intermittent visits and supervision of opioids. Recommendations/Counseling Done: 1 Alcoholic cirrhosis of the liver. Patient continues to remain sober, is committed to this and continues on trying to focus on her overall health. She is not due for work-up again till spring, she does not present with any signs or symptoms of concern today. 2. Chronic back pain. This is multifactorial as well as known multiple pain generators. She remains active, compliant with her opioid dosing, is continue to meet her functional goals and titrate accordingly with the short acting medication. Patient's not tolerating any other medications nor is a candidate for NSAIDs or acetaminophen. Continue current treatment plan. 3. Peripheral neuropathy. Patient has been trialed on pregabalin, does not have coverage for lidocaine topical and is somewhat suspect given her response previously to IV lidocaine. We did discuss topicals, but unfortunately with finances this is not possible. We will go ahead and check potassium and magnesium levels to make sure this is not adding to the cramping component that she is describing. She has not had labs since June. 4. Insomnia. Patient has poor tolerance of most medications, she is willing to try trazodone, had prescribed it but was concerned given her previous living situation. We discussed ways for her to titrate into the medication to feel safe and see if she has any side effects. She verbalized understanding, will continue to monitor. 5. Abdominal hernia. She thinks she may be developing a second abdominal hernia, she has been avoiding lifting as she does have high risk needs would need to transition to [place] for surgery at this point she still not interested in this. 6. Vaginal bleeding. Patient reports no improvement with the IUD, continues to fluctuate. Encouraged to follow back up with gynecology. Also encouraged to follow-up with her mammogram. Patient has had recent Covid, and feels overwhelmed in the context of the multiple steps to take stairs secondary to transportation issues. 45 minutes with review of records, labs, chart, [id number] with patient for counseling when getting pain and symptom management, anticipatory guidance, and psychosocial support
== END 2021-12-14 10:51 | disposition home or self-care (01) ==
LOC: PC 10:50
PROVIDERS: ATTEND Nurse Practitioner Adult Health
DX: Z51.5 Encounter for palliative care (principal); K70.30 Alcoholic cirrhosis of liver without ascites; M54.9 Dorsalgia, unspecified; G89.29 Other chronic pain; G62.9 Polyneuropathy, unspecified; G47.00 Insomnia, unspecified; K46.9 Unspecified abdominal hernia without obstruction or gangrene; N93.9 Abnormal uterine and vaginal bleeding, unspecified
CPT/HCPCS: 99215

== ENCOUNTER 2022-02-01 10:59 | Outpatient (CLI) | payer MEDICARE, MEDICAID ==
[2022-02-01 11:42] LABS: ALBUMIN 4.6 g/dL (3.2-5.5); CALCIUM 9.5 mg/dL (8.5-10.3); CREATININE 0.7 mg/dL (0.4-1.0); POTASSIUM 3.5 mmol/L (3.5-5.0); TOTAL PROTEIN 6.9 g/dL (6.7-8.2)
== END 2022-02-01 11:00 | disposition home or self-care (01) ==
LOC: LAB 10:59
PROVIDERS: ATTEND Nurse Practitioner Adult Health
DX: Z79.899 Other long term (current) drug therapy (principal); E83.40 Disorders of magnesium metabolism, unspecified
CPT/HCPCS: 36415; 80053; 83735

== ENCOUNTER 2022-03-11 12:34 | Emergency (ER) | payer MEDICARE, MEDICAID ==
[2022-03-11 13:06] VITALS: BP 150/76
--- NOTE | 2022-03-11 14:50 | ED Physician Documentation ---
PD HPI SKIN - Stated complaint Stated Complaint: RASH LEGS - Chief complaint Chief Complaint: Wound - History obtained from History obtained from: Patient - History of Present Illness Timing - onset: How many months ago (1) Timing - duration: Months (1) Timing - details: Gradual onset, Still present Location: RLE, LLE Quality / character: Itchy, Discolored, Raised Improved by: Other (nothing) Associated symptoms: No: Fever, Myalgias, Joint pain, Headache, Facial swelling, Dyspnea, Abd pain, N/V/D, Urinary sx Contributing factors: No: Exposed to medication, Exposed to food, Exposed to soap / lotion, Exposed to Poison shayne/oak, Recent illness Similar symptoms before: Diagnosis (something that required permithrin) Recently seen: Not recently seen - Additional information Additional information: 56-year-old female has developed a rash on her lower extremities that is quite itchy. She has had a similar rash previously about 2 years ago she eventually went to see family dermatology and had a biopsy done and nothing was found. She remembers being placed on permethrin orally and she did not take this. She was worried that it would further injure her liver.Her liver function has mostly recovered and she has become more and more irritated by the itching to her lower extremities over the past month Review of Systems Constitutional: denies: Fever Eyes: denies: Decreased vision Ears: denies: Ear pain Nose: denies: Congestion Throat: denies: Sore throat Cardiac: reports: Palpitations. denies: Chest pain / pressure Respiratory: denies: Dyspnea, Cough GI: denies: Vomiting Skin: reports: Rash Musculoskeletal: reports: Back pain Neurologic: denies: Generalized weakness, Focal weakness, Numbness PD PAST MEDICAL HISTORY - Past Medical History Cardiovascular: Other Respiratory: None Neuro: Seizure disorder Endocrine/Autoimmune: None GI: GERD, Ulcers, Hiatal hernia, Chronic constipation, Hemorrhoids, Hepatitis, Cirrhosis, Other (MELD score 12) C PROGRAMMER: None : Frequency, Other HEENT: Chronic vision loss, Other Psych: Depression, Anxiety, Panic attacks, Post traumatic stress disorder Musculoskeletal: Chronic back pain Derm: None - Past Surgical History Past Surgical History: Yes General: Cholecystectomy Ortho: Other /C PROGRAMMER: Tubal ligation - Present Medications Home Medications: Ambulatory Orders Medication Instructions Recorded Confirmed Folic Acid 1 mg PO DAILY tablet 06/24/18 12/14/21 Potassium Chloride [K-Dur] 20 meq PO BID 08/04/18 12/14/21 Ondansetron [Ondansetron Odt] 4 mg PO Q6H PRN 01/28/19 12/14/21 oxyCODONE [Roxicodone] 10 mg PO QID MDD 8 5 mg tabs uses 01/28/19 08/29/21 spread out traZODone [Desyrel] 50 mg PO QPM PRN 12/14/21 12/14/21 Permethrin 5% Cream [Permethrin 30 applic TOP ONCE #60 ml 03/11/22 Cream] hydrOXYzine PAMOATE [Vistaril] 25 mg PO Q6H PRN #20 cap 03/11/22 - Allergies Allergies/Adverse Reactions: Allergies Allergy/AdvReac Type Severity Reaction Status Date / Time ceftriaxone sodium * Allergy Severe RASH,HIVES, Verified 03/11/22 13:06 [From Rocephin] BURNING,ITC JAMIE cephalexin monohydrate * Allergy Severe RASH,HIVES, Verified 03/11/22 13:06 [From Keflex] BURNING,ITC JAMIE ciprofloxacin Allergy Severe RASH,HIVES, Verified 03/11/22 13:06 BURNING,ITC JAMIE phenazopyridine HCl * Allergy Severe SWELLING Verified 03/11/22 13:06 [From Pyridium] OF AIRWAY Sulfa (Sulfonamide Allergy Severe RASH,HIVES, Verified 03/11/22 13:06 Antibiotics) BURNING,ITC JAMIE gentamicin Allergy Edema Verified 03/11/22 13:06 lamotrigine [From Lamictal] Allergy Hives Verified 03/11/22 13:06 levetiracetam [From Keppra] Allergy Anxiety Verified 03/11/22 13:06 lidocaine AdvReac Itching Verified 03/11/22 13:06 pregabalin AdvReac Hallucinati Verified 03/11/22 13:06 ons - Social History Does the pt smoke?: Yes Smoking Status: Current every day smoker Does the pt drink ETOH?: Yes Does the pt have substance abuse?: No - Immunizations Immunizations are current?: Yes Immunizations: TDAP >10years/unknown - POLST Patient has POLST: No POLST Status: Full Code PD ED PE NORMAL - Vitals Vital signs reviewed: Yes (Hypertensive mild) - General General: Alert and oriented X 3, No acute distress, Well developed/nourished - HEENT HEENT: Atraumatic, PERRL, EOMI, Other (No scleral icterus) - Neck Neck: Supple, no meningeal sign, No bony TTP - Respiratory Respiratory: No respiratory distress - Derm Derm: Normal color, Warm and dry, Other (To the lower extremities bilaterally there small red paulino that Arise and that have an erythematous base a few millimeters in size. These are more pronounced on the lower extremities up to about the mid thigh and she has just begun to get these on both forearms.) - Extremities Extremities: No deformity, No edema - Neuro Neuro: Alert and oriented X 3, vamp presser 2-12 intact, No motor deficit, No sensory deficit, Normal speech Eye Opening: Spontaneous Motor: Obeys Commands Verbal: Oriented GCS Score: 15 - Psych Psych: Normal mood, Normal affect Results - Vitals Vitals: Vital Signs - 24 hr 03/11/22 13:01 Temperature 36.5 C Heart Rate 72 Respiratory 16 Rate Blood Pressure 150/76 H O2 Saturation 99 Oxygen O2 Source Room air PD MEDICAL DECISION MAKING - ED course Complexity details: considered differential, d/w patient ED course: 56-year-old female presents with a rash that is very itchy and looks to be infectious. She believes the rash spread to her forearms because she rests her arms on her legs. The character of the rash is most consistent with scabies. We will prescribe permethrin. I described to the patient the expectations and have asked her to follow-up with family dermatology if she does not have resolution of her symptoms with the treatment provided. I am uncertain which oral medication the patient may have been prescribed previously perhaps it was ivermectin but the patient swears that she did not take this medicine. She feels that it eventually went away. Departure - Departure Disposition: 01 Home, Self Care Clinical Impression: Scabies Condition: Stable Instructions: ED Scabies Follow-Up: Annelise Branham ARNP [Primary Care Provider] - [facility] [Provider Group] Prescriptions: Permethrin 5% Cream [Permethrin Cream] 30 applic TOP ONCE #60 ml hydrOXYzine PAMOATE [Vistaril] 25 mg PO Q6H PRN #20 cap PRN Reason: Itching Comments: Kelsey, today it looks like the rash you have on your legs and forearms is likely scabies. Treatment for scabies consist of a topical application of a cream left on overnight and showered off in the morning. It is important to launder your bedding as well. Follow the instructions administered. The expectation is improvement in this rash if it does not improve or symptoms worsen follow-up with family dermatology. I have left a prescription for Vistaril as well for the itching. Medications have been E scribed to [facility] in [place].
== END 2022-03-11 15:09 | disposition home or self-care (01) ==
LOC: ED 12:34
DX: B86 Scabies (principal); F17.200 Nicotine dependence, unspecified, uncomplicated
CPT/HCPCS: 99282; 99284

== ENCOUNTER 2022-03-14 09:51 | Outpatient (CLI) | payer MEDICARE, MEDICAID ==
--- NOTE | 2022-03-14 12:00 | CONSULTATION NOTE ---
Palliative Care Follow Up - Referral Referring Provider: Lizbet PRITCHETT Time of Visit: 1010 45 minutes [place] [facility] [place] Reason: Acute on Chronic Pain/Scabies/ESLD - Information Sources Records reviewed: Previous records reviewed History/Review of Systems obtained from: Patient Exam limitations: No limitations - History of Present Illness Update Brief HPI Update: This is a complex patient who is 56 years old, with ongoing chronic pain, mostly localized in her L5/L6 with known spinal stenosis. She has a long history of peripheral neuropathies, intermittent dystonias, now with acute exacerbation of pain and burning in her feet and ankles, as well as worsening discomfort secondary to recent diagnosis of scabies. She reports have been having increasing pruritus, and had a flare to the point she could not stand it anymore, so she came into the ED room. Which at that point time they examined her rash though only located mostly from her knees down as well as her forearms. She has done her permethrin treatment, and is planning to repeat in several days. She is still having significant discomfort, is using some hydroxyzine with some relief.Patient has had exacerbation of her pain, as this is entailed multiple trips to laundry, she does not have transportation so has had to use public transportation and take things and bags. She also is distressed that she has to rid herself of her bed, and by brand-new mattress, patient does have significant financial stressors and minimal resources. This will take all of her savings. She also has lost weight, she is 99.7, this is due to food scarcity, and today feels currently overwhelmed. She also has not been sleeping and is exhausted besides her trip to the ED, her neighbors have been not sleeping and yelling so has not been able to get good sleep, and has been having increased tension and issues with her son to the point she has kicked them out. Despite all this patient remains fairly resilient, she is to establish with a new provider YARELY Vargas, she is looking forward to moving onward with some of her health issues, she would like to get her vision/cataract surgeries done, follow-up on her EGD for her ES LD, she does have endoscopy once a year as well as baseline labs. Unfortunately she also has had continuous vaginal bleeding, despite her IUD, has not been able to get back into the women's clinic because of lack of provider status. Day we were due for her chronic pain checkup. Patient uses 8 tabs of 5 mg oxycodone in 24 hours, she uses it appropriately. She times it accordingly to be able to ambulate, for functional status. She does rate her baseline pain is 7 out of 10, we have trialed various medications, patient does not tolerate adjuvant medications unfortunately.She does have baseline anxiety, which has been exacerbated by her current situation and feels like there is really nothing more she can do short of what she is currently trying to accomplish. Patient is followed by GI for her alcoholic cirrhosis/fatty liver disease, her last meld score was 13 she gets evaluated both by CT scan and EGD on a yearly basis, she is due. She has been without any increased lower extremity edema or ascites, though does have persistent hypokalemia Social History - Living Situation Living arrangement: At home Living Situation: Alone (Patient lives alone,) Support System: Patient lives in subsidized housing, she was hoping to some point to transition to [facility] where she has more support. She does use a bus to get around and this exacerbates her pain with prolonged standing and sitting. 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 Medications/Allergies - Medications Home Medications: Ambulatory Orders Medication Instructions Recorded Confirmed Folic Acid 1 mg PO DAILY tablet 06/24/18 12/14/21 Potassium Chloride [K-Dur] 20 meq PO BID 08/04/18 12/14/21 Ondansetron [Ondansetron Odt] 4 mg PO Q6H PRN 01/28/19 12/14/21 oxyCODONE [Roxicodone] 10 mg PO QID MDD 8 5 mg tabs uses 01/28/19 08/29/21 spread out traZODone [Desyrel] 50 mg PO QPM PRN 12/14/21 12/14/21 Permethrin 5% Cream [Permethrin 30 applic TOP ONCE #60 ml 03/11/22 Cream] hydrOXYzine PAMOATE [Vistaril] 25 mg PO Q6H PRN #20 cap 03/11/22 - Allergies Allergies/Adverse Reactions: Allergies Allergy/AdvReac Type Severity Reaction Status Date / Time ceftriaxone sodium * Allergy Severe RASH,HIVES, Verified 03/11/22 13:06 [From Rocephin] BURNING,ITC JAMIE cephalexin monohydrate * Allergy Severe RASH,HIVES, Verified 03/11/22 13:06 [From Keflex] BURNING,ITC JAMIE ciprofloxacin Allergy Severe RASH,HIVES, Verified 03/11/22 13:06 BURNING,ITC JAMIE phenazopyridine HCl * Allergy Severe SWELLING Verified 03/11/22 13:06 [From Pyridium] OF AIRWAY Sulfa (Sulfonamide Allergy Severe RASH,HIVES, Verified 03/11/22 13:06 Antibiotics) BURNING,ITC JAMIE gentamicin Allergy Edema Verified 03/11/22 13:06 lamotrigine [From Lamictal] Allergy Hives Verified 03/11/22 13:06 levetiracetam [From Keppra] Allergy Anxiety Verified 03/11/22 13:06 lidocaine AdvReac Itching Verified 03/11/22 13:06 pregabalin AdvReac Hallucinati Verified 03/11/22 13:06 ons Review of Systems - Constitutional Constitutional: reports: Fatigue, Poor appetite, Weight loss (has lost 5 pounds since last visit; 99.7) - Eyes Eyes: reports: Blurred vision, Vision loss - Ears, Nose & Throat Ears, Nose & Throat: reports: Dry mouth - Cardiovascular Cardiovascular: reports: Palpitations, Decr. exercise tolerance - Respiratory Respiratory: reports: SOB with exertion, Other (increased smoking with anxiety). denies: Cough, SOB at rest - Gastrointestinal Gastrointestinal: reports: Poor appetite, Early satiety, Other (food scarcity). denies: Constipation, Diarrhea - Genitourinary Genitourinary: reports: Other (has IUD but continues with persistent bleeding; fluctuates) - Musculoskeletal Musculoskeletal: reports: Muscle pain, Back pain, Muscle aches, Stiffness, Limited range of motion, Muscle weakness, Joint pain, Assistive devices (occasionally uses cane) - Integumentary Integumentary: reports: Rash (recent dx of scabies at ED), Pruritis, Dryness - Neurological Neurological: reports: General weakness, Headache (migraines 1-2x month; persistent H/A residual of COVID), Numbness, Abnormal gait, Other - Psychiatric Psychiatric: reports: Anxiety (worsening). denies: Suicidal - Endocrine Endocrine: reports: Intolerance to cold - Hematologic/Lymphatic Hematologic/Lymph: reports: Other (recent COVID not vaccinated) - All Other Systems All Other Systems: reports: Reviewed and negative Physical Exam - Physical Exam General Appearance: positive: Alert, Anxious, Cachetic Eyes Bilateral: positive: Normal inspection, No scleral icterus Neck: positive: Trachea midline Respiratory: positive: No respiratory distress Abdomen: positive: Soft, Tenderness (feels developing second hernia) Skin: positive: Dryness, Pruritis. negative: Jaundice Extremities: positive: No pedal edema, Other (gait ataxic) Neurologic/Psychiatric: positive: Oriented x3, Weakness, Depressed mood/affect, Flat affect Palliative Care - POLST Patient has POLST: No POLST Status: Full Code Pain: Pain worsening, Location (neck/shoulders/lower back/coccyx area;burning peripheral neuropathy legs with worst in heels) Tiredness/Fatigue: Severe (7-10), Comment (hasnt been getting sleep) Drowsiness/Sedation: Moderate (4-6) Nausea: None Anorexia: None Dyspnea: None Depression: None Anxiety: Moderate (4-6) Feelings of wellbeing/Perceived Quality of Life: Fair, Worsening Sleep: Sleeps poorly Constipation: No Performance Status: Patient with ataxic gait, difficulty walking secondary peripheral neuropathy and pain in her back. She has to manage everything on her own, does try and pace herself, as well as mindful of her abdominal hernias. - Palliative Care Discussion: Patient continues to experience a series of unfortunate events, now she has been plagued with scabies, and is much more uncomfortable and having to deal with the fallout regarding this. This is with limited resources, not able to drive, and still trying to figure out all the moving pieces. She is appropriately overwhelmed and with anxiety. She is looking forward to establish with new primary care provider, she has multiple health issues she has been frustrated not being able to get referrals for, she is quite resilient but is fatigued. She does admit to depression, denies any suicidality. Impression and Recommendations - Palliative Care Impression: This is a 56-year-old woman with alcoholic cirrhosis of the liver/fatty liver disease, underlying chronic pain syndrome, acute exacerbation secondary to increased activity and rash, and severe anxiety. She does present with severe alcoholic peripheral neuropathy, intermittent dystonias, chronic back pain, as well as her stenosis and disc disease. She is sleeping poorly, this is multifactorial. Patient has been managing her current dosing of oxycodone without any difficulties, meeting her functional goals and staying within limits. Palliative care continue provide support for chronic pain management, psychosocial support through intermittent visits and supervision of opioids. Recommendations/Counseling Done: 1. Alcoholic cirrhosis of the liver. Patient continues to remain sober, is committed this and continues to focus on her overall health. She is planning to see her new PCP, she is due for her EGD for her varices as well as CT scan. She does not present with any ascites, lower extremity edema, but looks quite fatigued today. 2. Chronic back pain. This is multifactorial as well as has many known multiple pain generators. She remains active, compliant with opioid dosing, is continue to meet her functional goals and titrate accordingly with short acting medication. Patient has not tolerated any other medications*is a candidate for NSAIDs or acetaminophen. Continue current treatment plan. 3. Peripheral neuropathy. Patient has been trialed on pregabalin does not have coverage for topical lidocaine, she unfortunately does not have the finances to do any integrated or supportive care regarding this. She continues to need potassium support, she has had significant cramping. 4. Insomnia. Patient is to poor tolerance of most medications, she does have trazodone she has been using the hydroxyzine secondary to the severe pruritus and rash. 5. Scabies. Patient has completed 1 treatment, needs to complete second, we did review the CDC guidelines for managing household laundry, furniture, etc. Patient is quite discouraged as this has really taken a toll both on her pain, emotions, and finances. 6. Abdominal hernia. Patient has been trying to avoid lifting though with her recent misfortune this is been more difficult. Patient does have high risk needs we need to transition [place] for surgery, at this point she is not interested in this. 7. Vaginal bleeding. Patient reports no improvement with IUD, has been quite frustrated not able to get back into the women's clinic. Is on the waiting list. 45 minutes with review of records, labs, [id number] with patient for counseling pain and symptom management, anticipatory guidance and psychosocial support. Patient is 6 tablets with new PCP, has been directed to follow-up on multiple requests in the context of her health. Palliative care has been doing some PCP functions as patient has not been able to get to [facility] [place].
== END 2022-03-14 09:52 | disposition home or self-care (01) ==
LOC: PC 09:51
PROVIDERS: ATTEND Nurse Practitioner Adult Health
DX: Z51.5 Encounter for palliative care (principal); M48.061 Spinal stenosis, lumbar region without neurogenic claudication; B86 Scabies; F32.A Depression, unspecified; F41.9 Anxiety disorder, unspecified; K70.30 Alcoholic cirrhosis of liver without ascites; G89.4 Chronic pain syndrome; G62.1 Alcoholic polyneuropathy; G24.9 Dystonia, unspecified; R53.83 Other fatigue; G47.00 Insomnia, unspecified; K46.9 Unspecified abdominal hernia without obstruction or gangrene; N93.9 Abnormal uterine and vaginal bleeding, unspecified
CPT/HCPCS: 99215

== ENCOUNTER 2022-04-12 07:25 | Outpatient (CLI) | payer MEDICARE, MEDICAID ==
[2022-04-12 11:59] LABS: BASOPHILS # (AUTO) 0.1 10^3/uL (0.0-0.1); BASOPHILS % (AUTO) 0.9 %; EOSINOPHILS # (AUTO) 0.3 10^3/uL (0.0-0.7); EOSINOPHILS % (AUTO) 5.7 %; HCT - HEMATOCRIT 44.8 % (37.0-47.0); LYMPHOCYTES # (AUTO) 2.2 10^3/uL (1.5-3.5); LYMPHOCYTES % (AUTO) 38.8 %; MEAN CORPUSCULAR HEMOGLOBIN 31.4 pg (27.0-31.0); MEAN CORPUSCULAR HGB CONC 33.5 g/dL (32.0-36.0); MEAN CORPUSCULAR VOLUME 93.9 fL (81.0-99.0); MEAN PLATELET VOLUME 11.6 fL (7.9-10.8); MONOCYTES # (AUTO) 0.4 10^3/uL (0.0-1.0); MONOCYTES % (AUTO) 7.1 %; NEUTROPHILS # (AUTO) 2.7 10^3/uL (1.5-6.6); NEUTROPHILS % (AUTO) 47.3 %; PLT - PLATELET COUNT 81 10^3/uL (130-450); RED BLOOD COUNT 4.77 10^6/uL (4.20-5.40); WHITE BLOOD COUNT 5.8 x10^3/uL (4.8-10.8)
[2022-04-12 12:24] LABS: % IRON SATURATION 25 % (20-50); ALBUMIN 4.4 g/dL (3.2-5.5); ALBUMIN/GLOBULIN RATIO 1.8 (1.0-2.2); ALKALINE PHOSPHATASE 76 IU/L (42-121); ALT ALANINE AMINOTRANSFERASE 17 IU/L (10-60); AST ASPARTATE AMINOTRANSFERASE 30 IU/L (10-42); BILIRUBIN,TOTAL 0.9 mg/dL (0.2-1.0); BUN - BLOOD UREA NITROGEN 11 mg/dL (6-20); CALCIUM 9.7 mg/dL (8.5-10.3); CARBON DIOXIDE - CO2 23 mmol/L (21-32); CHLORIDE 110 mmol/L (101-111); CHOL/HDL RATIO 3.2 (<4.4); CHOLESTEROL 208 mg/dL; CREATININE 0.8 mg/dL (0.4-1.0); GFR - MDRD 75 (>89); GLUCOSE 94 mg/dL (70-100); HDL CHOLESTEROL 65 mg/dL; IRON 77 ug/dL (28-170); LDL CHOLESTEROL,CALCULATED 132 mg/dL; POTASSIUM 3.8 mmol/L (3.5-5.0); SODIUM 143 mmol/L (135-145); TOTAL IRON BINDING CAPACITY 312 ug/dL (250-450); TOTAL PROTEIN 6.8 g/dL (6.7-8.2); TRANSFERRIN 223 mg/dL (192-382); TRIGLYCERIDES 53 mg/dL; VLDL CHOLESTEROL 11 mg/dL
[2022-04-12 12:32] LABS: THYROID STIMULATING HORMONE 4.38 uIU/mL (0.34-5.60)
[2022-04-12 12:38] LABS: FERRITIN 34.3 ng/mL (11.0-306.8)
== END 2022-04-12 07:26 | disposition home or self-care (01) ==
LOC: LAB.N 07:25
PROVIDERS: ATTEND Nurse Practitioner
DX: K74.60 Unspecified cirrhosis of liver (principal); Z13.220 Encounter for screening for lipoid disorders; E61.1 Iron deficiency; R63.6 Underweight
CPT/HCPCS: 36415; 80053; 80061; 82728; 83540; 83721; 84443; 84466; 85025

== ENCOUNTER 2022-04-24 09:00 | Outpatient (CLI) | payer MEDICARE, MEDICAID ==
--- NOTE | 2022-04-24 18:31 | Ultrasound Report ---
PROCEDURE: Abdomen Limited INDICATIONS: CIRRHOSIS TECHNIQUE: Real-time focused scanning was performed of the abdomen, with image documentation. COMPARISON: FINDINGS: Liver: Coarsened hepatic echotexture without focal mass lesion, consistent with cirrhosis. Gallbladder: Cholecystectomy Common Bile Duct: 12.3 mm. Pancreas: Unremarkable as visualized. Right Kidney: Appropriate in size and echotexture. No evidence of hydronephrosis. No shadowing calc ang. No solid or cystic mass lesion 10 x 11 mm simple right renal cyst. IMPRESSION: Hepatic cirrhosis without mass lesion. Cholecystectomy Reviewed by: Savage Reynoso MD on 04/24/2022 5:30 PM AKDT Approved by: Savage Reynoso MD on 04/24/2022 5:30 PM AKDT Station ID: [id number]
== END 2022-04-24 23:59 | disposition home or self-care (01) ==
LOC: DI 09:00
PROVIDERS: ATTEND Nurse Practitioner
DX: K74.60 Unspecified cirrhosis of liver (principal); Z90.49 Acquired absence of other specified parts of digestive tract

== ENCOUNTER 2022-10-03 13:30 | Outpatient (CLI) | payer MEDICARE, MEDICAID ==
--- NOTE | 2022-10-03 20:32 | XRAY Report ---
PROCEDURE: Hip BILAT INDICATIONS: BILAT HIP PAIN TECHNIQUE: Three views of the bilateral hips were acquired. COMPARISON: CT 08/17/2020, radiographs 01/20/2014 and 08/05/2013. FINDINGS: No fracture or dislocation. Moderate bilateral hip osteoarthritis, left greater than right. Degenerat jennifer changes have advanced since the prior study. No suspicious bone lesion. IUD noted. IMPRESSION: Moderate bilateral osteoarthritis, greater on the left. Reviewed by: Alex Barry MD on 10/03/2022 8:31 PM PST Approved by: Alex Barry MD on 10/03/2022 8:31 PM PST Station ID: [id number]
== END 2022-10-03 13:31 | disposition home or self-care (01) ==
LOC: DI.WOS 13:30
PROVIDERS: ATTEND Physician Assistant Surgical
DX: M16.0 Bilateral primary osteoarthritis of hip (principal)

== ENCOUNTER 2023-02-13 09:07 | Outpatient (CLI) | payer MEDICARE, MEDICAID ==
[2023-02-13 10:02] LABS: BASOPHILS % (AUTO) 0.4 %; EOSINOPHILS # (AUTO) 0.1 10^3/uL (0.0-0.7); EOSINOPHILS % (AUTO) 2.3 %; HCT - HEMATOCRIT 41.5 % (37.0-47.0); HGB - HEMOGLOBIN 13.8 g/dL (12.0-16.0); LYMPHOCYTES # (AUTO) 1.1 10^3/uL (1.5-3.5); MEAN CORPUSCULAR HEMOGLOBIN 31.1 pg (27.0-31.0); MEAN CORPUSCULAR HGB CONC 33.3 g/dL (32.0-36.0); MEAN CORPUSCULAR VOLUME 93.5 fL (81.0-99.0); MEAN PLATELET VOLUME 10.9 fL (7.9-10.8); MONOCYTES # (AUTO) 0.4 10^3/uL (0.0-1.0); MONOCYTES % (AUTO) 8.3 %; NEUTROPHILS # (AUTO) 3.5 10^3/uL (1.5-6.6); NEUTROPHILS % (AUTO) 67.8 %; PLT - PLATELET COUNT 84 10^3/uL (130-450); RED BLOOD COUNT 4.44 10^6/uL (4.20-5.40); RED CELL DISTRIBUTION WIDTH 13.1 % (12.0-15.0); WHITE BLOOD COUNT 5.2 x10^3/uL (4.8-10.8)
--- NOTE | 2023-02-13 10:02 | XRAY Report ---
PROCEDURE: Ribs w/PA Chest LT INDICATIONS: RIB PAIN,LEFT SIDED TECHNIQUE: 2 views of the left ribs were acquired, along with a single view chest. COMPARISON: None FINDINGS: Surgical changes and devices: None. Bones and chest wall: No fractures or dislocations. No suspicious bony lesions. Overlying soft tis sues appear unremarkable. Lungs and pleura: No pleural effusions or pneumothorax. Lungs appear clear. Mediastinum: Mediastinal contours appear normal. Heart size is normal. IMPRESSION: Negative chest and left rib detail films. Reviewed by: Carlos Duran MD on 02/13/2023 10:01 AM PDT Approved by: Carlos Duran MD on 02/13/2023 10:01 AM PDT Station ID: [id number]
[2023-02-13 10:11] LABS: ALBUMIN 4.5 g/dL (3.2-5.5); BILIRUBIN,TOTAL 1.3 mg/dL (0.2-1.0); CALCIUM 9.2 mg/dL (8.5-10.3); CREATININE 0.6 mg/dL (0.4-1.0); POTASSIUM 3.3 mmol/L (3.5-5.0); TOTAL PROTEIN 6.7 g/dL (6.7-8.2)
== END 2023-02-13 09:08 | disposition home or self-care (01) ==
LOC: DI 09:07
PROVIDERS: ATTEND Nurse Practitioner
DX: R07.81 Pleurodynia (principal); E87.6 Hypokalemia; K74.60 Unspecified cirrhosis of liver; D69.6 Thrombocytopenia, unspecified; E61.1 Iron deficiency
CPT/HCPCS: 36415; 80053; 85025

== ENCOUNTER 2023-03-05 09:28 | Emergency (ER) | payer MEDICARE, MEDICAID ==
--- NOTE | 2023-03-05 10:14 | XRAY Report ---
PROCEDURE: Chest 1 View X-Ray INDICATIONS: SOA TECHNIQUE: One view of the chest was acquired. COMPARISON: 02/13/2023. FINDINGS: Surgical changes and devices: None. Lungs and pleura: No pleural effusions or pneumothorax. Lungs are clear. Mediastinum: Mediastinal contours appear normal. Heart size is normal. Bones and chest wall: No suspicious bony lesions. Overlying soft tissues appear unremarkable. IMPRESSION: No acute cardiopulmonary process. Reviewed by: Nam Haile MD on 03/05/2023 10:13 AM PDT Approved by: Nam Haile MD on 03/05/2023 10:13 AM PDT Station ID: [id number]
--- NOTE | 2023-03-05 10:59 | ED Physician Documentation ---
History of Present Illness - Stated complaint Stated Complaint: SOA, SHARP PX - Chief complaint Chief Complaint: Resp - History obtained from History obtained from: Patient - Additonal information Additional information: The patient comes to the emergency department with chief complaint of left-sided chest pain under her breast. She states that she has been having the pain on and off ever since she took a fall about a month ago. She was already seen on the in the [facility] clinic with x-rays and was told she did not have any rib fractures. The patient states that the symptoms were improving but then suddenly, she woke up with a flareup yesterday. She states it hurts a lot and is hard for her to take a deep breath or moves certain ways. She denies any new trauma. She has not done any heavy or excessive amount of work using her torso. She says she feels as though 1 rib is "crossing over the other. She describes the pain as being on her left inferolateral chest wall. PD PAST MEDICAL HISTORY - Past Medical History Cardiovascular: Other Respiratory: None Neuro: Seizure disorder Endocrine/Autoimmune: None GI: GERD, Ulcers, Hiatal hernia, Chronic constipation, Hemorrhoids, Hepatitis, Cirrhosis, Other LACE STRIPPER: None : Frequency, Other HEENT: Chronic vision loss, Other Psych: Depression, Anxiety, Panic attacks, Post traumatic stress disorder Musculoskeletal: Chronic back pain Derm: None - Past Surgical History Past Surgical History: Yes General: Cholecystectomy Ortho: Other /LACE STRIPPER: Tubal ligation - Present Medications Home Medications: Ambulatory Orders Medication Instructions Recorded Confirmed Folic Acid 1 mg PO DAILY tablet 06/24/18 12/14/21 Potassium Chloride [K-Dur] 20 meq PO BID 08/04/18 12/14/21 Ondansetron [Ondansetron Odt] 4 mg PO Q6H PRN 01/28/19 12/14/21 oxyCODONE [Roxicodone] 10 mg PO QID MDD 8 5 mg tabs uses 01/28/19 08/29/21 spread out traZODone [Desyrel] 50 mg PO QPM PRN 12/14/21 12/14/21 Permethrin 5% Cream [Permethrin 30 applic TOP ONCE #60 ml 03/11/22 Cream] hydrOXYzine PAMOATE [Vistaril] 25 mg PO Q6H PRN #20 cap 03/11/22 Lidocaine Patch 5% [Lidoderm Patch] 1 each TOP DAILY PRN #20 patch 03/05/23 - Allergies Allergies/Adverse Reactions: Allergies Allergy/AdvReac Type Severity Reaction Status Date / Time ceftriaxone sodium * Allergy Severe RASH,HIVES, Verified 03/11/22 13:06 [From Rocephin] BURNING,ITC JAMIE cephalexin monohydrate * Allergy Severe RASH,HIVES, Verified 03/11/22 13:06 [From Keflex] BURNING,ITC JAMIE ciprofloxacin Allergy Severe RASH,HIVES, Verified 03/11/22 13:06 BURNING,ITC JAMIE phenazopyridine HCl * Allergy Severe SWELLING Verified 03/11/22 13:06 [From Pyridium] OF AIRWAY Sulfa (Sulfonamide Allergy Severe RASH,HIVES, Verified 03/11/22 13:06 Antibiotics) BURNING,ITC JAMIE gentamicin Allergy Edema Verified 03/11/22 13:06 lamotrigine [From Lamictal] Allergy Hives Verified 03/11/22 13:06 levetiracetam [From Keppra] Allergy Anxiety Verified 03/11/22 13:06 lidocaine AdvReac Itching Verified 03/11/22 13:06 pregabalin AdvReac Hallucinati Verified 03/11/22 13:06 ons - Social History Does the pt smoke?: Yes Smoking Status: Current every day smoker Does the pt drink ETOH?: Yes Does the pt have substance abuse?: No - Immunizations Immunizations are current?: Yes Immunizations: TDAP >10years/unknown - POLST Patient has POLST: No POLST Status: Full Code PD ED PE NORMAL - Vitals Vital signs reviewed: Yes - General General: Alert and oriented X 3, No acute distress, Well developed/nourished - HEENT HEENT: Atraumatic, PERRL, EOMI, Moist mucous membranes - Neck Neck: Supple, no meningeal sign - Cardiac Cardiac: RRR, No murmur, Strong equal pulses - Respiratory Respiratory: No respiratory distress, Clear bilaterally - Derm Derm: Normal color, Warm and dry, No rash - Extremities Extremities: No deformity - Neuro Neuro: Alert and oriented X 3 - Psych Psych: Normal mood, Normal affect PD ED PE EXPANDED - Free text exam Free text exam: Reproducible chest wall tenderness, left inferolateral rib cage over rib 10. Results - Vitals Vitals: Vital Signs - 24 hr 03/05/23 09:31 Temperature 37 C Heart Rate 87 Respiratory 18 Rate Blood Pressure 130/82 H O2 Saturation 100 Oxygen O2 Source Room air - Rads (name of study) Chest x-ray Relevant Findings:: Final report received, See rad report (Negative) PD Medical Decision Making - ED course Complexity details: reviewed results, re-evaluated patient, considered differential, d/w patient ED course: The patient was worked up with x-ray of the chest which was negative. I discussed with the patient that she has not had any acute trauma and I would not expect any Acute fracture. We have discussed that most likely she strained her chest wall at the time of the fall and that some seemingly insignificant physical activity has flared this up. The patient is advised regarding symptomatic management at home. She is already on a pain management program and states that her normal pain meds are not helping the current pain she is having in her chest. We have discussed using a lidocaine patch and patient is open to that. We have discussed the usual indications for follow-up and return. Departure - Departure Disposition: 01 Home, Self Care Clinical Impression: Strain of chest wall Qualifiers: Encounter type: initial encounter Qualified Code(s): S29.011A - Strain of muscle and tendon of front wall of thorax, initial encounter Condition: Stable Instructions: ED Strain Chest Wall Ch Prescriptions: Lidocaine Patch 5% [Lidoderm Patch] 1 each TOP DAILY PRN #20 patch PRN Reason: Pain 5-7 Comments: Your x-ray looks great today. You have most likely strained your chest wall possibly either pulling the cartilage or the muscular attachments in between the ribs. These injuries can take weeks to months to heal and can flareup from time to time in between. To help with your pain control, a prescription for lidocaine patches has been electronically transmitted to the [facility] in [place]. Please follow-up your primary care physician if you have further concerns. You may also make use of ice, heat, and stretching to help with the rib pain.
[2023-03-05 11:26] VITALS: BP 132/84
== END 2023-03-05 11:25 | disposition home or self-care (01) ==
LOC: ED 09:28
DX: S29.011A Strain of muscle and tendon of front wall of thorax, initial encounter (principal); W19.XXXA Unspecified fall, initial encounter; F17.200 Nicotine dependence, unspecified, uncomplicated
CPT/HCPCS: 93005; 99283

== ENCOUNTER 2023-05-09 15:02 | Outpatient (CLI) | payer MEDICARE, MEDICAID ==
[2023-05-09 15:24] LABS: BASOPHILS % (AUTO) 0.6 %; EOSINOPHILS # (AUTO) 0.2 10^3/uL (0.0-0.7); EOSINOPHILS % (AUTO) 2.5 %; HCT - HEMATOCRIT 42.5 % (37.0-47.0); HGB - HEMOGLOBIN 14.1 g/dL (12.0-16.0); LYMPHOCYTES # (AUTO) 2.1 10^3/uL (1.5-3.5); LYMPHOCYTES % (AUTO) 30.6 %; MEAN CORPUSCULAR HEMOGLOBIN 30.9 pg (27.0-31.0); MEAN CORPUSCULAR HGB CONC 33.2 g/dL (32.0-36.0); MEAN PLATELET VOLUME 11.6 fL (7.9-10.8); MONOCYTES # (AUTO) 0.4 10^3/uL (0.0-1.0); MONOCYTES % (AUTO) 5.8 %; NEUTROPHILS # (AUTO) 4.2 10^3/uL (1.5-6.6); NEUTROPHILS % (AUTO) 60.2 %; PLT - PLATELET COUNT 80 10^3/uL (130-450); RED BLOOD COUNT 4.57 10^6/uL (4.20-5.40); RED CELL DISTRIBUTION WIDTH 12.9 % (12.0-15.0); WHITE BLOOD COUNT 6.9 x10^3/uL (4.8-10.8)
[2023-05-09 15:44] LABS: INR 1.6 (0.8-1.2); PT - PROTHROMBIN TIME 16.6 secs (9.9-12.6)
== END 2023-05-09 15:03 | disposition home or self-care (01) ==
LOC: LAB 15:02
PROVIDERS: ATTEND Nurse Practitioner Adult Health
DX: K74.60 Unspecified cirrhosis of liver (principal); D69.6 Thrombocytopenia, unspecified; E61.1 Iron deficiency
CPT/HCPCS: 36415; 85025; 85610

== ENCOUNTER 2023-05-15 15:09 | Outpatient (CLI) | payer MEDICARE, MEDICAID ==
[2023-05-15 15:35] LABS: ALBUMIN 4.4 g/dL (3.2-5.5); ALBUMIN/GLOBULIN RATIO 1.7 (1.0-2.2); BILIRUBIN,TOTAL 0.8 mg/dL (0.2-1.0); CALCIUM 9.5 mg/dL (8.5-10.3); CREATININE 0.7 mg/dL (0.4-1.0); POTASSIUM 3.8 mmol/L (3.5-5.0)
== END 2023-05-15 15:10 | disposition home or self-care (01) ==
LOC: LAB 15:09
PROVIDERS: ATTEND Nurse Practitioner Adult Health
DX: E87.6 Hypokalemia (principal); K74.60 Unspecified cirrhosis of liver
CPT/HCPCS: 36415; 80053

== ENCOUNTER 2023-11-09 04:20 | Outpatient (CLI) | payer MEDICARE, MEDICAID | END 2023-11-09 04:21 | disposition critical access hospital (66) | LOC: EMS 04:20 | DX: M54.2 Cervicalgia (principal); M54.6 Pain in thoracic spine | CPT/HCPCS: A0425; A0429 ==

== ENCOUNTER 2023-11-09 04:36 | Emergency (ER) | payer MEDICARE, MEDICAID ==
--- NOTE | 2023-11-09 05:46 | ED Physician Documentation ---
PD HPI BACK PAIN - Stated complaint Stated Complaint: BACK PAIN - Chief complaint Chief Complaint: Back Pain - History obtained from History obtained from: Patient, EMS - Additional information Additional information: BIBA. HPI from patient as well as from EMS. Patient's chief complaint is upper back pain, left parathoracic area; she says it feels like it is "under my scapula" (per patient). Patient says she developed fever 3 days ago to a Tmax of 102.4. This onset of fever also coincided with the onset of the back pain. Patient says she took a home COVID test which seemed to show a faint positive result; patient also notes that the COVID test was 2 years old. Patient contacted her primary care provider and a prescription for Paxlovid was provided. However, the patient says that when she went to the pharmacy, the pharmacist did not fill the prescription because they felt that the dosing was incorrect and, as her PCP's office was then closed, patient has not received nor taken any Paxlovid. Patient says she has not had any fever since early AM 11/08/23, but the upper back/left upper chest pain persists. She takes oxycodone for chronic low back pain; she says the upper back pain is new for her. She denies shortness of breath, cough, chest pain, numbness, weakness. The upper back pain radiates to the posterior aspect of her lower neck. Review of Systems Constitutional: reports: Fever, Sweats Cardiac: reports: Reviewed and negative Respiratory: reports: Reviewed and negative GI: reports: Reviewed and negative Musculoskeletal: reports: Back pain Neurologic: denies: Generalized weakness, Focal weakness, Numbness, Headache PD PAST MEDICAL HISTORY - Past Medical History Past Medical History: Yes Cardiovascular: Other Respiratory: None Neuro: Seizure disorder Endocrine/Autoimmune: None GI: GERD, Ulcers, Hiatal hernia, Chronic constipation, Hemorrhoids, Hepatitis, Cirrhosis, Other [employer]ELOPER: None : Frequency, Other HEENT: Chronic vision loss, Other Psych: Depression, Anxiety, Panic attacks, Post traumatic stress disorder Musculoskeletal: Chronic back pain Derm: None - Past Surgical History Past Surgical History: Yes General: Cholecystectomy Ortho: Other /[employer] DEVELOPER: Tubal ligation - Present Medications Home Medications: Ambulatory Orders Medication Instructions Recorded Confirmed Folic Acid 1 mg PO DAILY tablet 06/24/18 11/09/23 Potassium Chloride [K-Dur] 20 meq PO BID 08/04/18 11/09/23 Ondansetron [Ondansetron Odt] 4 mg PO Q6H PRN 01/28/19 11/09/23 oxyCODONE [Roxicodone] 10 mg PO QID MDD 8 5 mg tabs uses 01/28/19 11/09/23 spread out traZODone [Desyrel] 50 mg PO QPM PRN 12/14/21 11/09/23 Lidocaine Patch 5% [Lidoderm Patch] 1 each TOP DAILY PRN #20 patch 03/05/23 11/09/23 - Allergies Allergies/Adverse Reactions: Allergies Allergy/AdvReac Type Severity Reaction Status Date / Time ceftriaxone sodium * Allergy Severe RASH,HIVES, Verified 11/09/23 04:48 [From Rocephin] BURNING,ITC JAMIE cephalexin monohydrate * Allergy Severe RASH,HIVES, Verified 11/09/23 04:48 [From Keflex] BURNING,ITC JAMIE ciprofloxacin Allergy Severe RASH,HIVES, Verified 11/09/23 04:48 BURNING,ITC JAMIE phenazopyridine HCl * Allergy Severe SWELLING Verified 11/09/23 04:48 [From Pyridium] OF AIRWAY Sulfa (Sulfonamide Allergy Severe RASH,HIVES, Verified 11/09/23 04:48 Antibiotics) BURNING,ITC JAMIE gentamicin Allergy Edema Verified 11/09/23 04:48 lamotrigine [From Lamictal] Allergy Hives Verified 11/09/23 04:48 levetiracetam [From Keppra] Allergy Anxiety Verified 11/09/23 04:48 lidocaine AdvReac Itching Verified 11/09/23 04:48 pregabalin AdvReac Hallucinati Verified 11/09/23 04:48 ons - Social History Does the pt smoke?: Yes Smoking Status: Current every day smoker Does the pt drink ETOH?: Yes Does the pt have substance abuse?: No - Immunizations Immunizations are current?: Yes Immunizations: TDAP >10years/unknown - POLST Patient has POLST: No POLST Status: Full Code PD ED PE NORMAL - Vitals Vital signs reviewed: Yes - General General: Alert and oriented X 3, No acute distress, Well developed/nourished - HEENT HEENT: PERRL, EOMI, Moist mucous membranes - Neck Neck: Supple, no meningeal sign, No bony TTP - Cardiac Cardiac: RRR, No murmur - Respiratory Respiratory: No respiratory distress, Clear bilaterally - Derm Derm: No rash Results - Vitals Vitals: Vital Signs - 24 hr 11/09/23 11/09/23 04:44 07:06 Temperature 37.7 C Heart Rate 83 110 H Respiratory 18 20 Rate Blood Pressure 131/67 H 133/101 H O2 Saturation 98 93 Oxygen O2 Source Room air - Labs Labs: Laboratory Tests 11/09/23 11/09/23 11/09/23 06:00 06:04 06:36 WBC 2.0 L* RBC 4.80 Hgb 14.7 Hct 43.5 MCV 90.6 MCH 30.6 MCHC 33.8 RDW 12.8 Plt Count 47 L MPV 11.9 H Neut # (Auto) Not Reportable Lymph # (Auto) Not Reportable Daggett # (Auto) Not Reportable Eos # (Auto) Not Reportable Baso # (Auto) Not Reportable Absolute Nucleated RBC Not Reportable Total Counted 100 Band Neuts % (Manual) 4 Abnorm Lymph % (Manual) 0 Nucleated RBC % Not Reportable Neutrophils # (Manual) 1.0 L Lymphocytes # (Manual) 0.9 L Monocytes # (Manual) 0.2 Eosinophils # (Manual) 0.0 Basophils # (Manual) 0.0 Differential Comment MANUAL DIFFERENTIAL WBC Morphology NORMAL APPEARANCE Platelet Estimate DECREASED (<130,000) Platelet Morphology NORMAL APPEARANCE RBC Morph Micro Appear NORMAL APPEARANCE ESR Sodium 139 Potassium 3.8 Chloride 106 Carbon Dioxide 27 Anion Gap 6.0 BUN 9 Creatinine 0.8 Estimated GFR (MDRD) 74 L Glucose 112 H Calcium 9.4 Total Bilirubin 0.5 AST 38 ALT 17 Alkaline Phosphatase 79 C-Reactive Protein Total Protein 6.7 Albumin 4.5 Globulin 2.2 Albumin/Globulin Ratio 2.0 Lipase 30 Nasal Adenovirus (PCR) NOT DETECTED Nasal B. parapertussis DNA (PCR) NOT DETECTED Nasal Coronavir 229E PCR NOT DETECTED Nasal Coronavir HKU1 PCR NOT DETECTED Nasal Coronavir NL63 PCR NOT DETECTED Nasal Coronavir OC43 PCR NOT DETECTED Nasal Enterovir/Rhinovir PCR NOT DETECTED Nasal Influenza B PCR NOT DETECTED Nasal Influenza A PCR NOT DETECTED Nasal Parainfluen 1 PCR NOT DETECTED Nasal Parainfluen 2 PCR NOT DETECTED Nasal Parainfluen 3 PCR NOT DETECTED Nasal Parainfluen 4 PCR NOT DETECTED Nasal RSV (PCR) NOT DETECTED Nasal B.pertussis DNA PCR NOT DETECTED Nasal C.pneumoniae (PCR) NOT DETECTED [place] Human Metapneumo PCR NOT DETECTED Nasal M.pneumoniae (PCR) NOT DETECTED Nasal SARS-CoV-2 (PCR) DETECTED A 11/09/23 11/09/23 06:36 06:36 WBC RBC Hgb Hct MCV MCH MCHC RDW Plt Count MPV Neut # (Auto) Lymph # (Auto) Daggett # (Auto) Eos # (Auto) Baso # (Auto) Absolute Nucleated RBC Total Counted Band Neuts % (Manual) Abnorm Lymph % (Manual) Nucleated RBC % Neutrophils # (Manual) Lymphocytes # (Manual) Monocytes # (Manual) Eosinophils # (Manual) Basophils # (Manual) Differential Comment WBC Morphology Platelet Estimate Platelet Morphology RBC Morph Micro Appear ESR 3 Sodium Potassium Chloride Carbon Dioxide Anion Gap BUN Creatinine Estimated GFR (MDRD) Glucose Calcium Total Bilirubin AST ALT Alkaline Phosphatase C-Reactive Protein < 0.5 Total Protein Albumin Globulin Albumin/Globulin Ratio Lipase Nasal Adenovirus (PCR) Nasal B. parapertussis DNA (PCR) Nasal Coronavir 229E PCR Nasal Coronavir HKU1 PCR Nasal Coronavir NL63 PCR Nasal Coronavir OC43 PCR Nasal Enterovir/Rhinovir PCR Nasal Influenza B PCR Nasal Influenza A PCR Nasal Parainfluen 1 PCR Nasal Parainfluen 2 PCR Nasal Parainfluen 3 PCR Nasal Parainfluen 4 PCR Nasal RSV (PCR) Nasal B.pertussis DNA PCR Nasal C.pneumoniae (PCR) [place] Human Metapneumo PCR Nasal M.pneumoniae (PCR) Nasal SARS-CoV-2 (PCR) - Rads (name of study) chest xray Relevant Findings:: Prelim report reviewed, See rad report PD Medical Decision Making - ED course Complexity details: considered differential, d/w patient ED course: I have ordered a respiratory PCR panel as well as CBC, ER abdominal panel, and a chest x-ray. The results of these tests are pending at the end of my shift and thus care of patient is turned over to oncoming ED physician (Dr. Whelan)
[2023-11-09 07:06] LABS: BASOPHILS % (AUTO) 0.5 %; EOSINOPHILS % (AUTO) 0.5 %; HCT - HEMATOCRIT 43.5 % (37.0-47.0); HGB - HEMOGLOBIN 14.7 g/dL (12.0-16.0); LYMPHOCYTES % (AUTO) 43.6 %; MEAN CORPUSCULAR HEMOGLOBIN 30.6 pg (27.0-31.0); MEAN CORPUSCULAR HGB CONC 33.8 g/dL (32.0-36.0); MEAN CORPUSCULAR VOLUME 90.6 fL (81.0-99.0); MEAN PLATELET VOLUME 11.9 fL (7.9-10.8); MONOCYTES % (AUTO) 12.3 %; NEUTROPHILS % (AUTO) 42.6 %; PLT - PLATELET COUNT 47 10^3/uL (130-450); RED CELL DISTRIBUTION WIDTH 12.8 % (12.0-15.0)
[2023-11-09 07:09] VITALS: BP 133/101; O2SAT 93
[2023-11-09 07:18] LABS: ABNORMAL LYMPHS % (MANUAL) 0 %
[2023-11-09] MEDS ORDERED: HYDROmorphone 1 MG/ML CARPUJECT IVP PRN (07:22)
[2023-11-09] MEDS ORDERED: ONDANSETRON 4 MG/2 ML VIAL IVP STA (07:23)
[2023-11-09 07:30] LABS: B. PARAPERTUSSIS- RESP PCR PAN NOT DETECTED; B. PERTUSSIS- RESP PCR PANEL NOT DETECTED; C. PNEUMONIAE- RESP PCR PANEL NOT DETECTED; CORONAVIRUS 229E-RESP PCR NOT DETECTED; CORONAVIRUS HKU1-RESP PCR NOT DETECTED; CORONAVIRUS NL63-RESP PCR NOT DETECTED; CORONAVIRUS OC43-RESP PCR NOT DETECTED; HUMAN METAPNEUMOVIRUS NOT DETECTED; INFLUENZA A- RESP PCR PANEL NOT DETECTED; INFLUENZA B - RESP PCR PANEL NOT DETECTED; M. PNEUMONIAE- RESP PCR PANEL NOT DETECTED; PARAINFLUENZA VIRUS 1 NOT DETECTED; PARAINFLUENZA VIRUS 2 NOT DETECTED; PARAINFLUENZA VIRUS 3 NOT DETECTED; PARAINFLUENZA VIRUS 4 NOT DETECTED; RHINOVIRUS/ENTEROVIRUS NOT DETECTED; RSV- RESP PCR PANEL NOT DETECTED
[2023-11-09 07:32] LABS: SARS-CoV-2 -RESP PCR PANEL DETECTED
[2023-11-09 07:34] LABS: ALBUMIN 4.5 g/dL (3.2-5.5); BILIRUBIN,TOTAL 0.5 mg/dL (0.2-1.0); CALCIUM 9.4 mg/dL (8.5-10.3); CREATININE 0.8 mg/dL (0.6-1.3); POTASSIUM 3.8 mmol/L (3.5-4.5); TOTAL PROTEIN 6.7 g/dL (6.4-8.9)
[2023-11-09 07:52] LABS: BAND NEUTROPHILS % (MANUAL) 4 %; LYMPHOCYTES # (MANUAL) 0.9 10^3/uL (1.5-3.5); LYMPHOCYTES % (MANUAL) 43 %; MONOCYTES # (MANUAL) 0.2 10^3/uL (0.0-1.0)
[2023-11-09 07:53] LABS: DIFFERENTIAL COMMENT MANUAL DIFFERENTIAL
[2023-11-09 07:57] LABS: PLATELET ESTIMATE, MANUAL DECREASED (<130,000) (NORMAL); PLATELET MORPHOLOGY NORMAL APPEARANCE (NORMAL); RBC MORPHOLOGY (MULTIPLE) NORMAL APPEARANCE (NORMAL)
[2023-11-09 07:58] LABS: WBC MORPHOLOGY (MULTIPLE) NORMAL APPEARANCE (NORMAL)
--- NOTE | 2023-11-09 08:12 | XRAY Report ---
PROCEDURE: Chest 2V INDICATIONS: left upper back pain TECHNIQUE: 2 views of the chest were acquired. COMPARISON: 03/05/2023 FINDINGS: Surgical changes and devices: None. Lungs and pleura: No dense consolidation. No pleural effusions. Mediastinum: Normal heart size Bones and chest wall: Degenerative changes. IMPRESSION: No acute radiographic abnormality. Agree with preliminary report. Reviewed by: Wilbert Ewing MD on 11/09/2023 8:11 AM PST Approved by: Wilbert Ewing MD on 11/09/2023 8:11 AM PST Station ID: [id number]
--- NOTE | 2023-11-09 09:39 | ED Physician Documentation ---
ED Addendum - Addendum Addendum: 11/09/23 09:37 Patient received a signout from off going physician, please see their d ocumentation for further detail. In short patient 58-year-old female presenting to the emergency department with mid upper thoracic back pain associated with fever. Recently diagnosed with the SARS COVID virus through self testing at home. Afebrile, hemodynamically stable arrival to the emergency department. Lab work notable for leukopenia however patient has mild bandemia and chronic thromboc ytopenia unchanged from her baseline. No significant changes in electrolyte panels. PCR demonstrates she is positive for the SARS COVID virus. She was initially prescribed Paxlovid per her primary care doctor but this medication was not started. At this time she is not interested in resuming that medication. She was given dose hydromorphone in the emergency department with significant symptomatic relief. Of note her ESR and other inflammatory markers are negative and this is very reassuring as it would be extremely atypical for her to have a spinal cord infection or other serious underlying bacterial infection with negative ESR. Chest x-ray is reviewed by myself and is negative for acute intrathoracic pathology. On reevaluation patient found to be resting comfortably and in no acute distress. Will discharge at this time with instructions for use with Tylenol as well as instructions to continue to use her previously prescribed Roxicodone. Encouraged to follow-up with primary care. Clear return precautions given. Departure - Departure Disposition: 01 Home, Self Care Clinical Impression: COVID-19, Upper back pain Comments: Thank you for allowing us to care for you today would be general. Today in the emergency department you were evaluated for any possible dangerous or life-threatening medical condition. You are positive today for the SARS COVID virus. Please quarantine at home per current CDC guidelines. Please stay well-hydrated. As we discussed the remainder of your tests in the emergency department including the remainder of your blood work and chest x-ray were all very reassuring. I would like you to continue to use your previously prescribed for oxycodone. Please however take this medication only as prescribed. In addition to this you can take [id number] Tylenol, 650 mg every 6-8 hours as needed for fever or pain control. Please follow-up with your primary care doctor soon as possible. If it anytime you develop any new or worsening symptoms please not hesitate to return to the emergency department.
== END 2023-11-09 10:12 | disposition home or self-care (01) ==
LOC: EDUNIT# → ED 04:36
DX: U07.1 COVID-19 (principal); M54.6 Pain in thoracic spine; F17.200 Nicotine dependence, unspecified, uncomplicated; Z79.899 Other long term (current) drug therapy
CPT/HCPCS: 36415; 71046; 80053; 83690; 85025; 85651; 86140; 87633; 96374; 99284; J1170

== ENCOUNTER 2023-11-28 10:29 | Outpatient (CLI) | payer MEDICARE, MEDICAID ==
[2023-11-28 10:40] LABS: BASOPHILS % (AUTO) 0.7 %; EOSINOPHILS # (AUTO) 0.1 10^3/uL (0.0-0.7); EOSINOPHILS % (AUTO) 2.1 %; HCT - HEMATOCRIT 43.1 % (37.0-47.0); HGB - HEMOGLOBIN 14.2 g/dL (12.0-16.0); LYMPHOCYTES # (AUTO) 1.5 10^3/uL (1.5-3.5); LYMPHOCYTES % (AUTO) 27.1 %; MEAN CORPUSCULAR HEMOGLOBIN 31.1 pg (27.0-31.0); MEAN CORPUSCULAR HGB CONC 32.9 g/dL (32.0-36.0); MEAN CORPUSCULAR VOLUME 94.5 fL (81.0-99.0); MEAN PLATELET VOLUME 12.4 fL (7.9-10.8); MONOCYTES # (AUTO) 0.4 10^3/uL (0.0-1.0); MONOCYTES % (AUTO) 6.7 %; NEUTROPHILS # (AUTO) 3.6 10^3/uL (1.5-6.6); NEUTROPHILS % (AUTO) 63.2 %; PLT - PLATELET COUNT 66 10^3/uL (130-450); RED BLOOD COUNT 4.56 10^6/uL (4.20-5.40); RED CELL DISTRIBUTION WIDTH 12.7 % (12.0-15.0); WHITE BLOOD COUNT 5.7 x10^3/uL (4.8-10.8)
== END 2023-11-28 10:30 | disposition home or self-care (01) ==
LOC: LAB 10:29
PROVIDERS: ATTEND Nurse Practitioner
DX: D72.829 Elevated white blood cell count, unspecified (principal)
CPT/HCPCS: 36415; 85025

== ENCOUNTER 2024-01-27 08:00 | Outpatient (CLI) | payer MEDICARE, MEDICAID | END 2024-01-27 23:59 | disposition home or self-care (01) | LOC: PC 08:00 | PROVIDERS: ATTEND Nurse Practitioner Adult Health | DX: Z51.5 Encounter for palliative care (principal); M48.061 Spinal stenosis, lumbar region without neurogenic claudication; M16.12 Unilateral primary osteoarthritis, left hip; G89.4 Chronic pain syndrome; G62.9 Polyneuropathy, unspecified; G24.9 Dystonia, unspecified; R63.4 Abnormal weight loss; Z59.89 Other problems related to housing and economic circumstances; Z63.8 Other specified problems related to primary support group; F17.210 Nicotine dependence, cigarettes, uncomplicated; Z60.8 Other problems related to social environment; Z59.41 Food insecurity; K70.30 Alcoholic cirrhosis of liver without ascites; K70.0 Alcoholic fatty liver; F41.9 Anxiety disorder, unspecified; T76.91XA Unspecified adult maltreatment, suspected, initial encounter; Z79.899 Other long term (current) drug therapy; Z79.891 Long term (current) use of opiate analgesic | CPT/HCPCS: 99215 ==

== ENCOUNTER 2024-04-30 12:57 | Outpatient (CLI) | payer MEDICARE, MEDICAID ==
[2024-04-30 13:09] LABS: BASOPHILS % (AUTO) 0.7 %; EOSINOPHILS # (AUTO) 0.1 10^3/uL (0.0-0.7); EOSINOPHILS % (AUTO) 1.3 %; HCT - HEMATOCRIT 39.5 % (37.0-47.0); HGB - HEMOGLOBIN 13.1 g/dL (12.0-16.0); LYMPHOCYTES # (AUTO) 1.8 10^3/uL (1.5-3.5); LYMPHOCYTES % (AUTO) 32.7 %; MEAN CORPUSCULAR HEMOGLOBIN 31.2 pg (27.0-31.0); MEAN CORPUSCULAR HGB CONC 33.2 g/dL (32.0-36.0); MEAN PLATELET VOLUME 11.2 fL (7.9-10.8); MONOCYTES # (AUTO) 0.3 10^3/uL (0.0-1.0); MONOCYTES % (AUTO) 5.3 %; NEUTROPHILS # (AUTO) 3.3 10^3/uL (1.5-6.6); NEUTROPHILS % (AUTO) 59.8 %; PLT - PLATELET COUNT 85 10^3/uL (130-450); RED CELL DISTRIBUTION WIDTH 12.8 % (12.0-15.0); WHITE BLOOD COUNT 5.5 x10^3/uL (4.8-10.8)
== END 2024-04-30 12:58 | disposition home or self-care (01) ==
LOC: LAB 12:57
PROVIDERS: ATTEND Nurse Practitioner
DX: D72.829 Elevated white blood cell count, unspecified (principal)
CPT/HCPCS: 36415; 85025

== ENCOUNTER 2024-05-27 08:00 | Outpatient (CLI) | payer MEDICARE, MEDICAID | END 2024-05-27 23:59 | disposition home or self-care (01) | LOC: PC 08:00 | PROVIDERS: ATTEND Nurse Practitioner Adult Health | DX: Z51.5 Encounter for palliative care (principal); G89.4 Chronic pain syndrome; M54.50 Low back pain, unspecified; K70.30 Alcoholic cirrhosis of liver without ascites; R21 Rash and other nonspecific skin eruption; R63.4 Abnormal weight loss; F17.200 Nicotine dependence, unspecified, uncomplicated; F41.9 Anxiety disorder, unspecified; Z91.411 Personal history of adult psychological abuse | CPT/HCPCS: 99215 ==